=== PATIENT | male | born 1945 | race Caucasian/White ===

== ENCOUNTER → 2018-01-11 12:22 | Outpatient (CLI) | payer MEDICARE, SELFPAY ==
[2018-01-11 12:42] LABS: Absolute Lymphocyte Count 0.64 X10^3/ul (0.83-4.51); Absolute Neutrophil Count 18.3 X10^3/uL (2.0-7.7); Basophil# 0.01 X10^3/uL; Eosinophil# 0.01 X10^3/uL; Hematocrit 44.2 % (40-54); Hemoglobin 14.8 g/dl (13.0-16.5); Lymphocyte # 0.64 X10^3/ul (4.0); Lymphocyte % 3.2 % (19-41); Mean Corp Hgb Conc 33.5 g/gl (32-36); Mean Corpuscular Volume 92.7 fL (80-94); Mean Platelet Vol. 9.5 fl (6.2-12.0); Monocyte# 1.08 X10^3/uL; Monocyte% 5.4 % (0-10); Neutrophil # 18.29 X10^3/uL (2.7-7.7); Neutrophil % 91.1 % (47-70); Platelet Count 237 K/mm3 (150-450); RBC Distribution Width CV 13.8 % (11.6-14.6); RBC Distribution Width SD 46.8 fl (35.1-43.9); Red Blood Count 4.77 M/mm3 (4.6-6.2); White Blood Count 20.1 K/mm3 (4.4-11.0)
[2018-01-11 12:43] LABS: POSITIVE COUNT NO; POSITIVE DIFFERENTIAL NO; POSITIVE MORPHOLOGY NO
[2018-01-11 14:42] LABS: Anion Gap 10 (5-15); BUN 14 mg/dL (7-18); BUN/Creat Ratio 11.9 RATIO (10-20); Calcium,Total 8.4 mg/dL (8.5-10.1); Chloride 104 mmol/L (98-107); Creatinine, Serum 1.18 mg/dL (0.70-1.30); EST Glomerular Filtration Rate 65 mL/min (>60); Est Glom Filt Rate - Afr Amer 78 mL/min (>60); Glucose 95 mg/dL (74-106); Potassium 3.8 mmol/L (3.5-5.1); Sodium Level 136 mmol/L (136-145)
[2018-01-11 14:48] LABS: BNP,B-Type NATRIURETIC PEPTIDE 83.1 pg/mL (0-100)
== END ==
PROVIDERS: Family Provider Nurse Practitioner; PCP Nurse Practitioner; Visit Provider Nurse Practitioner
DX: R60.0 Localized edema (principal)
CPT/HCPCS: 80048; 83880; 85025; 85379

== ENCOUNTER → 2018-01-11 12:35 | Outpatient (CLI) | payer MEDICARE, SELFPAY ==
--- NOTE | 2018-01-11 12:40 | VDLE_ITS ---
Reason For Study: LLE pain RIGHT LEFT CFV is compressible, spontaneous, phasic, GSV is normal. competent and demonstrates normal CFV is compressible, spontaneous, phasic, augmentation. competent, and demonstrates normal Procedure augmentation. Exam performed in department. FV is compressible, spontaneous, phasic, The study was technically difficult. competent and demonstrates normal A preliminary report was called and/or faxed augmentation. to Shena Angelitavickie @ 1:00 pm @ [phone]. POP V is compressible, spontaneous, phasic, competent and demonstrates normal augmentation. T/P Trunk is compressible. PTV is compressible. LT Per V appears normal, relied on color doppler, unable to visualize with compression. Interpretation Summary Deep veins of the left lower extremity are patent and compressible segmentally. There is no evidence of left lower extremity deep vein thrombosis. Valvular competence appears intact within the proximal deep venous system on the left . The left greater saphenous vein appears patent and compressible segmentally. Ordering Physician: Shena Roberts Referring Physician: Shena Roberts Performed By: Stephania Velasquez, KODYCS, RVT
== END ==
PROVIDERS: Family Provider Nurse Practitioner; PCP Nurse Practitioner; Visit Provider Nurse Practitioner
DX: R60.0 Localized edema (principal)
CPT/HCPCS: 93971

== ENCOUNTER 2018-01-11 23:12 | Inpatient (IN) | payer MEDICARE, SELFPAY ==
[2018-01-11 16:31] VITALS: BP 128/69; PULSE 101; RESP 18; TEMP 37.7; O2SAT 93; BMI 34.7
[2018-01-11 23:25] VITALS: BP 131/68; PULSE 88; RESP 18; TEMP 36.7; O2SAT 95
--- NOTE | 2018-01-12 00:57 | ED.RN ---
see patient down time charting from [id number]
[2018-01-12 01:14] LABS: Anion Gap 11 (5-15); BUN 16 mg/dL (7-18); BUN/Creat Ratio 12.9 RATIO (10-20); Calcium,Total 8.4 mg/dL (8.5-10.1); Chloride 101 mmol/L (98-107); Creatinine, Serum 1.24 mg/dL (0.70-1.30); EST Glomerular Filtration Rate 61 mL/min (>60); Est Glom Filt Rate - Afr Amer 74 mL/min (>60); Estimated Creatinine Clearance 60.84 ml/min; Glucose 93 mg/dL (74-106); Potassium 3.7 mmol/L (3.5-5.1); Sodium Level 136 mmol/L (136-145)
[2018-01-12 01:17] LABS: Differential Indicated SCAN CRITERIA MET; Hematocrit 42.8 % (40-54); Hemoglobin 14.2 g/dl (13.0-16.5); Mean Corp Hgb Conc 33.2 g/gl (32-36); Mean Corpuscular Hgb 30.9 pg (27.0-32.0); Mean Platelet Vol. 9.6 fl (6.2-12.0); Monocyte% 4.6 % (0-10); POSITIVE COUNT NO; POSITIVE DIFFERENTIAL YES; POSITIVE MORPHOLOGY NO; Platelet Count 226 K/mm3 (150-450); RBC Distribution Width CV 14.2 % (11.6-14.6); RBC Distribution Width SD 47.9 fl (35.1-43.9); White Blood Count 24.4 K/mm3 (4.4-11.0)
[2018-01-12 01:18] LABS: Absolute Lymphocyte Count 0.98 X10^3/ul (0.83-4.51); Absolute Neutrophil Count 22.2 X10^3/uL (2.0-7.7); Basophil# 0.01 X10^3/uL; Lymphocyte # 0.98 X10^3/ul (4.0); Monocyte# 1.13 X10^3/uL; Neutrophil # 22.15 X10^3/uL (2.7-7.7)
[2018-01-12 01:19] LABS: Erythrocyte Sedimentation Rate 19 mm/hr (0-20)
--- NOTE | 2018-01-12 02:14 | ED.DCSUM_ITS ---
- ER Visit Summary Date of Service: 01/12/18 Chief Complaint: Left lower extremity cellulitis History of Present Illness: The patient is a 72 M presents after PCP office called sending the patient here to the ED. States some have slight left lower extremity redness yesterday. States that after wearing compression stockings. States he came to the ED, however due to it being present he left and follow-up with his PCP office today. States he is given antibiotic injection, had outpatient labs and ultrasound study of the leg. Reported ultrasound of the left leg was negative for DVT. Unclear on what prescription for antibiotics was given was given 2 doses. Reported white count was 20. He is not a diabetic. Denies fever. Denies similar symptoms in the past. Physical Examination: General: Alert and oriented ?3, no acute distress HEENT: Normocephalic, atraumatic. Moist mucosa membranes Neck: supple, nontender. Cardiovascular: Regular rate and rhythm, no murmurs Respiratory: Normal breath sounds, symmetric, no distress Abdomen: Soft, nontender, nondistended Extremities: left lower extremity: Asymmetric swelling of the calf appears nontender. There is circumferential erythema distal leg with anterior erythema up to the mid tibia. There is small scabs distal third of the tibia with no active drainage. Pulses intact distally. Neuro: no focal neurological deficits. Test Results: WBC 25. Creatinine 1.24. Blood cultures ?2. Emergency Department Course and Treatment: Patient failing outpatient therapy. Temp of 99.9 in the ED. blood culture ?2 given. He was started on Zosyn and vancomycin. Initially patient states he was not going to stay in the ED and just wanted treatment to go home and take care of his spouse. Therefore I did speak with covering PCP, Dr. Stevens, agrees with the current plan with labs and antibiotics with close outpatient follow-up and return if worsening symptoms. However, labs return white count 24, elevated from previous. In addition and increasing erythema past the initial line marked for my evaluation. Encouraged patient to stay due to worsening symptoms. He did manage to arrange care for his mother with his son. Spoke with Dr. Hall for admission. Does meet sepsis criteria however is not toxic. Treatment Plan: [] Disposition: Admission Impression: 1. Left lower extremity cellulitis 2. Sepsis This note was generated with [employer] software. It may contain incorrect words, spelling, and punctuation that were not noted in review of the chart prior to signing ED Disposition - Plan for ED Patient: Disposition: Acute Care Hospital [facility] Chief Complaint: Cellulitis Diagnosis: Left leg cellulitis, Sepsis Referrals: Shena Roberts [Primary Care Provider] -
--- NOTE | 2018-01-12 04:35 | PCM.RX.CS ---
Consult Pharmacy has been consulted to manage selected antiobiotic: Vancomycin Type of Consult: New start Suspected Infection: Skin/Soft tissue Prior Doses of Antibiotics Received/Current Regimen: Medications Vancomycin HCl (Vancomycin) 1,000 mg in 200 mls @ 200 mls/hr IV Q12H TORI Previous medications Vancomycin HCl 1,500 mg in 500 mls IV x1 given ED 01/11/18 @2030 Weight used for dosin.9 kg Estimated Creatinine Clearance: 79 Goal Trough: 10-15 mcg/mL Pharmacy Plan for Drug Dosing: Pharmacy Service will continue to monitor and adjust dosing as required. Follow-Up Labs: Trough Vancomycin Labs to be done on [date and time ordered]: 01/13/18 @1361
[2018-01-12 05:20] VITALS: BMI 35.0
[2018-01-12 05:24] VITALS: BMI 35.0
[2018-01-12 05:25] VITALS: BP 109/69; PULSE 123; RESP 16; TEMP 37.6; O2SAT 94
[2018-01-12] MEDS: Heparin Injection (Vial) 5,000 UNIT/ML VIAL 5000 UNIT SC ×3 (05:32→22:40)
[2018-01-12] MEDS: Piperacil/Tazobactam 3.375 GM Q8 PREMIX IV (05:32)
[2018-01-12] MEDS: Morphine 2 MG/ML Syringe IV (06:26)
[2018-01-12 07:12] LABS: Absolute Lymphocyte Count 0.95 X10^3/ul (0.83-4.51); Absolute Neutrophil Count 18.7 X10^3/uL (2.0-7.7); Basophil# 0.02 X10^3/uL; Basophil% 0.1 % (0-1); Eosinophil# 0.01 X10^3/uL; Hematocrit 41.8 % (40-54); Hemoglobin 13.7 g/dl (13.0-16.5); Lymphocyte # 0.95 X10^3/ul (4.0); Lymphocyte % 4.6 % (19-41); Mean Corp Hgb Conc 32.8 g/gl (32-36); Mean Corpuscular Hgb 30.5 pg (27.0-32.0); Mean Corpuscular Volume 93.1 fL (80-94); Mean Platelet Vol. 9.1 fl (6.2-12.0); Monocyte# 0.99 X10^3/uL; Monocyte% 4.8 % (0-10); Neutrophil # 18.72 X10^3/uL (2.7-7.7); Neutrophil % 90.2 % (47-70); Platelet Count 186 K/mm3 (150-450); RBC Distribution Width CV 14.3 % (11.6-14.6); RBC Distribution Width SD 48.2 fl (35.1-43.9); Red Blood Count 4.49 M/mm3 (4.6-6.2); White Blood Count 20.8 K/mm3 (4.4-11.0)
[2018-01-12 07:13] LABS: POSITIVE COUNT NO; POSITIVE DIFFERENTIAL NO; POSITIVE MORPHOLOGY NO
[2018-01-12] MEDS: 0.9% NaCl Peripheral Flush Adult/Peds IV (07:26)
[2018-01-12] MEDS: 0.9% NaCl IVPB Med Flush (250 mL) 15 ML IV (07:26)
[2018-01-12 07:28] LABS: Anion Gap 9 (5-15); BUN 15 mg/dL (7-18); Calcium,Total 8.2 mg/dL (8.5-10.1); Chloride 104 mmol/L (98-107); EST Glomerular Filtration Rate 79 mL/min (>60); Est Glom Filt Rate - Afr Amer 95 mL/min (>60); Estimated Creatinine Clearance 75.44 ml/min; Glucose 110 mg/dL (74-106); Potassium 3.4 mmol/L (3.5-5.1); Sodium Level 137 mmol/L (136-145)
[2018-01-12 08:30] VITALS: BP 108/61; PULSE 73; RESP 18; TEMP 37.2; O2SAT 95
[2018-01-12] MEDS: Gabapentin 300 MG Capsule PO ×2 (08:30→16:56)
[2018-01-12] MEDS: amLODIPine 2.5 MG Tablet PO (08:30)
[2018-01-12] MEDS: Aspirin 81 MG TAB.CHEW PO (08:30)
--- NOTE | 2018-01-12 08:57 | PN_ITS ---
Subjective: Chief complaint: Follow-up after admission for acute cellulitis of the left lower extremity. Patient seen and examined. No acute events overnight. He is still complaining of left leg pain, worsening upon standing. Denies fever chills. Vital signs are stable. - Physical Exam General: Alert, Oriented x3, Cooperative, No apparent distress HEENT: Atraumatic, PERRLA, EOMI Oral: Moist Mucosa, No Gingival or Mucosal Lesions/ Ulcerations Neck: Supple, No JVD, Negative Carotid Bruits, Trachea Midline, Thyroid Normal Size and Texture Lungs: Clear to auscultation, No rhonchi, No wheeze, Diminished Cardiovascular: Regular rate, Regular Rhythm, Normal S1, Normal S2 Abdomen: Bowel Sounds Present, Soft, Non Tender, Non-Distended, No Hepato- splenomegaly Extremities: No clubbing, No cyanosis, No edema Skin: No rashes, No breakdown Lymphatic: No Cervical, Supraclavicular, or Inguinal Adenopathy Neurological: Cranial nerves II-XII grossly intact, Motor Exam 5/5 strength throughout Psych/Mental Status: Normal Affect, Appropriate, Alert and oriented to time, place, person, mood and affect Vital Signs Temp Pulse Resp BP Pulse Ox 98.9 F 73 18 108/61 95 01/12/18 08:30 01/12/18 08:30 01/12/18 08:30 01/12/18 08:30 01/12/18 08:30 Oxygen Delivery Method Room Air Weight: 261 lb 14.546 oz Body Mass Index (BMI) 35.0 Intake and Output for Last 24 Hours 01/10/18 01/11/18 01/12/18 23:59 23:59 23:59 Intake Total 635 / 635 Balance 635 / 635 Laboratory Tests Past 24 Hrs 01/12/18 01/12/18 06:41 06:41 WBC 20.8 H RBC 4.49 L Hgb 13.7 Hct 41.8 MCV 93.1 MCH 30.5 MCHC 32.8 RDW 14.3 RDW Differential 48.2 H Plt Count 186 MPV 9.1 Immature Gran % (Auto) 0.300 Neut % (Auto) 90.2 H Lymph % (Auto) 4.6 L [place] % (Auto) 4.8 Eos % (Auto) 0.0 Baso % (Auto) 0.1 Absolute Neuts (auto) 18.7 H Absolute Lymphs (auto) 0.95 Total Counted Not Reportable Sodium 137 Potassium 3.4 L Chloride 104 Carbon Dioxide 24.0 Anion Gap 9 BUN 15 Creatinine 1.00 Estim Creat Clear Calc 75.44 Est GFR (MDRD) Af Amer 95 Est GFR (MDRD) Non-Af 79 BUN/Creatinine Ratio 15.0 Glucose 110 H Calcium 8.2 L Medical Necessity - Tobacco Use Smoking Status: Former smoker Tobacco Use: Pipe Assessment/Plan This is a 72 years old male patient presented to the emergency room because of right leg pain, swelling and erythema and he was found to have acute cellulitis of the left lower extremity. #1 acute left lower extremity cellulitis: He is on IV vancomycin and Zosyn. He still complaining of left leg pain. Denies fever chills. He does have leukocytosis. No evidence of sepsis or severe sepsis. patient had venous Doppler of the left lower extremity that revealed no evidence of acute DVT, report reviewed. He is on IV morphine for pain. Patient is not diabetic and no risk for MRSA. Plan: DC IV vancomycin and Zosyn, start IV Unasyn, repeat CBC and BMP tomorrow morning, MRSA screening, start OxyIR p.o. as needed for pain. #2 hypokalemia: Mild, potassium of 3.4. Order given to give K Dur 40 mEq p.o. ? 1, plan to repeat BMP tomorrow morning. #3 hyperlipidemia: Continue statins. #4 hypertension: Blood pressure stable, continue Norvasc, metoprolol and aspirin. #5 DVT prophylaxis: Subcu heparin. This note was generated with [employer] dictation software. It may contain incorrect words, spelling, and punctuation that were not noted in checking the note before signing. Code Visit Inpatient E&M: 61016 Subs Hosp L2
--- NOTE | 2018-01-12 11:10 | CASEMGMT ---
Face to Face with patient for initial transition planning/care coordination assessment. VINICIO LEONG introduced self and role at [facility], pt voices understanding and consents to assessment at this time. Pt is sitting up in bed in no distress at this time. Pt A/O x4 at this time and answers all questions appropriately at this time. Care providers, pharmacy, and demographics verified. See attached link. Pt voices no further concerns/needs at this time. Advised pt to ask for CM if any further questions/concerns/needs arise, voices understanding. PLAN: [place] VINICIO LEONG
[2018-01-12] MEDS: 0.9% Normal Saline 1,000 ML 100 ML IV (11:21)
[2018-01-12 11:36] LABS: M R Staph aureus DNA By PCR Negative (Negative); Probe Check PASS; Specimen Processing Control PASS
[2018-01-12 14:30] VITALS: BP 110/57; PULSE 98; RESP 18; TEMP 37.7; O2SAT 95
[2018-01-12 22:28] VITALS: BP 117/67; PULSE 136; RESP 18; TEMP 37.8; O2SAT 96
--- NOTE | 2018-01-12 22:33 | NURSING ---
CPS NOTIFIED FOR STAT EKG PER PRIMARY RN PT IRREGULAR AND TACHY IN 130'S PT ASYMPTOMATIC, RESTING IN BED. PT REPORTS HE GETS THIS AT TIMES AND HE TAKES PRN METOPROLOL AT HOME (ON HOME MED LIST) WILL NOTIFY DR
[2018-01-12 22:53] VITALS: PULSE 135
--- NOTE | 2018-01-12 23:02 | EKG12_ITS ---
Test Reason : AFIB Blood Pressure : / mmHG Vent. Rate : 138 BPM Atrial Rate : 127 BPM P-R Int : 000 ms QRS Dur : 086 ms QT Int : 296 ms P-R-T Axes : 000 006 144 degrees QTc Int : 448 ms Atrial fibrillation Nonspecific ST and T wave abnormality , probably digitalis effect Abnormal ECG Confirmed by YASIR COLVIN, ALLISON ([id number]), material expeditor DUSTIN CONNELLY ([id number]) on 01/25/2018 3:56:53 PM Referred By: DR MACKEY Confirmed By:ALLISON COOLEY MD
--- NOTE | 2018-01-12 23:03 | NURSING ---
UPDATED DR MACKEY ON STAT EKG SEE PHYSICIAN NOTIFICATION. TRANSFER TO PCU 103. NURSING SUPV AWARE AND GAVE ROOM ASSIGNMENT TO THIS RN. PRIMARY RN AWARE. PT AWARE
[2018-01-12 23:14] VITALS: BP 117/67; PULSE 138
[2018-01-12] MEDS: Metoprolol Tartrate 25 MG Tablet PO (23:14)
[2018-01-12] MEDS: Acetaminophen 325 MG Tablet 650 MG PO (23:14)
[2018-01-12] MEDS: Atorvastatin Calcium 10 MG Tablet PO (23:15)
--- NOTE | 2018-01-12 23:35 | NURSING ---
REPORT GIVEN TO HOLLY CHARGE NURSE ON PCU
[2018-01-13] VITALS (37 sets, daily range): BP systolic 100–130; BP diastolic 50–92; PULSE 83–179; RESP 18–24; TEMP 36.6–37.5; O2SAT 93–120
[2018-01-13] MEDS: oxyCODONE 5 MG Tablet PO (00:32)
--- NOTE | 2018-01-13 00:46 | NURSING ---
Addendum entered by Marsha Metcalf 01/13/18 02:19: time should be 01/12/18 9000 Original Note: Transported patient via bed to PCU 103, reported to Clarice CHIEF CONSTRUCTION INSPECTOR that patient did not get the oxyir as stated in report.
[2018-01-13] MEDS: Heparin Injection (Vial) 5,000 UNIT/ML VIAL 5000 UNIT SC (05:53)
[2018-01-13] MEDS: 0.9% NaCl Peripheral Flush Adult/Peds IV ×2 (05:58→09:36)
[2018-01-13 07:02] LABS: Absolute Lymphocyte Count 1.05 X10^3/ul (0.83-4.51); Absolute Neutrophil Count 12.2 X10^3/uL (2.0-7.7); Basophil# 0.01 X10^3/uL; Basophil% 0.1 % (0-1); Eosinophil# 0.08 X10^3/uL; Eosinophils% 0.6 % (0-5); Hematocrit 39.6 % (40-54); Hemoglobin 12.9 g/dl (13.0-16.5); Lymphocyte # 1.05 X10^3/ul (4.0); Lymphocyte % 7.3 % (19-41); Mean Corp Hgb Conc 32.6 g/gl (32-36); Mean Corpuscular Hgb 30.9 pg (27.0-32.0); Mean Corpuscular Volume 94.7 fL (80-94); Monocyte# 0.97 X10^3/uL; Monocyte% 6.7 % (0-10); Neutrophil # 12.22 X10^3/uL (2.7-7.7); Platelet Count 192 K/mm3 (150-450); RBC Distribution Width CV 14.2 % (11.6-14.6); RBC Distribution Width SD 47.7 fl (35.1-43.9); Red Blood Count 4.18 M/mm3 (4.6-6.2); White Blood Count 14.4 K/mm3 (4.4-11.0)
[2018-01-13 07:13] LABS: POSITIVE COUNT NO; POSITIVE DIFFERENTIAL NO; POSITIVE MORPHOLOGY NO
[2018-01-13 07:47] LABS: Anion Gap 9 (5-15); BUN 13 mg/dL (7-18); BUN/Creat Ratio 14.4 RATIO (10-20); Calcium,Total 8.1 mg/dL (8.5-10.1); Chloride 107 mmol/L (98-107); EST Glomerular Filtration Rate 88 mL/min (>60); Est Glom Filt Rate - Afr Amer 106 mL/min (>60); Estimated Creatinine Clearance 83.83 ml/min; Glucose 94 mg/dL (74-106); Potassium 3.8 mmol/L (3.5-5.1); Sodium Level 140 mmol/L (136-145)
--- NOTE | 2018-01-13 08:08 | EKG12_ITS ---
Test Reason : DYSRHYTHMIA Blood Pressure : / mmHG Vent. Rate : 119 BPM Atrial Rate : 066 BPM P-R Int : 000 ms QRS Dur : 086 ms QT Int : 318 ms P-R-T Axes : 000 005 121 degrees QTc Int : 447 ms Atrial fibrillation Abnormal ECG Confirmed by THEO COLVIN, ALEKSANDR ([id number]), staff editor DUSTIN CONNELLY ([id number]) on 01/17/2018 1:46:52 PM Referred By: NIGEL Confirmed By:ALEKSANDR VENEGAS MD
--- NOTE | 2018-01-13 08:27 | ECHOD_ITS ---
Reason For Study: AFIB Procedure This was a 2D Doppler, Color Flow transthoracic echocardiogram. Exam performed portable in patient room. Left Ventricle Normal LV size. Left ventricular systolic function is normal. The estimated ejection fraction is 60 %. Unable to assess diastolic dysfunction. No regional wall motion abnormalities noted. Right Ventricle Normal RV size. Normal systolic function. Atria The left atrium is mildly enlarged. Normal right atrium. Mitral Valve Normal mitral valve. Tricuspid Valve Normal tricuspid valve. Mild to moderate (1-2+) tricuspid valve insufficiency. Pulmonary artery systolic pressure is 28 mmHg. Aortic Valve The aortic valve is not well visualized. Pulmonic Valve The pulmonic valve is not well visualized. Great Vessels Normal aortic root. The pulmonary artery is normal size. Normal inferior vena cava. Pericardium/Pleural No pericardial effusion. Medication Diluted definity 5ml given slow IV push to enhance endocardial definition. MMode/2D Measurements & Calculations LVIDd: 4.6 cm IVSd: 1.1 cm Ao root diam: 3.2 cm LVIDs: 3.3 cm LVPWd: 1.1 cm RVDd: 4.1 cm FS: 28.2 % LAV(MOD-bp): 66.9 ml EDV(MOD-sp4): 76.7 ml EDV(MOD-sp2): 94.1 ml LAV(MOD-bp) Indexed: 28.0 ml/m2 ESV(MOD-sp4): 30.2 ml EF(MOD-sp2): 63.9 % LAV(MOD-sp2): 73.8 ml EF(MOD-sp4): 60.6 % LAV(MOD-sp4): 56.5 ml SV(MOD-sp4): 46.5 ml SV(MOD-sp2): 60.2 ml LA A4 area: 22.0 cm2 RA A4 area: 16.7 cm2 Doppler Measurements & Calculations MV E max marcin: 116.2 cm/sec Ao V2 max: 157.5 cm/sec LV V1 max: 96.9 cm/sec Ao max P.0 mmHg LV V1 max P.8 mmHg TR max marcin: 258.6 cm/sec TR max P.8 mmHg Interpretation Summary Normal LV size. Left ventricular systolic function is normal. The estimated ejection fraction is 60 %. Unable to assess diastolic dysfunction. Mild to moderate (1-2+) tricuspid valve insufficiency. Pulmonary artery systolic pressure is 28 mmHg. Ordering Physician: Mazin aJquez Referring Physician: Shena Roberts Performed By: Susan Walden, RDCS, RVT
--- NOTE | 2018-01-13 08:31 | PCM.PROGNOTE ---
Subjective: Chief complaint: Follow-up after admission for acute left lower extremity cellulitis. Overnight, he developed A. fib with RVR and was transferred to PCU. Patient seen and examined. No acute events overnight. He mentioned that last night he felt that his heart is beating fast, palpitation and he was slight shortness of breath. He denied chest pain, dizziness or lightheadedness. He did mention that long time ago, he was told that his heart was beating fast, was in the 300s and he was given IV medication that took care of the problem. Apparently, he may have SVT at that time. More recently, he has been having issues with palpitation and racing heart for which his doctor asked him to take metoprolol as needed. There is no official diagnosis of atrial fibrillation or flutter. Still complaining of left leg pain and swelling, erythema is coming down, improving. At this time, his heart rate still in the 130s, blood pressure stable, afebrile, pulse ox is maintained on room air. - Physical Exam General: Alert, Oriented x3, Cooperative, No apparent distress HEENT: Atraumatic, PERRLA, EOMI Oral: Moist Mucosa, No Gingival or Mucosal Lesions/ Ulcerations Neck: Supple, No JVD, Negative Carotid Bruits, Trachea Midline, Thyroid Normal Size and Texture Lungs: Clear to auscultation, No rhonchi, No wheeze, No rales, Diminished Cardiovascular: Normal S1, Normal S2, No murmurs, PMI Normal, Irregular Rate, Tachycardic Abdomen: Bowel Sounds Present, Soft, Non Tender, Non-Distended, No Hepato-splenomegaly, Obese Extremities: No clubbing, No cyanosis, No edema, - - Left leg: Erythema, swelling and hot to palpation, trace edema. Skin: No rashes, No breakdown Lymphatic: No Cervical, Supraclavicular, or Inguinal Adenopathy Neurological: Cranial nerves II-XII grossly intact, Neuro grossly intact Psych/Mental Status: Normal Affect, Appropriate, Alert and oriented to time, place, person, mood and affect Vital Signs Temp Pulse Resp BP Pulse Ox 97.8 F 103 H 20 H 125/75 H 100 01/13/18 06:03 01/13/18 06:55 01/13/18 06:03 01/13/18 06:03 04/22/18 06:03 Oxygen Delivery Method Room Air Weight: 261 lb 14.546 oz Body Mass Index (BMI) 35.0 Intake and Output for Last 24 Hours 01/11/18 01/12/18 01/13/18 23:59 23:59 23:59 Intake Total 3378 / 3378 Output Total 300 / 300 300 / 300 Balance 3078 / 3078 -300 / -300 Laboratory Tests Past 24 Hrs 01/12/18 01/12/18 01/13/18 09:55 23:18 02:50 WBC RBC Hgb Hct MCV MCH MCHC RDW RDW Differential Plt Count MPV Immature Gran % (Auto) Neut % (Auto) Lymph % (Auto) [place] % (Auto) Eos % (Auto) Baso % (Auto) Absolute Neuts (auto) Absolute Lymphs (auto) Total Counted Sodium Potassium Chloride Carbon Dioxide Anion Gap BUN Creatinine Estim Creat Clear Calc Est GFR (MDRD) Af Amer Est GFR (MDRD) Non-Af BUN/Creatinine Ratio Glucose Calcium Troponin I < 0.02 < 0.02 MRSA (PCR) Negative 01/13/18 01/13/18 01/13/18 06:47 06:47 06:47 WBC 14.4 H RBC 4.18 L Hgb 12.9 L Hct 39.6 L MCV 94.7 H MCH 30.9 MCHC 32.6 RDW 14.2 RDW Differential 47.7 H Plt Count 192 MPV 9.0 Immature Gran % (Auto) 0.300 Neut % (Auto) 85.0 H Lymph % (Auto) 7.3 L [place] % (Auto) 6.7 Eos % (Auto) 0.6 Baso % (Auto) 0.1 Absolute Neuts (auto) 12.2 H Absolute Lymphs (auto) 1.05 Total Counted Not Reportable Sodium 140 Potassium 3.8 Chloride 107 Carbon Dioxide 24.0 Anion Gap 9 BUN 13 Creatinine 0.90 Estim Creat Clear Calc 83.83 Est GFR (MDRD) Af Amer 106 Est GFR (MDRD) Non-Af 88 BUN/Creatinine Ratio 14.4 Glucose 94 Calcium 8.1 L Troponin I < 0.02 MRSA (PCR) Medical Necessity - Tobacco Use Smoking Status: Former smoker Tobacco Use: Pipe Assessment/Plan This is a 72 years old male patient presented to the emergency room because of right leg pain, swelling and erythema and he was found to have acute cellulitis of the left lower extremity. Overnight, he developed A. fib with RVR and was transferred to PCU. #1 acute left lower extremity cellulitis: He is on IV Unasyn. He still complaining of left leg pain. He had a spike of fever yesterday but not last night. White blood cell count is down to 14,000. He went into A. fib with RVR. Blood pressure stable. patient had venous Doppler of the left lower extremity that revealed no evidence of acute DVT, report reviewed. Plan: Continue same treatment. #2 A. fib with RVR: Overnight, heart rate went up to 180s. EKG revealed A. fib with RVR. This morning, heart rate has been fluctuating and jumping from 100 up to 130. Blood pressure stable. Patient is asymptomatic. He mentioned that he had a history of fast heart beats long time ago for which he received IV medication and took care of it. This was back in [id number]. More recently, he has been having issues with palpitation and racing heart for which her doctor asked him to take metoprolol as needed. He is on metoprolol p.o. Plan: EKG, 2D echocardiogram, cardiology consult, check TSH and serum magnesium, start IV Cardizem drip, start therapeutic Lovenox twice daily. His [id number] score for stroke risk is 2 based on his age and history of hypertension and he is at moderate to high risk for stroke and should be anticoagulated. #3 hypokalemia: Replaced and corrected, today's potassium is 3.8. #4 hyperlipidemia: Continue statins. #5 hypertension: Blood pressure stable, continue Norvasc, metoprolol and aspirin. #6 DVT prophylaxis: Subcu heparin. This note was generated with [employer] dictation software. It may contain incorrect words, spelling, and punctuation that were not noted in checking the note before signing. Code Visit Inpatient E&M: 53782 [facility] Hosp L3
--- NOTE | 2018-01-13 08:34 | PN_ITS ---
Subjective: Chief complaint: Follow-up after admission for acute left lower extremity cellulitis. Overnight, he developed A. fib with RVR and was transferred to PCU. Patient seen and examined. No acute events overnight. He mentioned that last night he felt that his heart is beating fast, palpitation and he was slight shortness of breath. He denied chest pain, dizziness or lightheadedness. He did mention that long time ago, he was told that his heart was beating fast, was in the 300s and he was given IV medication that took care of the problem. Apparently, he may have SVT at that time. More recently, he has been having issues with palpitation and racing heart for which his doctor asked him to take metoprolol as needed. There is no official diagnosis of atrial fibrillation or flutter. Still complaining of left leg pain and swelling, erythema is coming down, improving. At this time, his heart rate still in the 130s, blood pressure stable, afebrile, pulse ox is maintained on room air. - Physical Exam General: Alert, Oriented x3, Cooperative, No apparent distress HEENT: Atraumatic, PERRLA, EOMI Oral: Moist Mucosa, No Gingival or Mucosal Lesions/ Ulcerations Neck: Supple, No JVD, Negative Carotid Bruits, Trachea Midline, Thyroid Normal Size and Texture Lungs: Clear to auscultation, No rhonchi, No wheeze, No rales, Diminished Cardiovascular: Normal S1, Normal S2, No murmurs, PMI Normal, Irregular Rate, Tachycardic Abdomen: Bowel Sounds Present, Soft, Non Tender, Non-Distended, No Hepato- splenomegaly, Obese Extremities: No clubbing, No cyanosis, No edema, - - Left leg: Erythema, swelling and hot to palpation, trace edema. Skin: No rashes, No breakdown Lymphatic: No Cervical, Supraclavicular, or Inguinal Adenopathy Neurological: Cranial nerves II-XII grossly intact, Neuro grossly intact Psych/Mental Status: Normal Affect, Appropriate, Alert and oriented to time, place, person, mood and affect Vital Signs Temp Pulse Resp BP Pulse Ox 97.8 F 103 H 20 H 125/75 H 100 01/13/18 06:03 01/13/18 06:55 01/13/18 06:03 01/13/18 06:03 04/22/18 06:03 Oxygen Delivery Method Room Air Weight: 261 lb 14.546 oz Body Mass Index (BMI) 35.0 Intake and Output for Last 24 Hours 01/11/18 01/12/18 01/13/18 23:59 23:59 23:59 Intake Total 3378 / 3378 Output Total 300 / 300 300 / 300 Balance 3078 / 3078 -300 / -300 Laboratory Tests Past 24 Hrs 01/12/18 01/12/18 01/13/18 09:55 23:18 02:50 WBC RBC Hgb Hct MCV MCH MCHC RDW RDW Differential Plt Count MPV Immature Gran % (Auto) Neut % (Auto) Lymph % (Auto) [place] % (Auto) Eos % (Auto) Baso % (Auto) Absolute Neuts (auto) Absolute Lymphs (auto) Total Counted Sodium Potassium Chloride Carbon Dioxide Anion Gap BUN Creatinine Estim Creat Clear Calc Est GFR (MDRD) Af Amer Est GFR (MDRD) Non-Af BUN/Creatinine Ratio Glucose Calcium Troponin I < 0.02 < 0.02 MRSA (PCR) Negative 01/13/18 01/13/18 01/13/18 06:47 06:47 06:47 WBC 14.4 H RBC 4.18 L Hgb 12.9 L Hct 39.6 L MCV 94.7 H MCH 30.9 MCHC 32.6 RDW 14.2 RDW Differential 47.7 H Plt Count 192 MPV 9.0 Immature Gran % (Auto) 0.300 Neut % (Auto) 85.0 H Lymph % (Auto) 7.3 L [place] % (Auto) 6.7 Eos % (Auto) 0.6 Baso % (Auto) 0.1 Absolute Neuts (auto) 12.2 H Absolute Lymphs (auto) 1.05 Total Counted Not Reportable Sodium 140 Potassium 3.8 Chloride 107 Carbon Dioxide 24.0 Anion Gap 9 BUN 13 Creatinine 0.90 Estim Creat Clear Calc 83.83 Est GFR (MDRD) Af Amer 106 Est GFR (MDRD) Non-Af 88 BUN/Creatinine Ratio 14.4 Glucose 94 Calcium 8.1 L Troponin I < 0.02 MRSA (PCR) Medical Necessity - Tobacco Use Smoking Status: Former smoker Tobacco Use: Pipe Assessment/Plan This is a 72 years old male patient presented to the emergency room because of right leg pain, swelling and erythema and he was found to have acute cellulitis of the left lower extremity. Overnight, he developed A. fib with RVR and was transferred to PCU. #1 acute left lower extremity cellulitis: He is on IV Unasyn. He still complaining of left leg pain. He had a spike of fever yesterday but not last night. White blood cell count is down to 14,000. He went into A. fib with RVR. Blood pressure stable. patient had venous Doppler of the left lower extremity that revealed no evidence of acute DVT, report reviewed. Plan: Continue same treatment. #2 A. fib with RVR: Overnight, heart rate went up to 180s. EKG revealed A. fib with RVR. This morning, heart rate has been fluctuating and jumping from 100 up to 130. Blood pressure stable. Patient is asymptomatic. He mentioned that he had a history of fast heart beats long time ago for which he received IV medication and took care of it. This was back in [id number]. More recently, he has been having issues with palpitation and racing heart for which her doctor asked him to take metoprolol as needed. He is on metoprolol p.o. Plan: EKG, 2D echocardiogram, cardiology consult, check TSH and serum magnesium, start IV Cardizem drip, start therapeutic Lovenox twice daily. His [id number] score for stroke risk is 2 based on his age and history of hypertension and he is at moderate to high risk for stroke and should be anticoagulated. #3 hypokalemia: Replaced and corrected, today's potassium is 3.8. #4 hyperlipidemia: Continue statins. #5 hypertension: Blood pressure stable, continue Norvasc, metoprolol and aspirin. #6 DVT prophylaxis: Subcu heparin. This note was generated with [employer] dictation software. It may contain incorrect words, spelling, and punctuation that were not noted in checking the note before signing. Code Visit Inpatient E&M: 29219 [facility] Hosp L3
[2018-01-13] MEDS: Aspirin 81 MG TAB.CHEW PO (08:44)
[2018-01-13] MEDS: Gabapentin 300 MG Capsule PO ×2 (08:44→17:15)
[2018-01-13 09:00] LABS: Magnesium 1.9 mg/dL (1.6-2.6); Thyroid Stim Hormone (TSH) 2.95 uIU/mL (0.358-3.74)
--- NOTE | 2018-01-13 10:38 | PCM.CONS.C ---
Problem List (1) Atrial fibrillation Status: Acute (2) Hypertension Status: Chronic Qualifiers: Hypertension type: essential hypertension Qualified Code(s): I10 - Essential (primary) hypertension (3) Hyperlipidemia Status: Chronic Qualifiers: Hyperlipidemia type: unspecified Qualified Code(s): E78.5 - Hyperlipidemia, unspecified (4) Cellulitis of left leg Status: Acute Reason for Consult Date of Consultation: 01/13/18 History of Present Illness: The patient is a 72 year old white male with a past medical history of hypertension and hyperlipidemia and possible atrial fibrillation/flutter versus PSVT-remote who presents for evaluation of left lower extremity cellulitis and subsequently noted to develop atrial fibrillation with rapid ventricular response. The patient notes that many years ago he was evaluated by his PCP and at [facility] for concerns of a rapid heart rate of approximately 300 bpm. He states he was placed in the ICU and treated medically with IV medications. He notes his heart rate returned to normal. Since that time he has been treated with aspirin therapy as well as with as needed beta-mark therapy. He believes he underwent a remote transthoracic echocardiogram and exercise tolerance test both of which were reportedly unremarkable. He does not recall any other cardiovascular testing in the past. Most recently he has been complaining of left lower extremity edema, erythema, and tenderness. He was evaluated by his primary care physician. This included laboratory evaluation which demonstrated an elevated WBC of 20.1. He was referred to the [facility] ED for evaluation. His laboratory studies were reviewed. He was thought to have a left lower extremity cellulitis. He was subsequently placed in the hospital for further evaluation care. During his hospitalization he has developed atrial fibrillation with rapid ventricular response. He states he has not sensed a change in his heart rate or rhythm. He has not had any chest discomfort or difficulty breathing. He denies any history of near syncope or syncope. He states in the remote past following an arthroscopic procedure of his left knee he did have a DVT. He was treated with anticoagulant therapy. He denies any history of pulmonary embolism. He states as part of his recent evaluation he underwent repeat evaluation for DVT in the left lower extremity with a venous duplex study. According to his understanding the study was reported as negative. He has been placed in the PCU. He has had cardiac enzymes which have been negative. An outpatient BNP level was reported as negative. His ECG demonstrated atrial fibrillation with rapid ventricular response with nonspecific ST and T-wave change. He was placed on additional rate limiting therapy with IV diltiazem. He was also placed on anticoagulant therapy with subcutaneous Lovenox. He has remained in atrial fibrillation with an elevated heart rate. [] Past Medical History Allergies/Adverse Reactions: Allergies No Known Allergies Allergy (Verified 01/11/18 16:33) Home Medications: Ambulatory Orders Medication Instructions Recorded Aspirin [Aspirin, Baby] 81 mg PO DAILY@0800 05/03/14 Simvastatin [Simvastatin] 20 mg PO QHS 05/03/14 Gabapentin [Neurontin] 300 mg PO BID 01/12/18 Metoprolol Tartrate [Lopressor 50 mg PO Q2H PRN 01/12/18 (beta mark)] Past Medical History (Chronic Problems): Chronic Problems Hypertension (Chronic) Hyperlipidemia (Chronic) Surgical History: arthroscopy, knee - Left: Remote Smoking Status: Former smoker Tobacco Use: Pipe Alcohol: None Drugs: None Review of Systems - Review of Systems Cardiovascular: Reports: Peripheral Edema. Denies: Chest Discomfort, Shortness of Breath, Orthopnea, PND, Palpitations, Lightheadedness, Dizziness, Near Syncope, Syncope Respiratory: Denies: Cough, Sputum Production, Hemoptysis Gastrointestinal: Denies: Hematemesis, Hematochezia, Melena Genitourinary: Denies: Dysuria, Hematuria Skin: Denies: Rash Subjectve: This is a 72-year-old white male who appears to be resting comfortably at the moment in no acute distress. Objective: Vital Signs Temp Pulse Resp BP Pulse Ox 97.8 F 134 H 20 H 125/75 H 100 01/13/18 06:03 01/13/18 09:03 01/13/18 06:03 01/13/18 06:03 01/13/18 06:03 Oxygen Delivery Method Room Air Weight: 261 lb 14.546 oz Body Mass Index (BMI) 35.0 Intake and Output for Last 24 Hours 01/11/18 01/12/18 01/13/18 23:59 23:59 23:59 Intake Total 3378 / 3378 Output Total 300 / 300 300 / 300 Balance 3078 / 3078 -300 / -300 General: Awake, Alert, Oriented x 3, Cooperative, No Acute Distress Neck: No JVD Lungs: Clear to auscultation Cardiovascular: Irregular Rhythm, Normal S1, Normal S2 Vascular: No Carotid Bruits Abdomen: Bowel Sounds Present, Soft, Non Tender Extremities: Moderate LLE Edema Musculoskeletal: Erythema - LLE Neurological: No Focal Motor or Sensory Deficit, CN II-XII Intact 01/12/18 23:18: Troponin I < 0.02 01/13/18 02:50: Troponin I < 0.02 01/13/18 06:47: WBC 14.4 H, RBC 4.18 L, Hgb 12.9 L, Hct 39.6 L, MCV 94.7 H, MCH 30.9, MCHC 32.6, RDW 14.2, RDW Differential 47.7 H, Plt Count 192, MPV 9.0, Immature Gran % (Auto) 0.300, Neut % (Auto) 85.0 H, Lymph % (Auto) 7.3 L, [place] % (Auto) 6.7, Eos % (Auto) 0.6, Baso % (Auto) 0.1, Absolute Neuts (auto) 12.2 H, Total Counted Not Reportable 01/13/18 06:47: Sodium 140, Potassium 3.8, Chloride 107, Carbon Dioxide 24.0, Anion Gap 9, BUN 13, Creatinine 0.90, Est GFR (MDRD) Af Amer 106, Est GFR (MDRD) Non-Af 88, BUN/Creatinine Ratio 14.4, Glucose 94, Calcium 8.1 L 01/13/18 06:47: Troponin I < 0.02 01/13/18 06:47: Magnesium 1.9 Rhythm: Atrial fibrillation EKG: As noted above ECHO: Unavailable for review at this time Stress Test: Unavailable for review at this time Assessment/Plan 1. Atrial fibrillation with rapid ventricular response At the present time the patient remains in atrial fibrillation with an elevated heart rate. This is despite the aforementioned measures. The etiology of his atrial fibrillation may be multifactorial. This may be related to a combination of his age, history of hypertension, superimposed upon his underlying acute infectious disease related issue. His noninvasive evaluation has been negative thus far for evidence of an acute coronary syndrome. He is not felt to have evidence of an ongoing acute thromboembolic event. He will continue to be monitored. He will undergo follow-up evaluation with ECG, echocardiogram, and other studies as deemed appropriate. In the interim he will continue rate limiting therapy. It would not be unreasonable to attempt antiarrhythmic therapy such as IV amiodarone in attempt to regain sinus rhythm. He is on anticoagulant therapy as well. Also, he will continue evaluation care of his underlying infectious disease issue. 2. Hypertension The patient is on hypertensive therapy. This may need to be adjusted during his hospital course and depending upon what medications he requires for his other medical conditions, etc. 3. Hyperlipidemia He will continue lipid-lowering therapy as tolerated. 4. Cellulitis of the left lower extremity He will continue evaluation care which has included antibiotic therapy, etc. This note was generated with [employer] dictation software. It may contain incorrect words, spelling, and punctuation that were not noted in checking the note before signing.
[2018-01-13] MEDS: Metoprolol Tartrate 50 MG Tablet PO ×2 (10:48→21:33)
[2018-01-13] MEDS: amLODIPine 2.5 MG Tablet PO (10:49)
--- NOTE | 2018-01-13 10:49 | CON.PCM_ITS ---
Problem List (1) Atrial fibrillation Status: Acute (2) Hypertension Status: Chronic Qualifiers: Hypertension type: essential hypertension Qualified Code(s): I10 - Essential (primary) hypertension (3) Hyperlipidemia Status: Chronic Qualifiers: Hyperlipidemia type: unspecified Qualified Code(s): E78.5 - Hyperlipidemia , unspecified (4) Cellulitis of left leg Status: Acute Reason for Consult Date of Consultation: 01/13/18 History of Present Illness: The patient is a 72 year old white male with a past medical history of hypertension and hyperlipidemia and possible atrial fibrillation/flutter versus PSVT-remote who presents for evaluation of left lower extremity cellulitis and subsequently noted to develop atrial fibrillation with rapid ventricular response. The patient notes that many years ago he was evaluated by his PCP and at [facility] for concerns of a rapid heart rate of approximately 300 bpm. He states he was placed in the ICU and treated medically with IV medications. He notes his heart rate returned to normal. Since that time he has been treated with aspirin therapy as well as with as needed beta-mark therapy. He believes he underwent a remote transthoracic echocardiogram and exercise tolerance test both of which were reportedly unremarkable. He does not recall any other cardiovascular testing in the past. Most recently he has been complaining of left lower extremity edema, erythema, and tenderness. He was evaluated by his primary care physician. This included laboratory evaluation which demonstrated an elevated WBC of 20.1. He was referred to the [facility] ED for evaluation. His laboratory studies were reviewed. He was thought to have a left lower extremity cellulitis. He was subsequently placed in the hospital for further evaluation care. During his hospitalization he has developed atrial fibrillation with rapid ventricular response. He states he has not sensed a change in his heart rate or rhythm. He has not had any chest discomfort or difficulty breathing. He denies any history of near syncope or syncope. He states in the remote past following an arthroscopic procedure of his left knee he did have a DVT. He was treated with anticoagulant therapy. He denies any history of pulmonary embolism. He states as part of his recent evaluation he underwent repeat evaluation for DVT in the left lower extremity with a venous duplex study. According to his understanding the study was reported as negative. He has been placed in the PCU. He has had cardiac enzymes which have been negative. An outpatient BNP level was reported as negative. His ECG demonstrated atrial fibrillation with rapid ventricular response with nonspecific ST and T-wave change. He was placed on additional rate limiting therapy with IV diltiazem. He was also placed on anticoagulant therapy with subcutaneous Lovenox. He has remained in atrial fibrillation with an elevated heart rate. [] Past Medical History Allergies/Adverse Reactions: Allergies No Known Allergies Allergy (Verified 01/11/18 16:33) Home Medications: Ambulatory Orders Medication Instructions Recorded Aspirin [Aspirin, Baby] 81 mg PO DAILY@0800 05/03/14 Simvastatin [Simvastatin] 20 mg PO QHS 05/03/14 Gabapentin [Neurontin] 300 mg PO BID 01/12/18 Metoprolol Tartrate [Lopressor 50 mg PO Q2H PRN 01/12/18 (beta mark)] Past Medical History (Chronic Problems): Chronic Problems Hypertension (Chronic) Hyperlipidemia (Chronic) Surgical History: arthroscopy, knee - Left: Remote Smoking Status: Former smoker Tobacco Use: Pipe Alcohol: None Drugs: None Review of Systems - Review of Systems Cardiovascular: Reports: Peripheral Edema. Denies: Chest Discomfort, Shortness of Breath, Orthopnea, PND, Palpitations, Lightheadedness, Dizziness, Near Syncope, Syncope Respiratory: Denies: Cough, Sputum Production, Hemoptysis Gastrointestinal: Denies: Hematemesis, Hematochezia, Melena Genitourinary: Denies: Dysuria, Hematuria Skin: Denies: Rash Subjectve: This is a 72-year-old white male who appears to be resting comfortably at the moment in no acute distress. Objective: Vital Signs Temp Pulse Resp BP Pulse Ox 97.8 F 134 H 20 H 125/75 H 100 01/13/18 06:03 01/13/18 09:03 01/13/18 06:03 01/13/18 06:03 01/13/18 06:03 Oxygen Delivery Method Room Air Weight: 261 lb 14.546 oz Body Mass Index (BMI) 35.0 Intake and Output for Last 24 Hours 01/11/18 01/12/18 01/13/18 23:59 23:59 23:59 Intake Total 3378 / 3378 Output Total 300 / 300 300 / 300 Balance 3078 / 3078 -300 / -300 General: Awake, Alert, Oriented x 3, Cooperative, No Acute Distress Neck: No JVD Lungs: Clear to auscultation Cardiovascular: Irregular Rhythm, Normal S1, Normal S2 Vascular: No Carotid Bruits Abdomen: Bowel Sounds Present, Soft, Non Tender Extremities: Moderate LLE Edema Musculoskeletal: Erythema - LLE Neurological: No Focal Motor or Sensory Deficit, CN II-XII Intact 01/12/18 23:18: Troponin I < 0.02 01/13/18 02:50: Troponin I < 0.02 01/13/18 06:47: WBC 14.4 H, RBC 4.18 L, Hgb 12.9 L, Hct 39.6 L, MCV 94.7 H, MCH 30.9, MCHC 32.6, RDW 14.2, RDW Differential 47.7 H, Plt Count 192, MPV 9.0, Immature Gran % (Auto) 0.300, Neut % (Auto) 85.0 H, Lymph % (Auto) 7.3 L, [place] % (Auto) 6.7, Eos % (Auto) 0.6, Baso % (Auto) 0.1, Absolute Neuts (auto) 12.2 H , Total Counted Not Reportable 01/13/18 06:47: Sodium 140, Potassium 3.8, Chloride 107, Carbon Dioxide 24.0, Anion Gap 9, BUN 13, Creatinine 0.90, Est GFR (MDRD) Af Amer 106, Est GFR (MDRD ) Non-Af 88, BUN/Creatinine Ratio 14.4, Glucose 94, Calcium 8.1 L 01/13/18 06:47: Troponin I < 0.02 01/13/18 06:47: Magnesium 1.9 Rhythm: Atrial fibrillation EKG: As noted above ECHO: Unavailable for review at this time Stress Test: Unavailable for review at this time Assessment/Plan 1. Atrial fibrillation with rapid ventricular response At the present time the patient remains in atrial fibrillation with an elevated heart rate. This is despite the aforementioned measures. The etiology of his atrial fibrillation may be multifactorial. This may be related to a combination of his age, history of hypertension, superimposed upon his underlying acute infectious disease related issue. His noninvasive evaluation has been negative thus far for evidence of an acute coronary syndrome. He is not felt to have evidence of an ongoing acute thromboembolic event. He will continue to be monitored. He will undergo follow-up evaluation with ECG , echocardiogram, and other studies as deemed appropriate. In the interim he will continue rate limiting therapy. It would not be unreasonable to attempt antiarrhythmic therapy such as IV amiodarone in attempt to regain sinus rhythm. He is on anticoagulant therapy as well. Also, he will continue evaluation care of his underlying infectious disease issue. 2. Hypertension The patient is on hypertensive therapy. This may need to be adjusted during his hospital course and depending upon what medications he requires for his other medical conditions, etc. 3. Hyperlipidemia He will continue lipid-lowering therapy as tolerated. 4. Cellulitis of the left lower extremity He will continue evaluation care which has included antibiotic therapy, etc. This note was generated with [employer] dictation software. It may contain incorrect words, spelling, and punctuation that were not noted in checking the note before signing.
--- NOTE | 2018-01-13 10:54 | RAD_ITS ---
STUDY: X-RAY CHEST REASON FOR EXAM: Male, 72 years old. Atrial fibrillation. TECHNIQUE: Frontal and lateral views of the chest. COMPARISON: None. FINDINGS: The lungs are clear and expanded. There is no demonstrated pleural abnormality. Normal size heart. Normal mediastinum and hussein. Normal visualized pulmonary arteries. Normal visualized aortic arch and descending thoracic aorta. There are diffuse degenerative changes of the visualized thoracic spine. Normal visualized ribs, clavicles, and shoulders. There is no demonstrated abnormality of the visualized soft tissue structures of the upper abdomen. RAD/Chest PA and Lateral IMPRESSION: Normal x-ray examination of the chest. Electronically Signed: Isma Reilly MD at 14:22 EDT , Service support ,
[2018-01-13 11:00] LABS: AST(SGOT) 20 U/L (15-37); Alanine Aminotransfer ALT/SGPT 13 U/L (16-61); Albumin, Serum 2.3 g/dL (3.2-5.0); Alkaline Phosphatase 56 U/L (45-117); Bilirubin, Direct 0.18 mg/dL (0.00-0.30); Protein, Total 6.3 g/dL (6.4-8.2)
[2018-01-13] MEDS: Enoxaparin 100 MG/ML Syringe SC (17:15)
--- NOTE | 2018-01-13 19:30 | NURSING ---
Bedside report received from VINICIO henning at 1920. At this time, cardizem gtt was running at 5 mg/hr and the amiodarone gtt was on bag #2 at 16.667 mL/hr.
[2018-01-13] MEDS: Atorvastatin Calcium 10 MG Tablet PO (21:35)
[2018-01-14] VITALS (42 sets, daily range): BP systolic 102–149; BP diastolic 70–113; PULSE 72–107; RESP 14–23; TEMP 36.6–36.9; O2SAT 92–98
[2018-01-14] MEDS: 0.9% NaCl Peripheral Flush Adult/Peds IV (00:01)
[2018-01-14] MEDS: Enoxaparin 100 MG/ML Syringe SC ×2 (05:32→17:43)
--- NOTE | 2018-01-14 05:55 | EKG12_ITS ---
Test Reason : AM EKG Blood Pressure : / mmHG Vent. Rate : 107 BPM Atrial Rate : 127 BPM P-R Int : 000 ms QRS Dur : 088 ms QT Int : 362 ms P-R-T Axes : 000 001 -17 degrees QTc Int : 483 ms Atrial fibrillation Inferior infarct , age undetermined , cannot be excluded Nonspecific ST and T wave abnormality Abnormal ECG Confirmed by THEO COLVIN, ALEKSANDR ([id number]), assistant production editor DUSTIN CONNELLY ([id number] on 01/17/2018 1:24:55 PM Referred By: TANIKA Confirmed By:ALEKSANDR VENEGAS MD
[2018-01-14] MEDS: Aspirin 81 MG TAB.CHEW PO (07:46)
[2018-01-14] MEDS: Gabapentin 300 MG Capsule PO ×2 (07:46→16:39)
[2018-01-14] MEDS: amLODIPine 2.5 MG Tablet PO (09:25)
[2018-01-14] MEDS: Metoprolol Tartrate 50 MG Tablet PO ×2 (09:25→21:24)
--- NOTE | 2018-01-14 09:54 | PN.CARD_ITS ---
Subjectve: The patient denies any ongoing chest discomfort or difficulty breathing. He has had no episodes of obvious palpitations or rapid heart rate sensations. He states his left lower extremity feels better but is still somewhat sore and tender especially when being upright. Objective: Vital Signs Temp Pulse Resp BP Pulse Ox 97.9 F 105 H 18 123/86 H 96 01/14/18 05:00 01/14/18 09:30 01/14/18 09:30 01/14/18 09:30 01/14/18 09:30 Oxygen Delivery Method Room Air Weight: 261 lb 14.546 oz Body Mass Index (BMI) 35.0 Intake and Output for Last 24 Hours 01/12/18 01/13/18 01/14/18 23:59 23:59 23:59 Intake Total 3378 / 3378 1006 / 1006 1488 / 1488 Output Total 300 / 300 900 / 900 325 / 325 Balance 3078 / 3078 106 / 106 1163 / 1163 General: Awake, Alert, Oriented x 3, Cooperative Lungs: Clear to auscultation Cardiovascular: Irregular Rhythm, Normal S1, Normal S2 Abdomen: Bowel Sounds Present, Soft, Non Tender Extremities: Moderate LLE Edema 01/13/18 06:47: Total Bilirubin 1.00, Direct Bilirubin 0.18 Rhythm: Atrial fibrillation EKG: Atrial fibrillation Medical Necessity - Tobacco Use Smoking Status: Former smoker Tobacco Use: Pipe Assessment/Plan 1. Atrial fibrillation with rapid ventricular response At the present time the patient remains in atrial fibrillation with an elevated heart rate. The etiology of his atrial fibrillation may be multifactorial. This may be related to a combination of his age, history of hypertension, superimposed upon his underlying acute infectious disease related issue. His noninvasive evaluation has been negative thus far for evidence of an acute coronary syndrome. He is not felt to have evidence of an ongoing acute thromboembolic event. He will continue to be monitored. He will undergo follow-up evaluation with ECG , echocardiogram, and other studies as deemed appropriate. In the interim he will continue rate limiting therapy. He is also been placed on antiarrhythmic therapy with IV amiodarone. 2. Hypertension The patient is on hypertensive therapy. This may need to be adjusted during his hospital course and depending upon what medications he requires for his other medical conditions, etc. 3. Hyperlipidemia He will continue lipid-lowering therapy as tolerated. 4. Cellulitis of the left lower extremity He will continue evaluation care which has included antibiotic therapy, etc. This note was generated with [employer] dictation software. It may contain incorrect words, spelling, and punctuation that were not noted in checking the note before signing.
--- NOTE | 2018-01-14 09:59 | PCM.PN.HOSP ---
Patient Problems: Active and Suspected Problems Atrial fibrillation (Acute) Cellulitis of left leg (Acute) Subjective: Patient overnight with continued elevated heart rate requiring cardiology evaluation and addition of amiodarone to Cardizem IV drip. Patient does note that his heart rate has improved no current chest discomfort or dyspnea. He does note that left lower extremity discomfort has improved and erythema is receding. He still does have discomfort when he does put his foot down and has his leg lowered but the throb eventually received. Patient denies fevers, chills, nausea, emesis, abdominal pain, chest pain or dyspnea. Objective: Physical Examination: General: awake, alert, oriented x 3 and cooperative, seated upright in bed in no apparent distress. Skin: normal color, turgor, no icterus, cyanosis left lower extremity with erythema receding from mid-calf circumferential, hydrogen cell tender to palpation, still edematous with pitting distal to foot. HEENT: AT/NC, EOMI, PERRLA, MMM. Lungs: CTA bilaterally, moderate effort, moderate decrease BL bases, no rales, ronchi or wheezing. Heart: Irregular irregular; no gallop, rub audible. Abdomen: soft, obese, NTTP, ND, normal BS. Extremities: no cyanosis, clubbing, BL LE, L>R edema, see skin, 1+. Neurological: patient awake, alert, oriented x 3; cognitive function intact; pupils equally reactive to light and accomodation; cranial nerves II-XII grossly normal, moving all 4 extremities, no focal deficits, strength moderately globally decreased secondary to acute presentation. Psychiatric: affect appears normal, no acute evidence of depressive or anxiety feelings. Vitals/I&O's: Vital Signs Temp Pulse Resp BP Pulse Ox 97.9 F 105 H 18 123/86 H 96 01/14/18 05:00 01/14/18 09:30 01/14/18 09:30 01/14/18 09:30 01/14/18 09:30 Oxygen Delivery Method Room Air Weight: 261 lb 14.546 oz Body Mass Index (BMI) 35.0 Intake and Output for Last 24 Hours 01/12/18 01/13/18 01/14/18 23:59 23:59 23:59 Intake Total 3378 / 3378 1006 / 1006 1488 / 1488 Output Total 300 / 300 900 / 900 325 / 325 Balance 3078 / 3078 106 / 106 1163 / 1163 Laboratory Results 01/13/18 06:47: Total Bilirubin 1.00, Direct Bilirubin 0.18, AST 20, ALT 13 L, Alkaline Phosphatase 56, Total Protein 6.3 L, Albumin 2.3 L, Globulin 4.0 Current Medications Acetaminophen (Tylenol) 650 mg PO Q6H PRN PRN PRN Reason: TEMP/PAIN Last Admin: 01/12/18 23:14 Dose: 650 mg Amlodipine Besylate (Norvasc) 2.5 mg PO DAILY [facility] Last Admin: 01/14/18 09:25 Dose: 2.5 mg Aspirin (Aspirin, Baby) 81 mg PO DAILY@0800 [facility] Last Admin: 01/14/18 07:46 Dose: 81 mg Atorvastatin Calcium (Lipitor) 10 mg PO QHS [facility] Last Admin: 01/13/18 21:35 Dose: 10 mg Enoxaparin Sodium (Lovenox) 100 mg SC Q12@0600,1800 [facility] Last Admin: 01/14/18 05:32 Dose: 100 mg Gabapentin (Neurontin) 300 mg PO BIDCM [facility] Last Admin: 01/14/18 07:46 Dose: 300 mg Sodium Chloride () 250 mls @ 15 mls/hr IV .[id number] PRN PRN Reason: SALINE FLUSH Last Admin: 01/12/18 07:26 Dose: 15 mls/hr Ampicillin Sodium/Sulbactam (Sodium 3 gm/ Sodium Chloride) 112 mls @ 150 mls/hr IV Q6 [facility] Last Admin: 01/14/18 05:31 Dose: 150 mls/hr Diltiazem HCl 125 mg/ Dextrose 125 mls @ 5 mls/hr CONT INF .Q25H [facility] PRN Reason: 5 MG/HR Last Admin: 01/14/18 05:17 Dose: 5 mls/hr Amiodarone HCl/Dextrose (Nexterone 360 Mg/200 Ml Bag) 360 mg in 200 mls @ 16.667 mls/hr CONT INF .Q12H [facility] PRN Reason: 0.5 MG/MIN Stop: 01/14/18 10:54 Last Admin: 01/14/18 05:00 Dose: 16.667 mls/hr Amiodarone HCl/Dextrose (Nexterone 360 Mg/200 Ml Bag) 360 mg in 200 mls @ 16.667 mls/hr CONT INF .Q12H [facility] PRN Reason: 0.5 MG/MIN Stop: 01/15/18 03:44 Metoprolol Tartrate (Lopressor (Beta Evin)) 50 mg PO BID [facility] Last Admin: 01/14/18 09:25 Dose: 50 mg Morphine Sulfate () 2 mg IV Q4H PRN PRN PRN Reason: SEVERE PAIN (6-10/10) Last Admin: 01/12/18 06:26 Dose: 2 mg Nutritional Formula (Lactose Free) (Ensure Enlive) 120 ml PO 4X/DAY [facility] Last Admin: 01/14/18 09:25 Dose: 120 ml Oxycodone HCl (Oxyir) 5 mg PO Q6H PRN PRN PRN Reason: SEVERE PAIN (6-10/10) Last Admin: 01/13/18 00:32 Dose: 5 mg Sodium Chloride () 5 - 30 ml IV UD PRN PRN Reason: SALINE FLUSH Last Admin: 01/14/18 00:01 Dose: 10 ml Medical Necessity - Tobacco Use Smoking Status: Former smoker Tobacco Use: Pipe Assessment/Plan Active and Suspected Problems Atrial fibrillation (Acute) Cellulitis of left leg (Acute) The patient is a 72 y/o M w/ PMHx: HTN, HLD, Obesity who presents to the [facility] ED on 01/12/18 with onset LLE pain, erythema, swelling. (1) New onset, Paroxsymal atrial fibrillation w/ RVR: EKG w/ atrial fibrillation w/ RVR. Patient maintained in the PCU on telemetry, cardiac enzyme serial set unremarkable, magnesium level 1.9, TSH 2.95, ECHO pending. CHADs scoring appropriate for anticoagulation start at this time, currently on therapeutic lovenox with need for oral transition investigation with CM. Cardiology consulted and following. Initially placed on cardizem drip-->adding Amiodarone drip as still not rate controlled, continued. Statin added. (2) LLE Extremity Cellulitis: Admission CBC w/ WBC 20.8 with L shift-->01/14/18 CBC w/ WBC 14.4 with decreased shift. Will maintain on IV unasyn (initially placed on IV vanc and zosyn), DVT US RLE negative, trending CBC, plan repeat CBC in AM, continue affected extremity elevation above heart when seated and in bed, monitor erythema outline with VS checks. Add SNUG alvina wraps. (3) Hypokalemia: Admission K+ 3.4, supplementation given, repeat level 01/14/18 K 3.8, resolved, trend. (4) Hypertension: Continued on home regimen Norvasc, metoprolol, as noted IV cardizem and IV amiodarone given #1, PRN hydralazine. (5) Obesity: Weight loss and lifestyle changes encouraged. (6) DVT Prophylaxis: SCDs, therapeutic lovenox. Code Visit Inpatient E&M: 04175 Subs Hosp L3
--- NOTE | 2018-01-14 10:09 | PN_ITS ---
Patient Problems: Active and Suspected Problems Atrial fibrillation (Acute) Cellulitis of left leg (Acute) Subjective: Patient overnight with continued elevated heart rate requiring cardiology evaluation and addition of amiodarone to Cardizem IV drip. Patient does note that his heart rate has improved no current chest discomfort or dyspnea. He does note that left lower extremity discomfort has improved and erythema is receding. He still does have discomfort when he does put his foot down and has his leg lowered but the throb eventually received. Patient denies fevers, chills, nausea, emesis, abdominal pain, chest pain or dyspnea. Objective: Physical Examination: General: awake, alert, oriented x 3 and cooperative, seated upright in bed in no apparent distress. Skin: normal color, turgor, no icterus, cyanosis left lower extremity with erythema receding from mid-calf circumferential, reagent tender helper to palpation, still edematous with pitting distal to foot. HEENT: AT/NC, EOMI, PERRLA, MMM. Lungs: CTA bilaterally, moderate effort, moderate decrease BL bases, no rales, ronchi or wheezing. Heart: Irregular irregular; no gallop, rub audible. Abdomen: soft, obese, NTTP, ND, normal BS. Extremities: no cyanosis, clubbing, BL LE, L>R edema, see skin, 1+. Neurological: patient awake, alert, oriented x 3; cognitive function intact; pupils equally reactive to light and accomodation; cranial nerves II-XII grossly normal, moving all 4 extremities, no focal deficits, strength moderately globally decreased secondary to acute presentation. Psychiatric: affect appears normal, no acute evidence of depressive or anxiety feelings. Vitals/I&O's: Vital Signs Temp Pulse Resp BP Pulse Ox 97.9 F 105 H 18 123/86 H 96 01/14/18 05:00 01/14/18 09:30 01/14/18 09:30 01/14/18 09:30 01/14/18 09:30 Oxygen Delivery Method Room Air Weight: 261 lb 14.546 oz Body Mass Index (BMI) 35.0 Intake and Output for Last 24 Hours 01/12/18 01/13/18 01/14/18 23:59 23:59 23:59 Intake Total 3378 / 3378 1006 / 1006 1488 / 1488 Output Total 300 / 300 900 / 900 325 / 325 Balance 3078 / 3078 106 / 106 1163 / 1163 Laboratory Results 01/13/18 06:47: Total Bilirubin 1.00, Direct Bilirubin 0.18, AST 20, ALT 13 L, Alkaline Phosphatase 56, Total Protein 6.3 L, Albumin 2.3 L, Globulin 4.0 Current Medications Acetaminophen (Tylenol) 650 mg PO Q6H PRN PRN PRN Reason: TEMP/PAIN Last Admin: 01/12/18 23:14 Dose: 650 mg Amlodipine Besylate (Norvasc) 2.5 mg PO DAILY [facility] Last Admin: 01/14/18 09:25 Dose: 2.5 mg Aspirin (Aspirin, Baby) 81 mg PO DAILY@0800 [facility] Last Admin: 01/14/18 07:46 Dose: 81 mg Atorvastatin Calcium (Lipitor) 10 mg PO QHS [facility] Last Admin: 01/13/18 21:35 Dose: 10 mg Enoxaparin Sodium (Lovenox) 100 mg SC Q12@0600,1800 [facility] Last Admin: 01/14/18 05:32 Dose: 100 mg Gabapentin (Neurontin) 300 mg PO BIDCM [facility] Last Admin: 01/14/18 07:46 Dose: 300 mg Sodium Chloride () 250 mls @ 15 mls/hr IV .[id number] PRN PRN Reason: SALINE FLUSH Last Admin: 01/12/18 07:26 Dose: 15 mls/hr Ampicillin Sodium/Sulbactam (Sodium 3 gm/ Sodium Chloride) 112 mls @ 150 mls/ hr IV Q6 [facility] Last Admin: 01/14/18 05:31 Dose: 150 mls/hr Diltiazem HCl 125 mg/ Dextrose 125 mls @ 5 mls/hr CONT INF .Q25H [facility] PRN Reason: 5 MG/HR Last Admin: 01/14/18 05:17 Dose: 5 mls/hr Amiodarone HCl/Dextrose (Nexterone 360 Mg/200 Ml Bag) 360 mg in 200 mls @ 16.667 mls/hr CONT INF .Q12H [facility] PRN Reason: 0.5 MG/MIN Stop: 01/14/18 10:54 Last Admin: 01/14/18 05:00 Dose: 16.667 mls/hr Amiodarone HCl/Dextrose (Nexterone 360 Mg/200 Ml Bag) 360 mg in 200 mls @ 16.667 mls/hr CONT INF .Q12H [facility] PRN Reason: 0.5 MG/MIN Stop: 01/15/18 03:44 Metoprolol Tartrate (Lopressor (Beta Evin)) 50 mg PO BID [facility] Last Admin: 01/14/18 09:25 Dose: 50 mg Morphine Sulfate () 2 mg IV Q4H PRN PRN PRN Reason: SEVERE PAIN (6-10/10) Last Admin: 01/12/18 06:26 Dose: 2 mg Nutritional Formula (Lactose Free) (Ensure Enlive) 120 ml PO 4X/DAY [facility] Last Admin: 01/14/18 09:25 Dose: 120 ml Oxycodone HCl (Oxyir) 5 mg PO Q6H PRN PRN PRN Reason: SEVERE PAIN (6-10/10) Last Admin: 01/13/18 00:32 Dose: 5 mg Sodium Chloride () 5 - 30 ml IV UD PRN PRN Reason: SALINE FLUSH Last Admin: 01/14/18 00:01 Dose: 10 ml Medical Necessity - Tobacco Use Smoking Status: Former smoker Tobacco Use: Pipe Assessment/Plan Active and Suspected Problems Atrial fibrillation (Acute) Cellulitis of left leg (Acute) The patient is a 72 y/o M w/ PMHx: HTN, HLD, Obesity who presents to the [facility] ED on 01/12/18 with onset LLE pain, erythema, swelling. (1) New onset, Paroxsymal atrial fibrillation w/ RVR: EKG w/ atrial fibrillation w/ RVR. Patient maintained in the PCU on telemetry, cardiac enzyme serial set unremarkable, magnesium level 1.9, TSH 2.95, ECHO pending. CHADs scoring appropriate for anticoagulation start at this time, currently on therapeutic lovenox with need for oral transition investigation with CM. Cardiology consulted and following. Initially placed on cardizem drip-->adding Amiodarone drip as still not rate controlled, continued. Statin added. (2) LLE Extremity Cellulitis: Admission CBC w/ WBC 20.8 with L shift-->01/14/18 CBC w/ WBC 14.4 with decreased shift. Will maintain on IV unasyn (initially placed on IV vanc and zosyn), DVT US RLE negative, trending CBC, plan repeat CBC in AM, continue affected extremity elevation above heart when seated and in bed, monitor erythema outline with VS checks. Add SNUG alvina wraps. (3) Hypokalemia: Admission K+ 3.4, supplementation given, repeat level 01/14/18 K 3.8, resolved, trend. (4) Hypertension: Continued on home regimen Norvasc, metoprolol, as noted IV cardizem and IV amiodarone given #1, PRN hydralazine. (5) Obesity: Weight loss and lifestyle changes encouraged. (6) DVT Prophylaxis: SCDs, therapeutic lovenox. Code Visit Inpatient E&M: 45311 Subs Hosp L3
--- NOTE | 2018-01-14 14:02 | CASEMGMT ---
Addendum entered by Sandra Rodríguez 01/14/18 14:49: Call to [facility] and [facility] states that the pharmacist is working on at this time and they will call this RN CM back when information obtained. Hitesh MOONEY CM Original Note: Dr. Burton would like pt to go home on either Eliquis or Xarelto at discharge. Scripts sent to pharmacy at this time and this RN CM will place a call to pharmacy to check on coverage/co-pay. Hitesh MOONEY CM
--- NOTE | 2018-01-14 14:15 | CASEMGMT ---
This RN CM received call back from pharmacist at [facility] and she states that they co-pay for either Xarelto or Eliquis would be $197/month. Dr. Burton aware and would like this RN CM to find out from pt whether this would be a feasible monthly co-pay. This RN CM to room and pt updated on all at this time. Pt states that he would not be able to afford the co-pay at this time. Dr. Burton updated at this time and she cancelled both scripts and states she would like to speak to cardiology regarding their suggestion for anti-coagulation at discharge. This RN CM will continue to follow. Hitesh MOONEY CM
[2018-01-14 17:33] LABS: Prothrombin Time (Protime)PT. 13.6 SECONDS (11.7-14.9)
--- NOTE | 2018-01-14 19:18 | NURSING ---
At change of shift during bedside report -increased cardizem drip from 10 to 15mg/hr with Suzy Mckeon RN at bedside. Amio left running at 16.667 - no changes. Pt tolerating well. Vitals changes to [id number] at this time.
[2018-01-14] MEDS: Atorvastatin Calcium 10 MG Tablet PO (21:24)
[2018-01-15] VITALS (44 sets, daily range): BP systolic 104–148; BP diastolic 65–119; PULSE 65–110; RESP 15–22; TEMP 36.6–37.2; O2SAT 92–99
[2018-01-15] MEDS: Enoxaparin 100 MG/ML Syringe SC ×2 (05:47→17:20)
[2018-01-15 06:10] LABS: Prothrombin Time (Protime)PT. 13.3 SECONDS (11.7-14.9)
[2018-01-15] MEDS: Gabapentin 300 MG Capsule PO ×2 (08:46→17:19)
[2018-01-15] MEDS: Aspirin 81 MG TAB.CHEW PO (08:46)
[2018-01-15] MEDS: Metoprolol Tartrate 50 MG Tablet PO (10:20)
[2018-01-15] MEDS: amLODIPine 2.5 MG Tablet PO (10:21)
--- NOTE | 2018-01-15 10:45 | PCM.PN.HOSP ---
Patient Problems: Active and Suspected Problems Atrial fibrillation (Acute) Cellulitis of left leg (Acute) Subjective: Patient with continued intermittent elevated heart rate overnight, remained in atrial fibrillation otherwise notes ongoing improvement left lower extremity with continued rescinding erythema, decreased edema and decreased pain. Given attempted cardioversion ?3 today discussed plan with patient to continue on current IV amiodarone and Cardizem until completion with oral transition then per cardiology in addition to continued Coumadin and Lovenox overlap until INR therapeutic. Discussed cost prohibitive nature of newer oral anticoagulants. Patient denies fevers, chills, nausea, emesis, abdominal pain, chest pain or dyspnea. Objective: Physical Examination: General: awakens well after cardioversion, was given notable amount propofol for sedation, now more alert, oriented x 3 and cooperative, seated upright in bed, drowsy following cardioversion, but improving. Skin: normal color, turgor, no icterus, cyanosis except improving left lower extremity erythema, less TTP, less edema. HEENT: AT/NC, EOMI, PERRLA, MMM. Lungs: CTA bilaterally, moderate effort, moderate decrease BL bases, no rales, ronchi or wheezing. Heart: Irregular, rate controlled currently; no gallop, rub audible. Abdomen: soft, obese, NTTP, ND, normal BS. Extremities: no cyanosis, clubbing, see skin. Neurological: patient awake, alert, oriented x 3; cognitive function intact; pupils equally reactive to light and accomodation; cranial nerves II-XII grossly normal, moving all 4 extremities, no focal deficits, strength improved, moderately globally decreased. Psychiatric: affect appears mildly fatigued given recent sedation, no acute evidence of depressive or anxiety feelings. Vitals/I&O's: Vital Signs Temp Pulse Resp BP Pulse Ox 97.9 F 88 16 120/85 H 96 01/15/18 08:43 01/15/18 10:20 01/15/18 10:00 01/15/18 10:20 01/15/18 10:00 Oxygen Delivery Method Room Air Weight: 261 lb 14.546 oz Body Mass Index (BMI) 35.0 Intake and Output for Last 24 Hours 01/13/18 01/14/18 01/15/18 23:59 23:59 23:59 Intake Total 1006 / 1006 3038 / 3038 1245 / 1245 Output Total 900 / 900 650 / 650 Balance 106 / 106 2388 / 2388 1245 / 1245 Laboratory Results 01/14/18 17:11: PT 13.6, INR 1.0 01/15/18 05:46: PT 13.3, INR 1.0 Current Medications Acetaminophen (Tylenol) 650 mg PO Q6H PRN PRN PRN Reason: TEMP/PAIN Last Admin: 01/12/18 23:14 Dose: 650 mg Amlodipine Besylate (Norvasc) 2.5 mg PO DAILY [facility] Last Admin: 01/15/18 10:21 Dose: 2.5 mg Amoxicillin/Clavulanate Potassium (Augmentin Tablet) 875 mg PO BID [facility] Aspirin (Aspirin, Baby) 81 mg PO DAILY@0800 [facility] Last Admin: 01/15/18 08:46 Dose: 81 mg Atorvastatin Calcium (Lipitor) 10 mg PO QHS [facility] Last Admin: 01/14/18 21:24 Dose: 10 mg Enoxaparin Sodium (Lovenox) 100 mg SC Q12@0600,1800 [facility] Last Admin: 01/15/18 05:47 Dose: 100 mg [facility]) [facility] Last Admin: 01/15/18 08:46 Dose: 300 mg Sodium Chloride () 250 mls @ 15 mls/hr IV .[id number] PRN PRN Reason: SALINE FLUSH Last Admin: 01/12/18 07:26 Dose: 15 mls/hr Diltiazem HCl 125 mg/ Dextrose 125 mls @ 5 mls/hr CONT INF .Q25H [facility] PRN Reason: 5 MG/HR Last Admin: 01/15/18 03:29 Dose: 5 mls/hr Amiodarone HCl/Dextrose (Nexterone 360 Mg/200 Ml Bag) 360 mg in 200 mls @ 16.667 mls/hr CONT INF .Q12H [facility] PRN Reason: 0.5 MG/MIN Sodium Chloride () 500 mls @ 0 mls/hr IV .Q0M [facility] PRN Reason: KVO Metoprolol Tartrate (Lopressor (Beta Evin)) 50 mg PO BID [facility] Last Admin: 01/15/18 10:20 Dose: 50 mg Morphine Sulfate () 2 mg IV Q4H PRN PRN PRN Reason: SEVERE PAIN (6-10/10) Last Admin: 01/12/18 06:26 Dose: 2 mg Nutritional Formula (Lactose Free) (Ensure Enlive) 120 ml PO 4X/DAY [facility] Last Admin: 01/15/18 10:19 Dose: Not Given Oxycodone HCl (Oxyir) 5 mg PO Q6H PRN PRN PRN Reason: SEVERE PAIN (6-10/10) Last Admin: 01/13/18 00:32 Dose: 5 mg Sodium Chloride () 5 - 30 ml IV UD PRN PRN Reason: SALINE FLUSH Last Admin: 01/14/18 00:01 Dose: 10 ml Warfarin Sodium (Coumadin (Pbkc)) 5 mg PO DAILY@1700 [facility] Last Admin: 01/14/18 17:43 Dose: 5 mg Medical Necessity - Tobacco Use Smoking Status: Former smoker Tobacco Use: Pipe Assessment/Plan Active and Suspected Problems Atrial fibrillation (Acute) Cellulitis of left leg (Acute) The patient is a 72 y/o M w/ PMHx: HTN, HLD, Obesity who presents to the [facility] ED on 01/12/18 with onset LLE pain, erythema, swelling. (1) New onset, Paroxsymal atrial fibrillation w/ RVR: EKG w/ atrial fibrillation w/ RVR. Patient maintained in the PCU on telemetry, cardiac enzyme serial set unremarkable, magnesium level 1.9, TSH 2.95, ECHO w/ normal LV size, normal LV systolic function, EF 60%, mild to moderate TV insufficiency, pulmonary artery systolic pressure 28 mmHg. CHADs scoring appropriate for anticoagulation start at this time, currently on therapeutic lovenox w/ 01/14/18 addition coumadin overlap as oral newer options cost prohibitive. Therapeutic Lovenox also prohibitive thus will attempt quick increase INR to decrease cost which was amenable per discussion with Dr. Luciano given need for overlap with attempted cardioversion. Initially placed on cardizem drip-->01/14/18 additional of also Amiodarone drip as had remained uncontrolled rate. Rate improved but still ongoing atrial fibrillation, failed cardioversion x 3 (converted immediately but returned to atrial fibrillation w/ PAC onset. Per discussion with Dr. Luciano will plan transition to oral amiodarone and oral cardizem. (2) LLE Extremity Cellulitis: Admission CBC w/ WBC 20.8 with L shift-->01/14/18 CBC w/ WBC 14.4 with decreased shift-->01/15/18 CBC pending. Currently maintained on IV unasyn (initially placed on IV vanc and zosyn)-->01/15/18 will transition given improvement to oral augmentin, DVT US RLE negative, trending CBC, continue affected extremity elevation above heart when seated and in bed, monitor erythema outline with VS checks, snug alvina wraps. (3) Hypokalemia: Admission K+ 3.4, supplementation given, repeat level 01/14/18 K 3.8, 01/15/18 BMP w/ K+ 3.8. (4) Hypertension: Continued on home regimen Norvasc, metoprolol, as noted IV cardizem and IV amiodarone given #1 w/ oral transition possibly today per Cardiology discretion, PRN hydralazine. (5) Obesity: Weight loss and lifestyle changes encouraged. (6) DVT Prophylaxis: SCDs, therapeutic lovenox + coumadin w/ additional dosing coumadin this evening, trend INR. Code Visit Inpatient E&M: 62566 Subs Hosp L3
--- NOTE | 2018-01-15 10:49 | PN_ITS ---
Patient Problems: Active and Suspected Problems Atrial fibrillation (Acute) Cellulitis of left leg (Acute) Subjective: Patient with continued intermittent elevated heart rate overnight, remained in atrial fibrillation otherwise notes ongoing improvement left lower extremity with continued rescinding erythema, decreased edema and decreased pain. Given attempted cardioversion ?3 today discussed plan with patient to continue on current IV amiodarone and Cardizem until completion with oral transition then per cardiology in addition to continued Coumadin and Lovenox overlap until INR therapeutic. Discussed cost prohibitive nature of newer oral anticoagulants. Patient denies fevers, chills, nausea, emesis, abdominal pain, chest pain or dyspnea. Objective: Physical Examination: General: awakens well after cardioversion, was given notable amount propofol for sedation, now more alert, oriented x 3 and cooperative, seated upright in bed, drowsy following cardioversion, but improving. Skin: normal color, turgor, no icterus, cyanosis except improving left lower extremity erythema, less TTP, less edema. HEENT: AT/NC, EOMI, PERRLA, MMM. Lungs: CTA bilaterally, moderate effort, moderate decrease BL bases, no rales, ronchi or wheezing. Heart: Irregular, rate controlled currently; no gallop, rub audible. Abdomen: soft, obese, NTTP, ND, normal BS. Extremities: no cyanosis, clubbing, see skin. Neurological: patient awake, alert, oriented x 3; cognitive function intact; pupils equally reactive to light and accomodation; cranial nerves II-XII grossly normal, moving all 4 extremities, no focal deficits, strength improved, moderately globally decreased. Psychiatric: affect appears mildly fatigued given recent sedation, no acute evidence of depressive or anxiety feelings. Vitals/I&O's: Vital Signs Temp Pulse Resp BP Pulse Ox 97.9 F 88 16 120/85 H 96 01/15/18 08:43 01/15/18 10:20 01/15/18 10:00 01/15/18 10:20 01/15/18 10:00 Oxygen Delivery Method Room Air Weight: 261 lb 14.546 oz Body Mass Index (BMI) 35.0 Intake and Output for Last 24 Hours 01/13/18 01/14/18 01/15/18 23:59 23:59 23:59 Intake Total 1006 / 1006 3038 / 3038 1245 / 1245 Output Total 900 / 900 650 / 650 Balance 106 / 106 2388 / 2388 1245 / 1245 Laboratory Results 01/14/18 17:11: PT 13.6, INR 1.0 01/15/18 05:46: PT 13.3, INR 1.0 Current Medications Acetaminophen (Tylenol) 650 mg PO Q6H PRN PRN PRN Reason: TEMP/PAIN Last Admin: 01/12/18 23:14 Dose: 650 mg Amlodipine Besylate (Norvasc) 2.5 mg PO DAILY [facility] Last Admin: 01/15/18 10:21 Dose: 2.5 mg Amoxicillin/Clavulanate Potassium (Augmentin Tablet) 875 mg PO BID [facility] Aspirin (Aspirin, Baby) 81 mg PO DAILY@0800 [facility] Last Admin: 01/15/18 08:46 Dose: 81 mg Atorvastatin Calcium (Lipitor) 10 mg PO QHS [facility] Last Admin: 01/14/18 21:24 Dose: 10 mg Enoxaparin Sodium (Lovenox) 100 mg SC Q12@0600,1800 [facility] Last Admin: 01/15/18 05:47 Dose: 100 mg [facility] Admin: 01/15/18 08:46 Dose: 300 mg Sodium Chloride () 250 mls @ 15 mls/hr IV .[id number] PRN PRN Reason: SALINE FLUSH Last Admin: 01/12/18 07:26 Dose: 15 mls/hr Diltiazem HCl 125 mg/ Dextrose 125 mls @ 5 mls/hr CONT INF .Q25H [facility] PRN Reason: 5 MG/HR Last Admin: 01/15/18 03:29 Dose: 5 mls/hr Amiodarone HCl/Dextrose (Nexterone 360 Mg/200 Ml Bag) 360 mg in 200 mls @ 16.667 mls/hr CONT INF .Q12H [facility] PRN Reason: 0.5 MG/MIN Sodium Chloride () 500 mls @ 0 mls/hr IV .Q0M [facility] PRN Reason: KVO Metoprolol Tartrate (Lopressor (Beta Evin)) 50 mg PO BID [facility] Last Admin: 01/15/18 10:20 Dose: 50 mg Morphine Sulfate () 2 mg IV Q4H PRN PRN PRN Reason: SEVERE PAIN (6-10/10) Last Admin: 01/12/18 06:26 Dose: 2 mg Nutritional Formula (Lactose Free) (Ensure Enlive) 120 ml PO 4X/DAY [facility] Last Admin: 01/15/18 10:19 Dose: Not Given Oxycodone HCl (Oxyir) 5 mg PO Q6H PRN PRN PRN Reason: SEVERE PAIN (6-10/10) Last Admin: 01/13/18 00:32 Dose: 5 mg Sodium Chloride () 5 - 30 ml IV UD PRN PRN Reason: SALINE FLUSH Last Admin: 01/14/18 00:01 Dose: 10 ml Warfarin Sodium (Coumadin (Pbkc)) 5 mg PO DAILY@1700 [facility] Last Admin: 01/14/18 17:43 Dose: 5 mg Medical Necessity - Tobacco Use Smoking Status: Former smoker Tobacco Use: Pipe Assessment/Plan Active and Suspected Problems Atrial fibrillation (Acute) Cellulitis of left leg (Acute) The patient is a 72 y/o M w/ PMHx: HTN, HLD, Obesity who presents to the [facility] ED on 01/12/18 with onset LLE pain, erythema, swelling. (1) New onset, Paroxsymal atrial fibrillation w/ RVR: EKG w/ atrial fibrillation w/ RVR. Patient maintained in the PCU on telemetry, cardiac enzyme serial set unremarkable, magnesium level 1.9, TSH 2.95, ECHO w/ normal LV size, normal LV systolic function, EF 60%, mild to moderate TV insufficiency, pulmonary artery systolic pressure 28 mmHg. CHADs scoring appropriate for anticoagulation start at this time, currently on therapeutic lovenox w/ 01/14/18 addition coumadin overlap as oral newer options cost prohibitive. Therapeutic Lovenox also prohibitive thus will attempt quick increase INR to decrease cost which was amenable per discussion with Dr. Luciano given need for overlap with attempted cardioversion. Initially placed on cardizem drip-->01/14/18 additional of also Amiodarone drip as had remained uncontrolled rate. Rate improved but still ongoing atrial fibrillation, failed cardioversion x 3 ( converted immediately but returned to atrial fibrillation w/ PAC onset. Per discussion with Dr. Luciano will plan transition to oral amiodarone and oral cardizem. (2) LLE Extremity Cellulitis: Admission CBC w/ WBC 20.8 with L shift-->01/14/18 CBC w/ WBC 14.4 with decreased shift-->01/15/18 CBC pending. Currently maintained on IV unasyn (initially placed on IV vanc and zosyn)-->01/15/18 will transition given improvement to oral augmentin, DVT US RLE negative, trending CBC, continue affected extremity elevation above heart when seated and in bed, monitor erythema outline with VS checks, snug alvina wraps. (3) Hypokalemia: Admission K+ 3.4, supplementation given, repeat level 01/14/18 K 3.8, 01/15/18 BMP w/ K+ 3.8. (4) Hypertension: Continued on home regimen Norvasc, metoprolol, as noted IV cardizem and IV amiodarone given #1 w/ oral transition possibly today per Cardiology discretion, PRN hydralazine. (5) Obesity: Weight loss and lifestyle changes encouraged. (6) DVT Prophylaxis: SCDs, therapeutic lovenox + coumadin w/ additional dosing coumadin this evening, trend INR. Code Visit Inpatient E&M: 86520 Subs Hosp L3
[2018-01-15 11:22] LABS: Anion Gap 10 (5-15); BUN 13 mg/dL (7-18); BUN/Creat Ratio 14.8 RATIO (10-20); Chloride 106 mmol/L (98-107); Creatinine, Serum 0.88 mg/dL (0.70-1.30); EST Glomerular Filtration Rate 91 mL/min (>60); Est Glom Filt Rate - Afr Amer 110 mL/min (>60); Estimated Creatinine Clearance 85.73 ml/min; Glucose 106 mg/dL (74-106); Potassium 3.8 mmol/L (3.5-5.1); Sodium Level 137 mmol/L (136-145)
--- NOTE | 2018-01-15 11:35 | PCM.OP.BLANK ---
Operative Report Date of Procedure: 01/15/18 CONSCIOUS SEDATION REPORT DATE OF SERVICE: January 15, 2018 BRIEF HISTORY OF PRESENT ILLNESS: The patient is an obese male who presented to [facility] with lower externally cellulitis and atrial fibrillation. The patient's recent surface echocardiogram revealed ejection fraction of approximately 60%. Although there is concern for underlying sleep disordered breathing, the patient is never been formally diagnosed with obstructive sleep apnea. He reports no history of COPD or asthma. The patient denies a previous anesthetic complications. The patient is currently anticoagulated and is receiving Cardizem and amiodarone. PHYSICAL EXAMINATION: VITAL SIGNS: Reviewed and were acceptable. GENERAL: The patient is an obese male, in no apparent distress, speaking in full sentences. HEENT: Normocephalic, atraumatic. Mucous membranes are moist and pink. Good mouth opening noted. Trachea is midline. Limited neck mobility. MP class IV. CHEST: S1, S2 irregularly irregular. No murmurs, rubs or gallops were noted. LUNGS: Clear to auscultation bilaterally without appreciable wheezes, rales or rhonchi. ABDOMEN: Soft, nontender, nondistended. Positive bowel sounds. EXTREMITIES: There is no clubbing or cyanosis. Lower extremity edema is present. ASA Class: II DESCRIPTION OF PROCEDURE: After confirmation of informed consent, the patient's anesthesia plan was reviewed in detail. Propofol was chosen. Risks and benefits were reviewed and the patient agreed to proceed. At 1059, the patient was given his first bolus of propofol. In total, throughout the entire procedure, the patient required 150 mg of propofol to facilitate 3 separate cardioversion attempts by Dr. Luciano, one at 200 J, one at 300 J, one at 360 J. Unfortunately, the cardioversion attempts were unsuccessful in restoring normal sinus rhythm. The patient was monitored until 1117, at which time they reached their baseline mental status and function. The patient tolerated the procedure well. COMPLICATIONS: None ESTIMATED BLOOD LOSS: None RECOMMENDATIONS: Okay to recover in usual fashion. Code Visit 9xxxx: Other Procedure See Report
--- NOTE | 2018-01-15 11:41 | OP.PCM_ITS ---
Operative Report Date of Procedure: 01/15/18 CONSCIOUS SEDATION REPORT DATE OF SERVICE: January 15, 2018 BRIEF HISTORY OF PRESENT ILLNESS: The patient is an obese male who presented to [facility] with lower externally cellulitis and atrial fibrillation. The patient' s recent surface echocardiogram revealed ejection fraction of approximately 60% . Although there is concern for underlying sleep disordered breathing, the patient is never been formally diagnosed with obstructive sleep apnea. He reports no history of COPD or asthma. The patient denies a previous anesthetic complications. The patient is currently anticoagulated and is receiving Cardizem and amiodarone. PHYSICAL EXAMINATION: VITAL SIGNS: Reviewed and were acceptable. GENERAL: The patient is an obese male, in no apparent distress, speaking in full sentences. HEENT: Normocephalic, atraumatic. Mucous membranes are moist and pink. Good mouth opening noted. Trachea is midline. Limited neck mobility. MP class IV. CHEST: S1, S2 irregularly irregular. No murmurs, rubs or gallops were noted. LUNGS: Clear to auscultation bilaterally without appreciable wheezes, rales or rhonchi. ABDOMEN: Soft, nontender, nondistended. Positive bowel sounds. EXTREMITIES: There is no clubbing or cyanosis. Lower extremity edema is present. ASA Class: II DESCRIPTION OF PROCEDURE: After confirmation of informed consent, the patient's anesthesia plan was reviewed in detail. Propofol was chosen. Risks and benefits were reviewed and the patient agreed to proceed. At 1059, the patient was given his first bolus of propofol. In total, throughout the entire procedure, the patient required 150 mg of propofol to facilitate 3 separate cardioversion attempts by Dr. Luciano, one at 200 J, one at 300 J, one at 360 J. Unfortunately, the cardioversion attempts were unsuccessful in restoring normal sinus rhythm. The patient was monitored until 1117, at which time they reached their baseline mental status and function. The patient tolerated the procedure well. COMPLICATIONS: None ESTIMATED BLOOD LOSS: None RECOMMENDATIONS: Okay to recover in usual fashion. Code Visit 9xxxx: Other Procedure See Report
[2018-01-15 12:29] LABS: Basophil# 0.03 X10^3/uL; Basophil% 0.3 % (0-1); Eosinophil# 0.09 X10^3/uL; Eosinophils% 0.9 % (0-5); Hematocrit 39.1 % (40-54); Hemoglobin 12.5 g/dl (13.0-16.5); Mean Corpuscular Hgb 29.7 pg (27.0-32.0); Mean Corpuscular Volume 92.9 fL (80-94); Mean Platelet Vol. 9.4 fl (6.2-12.0); Monocyte# 0.77 X10^3/uL; Monocyte% 7.7 % (0-10); Neutrophil # 8.01 X10^3/uL (2.7-7.7); Neutrophil % 79.8 % (47-70); POSITIVE COUNT NO; POSITIVE DIFFERENTIAL NO; POSITIVE MORPHOLOGY NO; Platelet Count 282 K/mm3 (150-450); RBC Distribution Width CV 14.1 % (11.6-14.6); RBC Distribution Width SD 47.6 fl (35.1-43.9); Red Blood Count 4.21 M/mm3 (4.6-6.2)
[2018-01-15] MEDS: Amox/Clavulanate 875 MG Tablet PO ×2 (12:39→21:44)
--- NOTE | 2018-01-15 14:17 | PCM.PN.CARD ---
Subjectve: The patient was evaluated earlier this day. He appeared without acute cardiovascular symptoms at the time. Objective: Vital Signs Temp Pulse Resp BP Pulse Ox 97.9 F 73 16 107/78 96 01/15/18 08:43 01/15/18 12:45 01/15/18 12:00 01/15/18 12:45 01/15/18 12:00 Oxygen Delivery Method Room Air Weight: 261 lb 14.546 oz Body Mass Index (BMI) 35.0 Intake and Output for Last 24 Hours 01/13/18 01/14/18 01/15/18 23:59 23:59 23:59 Intake Total 1006 / 1006 3038 / 3038 1442 / 1442 Output Total 900 / 900 650 / 650 Balance 106 / 106 2388 / 2388 1442 / 1442 General: Awake, Alert, Oriented x 3, Cooperative, Obese Neck: No JVD Lungs: Clear to auscultation Cardiovascular: Irregular Rhythm, Normal S1, Normal S2 Abdomen: Bowel Sounds Present, Soft, Non Tender Extremities: Moderate LLE Edema 01/14/18 17:11: PT 13.6, INR 1.0 01/15/18 05:46: PT 13.3, INR 1.0 01/15/18 05:46: WBC Cancelled, Corrected WBC Cancelled, RBC Cancelled, Hgb Cancelled, Hct Cancelled, MCV Cancelled, MCH Cancelled, MCHC Cancelled, RDW Cancelled, RDW Differential Cancelled, Plt Count Cancelled, MPV Cancelled, Immature Gran % (Auto) Cancelled, Neut % (Auto) Cancelled, Lymph % (Auto) Cancelled, [place] % (Auto) Cancelled, Eos % (Auto) Cancelled, Baso % (Auto) Cancelled, Immature Gran # (Auto) Cancelled, Absolute Neuts (auto) Cancelled, Absolute Monos (auto) Cancelled, Total Counted Cancelled, Neutrophils % (Manual) Cancelled, Band Neutrophils % Cancelled, Lymphocytes % (Manual) Cancelled, Monocytes % (Manual) Cancelled, Eosinophils % (Manual) Cancelled, Basophils % (Manual) Cancelled, Metamyelocytes % Cancelled, Myelocytes % Cancelled, Promyelocytes % Cancelled, Blast Cells % Cancelled, Plasma Cell % (Manual) Cancelled, Other Cells % Cancelled, Lymphocytes # Cancelled 01/15/18 05:46: Sodium 137, Potassium 3.8, Chloride 106, Carbon Dioxide 21.0, Anion Gap 10, BUN 13, Creatinine 0.88, Est GFR (MDRD) Af Amer 110, Est GFR (MDRD) Non-Af 91, BUN/Creatinine Ratio 14.8, Glucose 106, Calcium 8.0 L 01/15/18 11:53: WBC 10.0, RBC 4.21 L, Hgb 12.5 L, Hct 39.1 L, MCV 92.9, MCH 29.7, MCHC 32.0, RDW 14.1, RDW Differential 47.6 H, Plt Count 282, MPV 9.4, Immature Gran % (Auto) 1.300 H, Neut % (Auto) 79.8 H, Lymph % (Auto) 10.0 L, [place] % (Auto) 7.7, Eos % (Auto) 0.9, Baso % (Auto) 0.3, Absolute Neuts (auto) 8.0 H, Total Counted Not Reportable Rhythm: Atrial fibrillation Medical Necessity - Tobacco Use Smoking Status: Former smoker Tobacco Use: Pipe Assessment/Plan 1. Atrial fibrillation with rapid ventricular response At the present time the patient remains in atrial fibrillation with an elevated heart rate. The etiology of his atrial fibrillation may be multifactorial. This may be related to a combination of his age, history of hypertension, superimposed upon his underlying acute infectious disease related issue. His noninvasive evaluation has been negative thus far for evidence of an acute coronary syndrome. He is not felt to have evidence of an ongoing acute thromboembolic event. He will continue to be monitored. He continues medical therapy. As his rate has been challenging to control and his rhythm remained atrial fibrillation consideration is given to an attempt at synchronized biphasic DC cardioversion. The procedure and risks were discussed with the patient. He was agreeable to this approach. 2. Hypertension The patient is on hypertensive therapy. This may need to be adjusted during his hospital course and depending upon what medications he requires for his other medical conditions, etc. 3. Hyperlipidemia He will continue lipid-lowering therapy as tolerated. 4. Cellulitis of the left lower extremity He will continue evaluation care which has included antibiotic therapy, etc. This note was generated with [employer] software. It may contain incorrect words, spelling, and punctuation that were not noted in checking the note before signing.
--- NOTE | 2018-01-15 14:19 | PCM.OP.BLANK ---
Problem List (1) Atrial fibrillation Status: Acute (2) Hypertension Status: Chronic Qualifiers: Hypertension type: essential hypertension Qualified Code(s): I10 - Essential (primary) hypertension (3) Hyperlipidemia Status: Chronic Qualifiers: Hyperlipidemia type: unspecified Qualified Code(s): E78.5 - Hyperlipidemia, unspecified (4) Cellulitis of left leg Status: Acute Operative Report Date of Procedure: 01/15/18 Procedure: Synchronized biphasic DC cardioversion Indications: Atrial fibrillation Consent: Per the patient Premedications: Per Dr. Mikey Harmon pulmonology/critical care medicine with propofol 150 mg IV push total Procedure: Synchronized biphasic DC cardioversion: 200 J ?1: Result: Sinus rhythm with return to atrial fibrillation Synchronized biphasic DC cardioversion: 300 J ?1: Result: Sinus rhythm with return to atrial fibrillation Synchronized biphasic DC cardioversion: 360 J ?1: Sinus rhythm with return to atrial fibrillation Complications: No apparent complications This note was generated with [employer] software. It may contain incorrect words, spelling, and punctuation that were not noted in checking the note before signing.
--- NOTE | 2018-01-15 14:23 | OP.PCM_ITS ---
Problem List (1) Atrial fibrillation Status: Acute (2) Hypertension Status: Chronic Qualifiers: Hypertension type: essential hypertension Qualified Code(s): I10 - Essential (primary) hypertension (3) Hyperlipidemia Status: Chronic Qualifiers: Hyperlipidemia type: unspecified Qualified Code(s): E78.5 - Hyperlipidemia , unspecified (4) Cellulitis of left leg Status: Acute Operative Report Date of Procedure: 01/15/18 Procedure: Synchronized biphasic DC cardioversion Indications: Atrial fibrillation Consent: Per the patient Premedications: Per Dr. Mikey Harmon pulmonology/critical care medicine with propofol 150 mg IV push total Procedure: Synchronized biphasic DC cardioversion: 200 J ?1: Result: Sinus rhythm with return to atrial fibrillation Synchronized biphasic DC cardioversion: 300 J ?1: Result: Sinus rhythm with return to atrial fibrillation Synchronized biphasic DC cardioversion: 360 J ?1: Sinus rhythm with return to atrial fibrillation Complications: No apparent complications This note was generated with [employer] software. It may contain incorrect words, spelling, and punctuation that were not noted in checking the note before signing.
--- NOTE | 2018-01-15 21:40 | NURSING ---
Cardizem gtt. decreased to 2.5 mg/hr. Pt. tolerating well. VSS.
[2018-01-15] MEDS: Atorvastatin Calcium 10 MG Tablet PO (21:44)
[2018-01-15] MEDS: Metoprolol Tartrate 100 MG Tablet PO (21:45)
--- NOTE | 2018-01-15 23:15 | NURSING ---
Cardizem gtt. discontinued at this time. VSS,
[2018-01-15] MEDS: Amiodarone 200 MG Tablet PO (23:25)
[2018-01-16] VITALS (14 sets, daily range): BP systolic 122–146; BP diastolic 78–85; PULSE 65–109; RESP 15–23; TEMP 36.6–36.9; O2SAT 94–98
[2018-01-16] MEDS: 0.9% NaCl Peripheral Flush Adult/Peds IV (01:44)
--- NOTE | 2018-01-16 01:48 | NURSING ---
Amiodarone gtt. discontinued at this time. VSS.
--- NOTE | 2018-01-16 05:22 | EKG12_ITS ---
Test Reason : RHYTHM CHANGE Blood Pressure : / mmHG Vent. Rate : 071 BPM Atrial Rate : 071 BPM P-R Int : 168 ms QRS Dur : 088 ms QT Int : 438 ms P-R-T Axes : 049 019 016 degrees QTc Int : 475 ms Normal sinus rhythm Normal ECG When compared with ECG of 14-JAN-2018 05:04, MANUAL COMPARISON REQUIRED, DATA IS UNCONFIRMED Confirmed by YASIR COLVIN, ALLISON ([id number]), editor publications DUSTIN CONNELLY ([id number]) on 01/18/2018 1:25:55 PM Referred By: MADDY Confirmed By:ALLISON COOLEY MD
[2018-01-16 06:10] LABS: International Normalized Ratio 1.1; Prothrombin Time (Protime)PT. 14.4 SECONDS (11.7-14.9)
[2018-01-16] MEDS: Enoxaparin 100 MG/ML Syringe SC (06:27)
[2018-01-16] MEDS: Amiodarone 200 MG Tablet PO ×2 (06:27→11:04)
[2018-01-16 07:17] LABS: Anion Gap 11 (5-15); BUN 12 mg/dL (7-18); BUN/Creat Ratio 13.9 RATIO (10-20); Calcium,Total 8.7 mg/dL (8.5-10.1); Chloride 106 mmol/L (98-107); Creatinine, Serum 0.86 mg/dL (0.70-1.30); EST Glomerular Filtration Rate 93 mL/min (>60); Est Glom Filt Rate - Afr Amer 113 mL/min (>60); Estimated Creatinine Clearance 87.73 ml/min; Glucose 98 mg/dL (74-106); Potassium 3.5 mmol/L (3.5-5.1); Sodium Level 140 mmol/L (136-145)
[2018-01-16 07:20] LABS: Absolute Lymphocyte Count 1.28 X10^3/ul (0.83-4.51); Absolute Neutrophil Count 7.2 X10^3/uL (2.0-7.7); Basophil# 0.03 X10^3/uL; Basophil% 0.3 % (0-1); Eosinophil# 0.16 X10^3/uL; Eosinophils% 1.6 % (0-5); Hematocrit 40.3 % (40-54); Hemoglobin 13.3 g/dl (13.0-16.5); Lymphocyte # 1.28 X10^3/ul (4.0); Lymphocyte % 12.9 % (19-41); Mean Corpuscular Hgb 30.9 pg (27.0-32.0); Mean Corpuscular Volume 93.7 fL (80-94); Monocyte# 0.94 X10^3/uL; Monocyte% 9.5 % (0-10); Neutrophil % 72.8 % (47-70); POSITIVE COUNT YES; POSITIVE DIFFERENTIAL NO; POSITIVE MORPHOLOGY YES; Platelet Count 351 K/mm3 (150-450); RBC Distribution Width CV 14.1 % (11.6-14.6); RBC Distribution Width SD 46.9 fl (35.1-43.9); White Blood Count 9.9 K/mm3 (4.4-11.0)
--- NOTE | 2018-01-16 07:46 | NURSING ---
IV sites in Right forearm and right hand tender and redness at sites. Edema 1+ in right hand. Pt. did not complain of any pain through night when asked if sites were tender while IV fluids were running. Both cardizem and amiodarone ran through right forearm site. Right hand site had flushed well and was hep locked all night. IVs removed and ice pack applied. Pt. denied need for pain medication. Will continue to monitor. Dayshift nurse, Shalonda, jassi.
[2018-01-16] MEDS: Gabapentin 300 MG Capsule PO (08:57)
[2018-01-16] MEDS: Aspirin 81 MG TAB.CHEW PO (08:57)
--- NOTE | 2018-01-16 09:03 | NURSING ---
Patient IV's removed this morning due to redness, tenderness, and swelling of the right hand site. Ice applied. Patient requests to see physician before restarting IV as he believes he may be discharged today. Will continue to monitor.
[2018-01-16] MEDS: Amox/Clavulanate 875 MG Tablet PO (09:11)
[2018-01-16] MEDS: amLODIPine 2.5 MG Tablet PO (09:11)
[2018-01-16] MEDS: Metoprolol Tartrate 100 MG Tablet PO (09:11)
[2018-01-16 09:18] LABS: Pathologist Review Reviewed
--- NOTE | 2018-01-16 10:16 | PCM.PN.CARD ---
Subjectve: The patient is awake and alert. He denies ongoing issues of chest discomfort or difficulty breathing. He denies any obvious palpitations. He appears to be unaware of his cardiac rate and rhythm changing from atrial fibrillation to sinus rhythm and back to atrial fibrillation, etc. States his left lower extremity is feeling better. Objective: Vital Signs Temp Pulse Resp BP Pulse Ox 97.8 F 104 H 18 146/80 H 96 01/16/18 09:08 01/16/18 09:11 01/16/18 09:08 01/16/18 09:11 01/16/18 09:08 Oxygen Delivery Method Room Air Weight: 261 lb 14.546 oz Body Mass Index (BMI) 35.0 Intake and Output for Last 24 Hours 01/14/18 01/15/18 01/16/18 23:59 23:59 23:59 Intake Total 3038 / 3038 2401 / 2401 183 / 183 Output Total 650 / 650 300 / 300 Balance 2388 / 2388 2101 / 2101 183 / 183 General: Awake, Alert, Oriented x 3, Cooperative, No Acute Distress, Obese Neck: No JVD Lungs: Clear to auscultation Cardiovascular: Irregular Rhythm, Normal S1, Normal S2 Abdomen: Bowel Sounds Present, Soft, Non Tender Extremities: Mild LLE Edema 01/11/18 18:52: WBC 24.4 H, RBC 4.60, Hgb 14.2, Hct 42.8, MCV 93.0, MCH 30.9, MCHC 33.2, RDW 14.2, RDW Differential 47.9 H, Plt Count 226, MPV 9.6, Immature Gran % (Auto) 0.400, Neut % (Auto) 91.0 H, Lymph % (Auto) 4.0 L, Maries % (Auto) 4.6, Eos % (Auto) 0.0, Baso % (Auto) 0.0, Absolute Neuts (auto) 22.2 H 01/11/18 18:52: Sodium 136, Potassium 3.7, Chloride 101, Carbon Dioxide 24.0, Anion Gap 11, BUN 16, Creatinine 1.24, Est GFR (MDRD) Af Amer 74, Est GFR (MDRD) Non-Af 61, BUN/Creatinine Ratio 12.9, Glucose 93, Calcium 8.4 L 01/15/18 05:46: WBC Cancelled, Corrected WBC Cancelled, RBC Cancelled, Hgb Cancelled, Hct Cancelled, MCV Cancelled, MCH Cancelled, MCHC Cancelled, RDW Cancelled, RDW Differential Cancelled, Plt Count Cancelled, MPV Cancelled, Immature Gran % (Auto) Cancelled, Neut % (Auto) Cancelled, Lymph % (Auto) Cancelled, Mar[place] % (Auto) Cancelled, Eos % (Auto) Cancelled, Baso % (Auto) Cancelled, Immature Gran # (Auto) Cancelled, Absolute Neuts (auto) Cancelled, Absolute Monos (auto) Cancelled, Total Counted Cancelled, Neutrophils % (Manual) Cancelled, Band Neutrophils % Cancelled, Lymphocytes % (Manual) Cancelled, Monocytes % (Manual) Cancelled, Eosinophils % (Manual) Cancelled, Basophils % (Manual) Cancelled, Metamyelocytes % Cancelled, Myelocytes % Cancelled, Promyelocytes % Cancelled, Blast Cells % Cancelled, Plasma Cell % (Manual) Cancelled, Other Cells % Cancelled, Lymphocytes # Cancelled 01/15/18 05:46: Sodium 137, Potassium 3.8, Chloride 106, Carbon Dioxide 21.0, Anion Gap 10, BUN 13, Creatinine 0.88, Est GFR (MDRD) Af Amer 110, Est GFR (MDRD) Non-Af 91, BUN/Creatinine Ratio 14.8, Glucose 106, Calcium 8.0 L 01/15/18 11:53: WBC 10.0, RBC 4.21 L, Hgb 12.5 L, Hct 39.1 L, MCV 92.9, MCH 29.7, MCHC 32.0, RDW 14.1, RDW Differential 47.6 H, Plt Count 282, MPV 9.4, Immature Gran % (Auto) 1.300 H, Neut % (Auto) 79.8 H, Lymph % (Auto) 10.0 L, Maries % (Auto) 7.7, Eos % (Auto) 0.9, Baso % (Auto) 0.3, Absolute Neuts (auto) 8.0 H, Total Counted Not Reportable 01/16/18 05:25: PT 14.4, INR 1.1 01/16/18 06:46: WBC 9.9, RBC 4.30 L, Hgb 13.3, Hct 40.3, MCV 93.7, MCH 30.9, MCHC 33.0, RDW 14.1, RDW Differential 46.9 H, Plt Count 351, MPV 9.0, Immature Gran % (Auto) 2.900 H, Neut % (Auto) 72.8 H, Lymph % (Auto) 12.9 L, Maries % (Auto) 9.5, Eos % (Auto) 1.6, Baso % (Auto) 0.3, Absolute Neuts (auto) 7.2, Total Counted Not Reportable 01/16/18 06:46: Sodium 140, Potassium 3.5, Chloride 106, Carbon Dioxide 23.0, Anion Gap 11, BUN 12, Creatinine 0.86, Est GFR (MDRD) Af Amer 113, Est GFR (MDRD) Non-Af 93, BUN/Creatinine Ratio 13.9, Glucose 98, Calcium 8.7 Rhythm: Sinus rhythm with episodes of paroxysmal atrial fibrillation Medical Necessity - Tobacco Use Smoking Status: Former smoker Tobacco Use: Pipe Assessment/Plan 1. Atrial fibrillation with rapid ventricular response The patient has now demonstrated episodes of sinus rhythm with paroxysmal atrial fibrillation. The present time he will continue rate control therapy, antiarrhythmic therapy, and anticoagulant therapy. Respect to his antiarrhythmic therapy he has been placed on amiodarone at this time at 200 mg p.o. 3 times daily with a subsequent decline after 1 week to 200 mg p.o. twice daily with a subsequent decline after 2 weeks to 200 mg p.o. daily barring unforeseen changes. He should continue bridging anticoagulant therapy until his warfarin/Coumadin INR level is therapeutic. He will need future outpatient cardiovascular follow-up to monitor his underlying atrial dysrhythmia, medications, and further evaluation care as deemed appropriate, etc. 2. Hypertension The patient is on hypertensive therapy. This may need to be adjusted during his hospital course and depending upon what medications he requires for his other medical conditions, etc. 3. Hyperlipidemia He will continue lipid-lowering therapy as tolerated. 4. Cellulitis of the left lower extremity He will continue evaluation care which has included antibiotic therapy, etc. This note was generated with [employer] software. It may contain incorrect words, spelling, and punctuation that were not noted in checking the note before signing.
--- NOTE | 2018-01-16 10:19 | PN.CARD_ITS ---
Subjectve: The patient is awake and alert. He denies ongoing issues of chest discomfort or difficulty breathing. He denies any obvious palpitations. He appears to be unaware of his cardiac rate and rhythm changing from atrial fibrillation to sinus rhythm and back to atrial fibrillation, etc. States his left lower extremity is feeling better. Objective: Vital Signs Temp Pulse Resp BP Pulse Ox 97.8 F 104 H 18 146/80 H 96 01/16/18 09:08 01/16/18 09:11 01/16/18 09:08 01/16/18 09:11 01/16/18 09:08 Oxygen Delivery Method Room Air Weight: 261 lb 14.546 oz Body Mass Index (BMI) 35.0 Intake and Output for Last 24 Hours 01/14/18 01/15/18 01/16/18 23:59 23:59 23:59 Intake Total 3038 / 3038 2401 / 2401 183 / 183 Output Total 650 / 650 300 / 300 Balance 2388 / 2388 2101 / 2101 183 / 183 General: Awake, Alert, Oriented x 3, Cooperative, No Acute Distress, Obese Neck: No JVD Lungs: Clear to auscultation Cardiovascular: Irregular Rhythm, Normal S1, Normal S2 Abdomen: Bowel Sounds Present, Soft, Non Tender Extremities: Mild LLE Edema 01/11/18 18:52: WBC 24.4 H, RBC 4.60, Hgb 14.2, Hct 42.8, MCV 93.0, MCH 30.9, MCHC 33.2, RDW 14.2, RDW Differential 47.9 H, Plt Count 226, MPV 9.6, Immature Gran % (Auto) 0.400, Neut % (Auto) 91.0 H, Lymph % (Auto) 4.0 L, [place] % (Auto) 4.6, Eos % (Auto) 0.0, Baso % (Auto) 0.0, Absolute Neuts (auto) 22.2 H 01/11/18 18:52: Sodium 136, Potassium 3.7, Chloride 101, Carbon Dioxide 24.0, Anion Gap 11, BUN 16, Creatinine 1.24, Est GFR (MDRD) Af Amer 74, Est GFR (MDRD ) Non-Af 61, BUN/Creatinine Ratio 12.9, Glucose 93, Calcium 8.4 L 01/15/18 05:46: WBC Cancelled, Corrected WBC Cancelled, RBC Cancelled, Hgb Cancelled, Hct Cancelled, MCV Cancelled, MCH Cancelled, MCHC Cancelled, RDW Cancelled, RDW Differential Cancelled, Plt Count Cancelled, MPV Cancelled, Immature Gran % (Auto) Cancelled, Neut % (Auto) Cancelled, Lymph % (Auto) Cancelled, [place] % (Auto) Cancelled, Eos % (Auto) Cancelled, Baso % (Auto) Cancelled, Immature Gran # (Auto) Cancelled, Absolute Neuts (auto) Cancelled, Absolute Monos (auto) Cancelled, Total Counted Cancelled, Neutrophils % (Manual ) Cancelled, Band Neutrophils % Cancelled, Lymphocytes % (Manual) Cancelled, Monocytes % (Manual) Cancelled, Eosinophils % (Manual) Cancelled, Basophils % ( Manual) Cancelled, Metamyelocytes % Cancelled, Myelocytes % Cancelled, Promyelocytes % Cancelled, Blast Cells % Cancelled, Plasma Cell % (Manual) Cancelled, Other Cells % Cancelled, Lymphocytes # Cancelled 01/15/18 05:46: Sodium 137, Potassium 3.8, Chloride 106, Carbon Dioxide 21.0, Anion Gap 10, BUN 13, Creatinine 0.88, Est GFR (MDRD) Af Amer 110, Est GFR (MDRD ) Non-Af 91, BUN/Creatinine Ratio 14.8, Glucose 106, Calcium 8.0 L 01/15/18 11:53: WBC 10.0, RBC 4.21 L, Hgb 12.5 L, Hct 39.1 L, MCV 92.9, MCH 29.7 , MCHC 32.0, RDW 14.1, RDW Differential 47.6 H, Plt Count 282, MPV 9.4, Immature Gran % (Auto) 1.300 H, Neut % (Auto) 79.8 H, Lymph % (Auto) 10.0 L, [place] % (Auto) 7.7, Eos % (Auto) 0.9, Baso % (Auto) 0.3, Absolute Neuts (auto) 8.0 H, Total Counted Not Reportable 01/16/18 05:25: PT 14.4, INR 1.1 01/16/18 06:46: WBC 9.9, RBC 4.30 L, Hgb 13.3, Hct 40.3, MCV 93.7, MCH 30.9, MCHC 33.0, RDW 14.1, RDW Differential 46.9 H, Plt Count 351, MPV 9.0, Immature Gran % (Auto) 2.900 H, Neut % (Auto) 72.8 H, Lymph % (Auto) 12.9 L, [place] % (Auto ) 9.5, Eos % (Auto) 1.6, Baso % (Auto) 0.3, Absolute Neuts (auto) 7.2, Total Counted Not Reportable 01/16/18 06:46: Sodium 140, Potassium 3.5, Chloride 106, Carbon Dioxide 23.0, Anion Gap 11, BUN 12, Creatinine 0.86, Est GFR (MDRD) Af Amer 113, Est GFR (MDRD ) Non-Af 93, BUN/Creatinine Ratio 13.9, Glucose 98, Calcium 8.7 Rhythm: Sinus rhythm with episodes of paroxysmal atrial fibrillation Medical Necessity - Tobacco Use Smoking Status: Former smoker Tobacco Use: Pipe Assessment/Plan 1. Atrial fibrillation with rapid ventricular response The patient has now demonstrated episodes of sinus rhythm with paroxysmal atrial fibrillation. The present time he will continue rate control therapy, antiarrhythmic therapy, and anticoagulant therapy. Respect to his antiarrhythmic therapy he has been placed on amiodarone at this time at 200 mg p.o. 3 times daily with a subsequent decline after 1 week to 200 mg p.o. twice daily with a subsequent decline after 2 weeks to 200 mg p.o. daily barring unforeseen changes. He should continue bridging anticoagulant therapy until his warfarin/Coumadin INR level is therapeutic. He will need future outpatient cardiovascular follow-up to monitor his underlying atrial dysrhythmia, medications, and further evaluation care as deemed appropriate, etc. 2. Hypertension The patient is on hypertensive therapy. This may need to be adjusted during his hospital course and depending upon what medications he requires for his other medical conditions, etc. 3. Hyperlipidemia He will continue lipid-lowering therapy as tolerated. 4. Cellulitis of the left lower extremity He will continue evaluation care which has included antibiotic therapy, etc. This note was generated with [employer] software. It may contain incorrect words, spelling, and punctuation that were not noted in checking the note before signing.
--- NOTE | 2018-01-16 11:32 | PCM.DC ---
- Discharge Diagnoses Current Active Problems: Current Active and Chronic Problems (1) New onset, Paroxsymal atrial fibrillation w/ RVR, failed attempted cardioversion x 3 (2) LLE Extremity Cellulitis (3) Hypertension (4) Hyperlipidemia (5) Obesity You will use the following diet at home:: Cardiac Your food should be the consistency of: Regular Your liquids should be the consistency of: Regular/Thin Discharge Activity: Return to Normal Activity May resume sexual activity in: No Restrictions Weight Bearing Status: Weight bearing as tolerated Keep extremity elevated above heart level: Left Leg Call your doctor if you observe: Fever of 101 or Higher, Inability to urinate, Inability to have a bowel movement, Shortness of breath, Dizziness, Fainting spells, Chest pain, Uncontrolled pain Instructions: Discharge Instructions for Atrial Fibrillation, What Is Atrial Flutter/Atrial Fibrillation?, Taking?Coumadin, Enoxaparin Sodium (Porcine) Solution for injection, Discharge Instructions for Cellulitis, Cellulitis - Causes,Symptoms,Treating Additional Instructions: Please have follow-up INR within 2 days and review this level with your primary care physician. Results will be faxed to your PCP and will need to be reviewed with them to ascertain when you may transition off the therapeutic lovenox and maintain only on coumadin. The goal INR is 2-2.5. Please continue to have INR checks per your Primary Care until you are therapeutic and then they will determine an appropriate routine schedule. Additionally, upon discharge Dr. Luciano has requested your continue amiodarone as a taper with 1 week 200 mg three times daily followed by 200 mg twice daily x 2 weeks and then transition to 200 mg daily thereafter. Allergies/Adverse Reactions: Allergies No Known Allergies Allergy (Verified 01/11/18 16:33) Medications to take at Discharge Aspirin [Aspirin, Baby] 81 mg PO DAILY@0800 05/03/14 Simvastatin 20 mg PO QHS 05/03/14 Gabapentin [Neurontin] 300 mg PO BID 01/12/18 Amiodarone HCl [Cordarone] 200 mg PO UD #56 tab 01/16/18 Amlodipine [Norvasc] 2.5 mg PO DAILY tablet 01/16/18 Amox/Clavulanate Tablet [Augmentin Tablet] 875 mg PO BID #10 tab 01/16/18 Enoxaparin [Lovenox] 100 mg SC Q12@0600,1800 #14 syringe 01/16/18 Metoprolol Tartrate [Lopressor (beta mark)] 100 mg PO BID #60 tab 01/16/18 Oxycodone [Oxyir] 5 mg PO Q6H PRN PRN 5 Days #20 tablet 01/16/18 Warfarin [Coumadin] 5 mg PO DAILY@1700 #30 tab 01/16/18 The following prescriptions were given: Oxycodone [Oxyir] 5 mg PO Q6H PRN PRN 5 Days #20 tablet PRN Reason: Severe Pain (-07/03) Amiodarone HCl [Cordarone] 200 mg PO UD #56 tab Enoxaparin [Lovenox] 100 mg SC Q12@0600,1800 #14 syringe Warfarin [Coumadin] 5 mg PO DAILY@1700 #30 tab Amox/Clavulanate Tablet [Augmentin Tablet] 875 mg PO BID #10 tab Metoprolol Tartrate [Lopressor (beta mark)] 100 mg PO BID #60 tab Primary Care Physician: Shena Roberts [Primary Care Provider] - Please follow up with your Primary Care Physician in: Follow-up within 2-3 days. Please Follow Up With: Kj Luciano MD When: Follow-up as requested per Cardiology. Proposed Discharge Date: 01/16/18
--- NOTE | 2018-01-16 11:56 | PCM.DC.SUM ---
Discharge Date and Diagnosis - Problem List Patient Problems: Active and Suspected Problems Atrial fibrillation (Acute) Cellulitis of left leg (Acute) Date of Admission: 01/12/18 Date of Discharge: 01/16/18 - Primary Discharge Diagnosis Active and Suspected Problems (1) New onset, Paroxsymal atrial fibrillation w/ RVR, failed attempted cardioversion x 3 (2) LLE Extremity Cellulitis (3) Hypertension (4) Hyperlipidemia (5) Obesity - Secondary Discharge Diagnosis Chronic Problems Hypertension (Chronic) Hyperlipidemia (Chronic) Hospital Course and Treatment Dr. Luciano Cardiology Operations: None Procedures: 2-D Echocardiogram, Cardioversion, EKG Summary of Care Provided: The patient is a 72 y/o M w/ PMHx: HTN, HLD, Obesity who presented to the [facility] ED on 01/12/18 with onset LLE pain, erythema, swelling. During the admission he was noted to have tachycardia. EKG w/ atrial fibrillation w/ RVR. Patient maintained in the PCU on telemetry following onset, cardiac enzyme serial set unremarkable, magnesium level 1.9, TSH 2.95, ECHO w/ normal LV size, normal LV systolic function, EF 60%, mild to moderate TV insufficiency, pulmonary artery systolic pressure 28 mmHg. CHADs scoring appropriate for anticoagulation start at this time, placed on therapeutic lovenox w/ 01/14/18 addition coumadin overlap as oral newer options cost prohibitive. Initially placed on cardizem drip-->01/14/18 additional of also Amiodarone drip as had remained uncontrolled rate. Rate improved but still ongoing atrial fibrillation, 01/15/18 failed cardioversion x 3 (converted immediately but returned to atrial fibrillation w/ PAC onset). Patient rate improved and he was transitioned off drips to amiodarone with planned taper (200 mg TID x 1 week, 200 mg BID x 2 weeks, 200 mg daily thereafter) and increased metoprolol regimen per Dr. Luciano. Upon admission CBC w/ WBC 20.8 with L shift-->01/14/18 CBC w/ WBC 14.4 with decreased shift-->01/16/18 CBC w/ WBC 9.9 with resolved shift. Maintained initially on IV vanc and zosyn-->transitioned to unasyn and given ongoing improvement 01/15/18 transition to oral augment. Erythema improved and edema improved w/ snug CHANDLER placement also w/ negative DVT US. Given clinical improvement and rate control, patient discharged to home in stable condition on new addition amiodarone, increased metoprolol, overlapping lovenox and coumadin w/ requested repeat INR within 2 days with results faxed to PCP with PCP re-evaluation for transitioning off lovenox once INR therapeutic. Education regarding coumadin and lovenox performed prior to discharge. DAY OF DISCHARGE PROGRESS NOTE: Subjective: Patient without acute event overnight per self and nursing report. Patient denies fever, chills, nausea, emesis, abdominal pain, chest pain or dyspnea. He remained rate controlled on oral regimen. He notes ongoing improvement LLE and minimal pain now. Patient agreeable to discharge to home. Patient will be discharged with follow-up with primary care physician within 3-5 days in addition to Cardiology. Objective: T 97.8, heart rate 67, BP 146/80, respiratory rate 18, 96% on room air. Physical Examination: General: awake, alert, oriented x 3 and cooperative, seated upright in bedside chair, in no apparent distress. Skin: normal color, turgor, no icterus, cyanosis, improved LLE w/ resolved erythema and decreased edema. HEENT: AT/NC, EOMI, PERRLA, MMM. Lungs: CTA bilaterally, moderate effort, mild decrease BL bases, no rales, ronchi or wheezing. Heart: Irregular, rate controlled currently; no gallop, rub audible. Abdomen: soft, obese, NTTP, ND, normal BS. Extremities: no cyanosis, clubbing, see skin. Neurological: patient awake, alert, oriented x 3; cognitive function intact; pupils equally reactive to light and accomodation; cranial nerves II-XII grossly normal, moving all 4 extremities, no focal deficits, strength improved, mildly globally decreased. Psychiatric: affect appears normal, no acute evidence of depressive or anxiety feelings. Assessment and Plan: Please see hospital summary above. Discharge Activity: Return to Normal Activity May resume sexual activity in: No Restrictions Weight Bearing Status: Weight bearing as tolerated Keep extremity elevated above heart level: Left Leg Call your doctor if you observe: Fever of 101 or Higher, Inability to urinate, Inability to have a bowel movement, Shortness of breath, Dizziness, Fainting spells, Chest pain, Uncontrolled pain Home Medications: Medications to take at Discharge Aspirin [Aspirin, Baby] 81 mg PO DAILY@0800 05/03/14 Simvastatin 20 mg PO QHS 05/03/14 Gabapentin [Neurontin] 300 mg PO BID 01/12/18 Amiodarone HCl [Cordarone] 200 mg PO UD #56 tab 01/16/18 Amlodipine [Norvasc] 2.5 mg PO DAILY tablet 01/16/18 Amox/Clavulanate Tablet [Augmentin Tablet] 875 mg PO BID #10 tab 01/16/18 Enoxaparin [Lovenox] 100 mg SC Q12@0600,1800 #14 syringe 01/16/18 Metoprolol Tartrate [Lopressor (beta mark)] 100 mg PO BID #60 tab 01/16/18 Oxycodone [Oxyir] 5 mg PO Q6H PRN PRN 5 Days #20 tablet 01/16/18 Warfarin [Coumadin] 5 mg PO DAILY@1700 #30 tab 01/16/18 Following Prescrptions Were Given to Patient: Oxycodone [Oxyir] 5 mg PO Q6H PRN PRN 5 Days #20 tablet PRN Reason: Severe Pain (-07/03) Amiodarone HCl [Cordarone] 200 mg PO UD #56 tab Enoxaparin [Lovenox] 100 mg SC Q12@0600,1800 #14 syringe Warfarin [Coumadin] 5 mg PO DAILY@1700 #30 tab Amox/Clavulanate Tablet [Augmentin Tablet] 875 mg PO BID #10 tab Metoprolol Tartrate [Lopressor (beta mark)] 100 mg PO BID #60 tab Primary Care Physician: Shena Roberts [Primary Care Provider] - Please follow up with your Primary Care Physician in: Follow-up within 2-3 days. Please Follow Up With: Kj Luciano MD When: Follow-up as requested per Cardiology. Patient Instructions: Enoxaparin Sodium (Porcine) Solution for injection, Taking?Coumadin, What Is Atrial Flutter/Atrial Fibrillation?, Discharge Instructions for Atrial Fibrillation, Discharge Instructions for Cellulitis, Cellulitis - Causes,Symptoms,Treating Disposition: Home Minutes spent on discharge:: 35 Patient Condition:: Fair Medical Necessity - Tobacco Use Smoking Status: Former smoker Tobacco Use: Pipe Meaningful Use Info Meaningful Use Diagnoses (Choose all that apply): None applicable Code Visit Inpatient E&M: 83475 Disch Hosp
--- NOTE | 2018-01-16 12:17 | CASEMGMT ---
Per Dr. Burton, pt will need sent home on Lovenox to bridge to Coumadin. Script e-scribed to [facility] previously and this RN CM placed call to [facility] and she states that co-pay will be $15.00 at this time. Advised oncology pharmacist to cancel Xarelto and Eliquis script that were sent several days ago, voices understanding. Dr. Burton and Shalonda MOONEY updated on all at this time, voice understanding. Shalonda MOONEY states she will notify pt during discharge. Hitesh MOONEY CM
--- NOTE | 2018-01-16 15:19 | NURSING ---
Lovenox teaching complete with patient using teachback method. Patient has previously given himself injections into the stomach. He correctly described how to use the syringe and administer the medication. Patient denies having questions. Educational paper on lovenox also supplied.
== END 2018-01-16 15:54 | disposition home or self-care (01) | DRG 603 ==
LOC: MS2 01-12 15:04 → PCU 01-12 23:29
PROVIDERS: Emergency Medicine; Hospitalist; Internal Medicine Cardiovascular Disease; Admitting Provider Internal Medicine; Family Provider Nurse Practitioner; PCP Nurse Practitioner; Visit Provider Family Medicine
DX: L03.116 Cellulitis of left lower limb (principal); I48.0 Paroxysmal atrial fibrillation; E87.6 Hypokalemia; M54.9 Dorsalgia, unspecified; G89.29 Other chronic pain; I10 Essential (primary) hypertension; E78.5 Hyperlipidemia, unspecified; E66.9 Obesity, unspecified; Z87.891 Personal history of nicotine dependence; Z68.35 Body mass index [BMI] 35.0-35.9, adult
CPT/HCPCS: 36415; 71046; 80048; 80076; 83735; 83880; 84443; 84484; 85025; 85379; 85610; 85652; 86140; 87040; 87641; 92960; 93005; 93306; 93971; 96365; 96366; 97802; 99284; J7030; J7040; J7050; Q9957; A4216; C8929; J0295

== ENCOUNTER → 2018-01-29 14:38 | Outpatient (CLI) | payer MEDICARE, SELFPAY | PROVIDERS: Family Provider Nurse Practitioner; PCP Nurse Practitioner; Visit Provider Internal Medicine | DX: I48.91 Unspecified atrial fibrillation (principal) | CPT/HCPCS: 93225; 93226 ==

== ENCOUNTER → 2018-02-15 14:27 | Outpatient (CLI) | payer MEDICARE, SELFPAY ==
[2018-02-15 15:05] LABS: Prothrombin Time (Protime)PT. 51.3 SECONDS (11.7-14.9)
[2018-02-15 15:44] LABS: International Normalized Ratio 5.6
== END ==
PROVIDERS: Family Provider Internal Medicine; PCP Internal Medicine; Visit Provider Internal Medicine
DX: Z79.01 Long term (current) use of anticoagulants (principal)
CPT/HCPCS: 36415; 85610

== ENCOUNTER → 2018-08-07 12:50 | Outpatient (CLI) | payer MEDICARE, SELFPAY ==
--- NOTE | 2018-08-08 06:46 | PFTCOMP_ITS ---
COMPLETE PULMONARY FUNCTION TEST INTERPRETATION Brief HPI: Patient is a 73 year old male, currently under the care of Dr. Luciano, who presents to [facility] for complete pulmonary function tests secondary to diagnosis of high risk med use. Respiratory therapist reports good effort and reproducible results. Interpretation: Forced expiration spirometry shows no large airways obstructive ventilatory defect with an FEV1 of 87% predicted. There is no significant bronchodilator response by strict ATS criteria. Spirograms are of good quality and plateau normally. The respiratory flow volume loop shows a normal pattern. Lung volumes by body plethysmography show a normal total lung capacity at 6.01 L, 86% predicted. All other lung volumes are within normal limits. Diffusion capacity by carbon monoxide is normal at 95% predicted. The airway resistance is normal. No previous pulmonary function tests were available for review. Impression: These pulmonary function tests are within normal limits.
== END ==
PROVIDERS: Family Provider Internal Medicine; PCP Internal Medicine; Referring Provider Internal Medicine Cardiovascular Disease; Visit Provider Internal Medicine Cardiovascular Disease
DX: E78.5 Hyperlipidemia, unspecified (principal); I10 Essential (primary) hypertension; I48.0 Paroxysmal atrial fibrillation
CPT/HCPCS: 94060; 94726; 94729

== ENCOUNTER → 2018-09-05 10:58 | Outpatient (CLI) | payer MEDICARE, SELFPAY ==
[2018-09-05 11:19] LABS: Hematocrit 46.4 % (40-54); Hemoglobin 14.6 g/dl (13.0-16.5); Mean Corp Hgb Conc 31.5 g/gl (32-36); Mean Corpuscular Hgb 30.5 pg (27.0-32.0); Mean Corpuscular Volume 97.1 fL (80-94); Mean Platelet Vol. 9.5 fl (6.2-12.0); Platelet Count 250 K/mm3 (150-450); RBC Distribution Width CV 13.9 % (11.6-14.6); RBC Distribution Width SD 49.8 fl (35.1-43.9); Red Blood Count 4.78 M/mm3 (4.6-6.2); White Blood Count 6.7 K/mm3 (4.4-11.0)
[2018-09-05 11:24] LABS: Scan Indicated on CBC? Y/N NO
[2018-09-05 11:34] LABS: Hemoglobin A1c 6.3 % (4.2-6.3)
[2018-09-05 11:35] LABS: Albumin, Serum 3.5 g/dL (3.2-5.0); BUN 15 mg/dL (7-18); BUN/Creat Ratio 13.8 RATIO (10-20); Creatinine, Serum 1.09 mg/dL (0.70-1.30); EST Glomerular Filtration Rate 71 mL/min (>60); Est Glom Filt Rate - Afr Amer 86 mL/min (>60); Globulin 3.9 g/dL (2.2-4.2); Glucose 98 mg/dL (74-106); Protein, Total 7.4 g/dL (6.4-8.2)
[2018-09-05 11:36] LABS: ALB/GLOB Ratio 0.9 RATIO (0.9-2.4); AST(SGOT) 29 U/L (15-37); Alanine Aminotransfer ALT/SGPT 30 U/L (16-61); Alkaline Phosphatase 72 U/L (45-117); Anion Gap 7 (5-15); Calcium,Total 8.2 mg/dL (8.5-10.1); Chloride 107 mmol/L (98-107); Cholesterol 174 mg/dL (200); High Density Lipoprotein 47 mg/dL; Potassium 4.5 mmol/L (3.5-5.1); Sodium Level 142 mmol/L (136-145); Thyroid Stim Hormone (TSH) 2.52 uIU/mL (0.358-3.74); Triglycerides 194 mg/dL; Very Low Density Lipoprotein 39 mg/dL (5-40)
[2018-09-06 08:59] LABS: Hep C Antibodies <0.1 s/co ratio (0.0-0.9)
--- OUTSIDE RECORDS SUMMARY | 2018-10-22 06:17 | XMS RPT_ITS ---
:1945 Author Organization OHIP Support Name Relationship Address Phone KEITH ADRIAN Unavailable [address] + [address] [place] [address] R Unavailable Unavailable Unavailable CABBELL, KEITH Unavailable [address] + [address] [place] [address] R Unavailable Unavailable Unavailable CABBELL, KEITH Unavailable [address] + [address] [place] [address] R Unavailable Unavailable Unavailable CABBELL, KEITH Unavailable [address] + [address] [place] [address] R Unavailable Unavailable Unavailable CABBELL, KEITH Unavailable [address] + [address] [place] [address] R Unavailable Unavailable Unavailable CABBELL, KEITH Unavailable [address] + [address] [place] [address] R Unavailable Unavailable Unavailable CABBELL, KEITH Unavailable [address] + [address] [place] [address] R Unavailable Unavailable Unavailable CABBELL, KEITH Unavailable [address] + [address] [place] [address] R Unavailable Unavailable Unavailable CABBELL, KEITH Unavailable [address] + [address] [place] [address] R Unavailable Unavailable Unavailable CABBELL, KEITH Unavailable [address] + [address] [place] [address] R Unavailable Unavailable Unavailable CABBELL, KEITH Unavailable [address] + [address] [place] [address] R Unavailable Unavailable Unavailable CABBELL, KEITH Unavailable [address] + [address] [place] [address] R Unavailable Unavailable Unavailable CABBELL, KEITH Unavailable [address] + [address] [place] [address] R Unavailable Unavailable Unavailable CABBELL, KEITH Unavailable [address] + [address] [place] [address] R Unavailable Unavailable Unavailable CABBELL, KEITH Unavailable [address] + [address] [place] [address] R Unavailable Unavailable Unavailable CABBELL, KEITH Unavailable [address] + [address] [place] [address] R Unavailable Unavailable Unavailable CABBELL, KEITH Unavailable [address] + [address] [place] [address] R Unavailable Unavailable Unavailable CABBELL, KEITH Unavailable [address] + [address] [place] [address] R Unavailable Unavailable Unavailable CABBELL, KEITH Unavailable [address] + [address] [place] [address] R Unavailable Unavailable Unavailable CABBELL, KEITH Unavailable [address] + [address] [place] [address] R Unavailable Unavailable Unavailable CABBELL, KEITH Unavailable [address] + [address] [place] [address] R Unavailable Unavailable Unavailable CABBELL, KEITH Unavailable [address] + [address] [place] [address] R Unavailable Unavailable Unavailable CABBELL, KEITH Unavailable [address] + [address] [place] [address] R Unavailable Unavailable Unavailable CABBELL, KEITH Unavailable [address] + [address] [place] [address] R Unavailable Unavailable Unavailable CABBELL, KEITH Unavailable [address] + [address] [place] [address] R Unavailable Unavailable Unavailable CABBELL, KEITH Unavailable [address] + [address] [place] [address] R Unavailable Unavailable Unavailable Care Team Providers Name Role Phone NANCY MCCARTHY (HIGHWAY PAINTER HELPER) Referring Unavailable ISAAK LUCIO Attending Unavailable ISAAK LUCIO Referring Unavailable Isaak Lucio Attending Unavailable Isaak Lucio Referring Unavailable Kj Venegas Attending Unavailable [place], Kj Referring Unavailable Ciesa Shena Attending Unavailable Ciesbess Shena Referring Unavailable [facility] Primary [facility] Unavailable Civickie, Shena Attending Unavailable Civickie Shena Referring [facility]available [facility] Isabel, Tejas Admitting Un[facility] Unavailable [place], Kj Consulting Unavailable White, Nazanin Attending Unavailable Isabel, Tejas Admitting Unavailable Ashelfah, Ghasem Attending Unavailable [facility] Unavailable Ashelfah, Ghasem Consulting Unavailable Isabel, Tejas Admitting Unavailable Ashelfah, Ghasem Attending Unavailable [facility] Unavailable Ashelfah, Ghasem Consulting Unavailable Isabel, Tejas Admitting Unavailable Moodisgaetano, Kj Attending Unavailable [facility] Unavailable [place], Kj Consulting Unavailable Ashelfah, Ghasem Consulting Unavailable Isabel, Tejas Admitting Unavailable Moodisgaetano, Kj Attending Unavailable [facility] Unavailable [place], Kj Consulting Unavailable White, Nazanin Consulting Unavailable Isabel, Tejas Admitting Unavailable White, Nazanin Attending Unavailable [facility] Unavailable [place], Kj Consulting Unavailable White, Nazanin Consulting Unavailable Isabel, Tejas Admitting Unavailable Mikey Harmon D.O. Attending Unavailable [facility] Unavailable [place], Kj Consulting Unavailable White, Nazanin Consulting Unavailable Isabel, Tejas Admitting Unavailable White, Nazanin Attending Unavailable [facility] Unavailable [place], Kj Consulting Unavailable White, Nazanin Consulting Unavailable Isabel, Tejas Admitting Unavailable Moodisgabrielw, Kj Attending Unavailable [facility] Unavailable [place], Kj Consulting Unavailable White, Nazanin Consulting Unavailable Laureano Aquino Attending Unavailable [facility] Primary Care Unavailable Isabel, Tejas Admitting Unavailable Moodispabuck, Kj Attending Unavailable [facility] Unavailable [place], Kj Consulting Unavailable White, Nazanin Consulting Unavailable Isabel, Tejas Admitting Unavailable White, Nazanin Attending Unavailable [facility] Unavailable [place], Kj Consulting Unavailable White, Nazanin Consulting Unavailable Thiago Lugo Attending Unavailable Swapna Stevens Attending Unavailable Swapna Stevens Referring Unavailable [facility] Unavailable Swapna Stevens Attending Unavailable Swapna Stevens Referring Unavailable Hilda, Swapna Primary Care Unavailable Nitish Lam Attending Unavailable Hilda, Swapna Referring Unavailable Ese Shannon Attending Unavailable [place], Kj Attending Unavailable Shnea Roberts Referring Unavailable Hilda, Swapna Primary Care Unavailable Prakash Esteves Attending Unavailable Tejas Mackey Referring Unavailable Mooddiana, Kj Attending Unavailable Hilda, Swapna Referring Unavailable Moodispabuck, Kj Attending Unavailable Hilda, Swapna Primary Care Unavailable Moodisgaetano, Kj Referring Unavailable Christopher Kramer Attending Unavailable [place], Kj Referring Unavailable PROBLEMS PROBLEMS DATE TYPE CONDITION / CODE ATTENDING STATUS SOURCE 09/05/2018 Unknown Z01.89 - Encounter for Isaak Lucio Active [facility] other specified Community special examinations / Hospital Z01.89(ICD-10) Repository 09/03/2018 Active Essential (primary) NA Active [place] hypertension / Clinic Main I10(ICD-10) [place] Repository 09/05/2018 Active Other abnormal glucose NA [facility] / R73.09(ICD-10) Clinic Main [place] Repository 09/05/2018 Active Mixed hyperlipidemia / NA [facility] E78.2(ICD-10) Clinic Main [place] Repository 09/05/2018 Active Encounter for other NA Active [place] specified special Clinic Main examinations / [place] Z01.89(ICD-10) Repository 09/03/2018 Active Other superintendent container terminal NA Active [facility] (current) drug therapy Clinic Main / Z79.899(ICD-10) [place] Repository 08/12/2018 Unknown E78.5 - Christopher Kramer Active [place] Hyperlipidemia, Community unspecified / Hospital E78.5(ICD-10) Repository 05/24/2018 Unknown I48.91 - Unspecified [place], Active [facility] atrial fibrillation / [facility] I48.91(ICD-10) Hospital Repository 05/24/2018 Unknown I10 - Essential [place], Active [facility] (primary) hypertension [facility] / I10(ICD-10) Hospital Repository 05/24/2018 Unknown I48.0 - Paroxysmal [place], Active [facility] atrial fibrillation / [facility] I48.0(ICD-10) Hospital Repository 02/15/2018 Unknown Z79.01 - superintendent container terminal Hilda, Active [facility] (current) use of [facility] anticoagulants / Hospital Z79.01(ICD-10) Repository 03/05/2018 Unknown R94.31 - Abnormal Danielito, Prakash Active [place] electrocardiogram Community [ECG] [EKG] / Hospital R94.31(ICD-10) Repository 01/16/2018 Unknown L03.116 - Cellulitis Nazanin Burton Active [facility] of left lower limb / Community L03.116(ICD-10) Hospital Repository 01/11/2018 Unknown R60.0 - Localized Shena Roberts Active [facility] edema / R60.0(ICD-10) [facility] Repository PROCEDURES PROCEDURES No Procedure Records FoundRESULTS RESULTS CARDIOLOGY VISIT Observed: 09/06/2018 Status: F Source: [place] REPORT 3:43 PM [facility] HOSPITAL REPOSITORY [facility] [facility] [address] [place] [address] OFFICE VISIT Date of Service: 09/06/18 MR#: [id number] Acct: [id number] Name: LONNIE ADRIAN Rep #: [id number] : 1945 Provider: Kj Venegas MD Age/Sex: 73/M Location: [facility] Status: Signed HPI HPI Details: LONNIE ADRIAN, is a 73 M who presents to the office today for Cardiovascular follow up of his history of underlying atrial fibrillation, sinus bradycardia, hyperlipidemia, and hypertension. At the present time he states overall he is doing well. He denies any ongoing symptoms of palpitations or rapid heart rate. There has been no near syncope or syncope. He has had no other concerning chest discomfort or difficulty breathing. Of laboratory work performed yesterday. His electrolytes, hepatic studies, thyroid studies, and his lipids studies appear to be within acceptable limits. Intake Vital Signs09/06/18 Body Mass Index (BMI) 29.9 09/06/18 Height 6 ft 5 in 09/06/18 Weight: 255 lb 09/06/18 Body Mass Index (BMI) 30.2 09/06/18 Blood Pressure 120/74 Intake Visit Reasons: PT rescheduled from 08/22/18 Allergies No Known Allergies Allergy (Verified 09/06/18 14:59) Medications Simvastatin 20 mg PO QHS 05/03/14 [History Confirmed 09/06/18] Warfarin [Coumadin] 5 mg PO DAILY@1700 #30 tab 01/16/18 [Rx Confirmed 09/06/18] sertraline 50 mg tablet 50 mg PO QDAY 02/21/18 [History Confirmed 09/06/18] amlodipine 2.5 mg tablet 2.5 mg PO DAILY #30 tab 05/24/18 [Rx Confirmed 09/06/18] amiodarone 200 mg tablet 100 mg PO DAILY #90 tab 09/06/18 [Rx Confirmed 09/06/18] metoprolol succinate ER 25 mg tablet,extended release 24 hr 25 mg PO DAILY #90 tab 09/06/18 [Rx Confirmed 09/06/18] [facility] Medical History Atrial fibrillation (Acute) Hypertension (Chronic) Hyperlipidemia (Chronic) Cellulitis of left leg (Acute) Surgical History History of arthroscopy of left knee (Resolved) History of hernia repair (Resolved) History of tonsillectomy (Resolved) Family History Father Heart disease Social History Smoking Status: Former smoker alcohol intake: current details: 1 beer daily substance use type: does not use ROS Const Const: Negative for fatigue, weakness, weight gain, weight loss, frequent falls or excessive sweating Eyes Eyes: Negative for change in vision, blurry vision or transient loss of vision ENT ENT: Negative for dizziness or balance problems Cardio Chest Pain: No Palpitations: No Edema: None Muscle aches with walking: None Resp Respiratory: Positive for SOB with activity (occasional); negative for SOB at rest GI GI: Negative vomiting or vomiting blood/hematemesis : Negative for hematuria Musc Musc: Positive for joint pain (HX arthritis); negative for balance problems, muscle aches/ myalgia or muscle weakness Skin Skin: Negative non-healing lesions or rash Neuro Neuro: Negative for weakness, blurry vision, dizziness, lightheadedness, frequent falls or orthostatic symptoms Thong Hematologic/Lymphatic: Negative for easy bleeding Endo Endo: Negative for fatigue or excessive sweating Psych Psych: Negative for anxiety or depression Allergy Allergy/Immunology: Negative for hives, Negative for rash Cardiology Exam Const Appearance: cooperative, healthy appearing, comfortable, no acute distress, well groomed and well developed Nutritional Appearance: overweight Orientation: alert, awake and oriented x3 Head Head: normal to inspection, normocephalic and atraumatic Ears: hearing grossly normal bilaterally Nose: external nose normal Face and Sinus: face symmetric Mouth: oral mucosae normal Eyes Eyelids: eyelids normal Conjunctivae: conjunctivae normal Pupils: PERRL EOM: EOM intact bilaterally Neck Neck: normal visual inspection and full ROM Carotids: normal carotid upstroke Chest Chest inspection: normal inspection of the chest and symmetric chest movement Auscultation: Bilateral: Clear to Auscultation Cardio Palpation: normal PMI Rate: regular rate Rhythm: regular rhythm Heart sounds: S1 normal and S2 normal GI GI: normal to inspection, bowel sounds present and soft Neuro General: alert, awake, oriented x3, gait normal, moves all extremities, no focal sensory deficit and no focal motor deficits Skin Skin: no rashes or lesions noted Extremities Pulses: Normal: Right Radial Pulse, Left Radial Pulse Lower Extremity Edema: Trace: Left Psych Psychological: normal affect Assessment AND Plan 1. Paroxysmal atrial fibrillation I48.0 Plan At the present time he appears to remain in sinus rhythm/sinus bradycardia based upon his examination. His case was reviewed. It was elected to alter his medications. His metoprolol Tartrate of which he takes 25 mg twice a day at this time will be adjusted to metoprolol succinate 25 mg q.day. He will also decrease his amiodarone dose to 100 mg q.day. He will need future follow up. This will be to monitor his heart rate and rhythm. Over time if he remains on the amiodarone he will need additional follow ups such as chest X rays and PFTs, etc. 2. Hyperlipidemia, unspecified hyperlipidemia type E78.5 Plan Again his lipids were assessed yesterday. They appeared to be under reasonably good control. He will continue medical management. 3. Essential hypertension I10 Plan His blood pressure appears to be well controlled at this time. He will continue medical therapy and followup. Plan Detail Other Medications New: Additional Comments Thank you for allowing me to participate in the care of your patient. Please don't hesitate to call if any issues arise. This note was generated using a voice recognition system and there may be incorrect words, spelling or punctuation that were not noted when reviewing the office note prior to saving. Follow Up 3 Months (PFM) Coding Level of Care Code Off vis,est,level 3 Diagnoses Paroxysmal atrial fibrillation I48.0 Atrial fibrillation type: paroxysmal Hyperlipidemia, unspecified hyperlipidemia type E78.5 Hyperlipidemia type: unspecified Essential hypertension I10 Coding Level of Care Code Off vis,est,level 3 Diagnoses Paroxysmal atrial fibrillation I48.0 Atrial fibrillation type: paroxysmal Hyperlipidemia, unspecified hyperlipidemia type E78.5 Hyperlipidemia type: unspecified Essential hypertension I10 09/06/18 1543 <Electronically signed by Kj Venegas MD> Date Kj Venegas MD Cosigner Signature: Date (if applicable) CC: Kj Venegas MD HEP C AB IA W/CONF Collected: 09/05/2018 Status: F Source: [place] 10:12 AM [facility] [place] REPOSITORY TYPE CODE TESTS RESULT OUT OF RANGE REFERENCE UNITS LAB AHCV Negative Abnormal Hepatitis C Ab Test sent to [facility]. Result Comment: Account Credited HIDE CBC Collected: 09/05/2018 Status: F Source: [place] 10:12 AM [facility] REPOSITORY TYPE CODE TESTS RESULT OUT OF REFERENCE UNITS RANGE LAB WBC 3.70-11.00 k/uL Test WBC sent to [facility]. Result Comment: Account Credited HIDE LAB RBC 4.20-6.00 m/uL Test sent RBC to [facility]. Result Comment: Account Credited HIDE LAB HGB 13.0-17.0 g/dL Hemoglobin Test sent to [facility]. Result Comment: Account Credited HIDE LAB HCT 39.0-51.0 % Hematocrit Test sent to [facility]. Result Comment: Account Credited HIDE LAB MCV 80.0-100.0 fL Test sent MCV to [facility]. Result Comment: Account Credited HIDE LAB MCH 26.0-34.0 pG Test sent MCH to [facility]. Result Comment: Account Credited [facility]IDE LAB MCHC 30.5-36.0 g/dL Test MCHC sent to [facility]. Result Comment: Account Credited HIDE LAB RDWCV 11.5-15.0 % Test RDW-CV sent to [facility]. Result Comment: Account Credited HIDE LAB PLTCT 150-400 k/uL Test Platelet Count sent to [facility]. Result Comment: Account Credited HIDE LAB MPV 9.0-12.7 fL Test sent MPV to [facility]. Result Comment: Account Credited HIDE LAB ARIELLE Recheck Test sent to [facility]. Result Comment: Account Credited HIDE LAB REVW Test sent to Review [facility]. Result Comment: Account Credited HIDE LAB CBCCOM Comment Test sent to [facility]. Result Comment: Account Credited HIDJerry LAB ABSNUC <0.01 k/uL Test Absolute nRBC sent to [facility]. Result Comment: Account Credited [facility] COMP METABOLIC PANEL Collected: 09/05/2018 Status: F Source: [place] 10:12 AM [facility] REPOSITORY TYPE CODE TESTS RESULT OUT OF REFERENCE UNITS RANGE LAB TP 6.3-8.0 g/dL Test sent to [facility]. Result Comment: Account Credited HIDE LAB ALB 3.9-4.9 g/dL Test Albumin sent to [facility]. Result Comment: Account Credited HIDE LAB CA 8.5-10.2 mg/dL Test Calcium, Total sent to [facility]. Result Comment: Account Credited HIDE LAB TBIL 0.2-1.3 mg/dL Bilirubin, Test Total sent to [facility]. Result Comment: Account Credited HIDE LAB ALKP 38-113 U/L Alkaline Test Phosphatase sent to [facility]. Result Comment: Account Credited HIDE LAB AST 14-40 U/L Test sent AST to [facility]. Result Comment: Account Credited HIDE LAB GLU 74-99 mg/dL Test sent Glucose to [facility]. Result Comment: Account Credited [facility]IDE LAB BUN 9-24 mg/dL Test sent BUN to [facility]. Result Comment: Account Credited HIDE LAB CRET 0.73-1.22 mg/dL Creatinine Test sent to [facility]. Result Comment: Account Credited HIDE LAB NA 136-144 mmol/L Test Sodium sent to [facility]. Result Comment: Account Credited HIDE LAB K 3.7-5.1 mmol/L Test Potassium sent to [facility]. Result Comment: Account Credited [facility] LAB CL 97-105 mmol/L Test Chloride sent to [facility]. Result Comment: Account Credited [facility] LAB CO2 22-30 mmol/L Test sent CO2 to [facility]. Result Comment: Account Credited [facility] LAB AGAP 9-18 mmol/L Test sent Anion Gap to [facility]. Result Comment: Account Credited HIDE LAB ALT 10-54 U/L Test sent ALT to [facility]. Result Comment: Account Credited [facility] LAB GFRAA eGFR- Amer. Test sent to [facility]. Result Comment: Account Credited HIDE LAB GFRNAA . eGFR-All Test sent Other Races to [facility]. Result Comment: Account Credited [facility] LAB GFRPED eGFR-Ped. Test sent Factor to [facility]. Result Comment: Account Credited [facility] HEMOGLOBIN A1C Collected: 09/05/2018 Status: F Source: [place] 10:12 AM [facility] REPOSITORY TYPE CODE TESTS RESULT OUT OF REFERENCE UNITS RANGE LAB HGBA1C 4.0-6.0 % Test Hemoglobin A1c sent to [facility]. Result Comment: Account Credited [facility] LAB HBA0 mg/dL Est. Test sent Average Glucose to [facility]. Result Comment: Account Credited [facility] LIPID PANEL, BASIC Collected: 09/05/2018 Status: F Source: [place] 10:12 AM [facility] REPOSITORY TYPE CODE TESTS RESULT OUT OF REFERENCE UNITS RANGE LAB CHOL <200 mg/dL Cholesterol Test sent to [facility]. Result Comment: Account Credited [facility] LAB TRIGLY <150 mg/dL Triglyceride Test sent to [facility]. Result Comment: Account Credited [facility] LAB HDL >39 mg/dL HDL-Cholesterol Test sent to [facility]. Result Comment: Account Credited [facility] LAB LDL <100 mg/dL LDL-Cholesterol Test sent to [facility]. Result Comment: Account Credited [facility] LAB NONHDL 90-159 mg/dL Non HDL Test Cholesterol sent to [facility]. Result Comment: Account Credited [facility] LAB FT hrs Fasting Time 12 LAB VLDL <30 mg/dL VLDL Cholesterol Test sent to [facility]. Result Comment: Account Credited [facility]IDE LAB TCHDL <5.10 Test sent TC:HDL Ratio to [facility]. Result Comment: Account Credited HIDE LAB LDLHDL <2.54 Test sent LDL:HDL Ratio to [facility]. Result Comment: Account Credited [facility] TSH Collected: 09/05/2018 Status: F Source: [place] 10:12 AM [facility] REPOSITORY TYPE CODE TESTS RESULT OUT OF REFERENCE UNITS RANGE LAB TSH 0.400-5.500 uU/mL Test TSH sent to [facility]. Result Comment: Account Credited KATELYNNJerry CBC-COMPLETE BLOOD CNT Collected: 09/05/2018 Status: F Source: [place] NO DIFF 10:[address] [facility] REPOSITORY TYPE CODE TESTS RESULT OUT OF RANGE REFERENCE UNITS LAB L100.1000 4.4-11.0 K/mm3 Normal WBC 6.7 LAB L100.1200 4.6-6.2 M/mm3 Normal RBC 4.78 LAB L100.1300 13.0-16.5 g/dl Normal HGB 14.6 LAB L100.1400 40-54 % Normal HCT 46.4 LAB L100.1500 80-94 fL High MCV 97.1 LAB L100.1600 27.0-32.0 pg Normal MCH 30.5 LAB L100.1700 32-36 g/gl Low MCHC 31.5 LAB L100.1810 11.6-14.6 % Normal RDW CV 13.9 LAB L100.1820 35.1-43.9 fl High RDW SD 49.8 LAB L100.1900 150-450 K/mm3 Normal PLT 250 LAB L100.2000 6.2-12.0 fl Normal MPV 9.5 Performed By: #### L100.0500 #### [facility] [address] [place], [place], [id number] HEMOGLOBIN A1C Collected: 09/05/2018 Status: F Source: [place] 10:[address] [facility] REPOSITORY TYPE CODE TESTS RESULT OUT OF RANGE REFERENCE UNITS LAB L501.9985 4.2-6.3 % Normal HGB A1C 6.3 Performed By: #### L501.9985 #### [facility] [address] [place], [place], [address] COMPREHENSIVE METABOLIC Collected: 09/05/2018 Status: F Source: [facility] 10[facility] TYPE CODE TESTS RESULT OUT OF RANGE REFERENCE UNITS LAB L501.0100 74-106 mg/dL Normal GLU 98 Result Comment: Please note revised GLUCOSE reference range effective 2017. LAB L501.1000 7-18 mg/dL Normal BUN 15 LAB L501.1100 0.70-1.30 mg/dL Normal CREAT,SERUM 1.09 Result Comment: The validity of the calculated GFR AND GFRAA in patients over 70 years has not been determined. Clinical correlation is essential. LAB L501.1110 >60 mL/min Normal EST GFR 71 Result Comment: Non- GFR Calc LAB L501.1115 >60 mL/min Normal EST GFR - AA 86 Result Comment: GFR Calc LAB L501.1300 10-20 RATIO Normal BUN/CRE 13.8 LAB L501.1500 6.4-8.2 g/dL T Normal PROT 7.4 LAB L501.1800 3.2-5.0 g/dL Normal ALB 3.5 LAB L501.1950 2.2-4.2 g/dL Normal GLOB 3.9 LAB L501.2000 0.9-2.4 RATIO Normal A/G 0.9 LAB L501.2200 8.5-10.1 mg/dL Low CA 8.2 LAB L501.4100 15-37 U/L Normal AST 29 LAB L501.4305 45-117 U/L Normal ALK P 72 LAB L501.4405 16-61 U/L Normal ALT 30 LAB L501.4600 0.20-1.00 mg/dL T Normal BILI 0.60 LAB L501.5300 136-145 mmol/L NA Normal 142 LAB L501.5600 3.5-5.1 mmol/L K Normal 4.5 LAB L501.5900 98-107 mmol/L CL Normal 107 LAB L501.6100 21.0-32.0 mmol/L Normal CO2 28.0 LAB L501.6200 5-15 Normal GAP 7 Performed By: #### L500.4050, L500.4100, L501.9520 #### [facility] [address] [place], [place], [id number] LIPID PROFILE Collected: 09/05/2018 Status: F Source: [place] 10:[address] [facility] REPOSITORY TYPE CODE TESTS RESULT OUT OF RANGE REFERENCE UNITS LAB L501.4900 200 mg/dL Normal CHOL 174 Result Comment: <200 mg/dL Desirable 200-240 mg/dL Borderline >240 mg/dL High Risk LAB L501.5000 mg/dL Normal TRIG 194 Result Comment: The drugs N-Acetylcysteine and Metamizole may falsely depress this assay. Serum Triglycerides Reference Interval Normal <150 mg/dL Borderline high 150 - 199 mg/dL High 200 - 499 mg/dL Very High > or = 500 mg/dL LAB L501.6400 mg/dL Normal HDL 47 Result Comment: The drugs N-Acetylcysteine and Metamizole may falsely depress this assay. Reference Range HDL <40 mg/dL Low HDL Cholesterol HDL >or= 60 mg/dL High HDL Cholesterol LAB L501.6500 0-130 mg/dL Normal LDL 88 LAB L501.6600 5-40 mg/dL Normal VLDL 39 Performed By: #### L500.4050, L500.4100, L501.9520 #### [facility] [address] [place], [place], [id number] THYROID STIM HORMONE Collected: 09/05/2018 Status: F Source: ALEX (TSH) 10:[address] [facility] REPOSITORY TYPE CODE TESTS RESULT OUT OF RANGE REFERENCE UNITS LAB L501.9520 0.358-3.74 uIU/mL Normal TSH 2.52 Performed By: #### L500.4050, L500.4100, L501.9520 #### [facility] [address] [place], [address] HEPATITIS C ANTIBODIES Collected: 09/05/2018 Status: F Source: ALEX 10:[address] [facility] REPOSITORY TYPE CODE TESTS RESULT OUT OF RANGE REFERENCE UNITS LAB L3100.0650 0.0-0.9 s/co ratio Normal HEP C AB <0.1 Result Comment: Negative: < 0.8 Indeterminate: 0.8 - 0.9 Positive: > 0.9 The CDC recommends that a positive HCV antibody result be followed up with a HCV Nucleic Acid Amplification test (834898). Performed at: [address] [id number] Training Developer: Warren Mendoza PhD, Phone: [phone] Performed By: #### L3100.0625 #### [facility] (refer to report for specific site) refer to report for address and phone number PROGRESS Observed: 09/03/2018 Status: COMPLETED Source: [place] 7:08 PM [facility] REPOSITORY HNO ID: [id number] Author: Isaak Lucio Service: (none) Author Type: Physician Type: Progress Notes Filed: 09/22/2018 10:45 PM Note Text: Duplicate PROGRESS Observed: 09/03/2018 Status: COMPLETED Source: [place] 7:08 PM [facility] REPOSITORY HNO ID: [id number] Author: Isaak Lucio Service: (none) Author Type: Physician Type: Progress Notes Filed: 09/22/2018 10:45 PM Note Text: HISTORY Lonnie Adrian is a 73 year old gentleman here to be formally established with me. had been patient of Dr. Harrington as well as Nancy Mccarthy, [place]. Was in hospital in December for cellulitis in leg. Was in left leg. HR was 130 while there and ended up in PCU--had to have cardioversion. Dr. Venegas follows every 3 months or so. History of DVT in left leg; has broken blood vessels in leg still. Wearing support stockings has helped. Was given as covered by insurance. Doing fine on current meds. PAST MEDICAL HISTORY Diagnosis Date - Atrial fibrillation or flutter 2002 Paroxysmal- Started ASA tx - Basal cell carcinoma 2010 Lt side face - DVT (deep venous thrombosis) (HCC) 1999 Lt Leg s/p surgery - Medicare welcome visit 08/27/2012 Medicare B 03/24/2012 - Squamous cell carcinoma 2010 Tx at [facility]- [facility] - Squamous cell carcinoma Tx at [facility] - Umbilical hernia - Ventral hernia, unspecified, without mention of obstruction or gangrene Current Outpatient Prescriptions: amLODIPine (NORVASC) 2.5 mg tablet Take 1 tablet by mouth once daily. diphenhydrAMINE-Acetaminophen (TYLENOL PM EXTRA STRENGTH) 25-500 mg tab Take 2 tablets by mouth daily at bedtime. sertraline (ZOLOFT) 50 mg tablet Take 1 tablet by mouth once daily. simvastatin (ZOCOR) 20 mg tablet Take 1 tablet by mouth daily at bedtime. For cholesterols. aspirin(ADULT LOW DOSE ASPIRIN 81 MG TAB, DELAYED RELEASE) Take one(1) tablet daily. fluticasone (FLONASE) 50 mcg/actuation nasal spray Use 2 Sprays in each nostril once daily. (Patient not taking: Reported on 09/03/2018 ) fluticasone (FLONASE) 50 mcg/actuation nasal spray USE TWO SPRAYS IN EACH NOSTRIL ONCE DAILY (Patient not taking: Reported on 09/03/2018) metoprolol tartrate, short acting, (LOPRESSOR) 50 mg tablet Take 1 tablet by mouth twice daily. warfarin (COUMADIN) 2.5 mg tablet Take 1 tablet by mouth once daily. No current facility-administered medications for this visit. ALLERGIES No Known Allergies PAST SURGICAL HISTORY Procedure Laterality Date - KNEE ARTHROSCOPY 1999 torn cartiledge- left knee - PAST SURGICAL HISTORY OF 1999 Rt knee and Rt elbow - REPAIR INCISIONAL HERNIA,REDUCIBLE 04/24/2011 Hernia repair, incisional with mesh - US LEG VEIN DVT LT 1999 s/p knee arthroscopy FAMILY HISTORY Problem Relation Age of Onset - Heart Father 50 [place] Social History Marital status: Spouse name: Years of education: Number of children: Social History Main Topics Smoking status: Former Smoker Packs/day: 1.50 Years: 20.00 Types: Pipe Quit date: 09/24/2004 Smokeless tobacco: Never Used Comment: Pipe daily x20yrs Alcohol use: Yes Comment: One beer daily Drug use: No REVIEW OF SYSTEMS Aside from above, Constitutional, HEENT, CV, PULM, GI, , PSYCH, DERM, HEM/ONC, NEURO negative. PHYSICAL EXAMINATION: Blood pressure 142/70, pulse (!) 46, resp. rate 16, weight 116.1 kg (256 lb). Estimated body mass index is 36.73 kg/m? as calculated from the following: Height as of 11/10/16: 177.8 cm (5' 10). Weight as of this encounter: 116.1 kg (256 lb). Last 5 Encounter BP Readings: Date: BP: 09/03/2018 142/70 01/17/2017 132/93[#1 (from Extended Vitals)[ 01/03/2017 150/88 11/10/2016 134/80 08/21/2016 132/76 Last 5 Encounter Wt Readings: Date: Wt: 09/03/2018 116.1 kg (256 lb) 01/03/2017 120.2 kg (265 lb) 11/10/2016 116.6 kg (257 lb) 08/21/2016 117.5 kg (259 lb 1.9 oz) 02/14/2016 120.7 kg (266 lb 0.6 oz) 09/03/18 1851 BP: 142/70 Pulse: (!) 46 Resp: 16 Weight: 116.1 kg (256 lb) General appearance: well appearing, in no acute distress, well-hydrated, well nourished Skin: Skin color, texture, turgor normal. No significant rashes or lesions. Head: Normal Eyes: Anicteric sclera. Pupils are equally round and reactive to light. Extraocular movements are intact. Ears: External ears normal. Canals clear. TM's unremarkable. Nose/Sinuses: negative Oropharynx: Lips, mucosa, and tongue normal. Teeth and gums normal. Oropharynx normal. Neck: Neck supple, no adenopathy; thyroid symmetric, normal size, no bruits. Lungs: Lungs clear to auscultation Heart: negative. RRR without murmur, gallop, or rubs. No ectopy. Abdomen: Abdomen soft, non-tender. Bowel sounds normal. No masses, organomegaly Extremities: Extremities normal. No deformities, edema, or skin discoloration. Good capillary refill. Musculoskeletal: grossly normal Peripheral pulses: Normal Neuro: Gait normal. Reflexes normal and symmetric. Sensation grossly intact. No gross focal neurological deficits. Prior labs reviewed. ASSESSMENT AND PLAN See diagnoses and orders Encounter Diagnosis ICD-10-CM 1. Mixed hyperlipidemia E78.2 LIPID PANEL BASIC 2. Essential hypertension I10 COMP METABOLIC PANEL CBC 3. Paroxysmal atrial fibrillation (HCC) I48.0 4. Venous insufficiency of left leg I87.2 5. Elevated glucose R73.09 COMP METABOLIC PANEL HGB A1C 6. Encounter for long-term current use of medication Z79.899 COMP METABOLIC PANEL TSH BLD CBC 7. Laboratory test Z01.89 HEP C AB IA W/CONF SCRN 8. Colon cancer screening Z12.11 FECAL OCCULT BLOOD TEST 73 year old gentleman here to be formally established with me. History and medications reviewed. Epic updated as needed Above issues addressed with patient. Patient involved in shared decision making for management of medical issues. Refills taken care of and meds adjusted as indicated after reviewed history, exam and labs. Health Maintenance reviewed. Updated record and/or ordered tests as recorded. Encouraged on efforts at healthy diet and regular exercise and adequate sleep. Will continue follow up with Cardiology (Dr. Venegas). Noted bradycardia. Adjustment of meds per cardiology. Since BP not low, apparently no plan for pacemaker noted. On coumadin. Stockings and leg elevation prn for bilateral lower extremities varicose veins issues. Further evaluation and treatment as indicated. The majority of the visit was spent counseling and/or coordinating care for the patient. Ospw-ki-kjft time was at least 25 minutes. Isaak Lucio MD CNOV Observed: 09/03/2018 Status: COMPLETED Source: [place] 6:00 PM [facility] REPOSITORY Office Visit (INTMWS) LONNIE ADRIAN ([id number]) 1945 M Date Time Provider Department 09/03/18 6:00 PM ISAAK LUCIO INTMWS During your visit today, we recorded the following information about you: Pulse Respiration Blood pressure Weight 46/minute 16/minute 142/70 116.1 kg Isaak Lucio MD 09/22/2018 10:45 PM Signed Duplicate Isaak Lucio MD 09/22/2018 10:45 PM Signed HISTORY Lonnie Adrian is a 73 year old gentleman here to be formally established with me. had been patient of Dr. Harrington as well as Nancy Mccarthy, [place]. Was in hospital in December for cellulitis in leg. Was in left leg. HR was 130 while there and ended up in PCU--had to have cardioversion. Dr. Venegas follows every 3 months or so. History of DVT in left leg; has broken blood vessels in leg still. Wearing support stockings has helped. Was given as covered by insurance. Doing fine on current meds. PAST MEDICAL HISTORY Diagnosis Date - Atrial fibrillation or flutter 2002 Paroxysmal- Started ASA tx - Basal cell carcinoma 2010 Lt side face - DVT (deep venous thrombosis) (HCC) 1999 Lt Leg s/p surgery - Medicare welcome visit 08/27/2012 Medicare B 03/24/2012 - Squamous cell carcinoma 2010 Tx at [facility]- [facility] - Squamous cell carcinoma Tx at [facility] - Umbilical hernia - Ventral hernia, unspecified, without mention of obstruction or gangrene Current Outpatient Prescriptions: amLODIPine (NORVASC) 2.5 mg tablet Take 1 tablet by mouth once daily. diphenhydrAMINE-Acetaminophen (TYLENOL PM EXTRA STRENGTH) 25-500 mg tab Take 2 tablets by mouth daily at bedtime. sertraline (ZOLOFT) 50 mg tablet Take 1 tablet by mouth once daily. simvastatin (ZOCOR) 20 mg tablet Take 1 tablet by mouth daily at bedtime. For cholesterols. aspirin(ADULT LOW DOSE ASPIRIN 81 MG TAB, DELAYED RELEASE) Take one(1) tablet daily. fluticasone (FLONASE) 50 mcg/actuation nasal spray Use 2 Sprays in each nostril once daily. (Patient not taking: Reported on 09/03/2018 ) fluticasone (FLONASE) 50 mcg/actuation nasal spray USE TWO SPRAYS IN EACH NOSTRIL ONCE DAILY (Patient not taking: Reported on 09/03/2018) metoprolol tartrate, short acting, (LOPRESSOR) 50 mg tablet Take 1 tablet by mouth twice daily. warfarin (COUMADIN) 2.5 mg tablet Take 1 tablet by mouth once daily. No current facility-administered medications for this visit. ALLERGIES No Known Allergies PAST SURGICAL HISTORY Procedure Laterality Date - KNEE ARTHROSCOPY 1999 torn cartiledge- left knee - PAST SURGICAL HISTORY OF 1999 Rt knee and Rt elbow - REPAIR INCISIONAL HERNIA,REDUCIBLE 04/24/2011 Hernia repair, incisional with mesh - US LEG VEIN DVT LT 1999 s/p knee arthroscopy FAMILY HISTORY Problem Relation Age of Onset - Heart Father 50 [place] Social History Marital status: Spouse name: Years of education: Number of children: Social History Main Topics Smoking status: Former Smoker Packs/day: 1.50 Years: 20.00 Types: Pipe Quit date: 09/24/2004 Smokeless tobacco: Never Used Comment: Pipe daily x20yrs Alcohol use: Yes Comment: One beer daily Drug use: No REVIEW OF SYSTEMS Aside from above, Constitutional, HEENT, CV, PULM, GI, , PSYCH, DERM, HEM/ONC, NEURO negative. PHYSICAL EXAMINATION: Blood pressure 142/70, pulse (!) 46, resp. rate 16, weight 116.1 kg (256 lb). Estimated body mass index is 36.73 kg/m? as calculated from the following: Height as of 11/10/16: 177.8 cm (5' 10). Weight as of this encounter: 116.1 kg (256 lb). Last 5 Encounter BP Readings: Date: BP: 09/03/2018 142/70 01/17/2017 132/93[#1 (from Extended Vitals)[ 01/03/2017 150/88 11/10/2016 134/80 08/21/2016 132/76 Last 5 Encounter Wt Readings: Date: Wt: 09/03/2018 116.1 kg (256 lb) 01/03/2017 120.2 kg (265 lb) 11/10/2016 116.6 kg (257 lb) 08/21/2016 117.5 kg (259 lb 1.9 oz) 02/14/2016 120.7 kg (266 lb 0.6 oz) 09/03/18 1851 BP: 142/70 Pulse: (!) 46 Resp: 16 Weight: 116.1 kg (256 lb) General appearance: well appearing, in no acute distress, well-hydrated, well nourished Skin: Skin color, texture, turgor normal. No significant rashes or lesions. Head: Normal Eyes: Anicteric sclera. Pupils are equally round and reactive to light. Extraocular movements are intact. Ears: External ears normal. Canals clear. TM's unremarkable. Nose/Sinuses: negative Oropharynx: Lips, mucosa, and tongue normal. Teeth and gums normal. Oropharynx normal. Neck: Neck supple, no adenopathy; thyroid symmetric, normal size, no bruits. Lungs: Lungs clear to auscultation Heart: negative. RRR without murmur, gallop, or rubs. No ectopy. Abdomen: Abdomen soft, non-tender. Bowel sounds normal. No masses, organomegaly Extremities: Extremities normal. No deformities, edema, or skin discoloration. Good capillary refill. Musculoskeletal: grossly normal Peripheral pulses: Normal Neuro: Gait normal. Reflexes normal and symmetric. Sensation grossly intact. No gross focal neurological deficits. Prior labs reviewed. ASSESSMENT AND PLAN See diagnoses and orders Encounter Diagnosis ICD-10-CM 1. Mixed hyperlipidemia E78.2 LIPID PANEL BASIC 2. Essential hypertension I10 COMP METABOLIC PANEL CBC 3. Paroxysmal atrial fibrillation (HCC) I48.0 4. Venous insufficiency of left leg I87.2 5. Elevated glucose R73.09 COMP METABOLIC PANEL HGB A1C 6. Encounter for long-term current use of medication COMP METABOLIC PANEL TSH BLD CBC 7. Laboratory test HEP C AB IA W/CONF SCRN 8. Colon cancer screening Z. FECAL OCCULT BLOOD TEST 73 year old gentleman here to be formally established with me. History and medications reviewed. Epic updated as needed Above issues addressed with patient. Patient involved in shared decision making for management of medical issues. Refills taken care of and meds adjusted as indicated after reviewed history, exam and labs. Health Maintenance reviewed. Updated record and/or ordered tests as recorded. Encouraged on efforts at healthy diet and regular exercise and adequate sleep. Will continue follow up with Cardiology (Dr. Venegas). Noted bradycardia. Adjustment of meds per cardiology. Since BP not low, apparently no plan for pacemaker noted. On coumadin. Stockings and leg elevation prn for bilateral lower extremities varicose veins issues. Further evaluation and treatment as indicated. The majority of the visit was spent counseling and/or coordinating care for the patient. Ikwt-dx-krnk time was at least 25 minutes. Isaak Lucio MD Referring Provider: SELF [200] Allergies As of Date: 09/03/2018 (No Known Allergies) Date Reviewed: 09/03/2018 Reviewed by: Rosy Esquivel LPN - Fully Assessed Reason for Visit: Establish Care [42] Primary Visit Diagnosis:Mixed hyperlipidemia [E78.2] Other Visit Diagnoses:Essential hypertension [I10] Paroxysmal atrial fibrillation (HCC) [I48.0] Venous insufficiency of left leg [I87.2] Elevated glucose [R73.09] Encounter for long-term current use of medication [Z.] Laboratory test [Z] Colon cancer screening [Z12.11] Obesity (BMI 35.0-39.9 without comorbidity) [E66.9] Order(s):COMP METABOLIC PANEL [SQCMP] Order #: [id number] FUTURE LIPID PANEL BASIC [SQLIPB] Order #: [id number] FUTURE HGB A1C [EKOLH1S] Order #: [id number] FUTURE TSH BLD [SQTSH] Order #: [id number] FUTURE CBC [SQCBC] Order #: [id number] FUTURE sertraline (ZOLOFT) 50 mg tabletTake 1 tablet by mouth once daily.Disp: 30 tabletRfl: 11 simvastatin (ZOCOR) 20 mg tabletTake 1 tablet by mouth daily at bedtime. For cholesterols.Disp: 30 tabletRfl: 11 metoprolol tartrate, short acting, (LOPRESSOR) 50 mg tabletTake 1 tablet by mouth twice daily.Disp: 60 tabletRfl: 11 amLODIPine (NORVASC) 2.5 mg tabletTake 1 tablet by mouth once daily.Disp: 30 tabletRfl: 11 warfarin (COUMADIN) 2.5 mg tabletTake 1 tablet by mouth once daily.Disp: 30 tabletRfl: 11 HEP C AB IA W/CONF SCRN [[id number]] Order #: [id number] FUTURE FECAL OCCULT BLOOD TEST [SQIFOBT] Order #: [id number] FUTURE EXP HEPATITIS C ANTIBODY [21181024] Order #: [id number] EXP HEPATITIS C ANTIBODY [21181024] Order #: [id number] Prescriptions as of 09/03/2018 Sig: AMLODIPINE 2.5 MG TABLET Take 1 tablet by mouth once d* DIPHENHYDRAMINE 25 MG-ACETAMI* Take 2 tablets by mouth daily* SERTRALINE 50 MG TABLET Take 1 tablet by mouth once d* SIMVASTATIN 20 MG TABLET Take 1 tablet by mouth daily * ADULT LOW DOSE ASPIRIN 81 MG * Take one(1) tablet daily. FLUTICASONE 50 MCG/ACTUATION * Use 2 Sprays in each nostril * Patient not taking: Reported on 09/03/2018 FLUTICASONE 50 MCG/ACTUATION * USE TWO SPRAYS IN EACH NOSTRI* Patient not taking: Reported on 09/03/2018 METOPROLOL TARTRATE 50 MG TAB* Take 1 tablet by mouth twice * WARFARIN 2.5 MG TABLET Take 1 tablet by mouth once d* More... Problem List As Of Date 09/03/2018 Noted Resolved Umbilical hernia [K42.9] 11/10/2016 More... Squamous cell carcinoma (HCC) [C44.92] 11/10/2016 More... Basal cell carcinoma [C44.91] 11/10/2016 More... Personal history of DVT (deep vein thrombosis) *INVALID FOR* More... Hyperlipidemia [E78.5] INVALID FOR* Asthma [J45.909] INVALID FOR*11/10/2016 Medicare welcome visit [Z00.00] INVALID FOR*11/10/2016 More... Atrial flutter, paroxysmal [I48.92] INVALID FOR* Fatty liver [K76.0] INVALID FOR* Peripheral neuropathy [G62.9] INVALID FOR* Nasal turbinate hypertrophy [J34.3] INVALID FOR* Laboratory test [Z01.89] INVALID FOR*02/14/2016 More... Encounter for screening colonoscopy [Z12.11] INVALID FOR*11/10/2016 Venous insufficiency of left leg [I87.2] INVALID FOR* Medicare annual wellness visit, subsequent [Z00*INVALID FOR*09/03/2018 Primary osteoarthritis involving multiple joint*INVALID FOR* Elevated BP without diagnosis of hypertension [*INVALID FOR*09/03/2018 Essential hypertension [I10] INVALID FOR* Paroxysmal atrial fibrillation (HCC) [I48.0] INVALID FOR* More... Prescriptions ordered this encounter Disp Refills Start End METOPROLOL TARTRATE 100 MG TABLET 09/03/2018 09/03/2018 Class: Med Update Route: ORAL Sig: Take 0.5 tablets by mouth twice daily. (Dr. Venegas) SERTRALINE 50 MG TABLET 30 t* 09/03/2018 Route: ORAL Sig: Take 1 tablet by mouth once daily. SIMVASTATIN 20 MG TABLET 30 t* 09/03/2018 Route: ORAL Sig: Take 1 tablet by mouth daily at bedtime. For cholesterols. METOPROLOL TARTRATE 50 MG TABLET 60 t* 11 09/03/2018 Route: ORAL Sig: Take 1 tablet by mouth twice daily. AMLODIPINE 2.5 MG TABLET 30 t* 09/03/2018 Route: ORAL Sig: Take 1 tablet by mouth once daily. WARFARIN 2.5 MG TABLET 30 t* 09/03/2018 Route: ORAL Sig: Take 1 tablet by mouth once daily. Medications Discontinued During This Encounter metoprolol tartrate, short acting, (* 20 t* 2 10/14/2015 09/03/2018 Route: ORAL Sig: Take 1 tablet by mouth once daily. At start palpitations May repeat 1 tablet at 2 hours If needed Patient taking differently: Take 100 mg by mouth once daily. At start palpitations May repeat 1 tablet at 2 hours If needed Disc: Reason for discontinue is not on file. sertraline (ZOLOFT) 50 mg tablet 09/03/2018 Class: Historical Med Route: ORAL Sig: Take 50 mg by mouth once daily. Disc: Reason for discontinue is not on file. simvastatin (ZOCOR) 20 mg tablet 90 t* 3 08/21/2016 09/03/2018 Route: ORAL Sig: Take 1 tablet by mouth daily at bedtime. For cholesterols. Disc: Reason for discontinue is not on file. metoprolol tartrate, short acting, (* 09/03/2018 09/03/2018 Class: Med Update Route: ORAL Sig: Take 0.5 tablets by mouth twice daily. (Dr. Venegas) Disc: Reason for discontinue is not on file. amLODIPine (NORVASC) 2.5 mg tablet 30 t* 1 03/31/2017 09/03/2018 Sig: TAKE 1 TABLET EVERY DAY Disc: Reason for discontinue is not on file. warfarin (COUMADIN) 5 mg tablet 09/03/2018 Class: Historical Med Route: ORAL Sig: Take 2.5 mg by mouth daily as directed. Dr. Venegas Disc: Reason for discontinue is not on file. Disposition: Return for 6 months follow up. Follow-up and Disposition History Recorded Letter Text Dear Lonnie Adrian: How to activate your [facility] Account 1. Visit the [employer] Signup page at [email or web address] 2. Identify yourself using your one-time use activation code: [email or web address] 3. Follow the on-screen prompts to choose your own secure username and password The following information will be necessary to access your account for the first time: Information needed for sign-up: Your custom activation code used one-time only for the initial account set-up. Your date of The last 4 digits of your social security number What to do next: Fill in the requested information on the Identify Yourself Form at [email or web address] , click Next. Create your login and password, choose a [employer] ID and password that will be easy for you to use, but impossible for anyone else to guess. Pick a security question that will assist you in the event you forget your password the next time you log-on. If you have difficulty activating your account, please call our [employer] helpline at [phone] or toll free at . We hope you enjoy using [employer]! Kindest Regards, [facility] Team Encounter Status:Closed by ISAAK LUCIO MD on 09/22/18 ALEX Observed: 08/20/2018 Status: COMPLETED Source: [place] 12:00 AM [facility] REPOSITORY Patient Outreach (FAMPST) LONNIE ADRIAN ([id number]) 1945 M Date Time Provider Department 08/20/18 NANCY MCCARTHY [facility] During your visit today, we recorded the following information about you: Allergies As of Date: 08/20/2018 (No Known Allergies) Date Reviewed: 01/17/2017 Reviewed by: Letitia Thomason LPN - Fully Assessed Visit Diagnosis:Medication management [Z79.899] Order(s):TSH BLD [SQTSH] Order #: [id number] FUTURE HGB A1C [KADQR0G] Order #: [id number] FUTURE LIPID PANEL BASIC [SQLIPB] Order #: [id number] FUTURE Prescriptions as of 08/20/2018 Sig: ADULT LOW DOSE ASPIRIN 81 MG * Take one(1) tablet daily. DIPHENHYDRAMINE 25 MG-ACETAMI* Take 2 tablets by mouth daily* FLUTICASONE 50 MCG/ACTUATION * Use 2 Sprays in each nostril * Patient not taking: Reported on 09/03/2018 FLUTICASONE 50 MCG/ACTUATION * USE TWO SPRAYS IN EACH NOSTRI* Patient not taking: Reported on 09/03/2018 X AMLODIPINE 2.5 MG TABLET TAKE 1 TABLET EVERY DAY X METOPROLOL TARTRATE 50 MG TAB* Take 1 tablet by mouth once d* Patient taking differently: Take 100 mg by mouth once sarah* X SIMVASTATIN 20 MG TABLET Take 1 tablet by mouth daily * More... Problem List As Of Date 08/20/2018 Noted Resolved Umbilical hernia [K42.9] 11/10/2016 More... Squamous cell carcinoma (HCC) [C44.92] 11/10/2016 More... Basal cell carcinoma [C44.91] 11/10/2016 More... Personal history of DVT (deep vein thrombosis) *INVALID FOR* More... Hyperlipidemia [E78.5] INVALID FOR* Asthma [J45.909] INVALID FOR*11/10/2016 Medicare welcome visit [Z00.00] INVALID FOR*11/10/2016 More... Atrial flutter, paroxysmal [I48.92] INVALID FOR* Fatty liver [K76.0] INVALID FOR* Peripheral neuropathy [G62.9] INVALID FOR* Nasal turbinate hypertrophy [J34.3] INVALID FOR* Laboratory test [Z01.89] INVALID FOR*02/14/2016 More... Encounter for screening colonoscopy [Z12.11] INVALID FOR*11/10/2016 Venous insufficiency of left leg [I87.2] INVALID FOR* Medicare annual wellness visit, subsequent [Z00*INVALID FOR* Primary osteoarthritis involving multiple joint*INVALID FOR* Elevated BP without diagnosis of hypertension [*INVALID FOR* Encounter Status:Closed by BELEM ROBERTSON on 09/19/18 PULMONARY FUNCTION Observed: 08/09/2018 Status: F Source: [place] REPORT COMP 5:[address] [facility] REPOSITORY [facility] Pulmonary Services/Neurology [address] [place] [address] MR#: [id number] Acct: [id number] Name: LONNIE ADRIAN Rep #: [id number] : 1945 73 From: Christopher Kramer MD Referring Dr: Kj Venegas MD Status: REG CLI Ordering Dr: Date: Location: [facility] Sex: M C COMPLETE PULMONARY FUNCTION TEST INTERPRETATION Brief HPI: Patient is a 73 year old male, currently under the care of Dr. Venegas, who presents to [facility] for complete pulmonary function tests secondary to diagnosis of high risk med use. Respiratory therapist reports good effort and reproducible results. Interpretation: Forced expiration spirometry shows no large airways obstructive ventilatory defect with an FEV1 of 87% predicted. There is no significant bronchodilator response by strict ATS criteria. Spirograms are of good quality and plateau normally. The respiratory flow volume loop shows a normal pattern. Lung volumes by body plethysmography show a normal total lung capacity at 6.01 L, 86% predicted. All other lung volumes are within normal limits. Diffusion capacity by carbon monoxide is normal at 95% predicted. The airway resistance is normal. No previous pulmonary function tests were available for review. Impression: These pulmonary function tests are within normal limits. 08/09/18 0546 <Electronically signed by Christopher Kramer MD> Date Christopher rKamer MD CC: Christopher Kramer MD; Swapna Stevens DO; Kj Venegas MD Date Dictated: 08/08/18 0644 Date Transcribed: 08/08/18643 Embroidery Cutter: LEATHA Signed CARDIOLOGY VISIT Observed: 05/24/2018 Status: F Source: [place] RE[place] 4:[address] [facility] REPOSITORY [facility] [address] [place] [address] OFFICE VISIT Date of Service: 05/24/18 MR#: [id number] Acct: [id number] Name: LONNIE ADRIAN Rep #: [id number] : 1945 Provider: Kj Venegas MD Age/Sex: 73/M Location: [facility] [place] Status: Signed HPI HPI Details: LONNIE ADRIAN, is a 73 M who presents to the office today for for outpatient cardiovascular follow-up. Overall he states he is doing well at this time. He denies any ongoing symptoms of palpitations or rapid rates. There has been no issues with near syncope or syncope. He has had no ongoing chest discomfort or difficulty breathing. He states since adjusting his medications his stamina has increased. He was still noted to be somewhat bradycardic. An ECG was performed today. He remained in a marked sinus bradycardia with a ventricular rate of approximately 42 bpm. He does state he is unsure with respect to his beta-mark therapy if he is now taking 50 mg of metoprolol tartrate twice a day versus 25 mg twice a day. He will need to call back to the office, as he did not bring his medication list or bottles with him, to verify his medications. 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 Accompanied by: none Is patient in pain?: No Allergies No Known Allergies Allergy (Verified 05/24/18 15:23) Medications Simvastatin 20 mg PO QHS 05/03/14 [History Confirmed 05/24/18] Warfarin [Coumadin] 5 mg PO DAILY@1700 #30 tab 01/16/18 [Rx Confirmed 05/24/18] sertraline 50 mg tablet 50 mg PO QDAY 02/21/18 [History Confirmed 05/24/18] amiodarone 200 mg tablet 200 mg PO QDAY #30 tab MDD 1/2 tablet po qday 05/24/18 [Rx Confirmed 05/24/18] amlodipine 2.5 mg tablet 2.5 mg PO DAILY #30 tab 05/24/18 [Rx] metoprolol tartrate 50 mg tablet 25 mg PO BID tab 05/24/18 [History] [facility] Medical History Atrial fibrillation (Acute) Hypertension (Chronic) Hyperlipidemia (Chronic) Cellulitis of left leg (Acute) Surgical History History of arthroscopy of left knee (Resolved) History of hernia repair (Resolved) History of tonsillectomy (Resolved) Family History Father Heart disease Social History Smoking Status: Former smoker alcohol intake: current details: 1 beer daily substance use type: does not use ROS Const Const: Negative for fatigue, weakness, night sweats, excessive sweating, frequent falls, headache(s) or daytime sleepiness Eyes Eyes: Negative for loss of peripheral vision, transient loss of vision, blind spots, double vision or blurry vision ENT ENT: Negative for headache(s), dizziness, balance problems, Nosebleed/epistaxis, tongue swelling or lip swelling Cardio Chest Pain: No Palpitations: No Edema: Bilateral Muscle aches with walking: None Resp Respiratory: Negative for SOB at rest, SOB orthopnea\SOB lying down, Cough, paroxysmal nocturnal dyspnea or SOB with activity GI GI: Negative nausea, vomiting, heartburn, black,tarry stools or bright, red blood in stools : Negative for hematuria Musc Musc: Negative for balance problems, muscle aches/ myalgia, muscle weakness or joint pain Skin Skin: Negative non-healing lesions, unusual bruising or rash Neuro Neuro: Negative for weakness, frequent falls, headache(s), double vision, dizziness, lightheadedness, orthostatic symptoms, blurry vision or lack of coordination Thong Hematologic/Lymphatic: Negative for easy bruising or easy bleeding Endo Endo: Negative for fatigue, excessive sweating, cold intolerance, heat intolerance, increased thirst/drinking or hair loss Psych Psych: Negative for anxiety or depression Allergy Allergy/Immunology: Negative for throat swelling, Negative for tongue swelling, Negative for hives, Negative for rash, Negative for lip swelling Cardiology Exam Const Appearance: cooperative, healthy appearing, comfortable, no acute distress, well groomed and well developed Nutritional Appearance: overweight Orientation: alert, awake and oriented x3 Head Head: normal to inspection, normocephalic and atraumatic Ears: hearing grossly normal bilaterally Nose: external nose normal Face and Sinus: face symmetric Mouth: oral mucosae normal Eyes Eyelids: eyelids normal Conjunctivae: conjunctivae normal Pupils: PERRL EOM: EOM intact bilaterally Neck Neck: normal visual inspection and full ROM Carotids: normal carotid upstroke Chest Chest inspection: normal inspection of the chest and symmetric chest movement Auscultation: Bilateral: Clear to Auscultation Cardio Palpation: normal PMI Rate: regular rate Rhythm: regular rhythm Heart sounds: S1 normal and S2 normal GI GI: normal to inspection, bowel sounds present and soft Neuro General: alert, awake, oriented x3, gait normal, moves all extremities, no focal sensory deficit and no focal motor deficits Skin Skin: no rashes or lesions noted Extremities Pulses: Normal: Right Radial Pulse, Left Radial Pulse Lower Extremity Edema: Trace: Left Psych Psychological: normal affect Supplemental Info He did have a transthoracic echocardiogram on 01/13/2018. Interpretation Summary Normal LV size. Left ventricular systolic function is normal. The estimated ejection fraction is 60 %. Unable to assess diastolic dysfunction. Mild to moderate (1-2+) tricuspid valve insufficiency. Pulmonary artery systolic pressure is 28 mmHg. Assessment AND Plan 1. Paroxysmal atrial fibrillation I48.0 Plan At the present time he remains in sinus rhythm. He remains in a marked sinus bradycardia. He will adjust medications once his medications are verified. This is with respect to his beta-mark therapy. In the meantime he will adjust his amiodarone medicine from 200 mg a day to 100 mg a day. He will be asked to have a future follow-up visit. He will also be asked to have future monitoring laboratory studies based upon his medications with hepatic studies and thyroid studies. He will also have PFTs performed. Orders Orders: 2. Sinus bradycardia R00.1 Plan Based upon his sinus bradycardia he will verify his beta-mark dose. In the meantime he will decrease his amiodarone dose. Once his medications are adjusted, etc., he will be asked to have follow-up visit as well as follow-up ECGs. Over time he may need follow-up Holter monitors to monitor his rate and rhythm 3. Hyperlipidemia, unspecified hyperlipidemia type E78.5 Plan He will continue medical management and follow-up as directed. Orders Orders: 4. Essential hypertension I10 Plan His blood pressure appears to be well controlled today. He will continue medical therapy and follow-up. Orders Orders: Plan Detail Other Orders Orders: Other Medications Refilled: Additional Comments Thank you for allowing me to participate in the care of your patient. Please don't hesitate to call if any issues arise. This note was generated using a voice recognition system and there may be incorrect words, spelling or punctuation that were not noted when reviewing the office note prior to saving. Follow Up 3 Months (PFM) Coding Level of Care Code Off vis,est,level 4 Diagnoses Paroxysmal atrial fibrillation I48.0 Atrial fibrillation type: paroxysmal Sinus bradycardia R00.1 Hyperlipidemia, unspecified hyperlipidemia type E78.5 Hyperlipidemia type: unspecified Essential hypertension I10 Hypertension type: essential hypertension Coding Level of Care Code Off vis,est,level 4 Diagnoses Paroxysmal atrial fibrillation I48.0 Atrial fibrillation type: paroxysmal Sinus bradycardia R00.1 Hyperlipidemia, unspecified hyperlipidemia type E78.5 Hyperlipidemia type: unspecified Essential hypertension I10 Hypertension type: essential hypertension 05/24/18 1614 <Electronically signed by Kj Venegas MD> Date Kj Venegas MD Cosigner Signature: Date (if applicable) CC: Isaak Lucio MD CNCO Observed: 02/27/2018 Status: COMPLETED Source: [place] 12:00 AM [facility] REPOSITORY Letter Text [address] [place] [address] [phone] Lonnie Dior Guillermo [address] [facility] [address] Dear Mr. Adrian: Due to a change in the provider's schedule, it has been necessary to reschedule your appointment. Enclosed please find a new appointment reminder that will replace the one previously sent to you. Your appointment on 04/30/18 at 6:20pm with Dr. Lucio has been rescheduled Your appointment is now on 09/03/[address] Lucio If this appointment is not convenient for you, please contact our office at [phone]. Thank you for choosing the [facility] as your Healthcare Provider. Sincerely, Appointment Office CARDIOLOGY VISIT Observed: 02/21/2018 Status: F Source: [place] REPORT 4:[address] [facility] REPOSITORY [facility] [address] [place] [address] OFFICE VISIT Date of Service: 02/21/18 MR#: [id number] Acct: [id number] Name: LONNIE ADRIAN Rep #: [id number] : 1945 Provider: Kj Venegas MD Age/Sex: 72/M Location: [facility] [place] Status: Signed HPI HPI Details: LONNIE ADRIAN, is a 72 M who presents to the office today for for outpatient cardiovascular follow-up/hospital follow-up. As you recall he was evaluated in cardiovascular consultation on 01/13/2018 for concerns of atrial fibrillation superimposed upon hypertension, hyperlipidemia, and cellulitis of the left leg. He underwent noninvasive evaluation. He had troponin I levels which were considered negative. He had a transthoracic echocardiogram performed. His LV was thought to be normal with an LVEF of 60%. He had mild to moderate TR. His estimated RV systolic pressure was 28 mmHg. He reported having had a previous exercise tolerance test/imaging study which was reportedly unremarkable. The results were unavailable at the time for review. He underwent medical management with respect to his underlying infectious disease related issue. He also underwent rate control therapy, anticoagulant therapy, and antiarrhythmic therapy and attempt to bring his rate and rhythm under better control. He also underwent attempts at synchronized biphasic DC cardioversion. This was unsuccessful for sustained sinus rhythm and he reverted to atrial fibrillation. He was subsequently released home on a combination of medications. Today he presents for outpatient follow-up. He states overall he is not complaining of chest discomfort. He has not had any significant shortness of breath or dyspnea. There has been no near syncope or syncope. He states his main concern is been feeling tired and fatigued. He has had his INR checked through his PCP. He notes his INR today was 2.8. He had an ECG in the office today. He was noted to be in a marked sinus bradycardia with ventricular rate in the low 40s. He had no acute changes. Intake Vital Signs02/21/18 Height 6 ft 0.5 in 02/21/18 Weight: 262 lb 02/21/18 Body Mass Index (BMI) 35.0 02/21/18 Blood Pressure 130/62 Intake Visit Reasons: Edema Allergies No Known Allergies Allergy (Verified 02/21/18 15:55) Medications Simvastatin 20 mg PO QHS 05/03/14 [History Confirmed 02/21/18] Amlodipine [Norvasc] 2.5 mg PO DAILY #30 tab 01/16/18 [Rx Confirmed 02/21/18] Oxycodone [Oxyir] 5 mg PO Q6H PRN PRN 5 Days #20 tab 01/16/18 [Rx Confirmed 02/21/18] Warfarin [Coumadin] 5 mg PO DAILY@1700 #30 tab 01/16/18 [Rx Confirmed 02/21/18] amiodarone 200 mg tablet 200 mg PO QDAY #30 tab 02/14/18 [Rx Confirmed 02/21/18] doxycycline hyclate 100 mg tablet 100 mg PO BID 02/21/18 [History Confirmed 02/21/18] metoprolol tartrate 50 mg tablet 50 mg PO BID #60 tab 02/21/18 [Rx Confirmed 02/21/18] sertraline 50 mg tablet 50 mg PO QDAY 02/21/18 [History Confirmed 02/21/18] [facility] Medical History Atrial fibrillation (Acute) Hypertension (Chronic) Hyperlipidemia (Chronic) Cellulitis of left leg (Acute) Surgical History History of arthroscopy of left knee (Resolved) History of hernia repair (Resolved) History of tonsillectomy (Resolved) Family History Father Heart disease Social History Smoking Status: Former smoker alcohol intake: current details: 1 beer daily substance use type: does not use ROS Const Const: Positive for fatigue (still cookie have stamina as I did prior to hospitalization); negative for weakness, weight gain, weight loss, frequent falls or excessive sweating Eyes Eyes: Negative for change in vision, blurry vision or transient loss of vision ENT ENT: Negative for dizziness or balance problems Cardio Chest Pain: No Palpitations: Yes (has improved since hospitalization) feels like its: pounding Edema: None, Left (hx of cellulitis, patient wearing compression stockings) Muscle aches with walking: None Resp Respiratory: Positive for SOB with activity (has improved since hospitalization); negative for SOB at rest GI GI: Negative vomiting or vomiting blood/hematemesis : Negative for hematuria Musc Musc: Negative for balance problems, muscle aches/ myalgia, muscle weakness or joint pain Skin Skin: Negative non-healing lesions or rash Neuro Neuro: Negative for weakness, blurry vision, dizziness, lightheadedness, frequent falls or orthostatic symptoms Thong Hematologic/Lymphatic: Negative for easy bleeding Endo Endo: Positive for fatigue (still cookie have stamina as I did prior to hospitalization); negative for excessive sweating Psych Psych: Negative for anxiety or depression Allergy Allergy/Immunology: Negative for hives, Negative for rash Supplemental Info He did have a Holter monitor performed on 01/29/2018. He was noted to be in sinus rhythm with an average heart rate in the low 40s with an occasional PAC and a rare PVC. (Please see official report) Assessment AND Plan 1. Paroxysmal atrial fibrillation I48.0 Plan At the present time he is back in sinus rhythm. He is in marked sinus bradycardia. This may be explaining his symptoms of fatigue. Thus at the present time he will alter his medications. He will decrease his beta-mark therapy with respect to his metoprolol tartrate from 100 mg twice daily to 50 mg twice daily. He will be asked to have a follow-up ECG in approximately 2 weeks. He will be scheduled for future outpatient follow-up as well. In the meantime he will continue his anticoagulant therapy. He will also continue his antiarrhythmic therapy. Over time depending upon his clinical course he may be able to decrease his beta-mark dose further and/or decrease and/or discontinue his amiodarone therapy as well. 2. Hyperlipidemia, unspecified hyperlipidemia type E78.5 Plan He will continue medical management. He is following up with his primary care physician for this. 3. Essential hypertension I10 Plan His blood pressures have been noted. He will continue medical therapy and follow-up as deemed appropriate. Orders Orders: Plan Detail Other Orders Orders: Other Medications New: Discontinued: enoxaparin Continue overlapping lo100 mg Sub-Q Q12@0600,1800 Afib RVR, Ese Shannon venox therapeutic regimen until INR t cardioversion herapeutic 2-2.5 goal. Discontinue d Reason: Pt no longer taking Additional Comments The above was discussed with the patient. He was agreeable to this approach. Thank you for allowing me to participate in the care of your patient. Please don't hesitate to call if any issues arise. This note was generated using a voice recognition system and there may be incorrect words, spelling or punctuation that were not noted when reviewing the office note prior to saving. Follow Up 3 Months (PFM) Coding Level of Care Code Off vis,est,level 4 Diagnoses Paroxysmal atrial fibrillation I48.0 Atrial fibrillation type: paroxysmal Hyperlipidemia, unspecified hyperlipidemia type E78.5 Hyperlipidemia type: unspecified Essential hypertension I10 Hypertension type: essential hypertension Coding Level of Care Code Off vis,est,level 4 Diagnoses Paroxysmal atrial fibrillation I48.0 Atrial fibrillation type: paroxysmal Hyperlipidemia, unspecified hyperlipidemia type E78.5 Hyperlipidemia type: unspecified Essential hypertension I10 Hypertension type: essential hypertension 02/21/18 8737 <Electronically signed by Kj Venegas MD> Date Kj Venegas MD Cosigner Signature: Date (if applicable) CC: Swapna Stevens DO 12 LEAD EKG PERFORMED Observed: 02/21/2018 Status: F Source: [place] [facility] 3:54 PM [facility] REPOSITORY [facility] [address] [place] [address] 12 Lead EKG performed by [facility] 02/21/181553 MR#: [id number] Acct: [id number] Name: LONNIE ADRIAN Rep #: [id number] : 1945 72 From: Kj Venegas MD Attending Dr: Kj Venegas MD Status: REG AMB Ordering Dr: Kj Venegas MD Date: 02/21/18 Location: [facility] [place] Sex: M C Admitted: [facility]/12 Lead EKG performed by [facility] ECG Report Interpretation Marked sinus Bradycardia Electronically signed on 02/21/2018 at 16:29 by Kj Venegas 02/21/18 1635 Date Kj Venegas MD CC: Swapna Stevens DO Date Dictated: 02/21/18 155 Date Transcribed: 02/21/181553 Embroidery Cutter: PM Signed PROTHROMBIN TIME W/INR Collected: 02/15/2018 Status: F Source: [place] 2:36 PM [facility] HOSPITAL REPOSITORY TYPE CODE TESTS RESULT OUT OF REFERENCE UNITS RANGE LAB L300.4150 11.7-14.9 SECONDS High PROTIME 51.3 LAB L300.4200 High alert INR 5.6 Result Comment: CRITICAL VALUE VERIFIED. CALLED TO DR FIGUEROA 02/15/18 7546 Tabby Castro. RESULTS READ BACK BY SAME . Performed By: #### L300.3900 #### [facility] [address] [place], [address] 12 LEAD ELECTROCARDIOGRAM Observed: 01/25/2018 Status: F Source: [place] 3:57 PM [facility]PITAL REPOSITORY [facility] Cardiovascular Services [address] [place] [address] 12 Lead EKG 01/12/18 2240 MR#: [id number] Acct: [id number] Name: LONNIE ADRIAN Rep #: [id number] : 1945 72 From: Prakash Esteves MD Attending Dr: Nazanin Burton Status: DIS IN Ordering Dr: Tejas Mackey MD Date: 01/12/18 Location: [facility] Sex: M C Admitted: 01/11/18 Test Reason : AFIB Blood Pressure : / mmHG Vent. Rate : 138 BPM Atrial Rate : 127 BPM P-R Int : 000 ms QRS Dur : 086 ms QT Int : 296 ms P-R-T Axes : 000 006 144 degrees QTc Int : 448 ms Atrial fibrillation Nonspecific ST and T wave abnormality , probably digitalis effect Abnormal ECG Confirmed by PRAKASH ESTEVES MD ([id number]), electronic news gathering editor DUSTIN CONNELLY ([id number]) on 01/25/2018 3:56:53 PM Referred By: DR MACKEY Confirmed By:PRAKASH ESTEVES MD 01/25/18 1556 Date Prakash Esteves MD CC: Shena Roberts NP; Nazanin Burton; Tejas Mackey MD Signed 12 LEAD ELECTROCARDIOGRAM Observed: 01/18/2018 Status: F Source: [place] 1:[address] [facility] REPOSITORY [facility] Cardiovascular Services [address] [place] [address] 12 Lead EKG 01/16/18 0530 MR#: [id number] Acct: [id number] Name: LONNIE ADRIAN Rep #: [id number] : 1945 72 From: Prakash Esteves MD Attending Dr: Nazanin Burton Status: DIS IN Ordering Dr: Nazanin Burton Date: 01/16/18 Location: [facility] Sex: M C Admitted: 01/11/18 Test Reason : RHYTHM CHANGE Blood Pressure : / mmHG Vent. Rate : 071 BPM Atrial Rate : 071 BPM P-R Int : 168 ms QRS Dur : 088 ms QT Int : 438 ms P-R-T Axes : 049 019 016 degrees QTc Int : 475 ms Normal sinus rhythm Normal ECG When compared with ECG of 14-JAN-2018 05:04, MANUAL COMPARISON REQUIRED, DATA IS UNCONFIRMED Confirmed by PRAKASH ESTEVES MD ([id number]), electronic news gathering editor DUSTIN CONNELLY ([id number]) on 01/18/2018 1:25:55 PM Referred By: MADDY Confirmed By:PRAKASH ESTEVES MD 01/18/18 1325 Date Prakash Esteves MD CC: Shena Roberts HIGHWAY PAINTER HELPER; Nazanin Burton Signed 12 LEAD ELECTROCARDIOGRAM Observed: 01/17/2018 Status: F Source: [place] 1:[address] [facility] REPOSITORY [facility] Cardiovascular Services [address] [place] [address] 12 Lead EKG 01/13/18 0827 MR#: [id number] Acct: [id number] Name: LONNIE ADRIAN Rep #: [id number] : 1945 72 From: Kj Venegas MD Attending Dr: Nazanin Burton Status: DIS IN Ordering Dr: Mazin Jaquez MD Date: 01/13/18 Location: U Sex: M C Admitted: 01/11/18 Test Reason : DYSRHYTHMIA Blood Pressure : / mmHG Vent. Rate : 119 BPM Atrial Rate : 066 BPM P-R Int : 000 ms QRS Dur : 086 ms QT Int : 318 ms P-R-T Axes : 000 005 121 degrees QTc Int : 447 ms Atrial fibrillation Abnormal ECG Confirmed by THEO COLVIN, KJ ([id number]), electronic news gathering editor DUSTIN CONNELLY ([id number]) on 01/17/2018 1:46:52 PM Referred By: TANIKA Confirmed By:KJ VENEGAS MD 01/17/18 1346 Date Kj Venegas MD CC: Shena Roberts NP; Nazanin Jaquez Signed 12 LEAD ELECTROCARDIOGRAM Observed: 01/17/2018 Status: F Source: [place] 1:[address] [facility] REPOSITORY [facility] Cardiovascular Services [address] [place] [address] 12 Lead EKG 01/14/18 0504 MR#: [id number] Acct: [id number] Name: LONNIE ADRIAN Rep #: [id number] : 1945 72 From: Kj Venegas MD Attending Dr: Nazanin Burton Status: DIS IN Ordering Dr: Kj Venegas MD Date: 01/14/18 Location: [facility] Sex: M C Admitted: 01/11/18 Test Reason : AM EKG Blood Pressure : / mmHG Vent. Rate : 107 BPM Atrial Rate : 127 BPM P-R Int : 000 ms QRS Dur : 088 ms QT Int : 362 ms P-R-T Axes : 000 001 -17 degrees QTc Int : 483 ms Atrial fibrillation Inferior infarct , age undetermined , cannot be excluded Nonspecific ST and T wave abnormality Abnormal ECG Confirmed by THEO COLVIN, KJ ([id number]), electronic news gathering editor DUSTIN CONNELLY ([id number]) on 01/17/2018 1:24:55 PM Referred By: TANIKA Confirmed By:KJ VENEGAS MD 01/17/18 1325 Date Kj Venegas MD CC: Shena Roberts NP; Nazanin Venegas MD Signed DISCHARGE SUMMARY Observed: 01/16/2018 Status: F Source: [place] 12:03 PM [facility]OSPITAL REPOSITORY [facility] Medical Records Department [address] [place] [address] Discharge Summary 01/16/18 1156 MR#: [id number] Acct: [id number] Name: LONNIE ADRIAN Rep #: [id number] : 1945 72 From: Nazanin Burton PCP: Shena Roberts NP Status: ADM IN Y Location: [place] [address] Discharge Date and Diagnosis - Problem List Patient Problems: Active and Suspected Problems Atrial fibrillation (Acute) Cellulitis of left leg (Acute) Date of Admission: 01/12/18 Date of Discharge: 01/16/18 - Primary Discharge Diagnosis Active and Suspected Problems (1) New onset, Paroxsymal atrial fibrillation w/ RVR, failed attempted cardioversion x 3 (2) LLE Extremity Cellulitis (3) Hypertension (4) Hyperlipidemia (5) Obesity - Secondary Discharge Diagnosis Chronic Problems Hypertension (Chronic) Hyperlipidemia (Chronic) Hospital Course and Treatment Dr. Venegas Cardiology Operations: None Procedures: 2-D Echocardiogram, Cardioversion, EKG Summary of Care Provided: The patient is a 72 y/o M w/ PMHx: HTN, HLD, Obesity who presented to the [facility] ED on 01/12/18 with onset LLE pain, erythema, swelling. During the admission he was noted to have tachycardia. EKG w/ atrial fibrillation w/ RVR. Patient maintained in the PCU on telemetry following onset, cardiac enzyme serial set unremarkable, magnesium level 1.9, TSH 2.95, ECHO w/ normal LV size, normal LV systolic function, EF 60%, mild to moderate TV insufficiency, pulmonary artery systolic pressure 28 mmHg. CHADs scoring appropriate for anticoagulation start at this time, placed on therapeutic lovenox w/ 01/14/18 addition coumadin overlap as oral newer options cost prohibitive. Initially placed on cardizem drip-->01/14/18 additional of also Amiodarone drip as had remained uncontrolled rate. Rate improved but still ongoing atrial fibrillation, 01/15/18 failed cardioversion x 3 (converted immediately but returned to atrial fibrillation w/ PAC onset). Patient rate improved and he was transitioned off drips to amiodarone with planned taper (200 mg TID x 1 week, 200 mg BID x 2 weeks, 200 mg daily thereafter) and increased metoprolol regimen per Dr. Moodispaw. Upon admission CBC w/ WBC 20.8 with L shift-->01/14/18 CBC w/ WBC 14.4 with decreased shift-->01/16/18 CBC w/ WBC 9.9 with resolved shift. Maintained initially on IV vanc and zosyn-->transitioned to unasyn and given ongoing improvement 01/15/18 transition to oral augment. Erythema improved and edema improved w/ snug CHANDLER placement also w/ negative DVT US. Given clinical improvement and rate control, patient discharged to home in stable condition on new addition amiodarone, increased metoprolol, overlapping lovenox and coumadin w/ requested repeat INR within 2 days with results faxed to PCP with PCP re-evaluation for transitioning off lovenox once INR therapeutic. Education regarding coumadin and lovenox performed prior to discharge. DAY OF DISCHARGE PROGRESS NOTE: Subjective: Patient without acute event overnight per self and nursing report. Patient denies fever, chills, nausea, emesis, abdominal pain, chest pain or dyspnea. He remained rate controlled on oral regimen. He notes ongoing improvement LLE and minimal pain now. Patient agreeable to discharge to home. Patient will be discharged with follow-up with primary care physician within 3-5 days in addition to Cardiology. Objective: T 97.8, heart rate 67, BP 146/80, respiratory rate 18, 96% on room air. Physical Examination: General: awake, alert, oriented x 3 and cooperative, seated upright in bedside chair, in no apparent distress. Skin: normal color, turgor, no icterus, cyanosis, improved LLE w/ resolved erythema and decreased edema. HEENT: AT/NC, EOMI, PERRLA, MMM. Lungs: CTA bilaterally, moderate effort, mild decrease BL bases, no rales, ronchi or wheezing. Heart: Irregular, rate controlled currently; no gallop, rub audible. Abdomen: soft, obese, NTTP, ND, normal BS. Extremities: no cyanosis, clubbing, see skin. Neurological: patient awake, alert, oriented x 3; cognitive function intact; pupils equally reactive to light and accomodation; cranial nerves II-XII grossly normal, moving all 4 extremities, no focal deficits, strength improved, mildly globally decreased. Psychiatric: affect appears normal, no acute evidence of depressive or anxiety feelings. Assessment and Plan: Please see hospital summary above. Discharge Activity: Return to Normal Activity May resume sexual activity in: No Restrictions Weight Bearing Status: Weight bearing as tolerated Keep extremity elevated above heart level: Left Leg Call your doctor if you observe: Fever of 101 or Higher, Inability to urinate, Inability to have a bowel movement, Shortness of breath, Dizziness, Fainting spells, Chest pain, Uncontrolled pain Home Medications: Medications to take at Discharge Aspirin [Aspirin, Baby] 81 mg PO DAILY@0800 05/03/14 Simvastatin 20 mg PO QHS 05/03/14 Gabapentin [Neurontin] 300 mg PO BID 01/12/18 Amiodarone HCl [Cordarone] 200 mg PO UD #56 tab 01/16/18 Amlodipine [Norvasc] 2.5 mg PO DAILY tablet 01/16/18 Amox/Clavulanate Tablet [Augmentin Tablet] 875 mg PO BID #10 tab 01/16/18 Enoxaparin [Lovenox] 100 mg SC Q12@0600,1800 #14 syringe 01/16/18 Metoprolol Tartrate [Lopressor (beta mark)] 100 mg PO BID #60 tab 01/16/18 Oxycodone [Oxyir] 5 mg PO Q6H PRN PRN 5 Days #20 tablet 01/16/18 Warfarin [Coumadin] 5 mg PO DAILY@1700 #30 tab 01/16/18 Following Prescrptions Were Given to Patient: Oxycodone [Oxyir] 5 mg PO Q6H PRN PRN 5 Days #20 tablet PRN Reason: Severe Pain (-07/03) Amiodarone HCl [Cordarone] 200 mg PO UD #56 tab Enoxaparin [Lovenox] 100 mg SC Q12@0600,1800 #14 syringe Warfarin [Coumadin] 5 mg PO DAILY@1700 #30 tab Amox/Clavulanate Tablet [Augmentin Tablet] 875 mg PO BID #10 tab Metoprolol Tartrate [Lopressor (beta mark)] 100 mg PO BID #60 tab Primary Care Physician: Shena Roberts [Primary Care Provider] - Please follow up with your Primary Care Physician in: Follow- up within 2-3 days. Please Follow Up With: Kj Venegas MD When: Follow-up as requested per Cardiology. Patient Instructions: Enoxaparin Sodium (Porcine) Solution for injection, Taking Coumadin, What Is Atrial Flutter/Atrial Fibrillation?, Discharge Instructions for Atrial Fibrillation, Discharge Instructions for Cellulitis, Cellulitis - Causes,Symptoms,Treating Disposition: Home Minutes spent on discharge:: 35 Patient Condition:: Fair Medical Necessity - Tobacco Use Smoking Status: Former smoker Tobacco Use: Pipe Meaningful Use Info Meaningful Use Diagnoses (Choose all that apply): None applicable Code Visit Inpatient E AND M: 32434 Disch Hosp 01/16/18 1203 <Electronically signed by Nazanin Burton > Date Nazanin Burton Cosigner Signature (if applicable): Date CC: Shena Roberts NP; Nazanin Burton Signed DISCHARGE INSTRUCTION Observed: 01/16/2018 Status: F Source: [place] 11:[address] [facility] REPOSITORY [facility] Medical Records Department [address] [place] [address] Instructions for Home/Discharge Instructions 01/16/18 1132 MR#: [id number] Acct: [id number] Name: LONNIE ADRIAN Rep #: [id number] : 1945 72 From: Nazanin Burton PCP: Shena Roberts NP Status: ADM IN - Discharge Diagnoses Current Active Problems: Current Active and Chronic Problems (1) New onset, Paroxsymal atrial fibrillation w/ RVR, failed attempted cardioversion x 3 (2) LLE Extremity Cellulitis (3) Hypertension (4) Hyperlipidemia (5) Obesity You will use the following diet at home:: Cardiac Your food should be the consistency of: Regular Your liquids should be the consistency of: Regular/Thin Discharge Activity: Return to Normal Activity May resume sexual activity in: No Restrictions Weight Bearing Status: Weight bearing as tolerated Keep extremity elevated above heart level: Left Leg Call your doctor if you observe: Fever of 101 or Higher, Inability to urinate, Inability to have a bowel movement, Shortness of breath, Dizziness, Fainting spells, Chest pain, Uncontrolled pain Instructions: Discharge Instructions for Atrial Fibrillation, What Is Atrial Flutter/Atrial Fibrillation?, Taking Coumadin, Enoxaparin Sodium (Porcine) Solution for injection, Discharge Instructions for Cellulitis, Cellulitis - Causes,Symptoms,Treating Additional Instructions: Please have follow-up INR within 2 days and review this level with your primary care physician. Results will be faxed to your PCP and will need to be reviewed with them to ascertain when you may transition off the therapeutic lovenox and maintain only on coumadin. The goal INR is 2-2.5. Please continue to have INR checks per your Primary Care until you are therapeutic and then they will determine an appropriate routine schedule. Additionally, upon discharge Dr. Venegas has requested your continue amiodarone as a taper with 1 week 200 mg three times daily followed by 200 mg twice daily x 2 weeks and then transition to 200 mg daily thereafter. Allergies/Adverse Reactions: Allergies No Known Allergies Allergy (Verified 01/11/18 16:33) Medications to take at Discharge Aspirin [Aspirin, Baby] 81 mg PO DAILY@0800 05/03/14 Simvastatin 20 mg PO QHS 05/03/14 Gabapentin [Neurontin] 300 mg PO BID 01/12/18 Amiodarone HCl [Cordarone] 200 mg PO UD #56 tab 01/16/18 Amlodipine [Norvasc] 2.5 mg PO DAILY tablet 01/16/18 Amox/Clavulanate Tablet [Augmentin Tablet] 875 mg PO BID #10 tab 01/16/18 Enoxaparin [Lovenox] 100 mg SC Q12@0600,1800 #14 syringe 01/16/18 Metoprolol Tartrate [Lopressor (beta mark)] 100 mg PO BID #60 tab 01/16/18 Oxycodone [Oxyir] 5 mg PO Q6H PRN PRN 5 Days #20 tablet 01/16/18 Warfarin [Coumadin] 5 mg PO DAILY@1700 #30 tab 01/16/18 The following prescriptions were given: Oxycodone [Oxyir] 5 mg PO Q6H PRN PRN 5 Days #20 tablet PRN Reason: Severe Pain (-07/03) Amiodarone HCl [Cordarone] 200 mg PO UD #56 tab Enoxaparin [Lovenox] 100 mg SC Q12@0600,1800 #14 syringe Warfarin [Coumadin] 5 mg PO DAILY@1700 #30 tab Amox/Clavulanate Tablet [Augmentin Tablet] 875 mg PO BID #10 tab Metoprolol Tartrate [Lopressor (beta mark)] 100 mg PO BID #60 tab Primary Care Physician: Shena Roberts [Primary Care Provider] - Please follow up with your Primary Care Physician in: Follow- up within 2-3 days. Please Follow Up With: Kj Venegas MD When: Follow-up as requested per Cardiology. Proposed Discharge Date: 01/16/18 01/16/18 1146 <Electronically signed by Nazanin Burton > Date Nazanin Burton CC: Shena Roberts NP; Kj Venegas MD EMERGENCY DEPARTMENT Observed: 01/16/2018 Status: F Source: [place] SUMMARY 8:[address] [facility] REPOSITORY [facility] Medical Records Department [address] [place] [address] Emergency Department Summary 01/12/18 0209 MR#: [id number] Acct: [id number] Name: LONNIE ADRIAN Rep #: [id number] : 1945 72 From: Laureano Blanco PCP: Shena Roberts NP Status: ADM IN - ER Visit Summary Date of Service: 01/12/18 Chief Complaint: Left lower extremity cellulitis History of Present Illness: The patient is a 72 M presents after PCP office called sending the patient here to the ED. States some have slight left lower extremity redness yesterday. States that after wearing compression stockings. States he came to the ED, however due to it being present he left and follow-up with his PCP office today. States he is given antibiotic injection, had outpatient labs and ultrasound study of the leg. Reported ultrasound of the left leg was negative for DVT. Unclear on what prescription for antibiotics was given was given 2 doses. Reported white count was 20. He is not a diabetic. Denies fever. Denies similar symptoms in the past. Physical Examination: General: Alert and oriented 3, no acute distress HEENT: Normocephalic, atraumatic. Moist mucosa membranes Neck: supple, nontender. Cardiovascular: Regular rate and rhythm, no murmurs Respiratory: Normal breath sounds, symmetric, no distress Abdomen: Soft, nontender, nondistended Extremities: left lower extremity: Asymmetric swelling of the calf appears nontender. There is circumferential erythema distal leg with anterior erythema up to the mid tibia. There is small scabs distal third of the tibia with no active drainage. Pulses intact distally. Neuro: no focal neurological deficits. Test Results: WBC 25. Creatinine 1.24. Blood cultures 2. Emergency Department Course and Treatment: Patient failing outpatient therapy. Temp of 99.9 in the ED. blood culture 2 given. He was started on Zosyn and vancomycin. Initially patient states he was not going to stay in the ED and just wanted treatment to go home and take care of his spouse. Therefore I did speak with covering PCP, Dr. Stevens, agrees with the current plan with labs and antibiotics with close outpatient follow-up and return if worsening symptoms. However, labs return white count 24, elevated from previous. In addition and increasing erythema past the initial line marked for my evaluation. Encouraged patient to stay due to worsening symptoms. He did manage to arrange care for his mother with his son. Spoke with Dr. Mackey for admission. Does meet sepsis criteria however is not toxic. Treatment Plan: [] Disposition: Admission Impression: 1. Left lower extremity cellulitis 2. Sepsis This note was generated with Kinopto dictation software. It may contain incorrect words, spelling, and punctuation that were not noted in review of the chart prior to signing ED Disposition - Plan for ED Patient: Disposition: Acute Care Hospital [facility] Chief Complaint: Cellulitis Diagnosis: Left leg cellulitis, Sepsis Referrals: Shena Roberts [Primary Care Provider] - What to do if you have Problems For any increased pain, shortness of breath, bleeding, nausea or vomiting, chest pain, or any unexpected problems, contact your Primary Care Provider. Call Offsite [facility] ([phone]) or report to the closest Emergency Room. Call 911 if necessary. 01/12/18 0214 <Electronically signed by Laureano Blanco> Date Laureano Blanco Cosigner Signature (If Indicated): Date CC: Shena Roberts [employer] BASIC METABOLIC Collected: 01/16/2018 Status: F Source: [place] PROFILE (BMP) 6:[address] [facility] REPOSITORY TYPE CODE TESTS RESULT OUT OF RANGE REFERENCE UNITS LAB L501.0100 74-106 mg/dL Normal GLU 98 Result Comment: Please note revised GLUCOSE reference range effective 2017. LAB L501.1000 7-18 mg/dL Normal BUN 12 LAB L501.1100 0.70-1.30 mg/dL Normal CREAT,SERUM 0.86 Result Comment: The validity of the calculated GFR AND GFRAA in patients over 70 years has not been determined. Clinical correlation is essential. LAB L501.1110 >60 mL/min Normal EST GFR 93 Result Comment: Non- GFR Calc LAB L501.1115 >60 mL/min Normal EST GFR - AA 113 Result Comment: GFR Calc LAB L501.1255 ml/min Normal Estimated CRCL 87.73 LAB L501.1300 10-20 RATIO Normal BUN/CRE 13.9 LAB L501.2200 8.5-10 mg/dL Normal .1 CA 8.7 LAB L501.5300 136-14 mmol/L Normal 5 NA 140 LAB L501.5600 3.5-5. mmol/L Normal 1 K 3.5 LAB L501.5900 98-107 mmol/L Normal CL 106 LAB L501.6100 21.0-3 mmol/L Normal 2.0 CO2 23.0 LAB L501.6200 5-15 Normal GAP 11 Performed By: #### L500.2500 #### [facility] [address] [place], [address] CBC W/DIFF, AUTOMATED Collected: 01/16/2018 Status: F Source: [place] 6:[address] [facility] REPOSITORY TYPE CODE TESTS RESULT OUT OF RANGE REFERENCE UNITS LAB L100.1000 4.4-11.0 K/mm3 Normal WBC 9.9 LAB L100.1200 4.6-6.2 M/mm3 Low RBC 4.30 LAB L100.1300 13.0-16.5 g/dl Normal HGB 13.3 LAB L100.1400 40-54 % Normal HCT 40.3 LAB L100.1500 80-94 fL Normal MCV 93.7 LAB L100.1600 27.0-32.0 pg Normal MCH 30.9 LAB L100.1700 32-36 g/gl Normal MCHC 33.0 LAB L100.1810 11.6-14.6 % Normal RDW CV 14.1 LAB L100.1820 35.1-43.9 fl High RDW SD 46.9 LAB L100.1900 150-450 K/mm3 Normal PLT 351 LAB L100.2000 6.2-12.0 fl Normal MPV 9.0 LAB L100.2100 47-70 % High NEUT% 72.8 LAB L100.2200 19-41 % Low LY% 12.9 LAB L100.2300 0-10 % Normal MONO% 9.5 LAB L100.2400 0-5 % Normal EO% 1.6 LAB L100.2500 0-1 % Normal BASO% 0.3 LAB L100.2550 0.0-0.9 % High IM GRAN % 2.900 Result Comment: IG% - Immature Granulocytes (promyelocytes, myelocytes and metamyelocytes) > 1% indicates that a LEFT SHIFT is Present. LAB L100.2620 2.0-7.7 X10 3/uL Normal Absolute Neut 7.2 LAB L100.2720 0.83-4.51 X10 3/ul Normal Absolute Lymph 1.28 LAB L100.9900 Normal PATH REV Reviewed Performed By: #### L100.0100 #### [facility] [address] [place], [place], [address] PROTHROMBIN TIME W/INR Collected: 01/16/2018 Status: F Source: [place] 5:[address] [facility] REPOSITORY TYPE CODE TESTS RESULT OUT OF RANGE REFERENCE UNITS LAB L300.4150 11.7-14.9 SECONDS Normal PROTIME 14.4 LAB L300.4200 Normal INR 1.1 Performed By: #### L300.3900 #### [facility] [address] [place], [place], [address] OPERATIVE REPORT Observed: 01/15/2018 Status: F Source: [place] 2:[address] [facility] REPOS[facility]ORY [facility] Medical Records Department [address] [place] [address] Operative Report 01/15/18 1419 MR#: [id number] Acct: [id number] Name: LONNIE ADRIAN Rep #: [id number] : 1945 72 From: Kj Venegas MD PCP: Shena Roberts NP Status: ADM IN Location: [place] [address] Problem List (1) Atrial fibrillation Status: Acute (2) Hypertension Status: Chronic Qualifiers: Hypertension type: essential hypertension Qualified Code(s): I10 - Essential (primary) hypertension (3) Hyperlipidemia Status: Chronic Qualifiers: Hyperlipidemia type: unspecified Qualified Code(s): E78.5 - Hyperlipidemia, unspecified (4) Cellulitis of left leg Status: Acute Operative Report Date of Procedure: 01/15/18 Procedure: Synchronized biphasic DC cardioversion Indications: Atrial fibrillation Consent: Per the patient Premedications: Per Dr. Mikey Harmon pulmonology/critical care medicine with propofol 150 mg IV push total Procedure: Synchronized biphasic DC cardioversion: 200 J 1: Result: Sinus rhythm with return to atrial fibrillation Synchronized biphasic DC cardioversion: 300 J 1: Result: Sinus rhythm with return to atrial fibrillation Synchronized biphasic DC cardioversion: 360 J 1: Sinus rhythm with return to atrial fibrillation Complications: No apparent complications This note was generated with Kinopto dictation software. It may contain incorrect words, spelling, and punctuation that were not noted in checking the note before signing. 01/15/18 1423 <Electronically signed by Kj Venegas MD> Date Kj Venegas MD CC: Shena Roberts NP; Swapna Stevens DO; Kj Venegas MD Signed CBC W/DIFF, AUTOMATED Collected: 01/15/2018 Status: F Source: [place] 11:[address] [facility] REPOSITORY Order Comment: REDRAW. PREVIOUS SPECIMEN REJECTED DUE TO SPECIMEN BEING CLOTTED. 01/15/18 1122 Wilfred R Stoner. TYPE CODE TESTS RESULT OUT OF RANGE REFERENCE UNITS LAB L100.1000 4.4-11.0 K/mm3 Normal WBC 10.0 LAB L100.1200 4.6-6.2 M/mm3 Low RBC 4.21 LAB L100.1300 13.0-16.5 g/dl Low HGB 12.5 LAB L100.1400 40-54 % Low HCT 39.1 LAB L100.1500 80-94 fL Normal MCV 92.9 LAB L100.1600 27.0-32.0 pg Normal MCH 29.7 LAB L100.1700 32-36 g/gl Normal MCHC 32.0 LAB L100.1810 11.6-14.6 % Normal RDW CV 14.1 LAB L100.1820 35.1-43.9 fl High RDW SD 47.6 LAB L100.1900 150-450 K/mm3 Normal PLT 282 LAB L100.2000 6.2-12.0 fl Normal MPV 9.4 LAB L100.2100 47-70 % High NEUT% 79.8 LAB L100.2200 19-41 % Low LY% 10.0 LAB L100.2300 0-10 % Normal MONO% 7.7 LAB L100.2400 0-5 % Normal EO% 0.9 LAB L100.2500 0-1 % Normal BASO% 0.3 LAB L100.2550 0.0-0.9 % High IM GRAN % 1.300 Result Comment: IG% - Immature Granulocytes (promyelocytes, myelocytes and metamyelocytes) > 1% indicates that a LEFT SHIFT is Present. LAB L100.2620 2.0-7.7 X10 3/uL High Absolute Neut 8.0 LAB L100.2720 0.83-4.51 X10 3/ul Normal Absolute Lymph 1.00 Performed By: #### L100.0100 #### [facility] [address] [facility]. [place], [place], [address] OPERATIVE REPORT Observed: 01/15/2018 Status: F Source: [place] 11:[address] [facility] REPOS[facility]ORY [facility] Medical Records Department [address] [place] [address] Operative Report 01/15/18 1135 MR#: [id number] Acct: [id number] Name: LONNIE ADRIAN Rep #: [id number] : 1945 72 From: Mikey Harmon DO PCP: Shena Roberts NP Status: ADM IN Y Location: [place] [id number] Operative Report Date of Procedure: 01/15/18 CONSCIOUS SEDATION REPORT DATE OF SERVICE: January 15, 2018 BRIEF HISTORY OF PRESENT ILLNESS: The patient is an obese male who presented to [facility] with lower externally cellulitis and atrial fibrillation. The patient's recent surface echocardiogram revealed ejection fraction of approximately 60%. Although there is concern for underlying sleep disordered breathing, the patient is never been formally diagnosed with obstructive sleep apnea. He reports no history of COPD or asthma. The patient denies a previous anesthetic complications. The patient is currently anticoagulated and is receiving Cardizem and amiodarone. PHYSICAL EXAMINATION: VITAL SIGNS: Reviewed and were acceptable. GENERAL: The patient is an obese male, in no apparent distress, speaking in full sentences. HEENT: Normocephalic, atraumatic. Mucous membranes are moist and pink. Good mouth opening noted. Trachea is midline. Limited neck mobility. MP class IV. CHEST: S1, S2 irregularly irregular. No murmurs, rubs or gallops were noted. LUNGS: Clear to auscultation bilaterally without appreciable wheezes, rales or rhonchi. ABDOMEN: Soft, nontender, nondistended. Positive bowel sounds. EXTREMITIES: There is no clubbing or cyanosis. Lower extremity edema is present. ASA Class: II DESCRIPTION OF PROCEDURE: After confirmation of informed consent, the patient's anesthesia plan was reviewed in detail. Propofol was chosen. Risks and benefits were reviewed and the patient agreed to proceed. At 1059, the patient was given his first bolus of propofol. In total, throughout the entire procedure, the patient required 150 mg of propofol to facilitate 3 separate cardioversion attempts by Dr. Venegas, one at 200 J, one at 300 J, one at 360 J. Unfortunately, the cardioversion attempts were unsuccessful in restoring normal sinus rhythm. The patient was monitored until 1117, at which time they reached their baseline mental status and function. The patient tolerated the procedure well. COMPLICATIONS: None ESTIMATED BLOOD LOSS: None RECOMMENDATIONS: Okay to recover in usual fashion. Code Visit 9xxxx: Other Procedure See Report 01/15/18 1141 <Electronically signed by Mikey Harmon DO> Date Mikey Harmon DO CC: Shena Roberts NP; Mikey Harmon D.O.; Kj Venegas MD Signed PROTHROMBIN TIME W/INR Collected: 01/15/2018 Status: F Source: [place] 5:[address] [facility] REPOSITORY TYPE CODE TESTS RESULT OUT OF RANGE REFERENCE UNITS LAB L300.4150 11.7-14.9 SECONDS Normal PROTIME 13.3 LAB L300.4200 Normal INR 1.0 Performed By: #### L300.3900 #### [facility] [address] [place], [address] BASIC METABOLIC Collected: 01/15/2018 Status: F Source: [place] PROFILE (BMP) 5:[address] [facility] REPOSITORY TYPE CODE TESTS RESULT OUT OF RANGE REFERENCE UNITS LAB L501.0100 74-106 mg/dL Normal GLU 106 Result Comment: Fasting Glucose result from 100 to 125 mg/dL suggests IMPAIRED HOMEOSTASIS per A.D.A. criteria. Please note revised GLUCOSE reference range effective 2017. LAB L501.1000 7-18 mg/dL Normal BUN 13 LAB L501.1100 0.70-1.30 mg/dL Normal CREAT,SERUM 0.88 Result Comment: The validity of the calculated GFR AND GFRAA in patients over 70 years has not been determined. Clinical correlation is essential. LAB L501.1110 >60 mL/min Normal EST GFR 91 Result Comment: Non- GFR Calc LAB L501.1115 >60 mL/min Normal EST GFR - AA 110 Result Comment: GFR Calc LAB L501.1255 ml/min Normal Estimated CRCL 85.73 LAB L501.1300 10-20 RATIO Normal BUN/CRE 14.8 LAB L501.2200 8.5-10 mg/dL Low .1 CA 8.0 LAB L501.5300 136-14 mmol/L Normal 5 NA 137 LAB L501.5600 3.5-5. mmol/L Normal 1 K 3.8 Result Comment: Slight Hemolysis, Result may be falsely increased. LAB L501.5900 98-107 mmol/L Normal CL 106 LAB L501.6100 21.0-32.0 mmol/L Normal CO2 21.0 LAB L501.6200 5-15 Normal GAP 10 Performed By: #### L500.2500 #### [facility] [address] [place], [address] PROTHROMBIN TIME W/INR Collected: 01/14/2018 Status: F Source: [place] 5:[address] [facility] REPOSITORY TYPE CODE TESTS RESULT OUT OF RANGE REFERENCE UNITS LAB L300.4150 11.7-14.9 SECONDS Normal PROTIME 13.6 LAB L300.4200 Normal INR 1.0 Performed By: #### L300.3900 #### [facility] [address] [facility] [place], [address] ECHOCARDIOGRAM COMPLETE Observed: 01/14/2018 Status: F Source: [place] 11:[address] [facility] REPOS[facility]ORY [facility] Cardiovascular Services [address] [place] [address] Echo Complete W/ Contrast 01/14/18 0959 MR#: [id number] Acct: [id number] Name: LONNIE ADRIAN Rep #: [id number] : 1945 72 From: Prakash Esteves MD Attending Dr: Nazanin Burton Status: ADM IN Ordering Dr: Mazin Jaquez MD Date: 01/13/18 Location: U Sex: M C Admitted: 01/11/18 Reason For Study: AFIB Procedure This was a 2D Doppler, Color Flow transthoracic echocardiogram. Exam performed portable in patient room. Left Ventricle Normal LV size. Left ventricular systolic function is normal. The estimated ejection fraction is 60 %. Unable to assess diastolic dysfunction. No regional wall motion abnormalities noted. Right Ventricle Normal RV size. Normal systolic function. Atria The left atrium is mildly enlarged. Normal right atrium. Mitral Valve Normal mitral valve. Tricuspid Valve Normal tricuspid valve. Mild to moderate (1-2+) tricuspid valve insufficiency. Pulmonary artery systolic pressure is 28 mmHg. Aortic Valve The aortic valve is not well visualized. Pulmonic Valve The pulmonic valve is not well visualized. Great Vessels Normal aortic root. The pulmonary artery is normal size. Normal inferior vena cava. Pericardium/Pleural No pericardial effusion. Medication Diluted definity 5ml given slow IV push to enhance endocardial definition. MMode/2D Measurements AND Calculations LVIDd: 4.6 cm IVSd: 1.1 cm Ao root diam: 3.2 cm LVIDs: 3.3 cm LVPWd: 1.1 cm RVDd: 4.1 cm FS: 28.2 % LAV(MOD-bp): 66.9 ml EDV(MOD-sp4): 76.7 ml EDV(MOD-sp2): 94.1 ml LAV(MOD-bp) Indexed: 28.0 ml/m2 ESV(MOD-sp4): 30.2 ml EF(MOD-sp2): 63.9 % LAV(MOD-sp2): 73.8 ml EF(MOD-sp4): 60.6 % LAV(MOD-sp4): 56.5 ml SV(MOD-sp4): 46.5 ml SV(MOD-sp2): 60.2 ml LA A4 area: 22.0 cm2 RA A4 area: 16.7 cm2 Doppler Measurements AND Calculations MV E max marcin: 116.2 cm/sec Ao V2 max: 157.5 cm/sec LV V1 max: 96.9 cm/sec Ao max P.0 mmHg LV V1 max P.8 mmHg TR max marcin: 258.6 cm/sec TR max P.8 mmHg Interpretation Summary Normal LV size. Left ventricular systolic function is normal. The estimated ejection fraction is 60 %. Unable to assess diastolic dysfunction. Mild to moderate (1-2+) tricuspid valve insufficiency. Pulmonary artery systolic pressure is 28 mmHg. Ordering Physician: Mazin Jaquez Referring Physician: Shena Roberts Performed By: Susan Walden, TORSTEN, RVT 01/14/18 1146 Date Prakash Esteves MD CC: Shena Roberts HIGHWAY PAINTER HELPER; Nazanin Burton; Mazin Jaquez Date Dictated: 01/14/18 0959 Date Transcribed: 01/14/18 1146 Embroidery Cutter: Signed VENOUS DUPLEX LOWER Observed: 01/13/2018 Status: F Source: [place] EXTREMITY 8:[address] [facility] REPOSITORY [facility] Cardiovascular Services [address] [address] Venous Duplex US, Unilateral 01/11/18 1238 MR#: [id number] Acct: [id number] Name: LONNIE ADRIAN Rep #: [id number] : 1945 72 From: Rangel Buenrostro MD Attending Dr: Shena Roberts NP Status: REG CLI Ordering Dr: Shena Roberts Date: 01/11/18 Location: CVS Sex: M C Admitted: Reason For Study: LLE pain RIGHT LEFT CFV is compressible, spontaneous, phasic, GSV is normal. competent and demonstrates normal CFV is compressible, spontaneous, phasic, augmentation. competent, and demonstrates normal Procedure augmentation. Exam performed in department. FV is compressible, spontaneous, phasic, The study was technically difficult. competent and demonstrates normal A preliminary report was called and/or faxed augmentation. to Shena Armando @ 1:00 pm @ [phone]. POP V is compressible, spontaneous, phasic, competent and demonstrates normal augmentation. T/P Trunk is compressible. PTV is compressible. LT Per V appears normal, relied on color doppler, unable to visualize with compression. Interpretation Summary Deep veins of the left lower extremity are patent and compressible segmentally. There is no evidence of left lower extremity deep vein thrombosis. Valvular competence appears intact within the proximal deep venous system on the left . The left greater saphenous vein appears patent and compressible segmentally. Ordering Physician: Shena Roberts Referring Physician: Shena Roberts Performed By: Stephania Velasquez, TORSTEN, RVT 01/13/182028 Date Rangel Buenrostro MD CC: Shena Roberts NP Date Dictated: 01/11/18 1238 Date Transcribed: 01/13/182028 Embroidery Cutter: Signed CHEST PA AND LATERAL Observed: 01/13/2018 Status: F Source: [place] 10:55 AM [facility] REPOSIT[facility] Imaging Services [address] [place] [address] Chest PA and Lateral MR#: [id number] Acct: [id number] Name: LONNIE ADRIAN Rep #: [id number] : 1945 M 72 From: Isma Reilly MD PCP: Shena Roberts NP Status: ADM IN Study: Chest PA and Lateral Date of Exam: 01/13/18 Exam# [id number] Ordering Dr: Kj Venegas MD STUDY: X-RAY CHEST REASON FOR EXAM: Male, 72 years old. Atrial fibrillation. TECHNIQUE: Frontal and lateral views of the chest. COMPARISON: None. FINDINGS: The lungs are clear and expanded. There is no demonstrated pleural abnormality. Normal size heart. Normal mediastinum and hussein. Normal visualized pulmonary arteries. Normal visualized aortic arch and descending thoracic aorta. There are diffuse degenerative changes of the visualized thoracic spine. Normal visualized ribs, clavicles, and shoulders. There is no demonstrated abnormality of the visualized soft tissue structures of the upper abdomen. RAD/Chest PA and Lateral IMPRESSION: Normal x-ray examination of the chest. Electronically Signed: Isma Reilly MD at 14:22 EDT , Service support , CC: Shena Roberts NP; Kj Venegas MD Embroidery Cutter: Signed CONSULTATION Observed: 01/13/2018 Status: F Source: ALEX 10:[address] [facility] REPOSITORY [facility] Medical Records Department [address] [place] [address] Consultation 01/13/18 1038 MR#: [id number] Acct: [id number] Name: LONNIE ADRIAN Rep #: [id number] : 1945 72 From: Kj Venegas MD PCP: Shena Roberts NP Status: ADM IN Y Location: [place] [id number] Problem List (1) Atrial fibrillation Status: Acute (2) Hypertension Status: Chronic Qualifiers: Hypertension type: essential hypertension Qualified Code(s): I10 - Essential (primary) hypertension (3) Hyperlipidemia Status: Chronic Qualifiers: Hyperlipidemia type: unspecified Qualified Code(s): E78.5 - Hyperlipidemia, unspecified (4) Cellulitis of left leg Status: Acute Reason for Consult Date of Consultation: 01/13/18 History of Present Illness: The patient is a 72 year old white male with a past medical history of hypertension and hyperlipidemia and possible atrial fibrillation/flutter versus PSVT-remote who presents for evaluation of left lower extremity cellulitis and subsequently noted to develop atrial fibrillation with rapid ventricular response. The patient notes that many years ago he was evaluated by his PCP and at [facility] for concerns of a rapid heart rate of approximately 300 bpm. He states he was placed in the ICU and treated medically with IV medications. He notes his heart rate returned to normal. Since that time he has been treated with aspirin therapy as well as with as needed beta-mark therapy. He believes he underwent a remote transthoracic echocardiogram and exercise tolerance test both of which were reportedly unremarkable. He does not recall any other cardiovascular testing in the past. Most recently he has been complaining of left lower extremity edema, erythema, and tenderness. He was evaluated by his primary care physician. This included laboratory evaluation which demonstrated an elevated WBC of 20.1. He was referred to the [facility] ED for evaluation. His laboratory studies were reviewed. He was thought to have a left lower extremity cellulitis. He was subsequently placed in the hospital for further evaluation care. During his hospitalization he has developed atrial fibrillation with rapid ventricular response. He states he has not sensed a change in his heart rate or rhythm. He has not had any chest discomfort or difficulty breathing. He denies any history of near syncope or syncope. He states in the remote past following an arthroscopic procedure of his left knee he did have a DVT. He was treated with anticoagulant therapy. He denies any history of pulmonary embolism. He states as part of his recent evaluation he underwent repeat evaluation for DVT in the left lower extremity with a venous duplex study. According to his understanding the study was reported as negative. He has been placed in the PCU. He has had cardiac enzymes which have been negative. An outpatient BNP level was reported as negative. His ECG demonstrated atrial fibrillation with rapid ventricular response with nonspecific ST and T-wave change. He was placed on additional rate limiting therapy with IV diltiazem. He was also placed on anticoagulant therapy with subcutaneous Lovenox. He has remained in atrial fibrillation with an elevated heart rate. [] Past Medical History Allergies/Adverse Reactions: Allergies No Known Allergies Allergy (Verified 01/11/18 16:33) Home Medications: Ambulatory Orders Medication Instructions Recorded Aspirin [Aspirin, Baby] 81 mg PO DAILY@0800 05/03/14 Past Medical History (Chronic Problems): Chronic Problems Hypertension (Chronic) Hyperlipidemia (Chronic) Surgical History: arthroscopy, knee - Left: Remote Smoking Status: Former smoker Tobacco Use: Pipe Alcohol: None Drugs: None Review of Systems - Review of Systems Cardiovascular: Reports: Peripheral Edema. Denies: Chest Discomfort, Shortness of Breath, Orthopnea, PND, Palpitations, Lightheadedness, Dizziness, Near Syncope, Syncope Respiratory: Denies: Cough, Sputum Production, Hemoptysis Gastrointestinal: Denies: Hematemesis, Hematochezia, Melena Genitourinary: Denies: Dysuria, Hematuria Skin: Denies: Rash Subjectve: This is a 72-year-old white male who appears to be resting comfortably at the moment in no acute distress. Objective: Vital Signs Temp Pulse Resp BP Pulse Ox 97.8 F 134 H 20 H 125/75 H 100 01/13/18 06:03 01/13/18 09:03 01/13/18 06:03 01/13/18 06:03 01/13/18 06:03 Oxygen Delivery Method Room Air Weight: 261 lb 14.546 oz Body Mass Index (BMI) 35.0 Intake and Output for Last 24 Hours Intake Total 3378 / 3378 Output Total 300 / 300 300 / 300 Balance 3078 / 3078 -300 / -300 General: Awake, Alert, Oriented x 3, Cooperative, No Acute Distress Neck: No JVD Lungs: Clear to auscultation Cardiovascular: Irregular Rhythm, Normal S1, Normal S2 Vascular: No Carotid Bruits Abdomen: Bowel Sounds Present, Soft, Non Tender Extremities: Moderate LLE Edema Musculoskeletal: Erythema - LLE Neurological: No Focal Motor or Sensory Deficit, CN II-XII Intact 01/12/18 23:18: Troponin I < 0.02 01/13/18 02:50: Troponin I < 0.02 01/13/18 06:47: WBC 14.4 H, RBC 4.18 L, Hgb 12.9 L, Hct 39.6 L, MCV 94.7 H, MCH 30.9, MCHC 32.6, RDW 14.2, RDW Differential 47.7 H, Plt Count 192, MPV 9.0, Immature Gran % (Auto) 0.300, Neut % (Auto) 85.0 H, Lymph % (Auto) 7.3 L, [place] % (Auto) 6.7, Eos % (Auto) 0.6, Baso % (Auto) 0.1, Absolute Neuts (auto) 12.2 H, Total Counted Not Reportable 01/13/18 06:47: Sodium 140, Potassium 3.8, Chloride 107, Carbon Dioxide 24.0, Anion Gap 9, BUN 13, Creatinine 0.90, Est GFR (MDRD) Af Amer 106, Est GFR (MDRD) Non-Af 88, BUN/Creatinine Ratio 14.4, Glucose 94, Calcium 8.1 L 01/13/18 06:47: Troponin I < 0.02 01/13/18 06:47: Magnesium 1.9 Rhythm: Atrial fibrillation EKG: As noted above ECHO: Unavailable for review at this time Stress Test: Unavailable for review at this time Assessment/Plan 1. Atrial fibrillation with rapid ventricular response At the present time the patient remains in atrial fibrillation with an elevated heart rate. This is despite the aforementioned measures. The etiology of his atrial fibrillation may be multifactorial. This may be related to a combination of his age, history of hypertension, superimposed upon his underlying acute infectious disease related issue. His noninvasive evaluation has been negative thus far for evidence of an acute coronary syndrome. He is not felt to have evidence of an ongoing acute thromboembolic event. He will continue to be monitored. He will undergo follow- up evaluation with ECG, echocardiogram, and other studies as deemed appropriate. In the interim he will continue rate limiting therapy. It would not be unreasonable to attempt antiarrhythmic therapy such as IV amiodarone in attempt to regain sinus rhythm. He is on anticoagulant therapy as well. Also, he will continue evaluation care of his underlying infectious disease issue. 2. Hypertension The patient is on hypertensive therapy. This may need to be adjusted during his hospital course and depending upon what medications he requires for his other medical conditions, etc. 3. Hyperlipidemia He will continue lipid-lowering therapy as tolerated. 4. Cellulitis of the left lower extremity He will continue evaluation care which has included antibiotic therapy, etc. This note was generated with [employer] software. It may contain incorrect words, spelling, and punctuation that were not noted in checking the note before signing. 01/13/18 1050 <Electronically signed by Kj Venegas MD> Date Kj Venegas MD Cosigner Signature (if applicable): Date CC: Shena Roberts HIGHWAY PAINTER HELPER; Swapna Stevens DO; Kj Venegas MD Signed TROPONIN-I Collected: 01/13/2018 Status: F Source: [place] 6:[address] [facility] REPOSITORY Order Comment: 'TROP' Serial specimen #1, #2, #3, or #4: 3 TYPE CODE TESTS RESULT OUT OF RANGE REFERENCE UNITS LAB L501.4010 <0.06 ng/mL Normal < 0.02 TROPONIN-I Result Comment: TROPONIN-I EXPECTED VALUES <0.05 NEGATIVE 0.06 - 0.59 AT RISK OF [place] > OR = 0.60 SUGGEST [place] Performed By: #### L501.4010 #### [facility] [address] [place], [place], [id number] CBC W/DIFF, AUTOMATED Collected: 01/13/2018 Status: F Source: [place] 6:[address] [facility] REPOSITORY TYPE CODE TESTS RESULT OUT OF RANGE REFERENCE UNITS LAB L100.1000 4.4-11.0 K/mm3 High WBC 14.4 LAB L100.1200 4.6-6.2 M/mm3 Low RBC 4.18 LAB L100.1300 13.0-16.5 g/dl Low HGB 12.9 LAB L100.1400 40-54 % Low HCT 39.6 LAB L100.1500 80-94 fL High MCV 94.7 LAB L100.1600 27.0-32.0 pg Normal MCH 30.9 LAB L100.1700 32-36 g/gl Normal MCHC 32.6 LAB L100.1810 11.6-14.6 % Normal RDW CV 14.2 LAB L100.1820 35.1-43.9 fl High RDW SD 47.7 LAB L100.1900 150-450 K/mm3 Normal PLT 192 LAB L100.2000 6.2-12.0 fl Normal MPV 9.0 LAB L100.2100 47-70 % High NEUT% 85.0 LAB L100.2200 19-41 % Low LY% 7.3 LAB L100.2300 0-10 % Normal MONO% 6.7 LAB L100.2400 0-5 % Normal EO% 0.6 LAB L100.2500 0-1 % Normal BASO% 0.1 LAB L100.2550 0.0-0.9 % Normal IM GRAN % 0.300 Result Comment: IG% - Immature Granulocytes (promyelocytes, myelocytes and metamyelocytes) > 1% indicates that a LEFT SHIFT is Present. LAB L100.2620 2.0-7.7 X10 3/uL High Absolute Neut 12.2 LAB L100.2720 0.83-4.51 X10 3/ul Normal Absolute Lymph 1.05 Performed By: #### L100.0100 #### [facility] [address] [place], [place], [address] BASIC METABOLIC Collected: 01/13/2018 Status: F Source: [place] ([place]) 6:[address] [facility] REPOSITORY TYPE CODE TESTS RESULT OUT OF RANGE REFERENCE UNITS LAB L501.0100 74-106 mg/dL Normal GLU 94 Result Comment: Please note revised GLUCOSE reference range effective 2017. LAB L501.1000 7-18 mg/dL Normal BUN 13 LAB L501.1100 0.70-1.30 mg/dL Normal CREAT,SERUM 0.90 Result Comment: The validity of the calculated GFR AND GFRAA in patients over 70 years has not been determined. Clinical correlation is essential. LAB L501.1110 >60 mL/min Normal EST GFR 88 Result Comment: Non- GFR Calc LAB L501.1115 >60 mL/min Normal EST GFR - AA 106 Result Comment: GFR Calc LAB L501.1255 ml/min Normal Estimated CRCL 83.83 LAB L501.1300 10-20 RATIO Normal BUN/CRE 14.4 LAB L501.2200 8.5-10 mg/dL Low .1 CA 8.1 LAB L501.5300 136-14 mmol/L Normal 5 NA 140 LAB L501.5600 3.5-5. mmol/L Normal 1 K 3.8 LAB L501.5900 98-107 mmol/L Normal CL 107 LAB L501.6100 21.0-3 mmol/L Normal 2.0 CO2 24.0 LAB L501.6200 5-15 Normal GAP 9 Performed By: #### L500.2500 #### [facility] [address] [place], [place], [address] MAGNESIUM Collected: 01/13/2018 Status: F Source: [place] 6:[address] [facility] REPOSITORY Order Comment: Comments: From blood in the lab Comments: From blood in the lab TYPE CODE TESTS RESULT OUT OF RANGE REFERENCE UNITS LAB L501.5200 1.6-2.6 mg/dL Normal MG 1.9 Performed By: #### L501.5200, L501.9520 #### [facility] [address] [place], [place], [address] THYROID STIM HORMONE Collected: 01/13/2018 Status: F Source: [place] ([place]) 6:[address] [facility] REPOSITORY Order Comment: Comments: From blood in the lab Comments: From blood in the lab TYPE CODE TESTS RESULT OUT OF RANGE REFERENCE UNITS LAB L501.9520 0.358-3.74 uIU/mL Normal TSH 2.95 Performed By: #### L501.5200, L501.9520 #### [facility] [address] [place], [address] LIVER PROFILE Collected: 01/13/2018 Status: F Source: [place]LEX 6:[address] [facility] REPOSITORY Order Comment: ADD ON Comments: add to AM labs TYPE CODE TESTS RESULT OUT OF RANGE REFERENCE UNITS LAB L501.1500 6.4-8.2 g/dL Low T PROT 6.3 LAB L501.1800 3.2-5.0 g/dL Low ALB 2.3 LAB L501.1950 2.2-4.2 g/dL Normal GLOB 4.0 LAB L501.4100 15-37 U/L Normal AST 20 LAB L501.4305 45-117 U/L Normal ALK P 56 LAB L501.4405 16-61 U/L Low ALT 13 LAB L501.4600 0.20-1.00 mg/dL Normal T BILI 1.00 LAB L501.4700 0.00-0.30 mg/dL Normal D BILI 0.18 Performed By: #### L500.3400 #### [facility] [address] [place], [address] TROPONIN-I Collected: 01/12/2018 Status: F Source: [place] 11:[address] [facility] REPOSITORY Order Comment: 'TROP' Serial specimen #1, #2, #3, or #4: 1 TYPE CODE TESTS RESULT OUT OF RANGE REFERENCE UNITS LAB L501.4010 <0.06 ng/mL Normal < 0.02 TROPONIN-I Result Comment: TROPONIN-I EXPECTED VALUES <0.05 NEGATIVE 0.06 - 0.59 AT RISK OF [place] > OR = 0.60 SUGGEST IL Performed By: #### L501.4010 #### [facility] [address] [place], [address] M R STAPH AUREUS Collected: 01/12/2018 Status: F Source: [place] DNA BY PCR 9:[address] [facility] REPOSITORY TYPE CODE TESTS RESULT OUT OF RANGE REFERENCE UNITS LAB L8200.1100 Negative Normal MRSA Negative RESULT Performed By: #### L8200.1000 #### [facility] [address] [place], [address] CBC W/DIFF, AUTOMATED Collected: 01/12/2018 Status: F Source: [place] 6:[address] [facility] REPOSITORY TYPE CODE TESTS RESULT OUT OF RANGE REFERENCE UNITS LAB L100.1000 4.4-11.0 K/mm3 High WBC 20.8 LAB L100.1200 4.6-6.2 M/mm3 Low RBC 4.49 LAB L100.1300 13.0-16.5 g/dl Normal HGB 13.7 LAB L100.1400 40-54 % Normal HCT 41.8 LAB L100.1500 80-94 fL Normal MCV 93.1 LAB L100.1600 27.0-32.0 pg Normal MCH 30.5 LAB L100.1700 32-36 g/gl Normal MCHC 32.8 LAB L100.1810 11.6-14.6 % Normal RDW CV 14.3 LAB L100.1820 35.1-43.9 fl High RDW SD 48.2 LAB L100.1900 150-450 K/mm3 Normal PLT 186 LAB L100.2000 6.2-12.0 fl Normal MPV 9.1 LAB L100.2100 47-70 % High NEUT% 90.2 LAB L100.2200 19-41 % Low LY% 4.6 LAB L100.2300 0-10 % Normal MONO% 4.8 LAB L100.2400 0-5 % Normal EO% 0.0 LAB L100.2500 0-1 % Normal BASO% 0.1 LAB L100.2550 0.0-0.9 % Normal IM GRAN % 0.300 Result Comment: IG% - Immature Granulocytes (promyelocytes, myelocytes and metamyelocytes) > 1% indicates that a LEFT SHIFT is Present. LAB L100.2620 2.0-7.7 X10 3/uL High Absolute Neut 18.7 LAB L100.2720 0.83-4.51 X10 3/ul Normal Absolute Lymph 0.95 Performed By: #### L100.0100 #### [facility] [address] [place], [address] BASIC METABOLIC Collected: 01/12/2018 Status: F Source: [place] PROFILE ([place]) 6:[address] [facility] REPOSITORY TYPE CODE TESTS RESULT OUT OF RANGE REFERENCE UNITS LAB L501.0100 74-106 mg/dL High GLU 110 Result Comment: Fasting Glucose result from 100 to 125 mg/dL suggests IMPAIRED HOMEOSTASIS per A.D.A. criteria. Please note revised GLUCOSE reference range effective 2017. LAB L501.1000 7-18 mg/dL Normal BUN 15 LAB L501.1100 0.70-1.30 mg/dL Normal CREAT,SERUM 1.00 Result Comment: The validity of the calculated GFR AND GFRAA in patients over 70 years has not been determined. Clinical correlation is essential. LAB L501.1110 >60 mL/min Normal EST GFR 79 Result Comment: Non- GFR Calc LAB L501.1115 >60 mL/min Normal EST GFR - AA 95 Result Comment: GFR Calc LAB L501.1255 ml/min Normal Estimated CRCL 75.44 LAB L501.1300 10-20 RATIO Normal BUN/CRE 15.0 LAB L501.2200 8.5-10 mg/dL Low .1 CA 8.2 LAB L501.5300 136-14 mmol/L Normal 5 NA 137 LAB L501.5600 3.5-5. mmol/L Low 1 K 3.4 LAB L501.5900 98-107 mmol/L Normal CL 104 LAB L501.6100 21.0-3 mmol/L Normal 2.0 CO2 24.0 LAB L501.6200 5-15 Normal GAP 9 Performed By: #### L500.2500 #### [facility] [address] [facility] [address] [place], [address] EMERGENCY DEPARTMENT Observed: 01/12/2018 Status: F Source: [place] SUMMARY 2:[address] [facility] REPOSITORY [facility] Medical Records Department [address] [place] [address] Emergency Department Summary 01/12/18 0209 MR#: [id number] Acct: [id number] Name: LONNIE ADRIAN Rep #: [id number] : 1945 72 From: Laureano Blanco PCP: Shena Roberts NP Status: DEP ER - ER Visit Summary Date of Service: 01/12/18 Chief Complaint: Left lower extremity cellulitis History of Present Illness: The patient is a 72 M presents after PCP office called sending the patient here to the ED. States some have slight left lower extremity redness yesterday. States that after wearing compression stockings. States he came to the ED, however due to it being present he left and follow-up with his PCP office today. States he is given antibiotic injection, had outpatient labs and ultrasound study of the leg. Reported ultrasound of the left leg was negative for DVT. Unclear on what prescription for antibiotics was given was given 2 doses. Reported white count was 20. He is not a diabetic. Denies fever. Denies similar symptoms in the past. Physical Examination: General: Alert and oriented 3, no acute distress HEENT: Normocephalic, atraumatic. Moist mucosa membranes Neck: supple, nontender. Cardiovascular: Regular rate and rhythm, no murmurs Respiratory: Normal breath sounds, symmetric, no distress Abdomen: Soft, nontender, nondistended Extremities: left lower extremity: Asymmetric swelling of the calf appears nontender. There is circumferential erythema distal leg with anterior erythema up to the mid tibia. There is small scabs distal third of the tibia with no active drainage. Pulses intact distally. Neuro: no focal neurological deficits. Test Results: WBC 25. Creatinine 1.24. Blood cultures 2. Emergency Department Course and Treatment: Patient failing outpatient therapy. Temp of 99.9 in the ED. blood culture 2 given. He was started on Zosyn and vancomycin. Initially patient states he was not going to stay in the ED and just wanted treatment to go home and take care of his spouse. Therefore I did speak with covering PCP, Dr. Stevens, agrees with the current plan with labs and antibiotics with close outpatient follow-up and return if worsening symptoms. However, labs return white count 24, elevated from previous. In addition and increasing erythema past the initial line marked for my evaluation. Encouraged patient to stay due to worsening symptoms. He did manage to arrange care for his mother with his son. Spoke with Dr. Mackey for admission. Does meet sepsis criteria however is not toxic. Treatment Plan: [] Disposition: Admission Impression: 1. Left lower extremity cellulitis 2. Sepsis This note was generated with [employer] dictation software. It may contain incorrect words, spelling, and punctuation that were not noted in review of the chart prior to signing ED Disposition - Plan for ED Patient: Disposition: Acute Care Hospital [facility] Chief Complaint: Cellulitis Diagnosis: Left leg cellulitis, Sepsis Referrals: Shena Roberts [Primary Care Provider] - What to do if you have Problems For any increased pain, shortness of breath, bleeding, nausea or vomiting, chest pain, or any unexpected problems, contact your Primary Care Provider. Call [facility] ([phone]) or report to the closest Emergency Room. Call 911 if necessary. 01/12/18 0214 <Electronically signed by Laureano Blanco> Date Laureano Blanco Cosigner Signature (If Indicated): Date CC: Shena Roberts [employer]IGHW[address] PAINTER HELPER BASIC METABOLIC Collected: 01/11/2018 Status: F Source: [place] PROFILE ([place]) 6:[address] [facility] REPOSITORY Order Comment: RESULT(S) PREVIOUSLY REPORTED ON MANUAL REQUISITION DURING DOWNTIME. TYPE CODE TESTS RESULT OUT OF RANGE REFERENCE UNITS LAB L501.0100 74-106 mg/dL Normal GLU 93 Result Comment: Please note revised GLUCOSE reference range effective 2017. LAB L501.1000 7-18 mg/dL Normal BUN 16 LAB L501.1100 0.70-1.30 mg/dL Normal CREAT,SERUM 1.24 Result Comment: The validity of the calculated GFR AND GFRAA in patients over 70 years has not been determined. Clinical correlation is essential. LAB L501.1110 >60 mL/min EST GFR Normal 61 LAB L501.1115 >60 mL/min EST GFR Normal - AA 74 LAB L501.1255 ml/min Normal Estimated CRCL 60.84 LAB L501.1300 10-20 RATIO BUN/CRE Normal 12.9 LAB L501.2200 8.5-10.1 mg/dL Low CA 8.4 LAB L501.5300 136-145 mmol/L NA Normal 136 LAB L501.5600 3.5-5.1 mmol/L K Normal 3.7 LAB L501.5900 98-107 mmol/L CL Normal 101 LAB L501.6100 21.0-32.0 mmol/L CO2 Normal 24.0 LAB L501.6200 5-15 GAP Normal 11 Performed By: #### L500.2500, L501.6710 #### [facility] [address] [place], [address] CRP Collected: 01/11/2018 Status: F Source: [place] 6:[address] [facility] REPOSITORY Order Comment: RESULT(S) PREVIOUSLY REPORTED ON MANUAL REQUISITION DURING DOWNTIME. TYPE CODE TESTS RESULT OUT OF RANGE REFERENCE UNITS LAB L501.6710 0.0-3.0 mg/L High 149.00 C-REACTIVE PROT Result Comment: C-Reactive Protein (CRP) provides useful information for the diagnosis, therapy and monitoring of inflammatory processes and associated diseases. For the evaluation of Relative Risk for Cardiovascular Disease, a High Sensitivity CRP (HSCRP) should be ordered. Performed By: #### L500.2500, L501.6710 #### [facility] [address] [facility] [place], [address] CBC W/DIFF, AUTOMATED Collected: 01/11/2018 Status: F Source: [place] 6:[address] [facility] REPOSITORY Order Comment: RESULT(S) PREVIOUSLY REPORTED ON MANUAL REQUISITION DURING DOWNTIME. TYPE CODE TESTS RESULT OUT OF RANGE REFERENCE UNITS LAB L100.1000 4.4-11.0 K/mm3 High WBC 24.4 LAB L100.1200 4.6-6.2 M/mm3 Normal RBC 4.60 LAB L100.1300 13.0-16.5 g/dl Normal HGB 14.2 LAB L100.1400 40-54 % Normal HCT 42.8 LAB L100.1500 80-94 fL Normal MCV 93.0 LAB L100.1600 27.0-32.0 pg Normal MCH 30.9 LAB L100.1700 32-36 g/gl Normal MCHC 33.2 LAB L100.1810 11.6-14.6 % Normal RDW CV 14.2 LAB L100.1820 35.1-43.9 fl High RDW SD 47.9 LAB L100.1900 150-450 K/mm3 Normal PLT 226 LAB L100.2000 6.2-12.0 fl Normal MPV 9.6 LAB L100.2100 47-70 % High NEUT% 91.0 LAB L100.2200 19-41 % Low LY% 4.0 LAB L100.2300 0-10 % Normal MONO% 4.6 LAB L100.2400 0-5 % Normal EO% 0.0 LAB L100.2500 0-1 % Normal BASO% 0.0 LAB L100.2550 0.0-0.9 % Normal IM GRAN % 0.400 Result Comment: IG% - Immature Granulocytes (promyelocytes, myelocytes and metamyelocytes) > 1% indicates that a LEFT SHIFT is Present. LAB L100.2620 2.0-7.7 X10 3/uL High Absolute Neut 22.2 LAB L100.2720 0.83-4.51 X10 3/ul Normal Absolute Lymph 0.98 Performed By: #### L100.0100, L101.9900 #### [facility] [address] [place], [address] ERYTHROCYTE SED RATE Collected: 01/11/2018 Status: F Source: [place] 6:[address] [facility] REPOSITORY Order Comment: RESULT(S) PREVIOUSLY REPORTED ON MANUAL REQUISITION DURING DOWNTIME. TYPE CODE TESTS RESULT OUT OF RANGE REFERENCE UNITS LAB L102.0000 0-20 mm/hr Normal SED RATE 19 Performed By: #### L100.0100, L101.9900 #### [facility] [address] [place], [place], [address] Observed: 01/11/2018 Status: P Source: [place] CULTURE, BLOOD (WB) 6:[address] [facility] REPOSITORY BC No growth in 48 hours. Performed By: #### M200.1000 #### [facility] [address] [facility]. [place], [place], [address] CBC W/DIFF, AUTOMATED Collected: 01/11/2018 Status: F Source: [place] 6:[address] [facility] REPOSITORY Order Comment: RESULT(S) PREVIOUSLY REPORTED ON MANUAL REQUISITION DURING DOWNTIME. TYPE CODE TESTS RESULT OUT OF RANGE REFERENCE UNITS LAB L100.1000 4.4-11.0 K/mm3 High WBC 24.4 LAB L100.1200 4.6-6.2 M/mm3 Normal RBC 4.60 LAB L100.1300 13.0-16.5 g/dl Normal HGB 14.2 LAB L100.1400 40-54 % Normal HCT 42.8 LAB L100.1500 80-94 fL Normal MCV 93.0 LAB L100.1600 27.0-32.0 pg Normal MCH 30.9 LAB L100.1700 32-36 g/gl Normal MCHC 33.2 LAB L100.1810 11.6-14.6 % Normal RDW CV 14.2 LAB L100.1820 35.1-43.9 fl High RDW SD 47.9 LAB L100.1900 150-450 K/mm3 Normal PLT 226 LAB L100.2000 6.2-12.0 fl Normal MPV 9.6 LAB L100.2100 47-70 % High NEUT% 91.0 LAB L100.2200 19-41 % Low LY% 4.0 LAB L100.2300 0-10 % Normal MONO% 4.6 LAB L100.2400 0-5 % Normal EO% 0.0 LAB L100.2500 0-1 % Normal BASO% 0.0 LAB L100.2550 0.0-0.9 % Normal IM GRAN % 0.400 Result Comment: IG% - Immature Granulocytes (promyelocytes, myelocytes and metamyelocytes) > 1% indicates that a LEFT SHIFT is Present. LAB L100.2620 2.0-7.7 X10 3/uL High Absolute Neut 22.2 LAB L100.2720 0.83-4.51 X10 3/ul Normal Absolute Lymph 0.98 Performed By: #### L100.0100, L101.9900 #### [facility] [address] [place], [place], [id number] ERYTHROCYTE SED RATE Collected: 01/11/2018 Status: F Source: [place]LEX 6:[address] [facility] REPOSITORY Order Comment: RESULT(S) PREVIOUSLY REPORTED ON MANUAL REQUISITION DURING DOWNTIME. TYPE CODE TESTS RESULT OUT OF RANGE REFERENCE UNITS LAB L102.0000 0-20 mm/hr Normal SED RATE 19 Performed By: #### L100.0100, L101.9900 #### [facility] [address] [place], [place], [id number] BASIC METABOLIC Collected: 01/11/2018 Status: F Source: [place] PROFILE (BMP) 6:[address] [facility] REPOSITORY Order Comment: RESULT(S) PREVIOUSLY REPORTED ON MANUAL REQUISITION DURING DOWNTIME. TYPE CODE TESTS RESULT OUT OF RANGE REFERENCE UNITS LAB L501.0100 74-106 mg/dL Normal GLU 93 Result Comment: Please note revised GLUCOSE reference range effective 2017. LAB L501.1000 7-18 mg/dL Normal BUN 16 LAB L501.1100 0.70-1.30 mg/dL Normal CREAT,SERUM 1.24 Result Comment: The validity of the calculated GFR AND GFRAA in patients over 70 years has not been determined. Clinical correlation is essential. LAB L501.1110 >60 mL/min EST GFR Normal 61 LAB L501.1115 >60 mL/min EST GFR Normal - AA 74 LAB L501.1255 ml/min Normal Estimated CRCL 60.84 LAB L501.1300 10-20 RATIO BUN/CRE Normal 12.9 LAB L501.2200 8.5-10.1 mg/dL Low CA 8.4 LAB L501.5300 136-145 mmol/L NA Normal 136 LAB L501.5600 3.5-5.1 mmol/L K Normal 3.7 LAB L501.5900 98-107 mmol/L CL Normal 101 LAB L501.6100 21.0-32.0 mmol/L CO2 Normal 24.0 LAB L501.6200 5-15 GAP Normal 11 Performed By: #### L500.2500, L501.6710 #### [facility] [address] [facility]. [place], [place], [address] CRP Collected: 01/11/2018 Status: F Source: [place] 6:[address] [facility] REPOSITORY Order Comment: RESULT(S) PREVIOUSLY REPORTED ON MANUAL REQUISITION DURING DOWNTIME. TYPE CODE TESTS RESULT OUT OF RANGE REFERENCE UNITS LAB L501.6710 0.0-3.0 mg/L High 149.00 C-REACTIVE PROT Result Comment: C-Reactive Protein (CRP) provides useful information for the diagnosis, therapy and monitoring of inflammatory processes and associated diseases. For the evaluation of Relative Risk for Cardiovascular Disease, a High Sensitivity CRP (HSCRP) should be ordered. Performed By: #### L500.2500, L501.6710 #### [facility] [address] [facility] [place], [address] Observed: 01/11/2018 Status: F Source: [place] CULTURE, BLOOD (WB) 6:52 PM [facility] REPOSITORY BC No growth in 5 days. Performed By: #### M200.1000 #### [facility] [address] [place], [place], [address] Observed: 01/11/2018 Status: P Source: [place] CULTURE, BLOOD (WB) 6:42 PM [facility] REPOSITORY BC No growth in 48 hours. Performed By: #### M200.1000 #### [facility] [address] [place], [place], [address] Observed: 01/11/2018 Status: F Source: [place] CULTURE, BLOOD (WB) 6:[address] [facility] REPOSITORY BC No growth in 5 days. Performed By: #### M200.1000 #### [facility] [address] [place], [place], [address] CBC W/DIFF, AUTOMATED Collected: 01/11/2018 Status: F Source: [place]LEX 12:29 PM [facility] REPOSITORY Order Comment: Order Date: 01/11/18 Order Info: 0184-1 - CBCD TYPE CODE TESTS RESULT OUT OF RANGE REFERENCE UNITS LAB L100.1000 4.4-11.0 K/mm3 High WBC 20.1 LAB L100.1200 4.6-6.2 M/mm3 Normal RBC 4.77 LAB L100.1300 13.0-16.5 g/dl Normal HGB 14.8 LAB L100.1400 40-54 % Normal HCT 44.2 LAB L100.1500 80-94 fL Normal MCV 92.7 LAB L100.1600 27.0-32.0 pg Normal MCH 31.0 LAB L100.1700 32-36 g/gl Normal MCHC 33.5 LAB L100.1810 11.6-14.6 % Normal RDW CV 13.8 LAB L100.1820 35.1-43.9 fl High RDW SD 46.8 LAB L100.1900 150-450 K/mm3 Normal PLT 237 LAB L100.2000 6.2-12.0 fl Normal MPV 9.5 LAB L100.2100 47-70 % High NEUT% 91.1 LAB L100.2200 19-41 % Low LY% 3.2 LAB L100.2300 0-10 % Normal MONO% 5.4 LAB L100.2400 0-5 % Normal EO% 0.0 LAB L100.2500 0-1 % Normal BASO% 0.0 LAB L100.2550 0.0-0.9 % Normal IM GRAN % 0.300 Result Comment: IG% - Immature Granulocytes (promyelocytes, myelocytes and metamyelocytes) > 1% indicates that a LEFT SHIFT is Present. LAB L100.2620 2.0-7.7 X10 3/uL High Absolute Neut 18.3 LAB L100.2720 0.83-4.51 X10 3/ul Low Absolute Lymph 0.64 Performed By: #### L100.0100, L300.8000, L500.2500, L503.6620 #### [facility] [address] [facility]. [place], [place], [address] D-DIMER QUANTITATIVE Collected: 01/11/2018 Status: F Source: [place] (DVT/PE) 12:[address] [facility] REPOSITORY Order Comment: Order Date: 01/11/18 Order Info: 50031-6 - D-DIMER TYPE CODE TESTS RESULT OUT OF RANGE REFERENCE UNITS LAB L300.8000 0.27-0.49 FEU/ug/m Normal D-DIMER 0.40 QUANT Result Comment: NORMAL D-Dimer level (<0.50) indicates no DVT or PE. Performed By: #### L100.0100, L300.8000, L500.2500, L503.6620 #### [facility] [address] [facility]. [place], [place], [address] BASIC METABOLIC Collected: 01/11/2018 Status: F Source: [place] PROFILE (BMP) 12:[address] [facility] REPOSITORY Order Comment: Order Date: 01/11/18 Order Info: 0667-1 - BMP TYPE CODE TESTS RESULT OUT OF RANGE REFERENCE UNITS LAB L501.0100 74-106 mg/dL Normal GLU 95 Result Comment: Please note revised GLUCOSE reference range effective 2017. LAB L501.1000 7-18 mg/dL Normal BUN 14 LAB L501.1100 0.70-1.30 mg/dL Normal CREAT,SERUM 1.18 Result Comment: The validity of the calculated GFR AND GFRAA in patients over 70 years has not been determined. Clinical correlation is essential. LAB L501.1110 >60 mL/min Normal EST GFR 65 Result Comment: Non- GFR Calc LAB L501.1115 >60 mL/min Normal EST GFR - AA 78 Result Comment: GFR Calc LAB L501.1300 10-20 RATIO Normal BUN/CRE 11.9 LAB L501.2200 8.5-10.1 mg/dL Low CA 8.4 LAB L501.5300 136-145 mmol/L NA Normal 136 LAB L501.5600 3.5-5.1 mmol/L K Normal 3.8 LAB L501.5900 98-107 mmol/L CL Normal 104 LAB L501.6100 21.0-32.0 mmol/L Normal CO2 22.0 LAB L501.6200 5-15 Normal GAP 10 Performed By: #### L100.0100, L300.8000, L500.2500, L503.6620 #### [facility] [address] [place], [place], [address] BNP,B-TYPE NATRIURETIC Collected: 01/11/2018 Status: F Source: [place]LEX PEPTIDE 12:[address] [facility] REPOSITORY Order Comment: Order Date: 01/11/18 Order Info: 94413-5 - BTNP TYPE CODE TESTS RESULT OUT OF RANGE REFERENCE UNITS LAB L503.6620 0-100 pg/mL Normal B-TYPE 83.1 GEN PEP Performed By: #### L100.0100, L300.8000, L500.2500, L503.6620 #### [facility] [address] [place], [address] ALLERGIES ALLERGIES DATE TYPE / CODE NAME / CODE REACTION SEVERITY SOURCE 09/06/2018 Drug No Known Unknown [facility] Allergy/416 Allergies/P75836 [facility] 928647(SNOM 0388(RXNORM) Repository ED CT) Drug NO KNOWN [facility] Class/37673 ALLERGIES Main [place] 1003(SNOMED Repository CT) ENCOUNTERS ENCOUNTERS ADMIT/DISCHARGE ACCOUNT ADMITTING ENCOUNTER LOCATION SOURCE NUMBER CLASS 09/06/2018/09/06/20 [id number] Ambulatory BMSBuilding:B Alex [address] [facility] Repository 09/05/2018 [id number] [facility] ing[facility]LABSPEC Repository 09/05/2018/09/05/20 [id number] Ambulatory [address] Repository 09/03/2018/09/23/20 [id number] Ambulatory [address] Repository 09/03/2018/09/03/20 [id number] Ambulatory [address] Repository 08/08/2018 [id number] Ambulatory BMSBuilding:W [facility] Repository 08/07/2018 [id number] Ambulatory [facility] Hospital ing:PSN Repository 05/24/2018/05/24/20 [id number] Ambulatory BMSBuilding:B [address] [facility] Repository 02/21/2018/02/22/20 [id number] Ambulatory BMSBuilding:B [address] [facility] Repository 02/20/2018 [id number] Ambulatory BMSBuilding:B Alex MS.[facility] Repository 02/15/2018 [id number] [facility] ing:LAB Repository 01/29/2018 [id number] Ambulatory [facility] Hospital ing:PSN Repository 01/29/2018 [id number] Ambulatory BMSBuilding:W [facility] Repository 01/12/2018/01/17/20 [id number] Ambulatory BMSBuilding:W [address] Repository 01/11/2018/01/17/20 [id number] Tejas Mackey [address] [facility] ing:PCURoom: Repository [id number]: 1 01/11/2018 [id number] Tejas Mackey Ambulatory BMSBuilding:B Alex MS.[facility] Repository 01/11/2018 [id number] Tejas Mackey Ambulatory BMSBuilding:B Alex MS.[facility] Repository 01/11/2018 [id number] Tejas Mackey Ambulatory BMSBuilding:B Alex FERRER.CF.[facility] Repository 01/11/2018 [id number] Isabel, Tejas Ambulatory BMSBuilding:B Alex MS.CF.[facility] Repository 01/11/2018 [id number] Isabel, Tejas Ambulatory BMSBuilding:B Alex MS.[facility] Repository 01/11/2018 [id number] Isabel, Tejas [facility] 01/11/2018 [id number] Isabel, Tejas Ambulatory BMSBuilding:B [place].[facility] Repository 01/11/2018 [id number] Isabel, Tejas Ambulatory BMSBuilding:B Alex MS.[facility] Repository 01/11/2018 [id number] Isabel, Tejas Ambulatory BMSBuilding:B [place] MS.CF.[facility] Repository 01/11/2018 [id number] Isabel, Tejas Ambulatory BMSBuilding:B Alex MS.[facility] Repository 01/11/2018/01/17/20 [id number] Ambulatory BMSBuilding:W [place] [facility] Repository 01/11/2018 [id number] Inpatient [facility] Hospital Repository 01/11/2018 [id number] Ambulatory [facility] Hospital ing:CVS Repository 01/11/2018 [id number] Ambulatory [facility] ing:LABSPEC Repository PAYERS PAYERS ENCOUNTER GUARANTOR PAYER SUBSCRIBER SOURCE 09/06/2018 LONNIE [id number] Insurance:[facility] CABBELLDOB: Community [address] MEDICAREPolicy [id number] Number: Repository [address]Tnd: (657) [id number] [phone] () Date:3614-07-77AF [place] [address] [place] [address] 80290TD: 09/06/2018 Secondary NOT GIVENUNK Alex Insurance:SELF PAY [facility] Number: Effective Repository Date:2018-08-29 09/05/2018 LONNIE Johnson [id number] Insurance:[employer] CABBELLDOB[facility] MEDIC[facility]Policy [id number] Number: Repository [address]Mqo: (330) [id number] [phone] (HP) Date:4361-17-32AU [address] [place] [address] 80073HY: 09/05/2018 Secondary NOT GIVENUNK [place] Insurance:SELF PAY [facility] Number: Effective Repository Date:2018-09-05 08/08/2018 LONNIE R Primary LONNIE R [place] [id number] Insurance:[employer] C[employer] CABBELLDOB: Replaced by [facility] [address] MEDICAREPolicy [id number] Number: Repository [address]Wmz: (330) [id number] [phone] (HP) Date:8756-60-46KK [address] [address]CY: 08/08/2018 Secondary NOT GIVENUNK Alex Insurance:SELF PAY [facility] Number: Effective Repository Date:2018-08-08 08/07/2018 LONNIE R Primary LONNIE R [place] [id number] Insurance:[employer] C[employer] CABBELLDOB: Replaced by [facility] [place] MEDICAREPolicy [id number] [address] Number: Repository [address]Buq: (330 [id number] [phone] (HP) Date:0114-03-55FH [address] [address]MK: 08/07/2018 Secondary NOT GIVENUNK [place] Insurance:SELF PAY [facility] Number: Effective Repository Date:2018-05-24 05/24/2018 LONNIE R Primary LONNIE R [place] [id number] Insurance:[employer] C[employer] CABBELLDOB: Community [address] MEDICAREPolicy [id number] [address] Number: Repository [address]Eha: (330 [id number] [phone] (HP) Date:8477-41-49NC [address] [place] [address] 80227ER: 05/24/2018 Secondary NOT GIVENUNK [place] Insurance:SELF PAY [facility] Number: Effective Repository Date:2018-05-24 02/21/2018 LONNIE R Primary LONNIE Rader Alex [id number] Insurance:[employer] CARE CABBELLDOB: Community [address] MEDICAREPolicy [id number] [address] Number: Repository [address]Ted: 330 [id number] [phone] () Date:3697-16-62YA [address] [place] [address] 03000YP: 02/21/2018 Secondary NOT GIVENUNK [place] Insurance:SELF PAY [facility] Number: Effective Repository Date:2018-02-21 02/20/2018 Lonnie R Primary Lonnie Rader Alex [id number] Insurance:[employer] CARE CabbellDOB: Community [address] MEDICAREPolicy [id number] Number: Repository [address]Bqg: 330 [id number] [phone] () Date:9514-27-99IR [address] [place] [address] 30203CR: 02/20/2018 Secondary NOT GIVENUNK Alex Insurance:SELF PAY [facility] Number: Effective Repository Date:2018-02-20 02/15/2018 Lonnie R Primary Lonnie Rader [place] [id number] Insurance:[employer] CARE CabbellDOB: Community [address]ha [address] MEDICAREPolicy [id number] Number: Repository [address]Mrb: (330 [id number] [phone] () Date:5191-36-10ZJ [address] [place] [address] 22996IH: 02/15/2018 Secondary NOT GIVENUNK Alex Insurance:SELF PAY [facility] Number: Effective Repository Date:2018-02-15 01/29/2018 Lonnie R Primary Lonnie Rader [place] [id number] Insurance:[employer] CARE CabbellDOB: Community [address] MEDICAREPolicy [id number] Number: Repository [address]Pkg: (330 [id number] [phone] () Date:5569-01-33KA [address] [place] [address] 79712HN: 01/29/2018 Secondary NOT GIVENUNK Alex Insurance:[facility]LF [facility] Number: Effective Repository Date:2018-01-24 01/29/2018 Lonnie R Primary Lonnie Rader Alex [id number] Insurance:[employer] CARE CabbellDOB: Community [address] MEDICAREPolicy [id number] Number: Repository [address]Eao: 330 [id number] [phone] (HP) Date:1697-02-04BA [address] [address]UH: 01/29/2018 Secondary NOT GIVENUNK [place] Insurance:SELF PAY [facility] Number: Effective Repository Date:2018-01-29 01/12/2018 LONNIE R Primary LONNIE R Alex [id number] Insurance:[employer] CARE CABBELLDOB: Community [address] MEDICAREPolicy [id number] Number: Repository [address]Fri: (330 [id number] -[phone] () Date:1729-59-99VD [address] [address]SR: 01/12/2018 Secondary NOT GIVENUNK [place] Insurance:SELF PAY [facility] Number: Effective Repository Date:2018-01-12 01/11/2018 Lonnie R Primary Lonnie R Alex [id number] Insurance:[employer] CARE CabbellDOB: Community [address]ha [address] MEDICAREPolicy [id number] Number: Repository [address]Asd: 330 [id number] -[phone] () Date:8547-78-34BC [address] [place] [address] 52724HJ: 01/11/2018 Secondary NOT GIVENUNK [place] Insurance:SELF PAY [facility] Number: Effective Repository Date:2018-01-11 01/11/2018 Lonnie R Primary Lonnie R Alex [id number] Insurance:[employer] CARE CabbellDOB: Community [place] [address] MEDICAREPolicy [id number] Number: Repository [address]Ukj: (330) [id number] [phone] (HP) Date:0980-62-84JE [address] [place] [address] 09333FG: 01/11/2018 Secondary NOT GIVENUNK Alex Insurance:SELF PAY [facility] Number: Effective Repository Date:2018-01-11 01/11/2018 Lonnie R Primary Lonnie Johnson [id number] Insurance:[employer] CARE CabbellDOB: Community [address] MEDICAREPolicy [id number] Number: Repository [address]Xfb: (330 [id number] [phone] (HP) Date:3034-46-74HH [address] [place] [address] 70823LN: 01/11/2018 Secondary NOT GIVENUNK [place] Insurance:SELF PAY [facility] Number: Effective Repository Date:2018-01-11 01/11/2018 Lonnie R Primary Lonnie Johnson [id number] Insurance:[employer] CabbellDOB: Community Radha Cavazos MEDICAREPolicy [id number] Number: Repository [address]Jrg: (330 [id number] [phone] (HP) Date:2017-01-27WB [address] [place] [address] 46061KF: 01/11/2018 Secondary NOT GIVENUNK Alex Insurance:SELF PAY [facility] Number: Effective Repository Date:2018-01-11 01/11/2018 Lonnie R Primary Lonnie Rader [place] [id number] Insurance:[employer] CARE CabbellDOB: Community Radha Cavazos MEDICAREPolicy [id number] Number: Repository [address]Kgx: (330 [id number] [phone] (HP) Date:0739-43-07WI [address] [place] [address] 83867JA: 01/11/2018 Secondary NOT GIVENUNK [place] Insurance:SELF PAY [facility] Number: Effective Repository Date:2018-01-11 01/11/2018 Lonnie R Primary Lonnie Rader [place] [id number] Insurance:[employer] CARE CabbellDOB: Community [address] MEDICAREPolicy [id number] Number: Repository [address]Qpy: 330 [id number] [phone] () Date:7061-74-21IU [address] [place] [address] 01154NR: 01/11/2018 Secondary NOT GIVENUNK [place] Insurance:SELF PAY [facility] Number: Effective Repository Date:2018-01-11 01/11/2018 Lonnie R Primary Lonnie Rader Alex [id number] Insurance:[employer] CARE CabbellDOB: Community [address] MEDICAREPolicy [id number] Number: Repository [address]Fup: 330 [id number] [phone] () Date:4161-72-67TE [address] [place] [address] 18673RK: 01/11/2018 Secondary NOT GIVENUNK [place] Insurance:SELF PAY [facility] Number: Effective Repository Date:2018-01-11 01/11/2018 Lonnie R Primary Lonnie Rader [place] [id number] Insurance:[employer] CARE CabbellDOB: Community [address] MEDICAREPolicy [id number] Number: Repository [address]Rsx: (330 [id number] [phone] () Date:7577-59-00EQ [address] [place] [address] 73515ON: 01/11/2018 Secondary NOT GIVENUNK [place] Insurance:SELF PAY [facility] Number: Effective Repository Date:2018-01-11 01/11/2018 Lonnie R Primary Lonnie Rader [place] [id number] Insurance:[employer] CARE CabbellDOB: Community [address] MEDICAREPolicy [id number] Number: Repository [address]Cde: (330 [id number] [phone] (HP) Date:6353-68-70KZ [address] [place] [address] 62915LT: 01/11/2018 Secondary NOT GIVENUNK [place] Insurance:SELF PAY [facility] Number: Effective Repository Date:2018-01-11 01/11/2018 Lonnie R Primary Lonnie R [place] [id number] Insurance:[employer] CARE CabbellDOB: Community [address] [facility]ARE[facility] [id number] Number: Repository [address]Wbc: (330 [id number] [phone] (HP) Date:5266-54-77TZ [address] [place] [address] 12124ON: 01/11/2018 Secondary NOT GIVENUNK Alex Insurance:SELF PAY [facility] Number: Effective Repository Date:2018-01-11 01/11/2018 Lonnie R Primary Lonnie R [place] [id number] Insurance:[employer] C[employer] CabbellDOB: Community [address] MEDICAREPolicy [id number] Number: Repository [address]Xxi: (330 [id number] -[phone] () Date:[id number] [place] [address] [id number]: 01/11/2018 Secondary NOT GIVENUNK Pelzer Insurance:SELF PAY [facility] Number: Effective Repository Date:2018-01-11 01/11/2018 Lonnie R Primary Lonnie R Alex [id number] Insurance:[employer] CabbellDOB: Community [place] [address] MEDICAREPolicy [id number] Number: Repository [id number]: (330 [id number] [id number] () Date:7364-12-70AW [address] [place] [address] [id number]: 01/11/2018 Secondary NOT GIVENUNK Alex Insurance:SELF PAY [facility] Number: Effective Repository Date:2018-01-11 01/11/2018 Lonnie R Primary Lonnie R Alex [id number] Insurance:[employer] C[employer] CabbellDOB: Community Radha Cavazos MEDICAREPolicy [id number] Number: Repository [id number]: (330) [id number] [id number] (HP) Date:1787-50-37RB [address] [place] [address] [id number]: 01/11/2018 Secondary NOT GIVENUNK Alex Insurance:SELF PAY [facility] Number: Effective Repository Date:2018-01-11 01/11/2018 Lonnie R Primary Lonnie Johnson [id number] Insurance:SUM[employer] CARE CabbellDOB: Community Radha Cavazos MEDICAREPolicy [id number] Number: Repository [id number]: 330 [id number] [id number] (HP) Date:9866-87-67OY [address] [place] [address] [id number]: 01/11/2018 Secondary NOT GIVENUNK Alex Insurance:SELF PAY [facility] Number: Effective Repository Date:2018-01-11 01/11/2018 Lonnie R Primary Lonnie Johnson [id number] Insurance:[employer] CARE CabbellDOB: Community Radha Cavazos MEDICAREPolicy [id number] Number: Repository [id number]: (330 [id number] (HP) Date:2021-99-11OX [address] [place] [address] [id number]: 01/11/2018 Secondary NOT GIVENUNK Alex Insurance:SELF PAY [facility] Number: Effective Repository Date:2018-01-11
--- OUTSIDE RECORDS SUMMARY | 2018-10-22 06:17 | XMS RPT_ITS | Continuity of Care Document ---
:1945 Author Organization [facility] Address [facility] [address] [place] [address] Phone Care Team Providers Name Role Phone Armando BYRDShena E Unavailable [facility] Unavailable MARY Butterfield Unavailable Unavailable Hilda PRINCESoumyaSwapna Unavailable Unavailable Unavailable Problems Name Dates Details A-fib (I48.91, 427.31) Comments: s/p cardioversion and now on amiodaraon Status: Active Anxiety (F41.9, 300.00) Status: Active Back pain (M54.9, 724.5) Status: Active BMI 33.0-33.9,adult (Z68.33, V85.33) Status: Active BMI 35.0-35.9,adult (Z68.35, V85.35) Status: Active BMI 36.0-36.9,adult (Z68.36, V85.36) Status: Active Chronic anticoagulation (Z79.01, V58.61) Status: Active Chronic venous insufficiency (I87.2, 459.81) Comments: compression socks needed Status: Active Fatigue (R53.83, 780.79) Status: Active Hyperlipidemia (E78.5, 272.4) Status: Active Hypertension (I10, 401.9) Status: Active Leg edema, left (R60.0, 782.3) Comments: improving Status: Active Medication side effect (T88.7XXA, 995.20) Status: Active Non-smoker (Z78.9, V49.89) Status: Active Unspecified Diagnosis Status: Active Medications Name Dates Details AmLODIPine Besylate 2.5 MG Oral Tablet 1 (one) Tablet daily for 30 days Quantity: 30 {Tablet} Refills: 3 Ordered:15-Feb-2018 Swapna Stevens DO Start : 15-Feb-2018 Active Coumadin 5 MG Oral Tablet 1 Tablet qd for 0 days Quantity: 30 {Tablet} Refills: 3 Ordered:26-Apr-2018 Angelitacaritobess BYRD Shena SPARROWsilvana BYRD, Eliza Start : 26-Apr-2018 Active Doxycycline Hyclate 100 MG Oral Capsule 1 (one) Capsule Capsule bid for 0 days Quantity: 20 {Capsule} Refills: 0 Ordered:15-Feb-2018 Bethany Butterfield LPN Start : 15-Feb-2018 Active Lopressor 100 MG Oral Tablet 1/2 Tablet bid for 0 days Quantity: 60 {Tablet} Refills: 3 Ordered:15-Feb-2018 Bethany Butterfield LPN Start : 15-Feb-2018 Active Sertraline HCl 50 MG Oral Tablet 1/2 Tablet tab qam for 6days then one tab daily for 0 days Quantity: 30 {Tablet} Refills: 5 Ordered:15-Feb-2018 Swapna Stevens DO Start : 15-Feb-2018 Active Aspirin Adult Low Strength 81 MG Oral Tablet Delayed Release 1 (one) Tablet daily for 30 days Quantity: 30 {Tablet} Refills: 0 Ordered:12-Feb-2018 Angelitacaritobess BYRD Shena Turnerbess BYRD, Shena Edwards Start : 11-Jan-2018 End : 10-Feb-2018 Inactive Augmentin 875-125 MG Oral Tablet 1 (one) Tablet Tablet bid for 7 days Quantity: 14 {Tablet} Refills: 0 Ordered:18-Jan-2018 Bethany Butterfield LPN Start : 18-Jan-2018 End : 25-Jan-2018 Inactive Augmentin 875-125 MG Oral Tablet 1 bid (875-125 MG) Inactive Cefadroxil 1 GM Oral Tablet 1 (one) Gram bid for 7 days Quantity: 14 {Gram} Refills: 0 Ordered:11-Jan-2018 Angelitacaritobess BYRD Shena Turnerbess BYRD, Shena Edwards Start : 11-Jan-2018 End : 18-Jan-2018 Inactive Cordarone 200 MG Oral Tablet 1 uad (200 MG) Inactive Gabapentin 300 MG Oral Capsule 2 (two) Capsule daily for 0 days Quantity: 60 {Capsule} Refills: 0 Ordered:15-Feb-2018 Bethany Butterfield MARY Start : 11-Jan-2018 End : 15-Feb-2018 Inactive Lasix 20 MG Oral Tablet 1 (one) Tablet Tablet qam for 0 days Quantity: 2 {Tablet} Refills: 0 Ordered:15-Feb-2018 Bethany Butterfield MARY Start : 18-Jan-2018 End : 15-Feb-2018 Inactive Lovenox 100 MG/ML Subcutaneous Solution 1 bid (100 MG/ML) Inactive OxyIR 5 MG Oral Capsule 1 q 6 hrs prn (5 MG) Inactive Simvastatin 20 MG Oral Tablet 1 (one) Tablet qhs for 30 days Quantity: 30 {Tablet} Refills: 0 Ordered:12-Feb-2018 Armando BYRD, Shnea Jane BYRD, Eliza Start : 11-Jan-2018 End : 10-Feb-2018 Inactive Allergies and Adverse Reactions Name Dates Details No Known Allergies (Allergy) Onset: 18-Jan-2018 Status: Active Past Medical History Name Dates Details Cat scratch (W55.03XA, 919.0) Status: Resolved as of 27-Feb-2018 Cellulitis, leg (L03.119, 682.6) Comments: improved Status: Resolved as of 15-Feb-2018 Erythema (L53.9, 695.9) Comments: related to cellulitisLLE Status: Inactive as of 15-Feb-2018 Procedures Procedure Dates Details Knee Replacement, Total Completed Comments: 1999 left Date Value Details 09-Aug-2018 Pulmonary Function Report Comp Result: Comments: See Note; NOTES: [facility] Pulmonary Services/Neurology [address] [place] [address] MR#: [id number] Acct: [id number] Name: PRIMO ADRIAN Rep #: [id number] : 1945 73 From: Christopher Kramer MD Referring Dr: Kj Luciano MD Status: REG CLI Ordering Dr: Date: Location: [facility] Sex: M C COMPLETE PULMONARY FUNCTION TEST INTERPRETATION Brief HPI: Patient is a 73 year old male, currently under the care of Dr. Luciano, who presents to [facility] for complete pulmonary function tests secondary to diagnosis of high risk med use. Re spiratory therapist reports good effort and reproducible results. Interpretation: Forced expiration spirometry shows no large airways obstructive ventilatory defect with an FEV1 of 87% predicted. Ther e is no significant bronchodilator response by strict ATS criteria. Spirograms are of good quality and plateau normally. The respiratory flow volume loop shows a normal pattern. Lung volumes by body pl ethysmography show a normal total lung capacity at 6.01 L, 86% predicted. All other lung volumes are within normal limits. Diffusion capacity by carbon monoxide is normal at 95% predicted. The airway r esistance is normal. No previous pulmonary function tests were available for review. Impression: These pulmonary function tests are within normal limits. 08/09/18 0546 <Electronically edgar d by Christopher Kramer MD> Date Christopher Kramer MD CC: Christopher Kramer MD; Swapna Stevens DO; Kj Luciano MD Date Dictated: 08/08/18643 Date Transcribed: 08/08/18643 Human Resources Professional: LEATHA Signed 24-May-2018 Cardiology Visit Report Result: Comments: See Note; NOTES: [facility] [address] [facility] [place] [address] OFFICE VISIT Date of Service: 05/24/18 MR#: [id number] Acct: [id number] Name: PRIMO ADRIAN Rep #: [id number] : 1945 Provider: Kj Luciano MD Age/Sex: 73/M Location: [facility] [place] Status: Signed HPI HPI Details: PRIMO ADRIAN, is a 73 M who [facility]. Overall he states he is [...] be somewhat bradycardic. An ECG was performed tod ay. He remained in a marked sinus bradycardia with a ventricular rate of approximately 42 bpm. He does state he is unsure with respect to his beta-mark therapy if he is now taking 50 mg of metoprolo l tartrate twice a day versus 25 mg twice a day. He will need to call back to the office, as he did not bring his medication list or bottles with him, to verify his medications. Intake Vital Signs04/26 10/11 Height 6 ft 5 in 05/24/18 Weight: 253 lb 05/24/18 Body Mass Index (BMI) 29.9 05/24/18 Blood Pressure 126/58 05/24/18 Blood Pressure Location Lt brachial Intake Visit Reasons: 3 M FU Tube Fitter R equired: No Accompanied by: none Is patient in pain?: No Allergies No Known Allergies Allergy (Verified 05/24/18 15:23) Medications Simvastatin 20 mg PO QHS 05/03/14 [History Confirmed 05/24/18] Wa rfarin [Coumadin] 5 mg PO DAILY@1700 #30 tab [...] 25 mg PO BID tab 05/24/18 [History] PFSH Medica l History Atrial fibrillation (Acute) Hypertension (Chronic) Hyperlipidemia [...] Eyes Eyes: Negative for loss of peripheral v ision, transient loss of vision, blind spots, double vision or blurry vision ENT ENT: Negative for headache(s), dizziness, balance problems, Nosebleed/epistaxis, tongue swelling or lip swelling Cardio C hest Pain: No Palpitations: No Edema: Bilateral Muscle aches with walking: None Resp Respiratory: Negative for SOB at rest, SOB orthopnea\SOB lying down, Cough, paroxysmal nocturnal dyspnea or SOB with activity GI GI: Negative nausea, vomiting, heartburn, black,tarry stools or bright, red blood in stools : Negative for hematuria Musc Musc: Negative for balance problems, muscle aches/ myalgia, mus autumn weakness or joint pain Skin Skin: Negative non-healing lesions, unusual bruising or rash Neuro Neuro: Negative for weakness, frequent falls, headache(s), double vision, dizziness, lightheadedness, o rthostatic symptoms, blurry vision or lack of coordination [...] distress, well groomed and well developed Nutritional Ap pearance: overweight Orientation: alert, awake and oriented x3 [...] to Auscultation Cardio Palpation: normal PMI Rate: r egular rate Rhythm: regular rhythm Heart sounds: S1 normal and S2 normal GI GI: normal to inspection, bowel sounds present and soft Neuro General: alert, awake, oriented x3, gait normal, moves all extre mities, no focal sensory deficit and no focal motor deficits Skin Skin: no rashes or lesions noted Extremities Pulses: Normal: Right Radial Pulse, Left Radial Pulse Lower Extremity Edema: Trace: Left Ps [facility] Psychological: normal affect Supplemental Info He did have a transthoracic echocardiogram on 01/13/2018. Interpretation Summary Normal LV size. Left ventricular systolic function is normal. The es timated ejection fraction is 60 %. Unable to [...] type E78.5 Plan He will continue medical m anagement and follow-up as directed. Orders Orders: 4. Essential hypertension I10 Plan His blood pressure appears to be well controlled today. He will continue medical therapy and follow-up. Orders Ord ers: Plan Detail Other Orders Orders: Other Medications [...] type: paroxysmal Sinus bradycardia R00.1 Hyperlipidemia, unspecified hyp erlipidemia type E78.5 Hyperlipidemia type: unspecified Essential hypertension I10 Hypertension type: essential hypertension Coding Level of Care Code Off vis,est,level 4 Diagnoses Paroxysmal atrial fibrillation I48.0 Atrial fibrillation type: paroxysmal Sinus bradycardia R00.1 Hyperlipidemia, unspecified hyperlipidemia type E78.5 Hyperlipidemia type: unspecified Essential hypertension I10 Hyperten you type: essential hypertension 05/24/18 1444 <Electronically signed by Kj Luciano MD> Date Kj Fierro lynne: Date (if applicable) CC: Alejandra Lucio MD 21-Feb-2018 Cardiology Visit Report Result: Comments: See Note; NOTES: [facility] [address] [place] [address] OFFICE VISIT Date of Service: 02/21/18 MR#: [id number] Acct: [id number] Name: PRIMO ADRIAN Rep #: [id number] : 1945 Provider: Kj Luciano MD Age/Sex: 72/M Location[place] [facility] [place] Status: Signed HPI HPI Details: PRIMO ADRIAN, is a 72 M who presents to the office today for for outpa tient cardiovascular follow-up/hospital follow-up. As you recall he was evaluated in cardiovascular consultation on 01/13/2018 for concerns of atrial fibrillation superimposed upon hypertension, hyperlip idemia, and cellulitis of the left leg. He underwent noninvasive evaluation. He had troponin I levels which were considered negative. He had a transthoracic echocardiogram performed. His LV was thought to be normal with an LVEF of 60%. He had mild to moderate TR. His estimated RV systolic pressure was 28 mmHg. He reported having had a previous exercise tolerance test/imaging study which was reported ly unremarkable. The results were unavailable at the time for review. He underwent medical management with respect to his underlying infectious disease related issue. He also underwent rate control the rapy, anticoagulant therapy, and antiarrhythmic therapy and attempt to bring his rate and rhythm under better control. He also underwent attempts at synchronized biphasic DC cardioversion. This was uns uccessful for sustained sinus rhythm and he reverted to atrial fibrillation. He was subsequently released home on a combination of medications. Today he presents for outpatient follow-up. He states ov erall he is not complaining of chest discomfort. He has not had any significant shortness of breath or dyspnea. There has been no near syncope or syncope. He states his main concern is been feeling tire d and fatigued. He has had his INR [...] [Norvasc] 2.5 mg PO DAILY #30 tab [Rx Confirmed 02/21/18] Oxycodone [Oxyir] 5 mg PO Q6H PRN PRN 5 Days #20 tab 01/16/18 [Rx Confirmed 02/21/18] Warfarin [Coumadin] 5 mg PO DAILY@1700 #30 tab 01/16/18 [Rx Confirmed 02/21/18] amiodaron e 200 mg tablet 200 mg PO QDAY #30 tab 02/14/18 [Rx Confirmed 02/21/18] doxycycline hyclate 100 mg tablet 100 mg PO BID 02/21/18 [History Confirmed 02/21/18] metoprolol tartrate 50 mg tablet 50 mg PO BI D #60 tab 02/21/18 [Rx Confirmed 02/21/18] sertraline 50 mg tablet 50 mg PO QDAY 02/21/18 [History Confirmed 02/21/18] [facility] Medical History Atrial fib rillation (Acute) Hypertension (Chronic) Hyperlipidemia (Chronic) Cellulitis of left leg (Acute) Surgical History History of arthroscopy of left knee ( Resolved) History of hernia repair (Resolved) History of tonsillectomy (Resolved) Family History Father Heart disease Social History Smoking Status: F ormer smoker alcohol intake: current details: 1 beer daily substance use type: does not use ROS Const Const: Positive for fatigue (still cookie have stamina as I did prior to hospitalization); ne gative for weakness, weight gain, weight loss, frequent [...] GI: Negative vomiting or vomiting blood/hematemesis : Ne gative for hematuria Musc Musc: Negative for balance problems, muscle aches/ myalgia, muscle weakness or joint pain Skin Skin: Negative non-healing lesions or rash Neuro Neuro: Negative for weakness, bl urry vision, dizziness, lightheadedness, frequent falls or orthostatic symptoms Thong Hematologic/Lymphatic: Negative for easy bleeding Endo Endo: Positive for fatigue (still cookie have stamina as I did prior to hospitalization); negative for excessive sweating Psych Psych: Negative for anxiety or depression Allergy Allergy/Immunology: Negative for hives, Negative for rash Supplemental Info He did wong ve a Holter monitor performed on 01/29/2018. He was noted to be in sinus rhythm with an average heart rate in the low 40s with an occasional PAC and a rare PVC. (Please see official report) Assessment A ND Plan 1. Paroxysmal atrial fibrillation I48.0 Plan At the present time he is back in sinus rhythm. He is in marked sinus bradycardia. This may be explaining his symptoms of fatigue. Thus at the prese nt time he will alter his medications. He will decrease his beta-mark therapy with respect to his metoprolol tartrate from 100 mg twice daily to 50 mg twice daily. He will be asked to have a follow- up ECG in approximately 2 weeks. He will be scheduled for future outpatient follow- up as well. In the meantime he will continue his anticoagulant therapy. He will also continue his antiarrhythmic thera py. Over time depending upon his clinical course he may be able to decrease his beta-mark dose further and/or decrease and/or discontinue his amiodarone therapy as well. 2. Hyperlipidemia, unspecif ied hyperlipidemia type E78.5 Plan He will continue medical management. He is following up with his primary care physician for this. 3. Essential hypertension I10 Plan His blood pressures have been not ed. He will continue medical therapy and follow-up as deemed appropriate. Orders Orders: Plan Detail Other Orders Orders: Other Medications New: Discontinued: enoxaparin Continue overlapping lo100 mg S ub-Q Q12@0600,1800 Afib RVR, Ese Shannon venox therapeutic regimen until INR t cardioversion herapeutic 2-2.5 goal. Discontinue d Reason: Pt no longer taking Additional Comments The above was disc ussed with the patient. He was agreeable to this approach. Thank you for allowing me to participate in the care of your patient. Please don't hesitate to call if any issues arise. This note was genera elijah using a voice recognition system and there may be incorrect words, spelling or punctuation that were not noted when reviewing the office note prior to saving. Follow Up 3 Months (PFM) Coding Level of Care Code Off vis,est,level 4 Diagnoses Paroxysmal atrial fibrillation I48.0 Atrial fibrillation type: paroxysmal Hyperlipidemia, unspecified hyperlipidemia type E78.5 Hyperlipidemia type: unspecif ied Essential hypertension I10 Hypertension type: essential hypertension Coding Level of Care Code Off vis,est,level 4 Diagnoses Paroxysmal atrial fibrillation I48.0 Atrial fibrillation type: paroxys mal Hyperlipidemia, unspecified hyperlipidemia type E78.5 Hyperlipidemia type: unspecified Essential hypertension I10 Hypertension type: essential hypertension 02/21/18 1657 <Electronically s igned by Kj Luciano MD> Date Kj Luciano MD Cosigner Signature: Date (if applicable) CC: Swapna Stevens DO 21-Feb-2018 12 Lead EKG performed by HERMINIA Result: Comments: See Note; NOTES: [facility] [address] [place] [address] 12 Lead EKG performed by [facility] [place] 02/21/18 1554 MR#: [id number] Acct: [id number] Name: PRIMO RIVERA Rep #: [id number] : 1945 72 From: Kj Luciano MD Attending Dr: Kj Luciano MD Status: REG AMB Ordering Dr: Kj Luciano MD Date: 02/21/18 Location: [facility] [place] Sex: M C Admitte d: [facility] [place]/12 Lead EKG performed by [facility] [place] ECG Report Interpretation Marked sinus Bradycardia Electronically signed on 02/21/2018 at 16:29 by Kj Luciano 1635 Date Kj Luciano MD CC: Swapna Stevens DO Date Dictated: 02/21/18 155 Date Transcribed: 02/21/181553 Human Resources Professional: PM Signed 13-Jan-2018 Venous Duplex Lower Extremity Result: Comments: See Note; NOTES: [facility] Cardiovascular Services [address] [place] [address] Venous Duplex US, Unilateral 01/11/18 1238 MR#: [id number] Acct: [id number] Name: PRIMO WALKER Rep #: [id number] : 1945 72 From: Rangel Buenrostro MD Attending Dr: Shena Roberts NP Status: REG CLI Ordering Dr: Shena Roberts Date: 01/11/18 Location: [facility] Sex: M C Admitted: [place] son For Study: LLE pain RIGHT LEFT CFV is compressible, spontaneous, phasic, GSV is normal. competent and demonstrates normal CFV is compressible, spontaneous, phasic, augmentation. competent, and demo nstrates normal Procedure augmentation. Exam performed in department. FV is compressible, spontaneous, phasic, The study was technically difficult. competent and demonstrates normal A preliminary report was called and/or faxed augmentation. to Shena Ciesa @ 1:00 pm @ [phone]. POP V is compressible, spontaneous, phasic, competent and demonstrates normal augmentation. T/P Trunk is compressible. PTV is compressible. LT Per V appears normal, relied on color doppler, unable to visualize with compression. Interpretation Summary Deep veins of the left lower extremity are patent and compressible segmen tally. There is no evidence of left lower extremity deep vein thrombosis. Valvular competence appears intact within the proximal deep venous system on the left . The left greater saphenous vein appears patent and compressible segmentally. Ordering Physician: Shena Roberts Referring Physician: Shena Roberts Performed By: Stephania Velasquez, TORSTEN, RVT 01/13/182028 Date Rangel Buenrostro MD CC : Shena Roberts NP Date Dictated: 01/11/18 1238 Date Transcribed: 01/13/182028 Human Resources Professional: Signed 12-Jan-2018 Emergency Department Summary Result: Comments: See Note; NOTES: [facility] Medical Records Department [address] [place] [address] Emergency Department Summary 01/12/18 0209 MR#: [id number] Acct: [id number] Name: PRIMO ADRIAN Dior Rep #: [id number] : 1945 72 From: Laureano Blanco PCP: Shena Roberts NP Status: DEP ER - ER Visit Summary Date of Service: 01/12/18 Chief Complaint: Left lower extremity celluliti s History of Present Illness: The patient is a 72 M presents after PCP office called sending the patient here to the ED. States some have slight left lower extremity redness yesterday. States that afte r wearing compression stockings. States he came to the ED, however due to it being present he left and follow-up with his PCP office today. States he is given antibiotic injection, had outpatient labs a nd ultrasound study of the leg. Reported ultrasound of the left leg was negative for DVT. Unclear on what prescription for antibiotics was given was given 2 doses. Reported white count was 20. He is not a diabetic. Denies fever. Denies similar symptoms in the past. Physical Examination: General: Alert and oriented 3, no acute distress HEENT: Normocephalic, atraumatic. Moist mucosa membranes Neck: sup ple, nontender. Cardiovascular: Regular rate and rhythm, no murmurs Respiratory: Normal breath sounds, symmetric, no distress Abdomen: Soft, nontender, nondistended Extremities: left lower extremity: As ymmetric swelling of the calf appears nontender. There is circumferential erythema distal leg with anterior erythema up to the mid tibia. There is small scabs distal third of the tibia with no active dr sena. Pulses intact distally. Neuro: no focal neurological deficits. Test Results: WBC 25. Creatinine 1.24. Blood cultures 2. Emergency Department Course and Treatment: Patient failing outpatient t herapy. Temp of 99.9 in the ED. blood culture 2 given. He was started on Zosyn and vancomycin. Initially patient states he was not going to stay in the ED and just wanted treatment to go home and take c are of his spouse. Therefore I did speak with covering PCP, Dr. Stevens, agrees with the current plan with labs and antibiotics with close outpatient follow-up and return if worsening symptoms. However, labs return white count 24, elevated from previous. In addition and increasing erythema past the initial line marked for my evaluation. Encouraged patient to stay due to worsening symptoms. He did manag e to arrange care for his mother with his son. Spoke with Dr. Hall for admission. Does meet sepsis criteria however is not toxic. Treatment Plan: [] Disposition: Admission Impression: 1. Left lower ex tremity cellulitis 2. Sepsis This note was generated with Hero[employer] software. It may contain incorrect words, spelling, and punctuation that were not noted in review of the chart prior to sign ing ED Disposition - Plan for ED Patient: Disposition: Acute Care Hospital [facility] Chief Complaint: Cellulitis Diagnosis: Left leg cellulitis, Sepsis Referrals: Shena Roberts [Primary Care Provider] - W hat to do if you have Problems For any increased pain, shortness of breath, bleeding, nausea or vomiting, chest pain, or any unexpected problems, contact your Primary Care Provider. Call [facility] Fred[facility] vernon ([phone]) or report to the closest Emergency Room. Call 911 if necessary. 01/12/18 0214 <Electronically signed by Laureano Blanco> Date __ Laureano Blanco Cosigner Signature (If Indicated): Date CC: Shena Roberts CONCIERGE MANAGER Social History Name Dates Details Alcohol use: Occasional alcohol use. Comments: 1 daily Status: Active Tobacco Assessment: Never smoker. Status: Active Smoking Status Name Dates Details Never smoker Vital Signs Date Test Result Details :32 Pulse 47 /min Comments: Pattern: Regular Respiration Rate 18 /min Comments: Pattern: Unlabored O2 SAT 97 % Comments: Room air BP Systolic 124 mm[Hg] Comments: Patient Position: Sitting; Cuff Location: Left Arm; Cuff Size: Large BP Diastolic 68 mm[Hg] Comments: Patient Position: Sitting; Cuff Location: Left Arm; Cuff Size: Large Weight 260.375 lb Height 72 in Body Mass Index Calculated 35.31 kg/m2 Body Surface Area Calculated 2.38 m2 :40 Pulse 41 /min Comments: Pattern: Regular Respiration Rate 18 /min Comments: Pattern: Unlabored O2 SAT 97 % Comments: Room air BP Systolic 124 mm[Hg] Comments: Patient Position: Sitting; Cuff Location: Left Arm; Cuff Size: Large BP Diastolic 86 mm[Hg] Comments: Patient Position: Sitting; Cuff Location: Left Arm; Cuff Size: Large Weight 261.25 lb Height 72 in Body Mass Index Calculated 35.43 kg/m2 Body Surface Area Calculated 2.39 m2 [id number] Pulse 49 /min Comments: Pattern: Regular Respiration Rate 18 /min Comments: Pattern: Unlabored O2 SAT 96 % Comments: Room air BP Systolic 126 mm[Hg] Comments: Patient Position: Sitting; Cuff Location: Left Arm; Cuff Size: Standard BP Diastolic 68 mm[Hg] Comments: Patient Position: Sitting; Cuff Location: Left Arm; Cuff Size: Standard Weight 267.5 lb Height 72 in Body Mass Index Calculated 36.28 kg/m2 Body Surface Area Calculated 2.41 m2 57-Jzb-261998:39 Pulse 68 /min Comments: Pattern: Regular Respiration Rate 18 /min Comments: Pattern: Unlabored O2 SAT 98 % Comments: Room air BP Systolic 128 mm[Hg] Comments: Patient Position: Sitting; Cuff Location: Left Arm; Cuff Size: Large BP Diastolic 76 mm[Hg] Comments: Patient Position: Sitting; Cuff Location: Left Arm; Cuff Size: Large Weight 267.5 lb Height 72 in Body Mass Index Calculated 36.28 kg/m2 Body Surface Area Calculated 2.41 m2 :51 Temperature 99.8 f Pulse 103 /min Comments: Pattern: Regular Respiration Rate 19 /min Comments: Pattern: Unlabored O2 SAT 96 % Comments: Room air BP Systolic 142 mm[Hg] Comments: Patient Position: Sitting; Cuff Location: Left Arm; Cuff Size: Standard BP Diastolic 86 mm[Hg] Comments: Patient Position: Sitting; Cuff Location: Left Arm; Cuff Size: Standard Weight 250 lb Height 72 in Body Mass Index Calculated 33.91 kg/m2 Body Surface Area Calculated 2.34 m2 Results Date Description Value Details :36 Prothrombin Time w/INR Comments: [facility] [address] [place], [place], [id number] INR 5.6 (Abnormal) Comments: CRITICAL VALUE VERIFIED. CALLED TO DR FIGUEROA02/15/18 154Wojciech Castro.RESULTS READ BACK BY SAME . PROTIME 51.3 s (Abnormal) Range: 11.7-14.9 44-Oui-247015:08 PT (Prothrobim Time) ([id number]) Comments: ck next sunday bc on antibiotics-- send results to [facility] - assure this comment on lab results; PATIENT NOT FASTINGPERFORMED BY: LabCoLovelace Rehabilitation HospitalCoapyz0864 [facility] [id number] Prothrombin Time 26.5 {sec} (Abnormal) Range: 9.1-12.0 INR 2.8 (Abnormal) Range: 0.8-1.2 Comments: Reference interval is for non-anticoagulated patients. . Suggested INR therapeutic range for Vitamin K anta gonist therapy: Standard Dose (moderate intensity therapeutic range): 2.0 - 3.0 Higher intensity therapeutic range 2.5 - 3.5 1-Fpw-412140:00 VITAMIN B-12 (CYANOCOBALAMIN) Comments: PATIENT NOT FASTINGPERFORMED BY: VoiceitAtlantic Rehabilitation InstituteBosgcx8324 [facility] [place] [id number] ([id number]) Vitamin B12 357 pg/mL (Normal) Range: 232-1245 :00 TSH ([id number]) Comments: PATIENT NOT FASTINGPERFORMED BY: [facility] Pgbpzr5585 [facility] [place] [id number] TSH 4.000 {uIU/mL} (Normal) Range: 0.450-4.500 6-Efu-976520:00 SED RATE ERYTHROCYTE ([id number]) Comments: PATIENT NOT FASTINGPERFORMED BY: [facility] Sdrwme9952 [facility] [place] [id number] Sedimentation Rate-Westergren 19 mm/h (Normal) Range: 0-30 1-Zoy-214764:00 METABOLIC PANEL, COMPREHENSIVE Comments: PATIENT NOT FASTINGPERFORMED BY: [facility] Regcza5433 Hernandez [facility] [id number] ([id number]) ALT (SGPT) 32 [iU]/L (Normal) Range: 0-44 AST (SGOT) 23 [iU]/L (Normal) Range: 0-40 Alkaline Phosphatase 55 [iU]/L (Normal) Range: 39-117 Bilirubin, Total 0.3 mg/dL (Normal) Range: 0.0-1.2 A/G Ratio 1.4 (Normal) Range: 1.2-2.2 Globulin, Total 2.6 g/dL (Normal) Range: 1.5-4.5 Albumin 3.6 g/dL (Normal) Range: 3.5-4.8 Protein, Total 6.2 g/dL (Normal) Range: 6.0-8.5 Calcium 8.8 mg/dL (Normal) Range: 8.6-10.2 Carbon Dioxide, Total 22 mmol/L (Normal) Range: 18-29 Chloride 103 mmol/L (Normal) Range: 96-106 Potassium 5.0 mmol/L (Normal) Range: 3.5-5.2 Sodium 141 mmol/L (Normal) Range: 134-144 BUN/Creatinine Ratio 15 (Normal) Range: 10-24 eGFR If Africn Am 87 mL/min/1.73 (Normal) eGFR If NonAfricn Am 75 mL/min/1.73 (Normal) Creatinine 1.01 mg/dL (Normal) Range: 0.76-1.27 BUN 15 mg/dL (Normal) Range: 8-27 Glucose 118 mg/dL (Abnormal) Range: 65-99 7-Tty-320424:00 C-REACTIVE PROTEIN ([id number]) Comments: PATIENT NOT FASTINGPERFORMED BY: [employer]70 [facility] Ch[facility] AnimationAdventHealth Hendersonville [id number] C-Reactive Protein, Quant 3.5 mg/L (Normal) Range: 0.0-4.9 0-Qbu-902014:00 CBC (AUTO) ([id number]) Comments: PATIENT NOT FASTINGPERFORMED BY: [id number] [facility] AnimationAd[facility] [id number] Platelets 467 {x10E3/uL} (Abnormal) Range: 150-379 RDW 14.4 % (Normal) Range: 12.3-15.4 MCHC 33.7 g/dL (Normal) Range: 31.5-35.7 MCH 30.3 pg (Normal) Range: 26.6-33.0 MCV 90 fL (Normal) Range: 79-97 Hematocrit 38.3 % (Normal) Range: 37.5-51.0 Hemoglobin 12.9 g/dL (Abnormal) Range: 13.0-17.7 RBC 4.26 {x10E6/uL} (Normal) Range: 4.14-5.80 WBC 7.3 {x10E3/uL} (Normal) Range: 3.4-10.8 21-Gmj-130511:26 PT (Prothrobim Time) ([id number]) Comments: PATIENT NOT FASTINGPERFORMED BY: [employer]anch[employer] Fund RoadDublin [place] [id number] Prothrombin Time 20.1 {sec} (Abnormal) Range: 9.1-12.0 INR 2.0 (Abnormal) Range: 0.8-1.2 Comments: Reference interval is for non-anticoagulated patients. . Suggested INR therapeutic range for Vitamin K anta gonist therapy: Standard Dose (moderate intensity therapeutic range): 2.0 - 3.0 Higher intensity therapeutic range 2.5 - 3.5 80-Ptk-613357:52 Basic Metabolic Profile Comments: RESULT(S) PREVIOUSLY REPORTED ON MANUAL REQUISITION DURINGDOWNTIME.[facility] [address] [place], [place], [id number] (BMP) GAP 11 (Normal) Range: 5-15 CO2 24.0 mmol/L (Normal) Range: 21.0-32.0 CL 101 mmol/L (Normal) Range: 98-107 K 3.7 mmol/L (Normal) Range: 3.5-5.1 NA 136 mmol/L (Normal) Range: 136-145 CA 8.4 mg/dL (Abnormal) Range: 8.5-10.1 BUN/CRE 12.9 {RATIO} (Normal) Range: 10-20 Estimated CRCL 60.84 ml/min (Normal) EST GFR - AA 74 mL/min (Normal) EST GFR 61 mL/min (Normal) CREAT,SERUM 1.24 mg/dL (Normal) Range: 0.70-1.30 Comments: The validity of the calculated GFR AND GFRAA in patients over70 years has not been determined. Clinical correlation isessential. BUN 16 mg/dL (Normal) Range: 7-18 GLU 93 mg/dL (Normal) Range: 74-106 Comments: Please note revised GLUCOSE reference range ojahumbtb55/02/2018. 44-Ynf-321092:52 CBC W/Diff, Automated Comments: RESULT(S) PREVIOUSLY REPORTED ON MANUAL REQUISITION DURINGDOWNTIME.[facility] [address] [place], [place], [id number] Absolute Lymph 0.98 {X10_3/ul} (Normal) Range: 0.83-4.51 Absolute Neut 22.2 {X10_3/uL} (Abnormal) Range: 2.0-7.7 IM GRAN % 0.400 % (Normal) Range: 0.0-0.9 Comments: IG% - Immature Granulocytes (promyelocytes, myelocytes andmetamyelocytes) > 1% indicates that a LEFT SHIFT is Present. BASO% 0.0 % (Normal) Range: 0-1 EO% 0.0 % (Normal) Range: 0-5 MONO% 4.6 % (Normal) Range: 0-10 LY% 4.0 % (Abnormal) Range: 19-41 NEUT% 91.0 % (Abnormal) Range: 47-70 MPV 9.6 fL (Normal) Range: 6.2-12.0 PLT 226 K/mm3 (Normal) Range: 150-450 RDW SD 47.9 fL (Abnormal) Range: 35.1-43.9 RDW CV 14.2 % (Normal) Range: 11.6-14.6 MCHC 33.2 {g/gl} (Normal) Range: 32-36 MCH 30.9 pg (Normal) Range: 27.0-32.0 MCV 93.0 fL (Normal) Range: 80-94 HCT 42.8 % (Normal) Range: 40-54 HGB 14.2 g/dL (Normal) Range: 13.0-16.5 RBC 4.60 {M/mm3} (Normal) Range: 4.6-6.2 WBC 24.4 K/mm3 (Abnormal) Range: 4.4-11.0 71-Gfe-321534:52 CRP Comments: RESULT(S) PREVIOUSLY REPORTED ON MANUAL REQUISITION DURINGDOWNTIME.[facility] [address] [place], [place], [id number] C-REACTIVE PROT 149.00 mg/L (Abnormal) Range: 0.0-3.0 Comments: C-Reactive Protein (CRP) provides useful information for thediagnosis, therapy and monitoring of inflammatory processesand associated diseases. For the evaluation of Relative Riskfor Cardiovascular Dise ase, a High Sensitivity CRP (HSCRP)should be ordered. 58-Ior-971844:52 Erythrocyte Sed Rate Comments: RESULT(S) PREVIOUSLY REPORTED ON MANUAL REQUISITION DURINGDOWNTIME.[facility] [address] [place], [address] SED RATE 19 mm/h (Normal) Range: 0-20 95-Ako-731898:29 Basic Metabolic Profile (BMP) Comments: Order Date: 01/11/18Order Info: [id number] - BMPUniversity [facility]als [facility] [address] [place], [id number] GAP 10 (Normal) Range: 5-15 CO2 22.0 mmol/L (Normal) Range: 21.0-32.0 CL 104 mmol/L (Normal) Range: 98-107 K 3.8 mmol/L (Normal) Range: 3.5-5.1 NA 136 mmol/L (Normal) Range: 136-145 CA 8.4 mg/dL (Abnormal) Range: 8.5-10.1 BUN/CRE 11.9 {RATIO} (Normal) Range: 10-20 EST GFR - AA 78 mL/min (Normal) Comments: GFR Calc EST GFR 65 mL/min (Normal) Comments: Non- GFR Calc CREAT,SERUM 1.18 mg/dL (Normal) Range: 0.70-1.30 Comments: The validity of the calculated GFR AND GFRAA in patients over70 years has not been determined. Clinical correlation isessential. BUN 14 mg/dL (Normal) Range: 7-18 GLU 95 mg/dL (Normal) Range: 74-106 Comments: Please note revised GLUCOSE reference range ngyrmizej16/02/2018. 26-Aog-819140:29 BNP,B-Type NATRIURETIC PEPTIDE Comments: Order Date: 01/11/18Order Info: [id number] - BTNPUniversity Hospitals [facility] Center [address] [place], [place], [id number] B-TYPE GEN PEP 83.1 pg/mL (Normal) Range: 0-100 50-Ziv-524911:29 CBC W/Diff, Automated Comments: Order Date: 01/11/18Order Info: [id number] - CBCDUniversity Hospitals Geneva Medical Center [address] [place], [address] Absolute Lymph 0.64 {X10_3/ul} (Abnormal) Range: 0.83-4.51 Absolute Neut 18.3 {X10_3/uL} (Abnormal) Range: 2.0-7.7 IM GRAN % 0.300 % (Normal) Range: 0.0-0.9 Comments: IG% - Immature Granulocytes (promyelocytes, myelocytes andmetamyelocytes) > 1% indicates that a LEFT SHIFT is Present. BASO% 0.0 % (Normal) Range: 0-1 EO% 0.0 % (Normal) Range: 0-5 MONO% 5.4 % (Normal) Range: 0-10 LY% 3.2 % (Abnormal) Range: 19-41 NEUT% 91.1 % (Abnormal) Range: 47-70 MPV 9.5 fL (Normal) Range: 6.2-12.0 PLT 237 K/mm3 (Normal) Range: 150-450 RDW SD 46.8 fL (Abnormal) Range: 35.1-43.9 RDW CV 13.8 % (Normal) Range: 11.6-14.6 MCHC 33.5 {g/gl} (Normal) Range: 32-36 MCH 31.0 pg (Normal) Range: 27.0-32.0 MCV 92.7 fL (Normal) Range: 80-94 HCT 44.2 % (Normal) Range: 40-54 HGB 14.8 g/dL (Normal) Range: 13.0-16.5 RBC 4.77 {M/mm3} (Normal) Range: 4.6-6.2 WBC 20.1 K/mm3 (Abnormal) Range: 4.4-11.0 74-Syk-270225:29 D-Dimer Quantitative (DVT/PE) Comments: Order Date: 01/11/18Order Info: [id number] - [facility] [address] [place], [place], [id number] D-DIMER QUANT 0.40 {FEU/ug/m} (Normal) Range: 0.27-0.49 Comments: NORMAL D-Dimer level (<0.50) indicates no DVT or PE. Plan of Care Name Dates Details Instructions Anxiety : Continue Current Prescription(s) Indication: Anxiety Hypertension : Diet, Exercise, and Wt loss Indication: Hypertension Hypertension : HTN/CAD Red Flags Indication: Hypertension Anxiety : Follow up in 1 month Indication: Anxiety Chronic anticoagulation : *Coumadin Education Indication: Chronic anticoagulation A-fib : Continue Current Prescription(s) Indication: A-fib Cellulitis, leg : Continue Current Prescription(s) Indication: Cellulitis, leg A-fib : Continue Current Prescription(s) Indication: A-fib Cellulitis, leg : Reviewed Diagnostic Tests Indication: Cellulitis, leg A-fib : Reviewed Package Winder Letter Indication: A-fib A-fib : Eprescribed prescriptions (G8553) Indication: A-fib BMI 33.0-33.9,adult : Follow up Tues or Wed with Kf or Kr Indication: BMI 33.0-33.9,adult Leg edema, left : Eprescribed prescriptions (G8553) Indication: Leg edema, left Planned Observations PT (Prothrobim Time) ([id number])Indication: A-fib On: 14-Dec-2018 Request PT (Prothrobim Time) ([id number])Indication: A-fib On: 14-Nov-2018 Request PT (Prothrobim Time) ([id number])Indication: A-fib On: 15-Oct-2018 Request PT (Prothrobim Time) ([id number])Indication: A-fib On: 15-Sep-2018 Request PT (Prothrobim Time) ([id number])Indication: A-fib On: 16-Aug-2018 Request PT (Prothrobim Time) ([id number])Indication: A-fib On: 17-Jul-2018 Request PT (Prothrobim Time) ([id number])Indication: A-fib On: 17-Jun-2018 Request PT (Prothrobim Time) ([id number])Indication: A-fib On: 18-May-2018 Request PT (Prothrobim Time) ([id number])Indication: A-fib On: 18-Apr-2018 Request PT (Prothrobim Time) ([id number])Indication: A-fib On: 19-Mar-2018 Request PT (Prothrobim Time) ([id number])Indication: A-fib On: 17-Feb-2018 Request PT (Prothrobim Time) ([id number])Indication: Chronic anticoagulation On: 33-Jma-905333:06 Request Comments: send results to dr Luciano off ice toocall results to [facility] [phone] Metabolic Panel, Basic ([id number])Indication: Leg edema, left On: 24-Ggk-794187:22 Request BNTP ([id number])Indication: Leg edema, left On: 75-Ebd-686005:08 Request CBC, Platelets & Auto Diff ([id number])Indication: Leg edema, left On: 19-Bwx-958447:08 Request D-Dimer ([id number])Indication: Leg edema, left On: 75-Iev-822025:08 Request Planned Procedures HOLTER MONITORING WITH INTERPRETATION ([id number])By: On: 23-Jan-2018 Intent Swapna Stevens DO Comments: 24hour Venous Doppler - LeftBy: Shena Roberts CNP On: 11-Jan-2018 Intent Shena BYRD Rocephin Injection, 2 Gram ([id number])By: Armando BYRD, On: 11-Jan-2018 Intent Shena Medeiros CNP Planned Medications INJECTION, CEFTRIAXONE SODIUM, PER 250 MG Ordered: 11-Jan-2018 Pending Shena Roberts CNP, CNP, Mary E Instructions Name Dates Details Non-smoker : How to access health information online - Detail Indication: Non-smoker Non-smoker : How to access health information online - Detail Indication: Non-smoker Non-smoker : Patient Instructions Indication: Non-smoker BMI 35.0-35.9,adult : How to access health information online Indication: BMI 35.0-35.9,adult BMI 35.0-35.9,adult : How to access health information online - Detail Indication: BMI 35.0-35.9,adult BMI 35.0-35.9,adult : Patient Instructions Indication: BMI 35.0-35.9,adult Non-smoker : How to access health information online Indication: Non-smoker Non-smoker : How to access health information online - Detail Indication: Non-smoker Non-smoker : Patient Instructions Indication: Non-smoker Non-smoker : How to access health information online Indication: Non-smoker Non-smoker : How to access health information online - Detail Indication: Non-smoker Non-smoker : Patient Instructions Indication: Non-smoker A-fib : How to access health information online Indication: A-fib A-fib : How to access health information online - Detail Indication: A-fib A-fib : Patient Instructions Indication: A-fib Leg edema, left : How to access health information online Indication: Leg edema, left Leg edema, left : How to access health information online - Detail Indication: Leg edema, left Leg edema, left : Patient Instructions Indication: Leg edema, left Encounters Annotation/Addendum On: 21-Aug-2018 13:29 Encounter Diagnosis: Chronic venous insufficiency End: 21-Aug-2018 13:31 [facility] Office Visit On: 27-Feb-2018 15:14 Encounter Reason: Follow up Meds - The patient feels well with minor complaints, has good energy level and is sleeping well. Patient has been compliant with instructions. Current medication use: no side effects and compl End: 27-Feb-2018 15:56 iant with dosing regimen. Patient sleeps 7 hours per night. Nutrition: balanced diet.Encounter Diagnosis: BMI 35.0-35.9,adult, Non-smoker, Anxiety [facility] Annotation/Addendum On: 22-Feb-2018 9:23 [facility] End: 22-Feb-2018 9:24 Office Visit On: 15-Feb-2018 13:35 Encounter Reason: Follow up for chronic medical issues - The patient feels well with minor complaints, has good energy level and is sleeping well. Patient has been compliant with instructions. Current medication use: exp End: 15-Feb-2018 14:08 eriencing side effects and compliant with dosing regimen. Patient sleeps 7 hours per night. Nutrition: balanced diet. The medical issues the patient is following up for include All identified problems below.Encounter Diagnosis: Hypertension, Non-smoker, BMI 35.0-35.9,adult, A-fib, Anxiety, Chronic anticoagulation, Fatigue, Medication side effect, Leg edema, left, Cat scratch [facility] Annotation/Addendum On: 14-Feb-2018 6:59 Encounter Diagnosis: Unspecified Diagnosis End: 14-Feb-2018 7:10 [facility] Office Visit On: 23-Jan-2018 13:32 Encounter Reason: Follow up acute care visit - The patient feeling better since last seen. Patient has been compliant with instructions.Encounter Diagnosis: BMI 36.0-36.9,adult, Non-smoker, Cellulitis, leg, A-fib, Chronic anticoagulation, End: 23-Jan-2018 15:55 Leg edema, left, Fatigue, Anxiety [facility] Phone Encounter On: 21-Jan-2018 17:07 [facility] End: 21-Jan-2018 17:09 Phone Encounter On: 18-Jan-2018 12:53 Encounter Diagnosis: A-fib End: 18-Jan-2018 12:54 [facility] Office Visit On: 18-Jan-2018 11:31 Encounter Reason: Transition into care - The patient is transitioning into care from a hospital ([facility] for cellulitis) and a summary of care was reviewed.Encounter Diagnosis: BMI 36.0-36.9,adult, Non-smoker, Cellulitis, leg, Leg edema, left, A-fib, End: 18-Jan-2018 12:25 Chronic anticoagulation [facility] Phone Encounter On: 17-Jan-2018 10:18 Encounter Diagnosis: A-fib, Cellulitis, leg End: 17-Jan-2018 10:31 [facility] Office Visit On: 11-Jan-2018 10:39 Encounter Reason: Leg Pain - This condition occurred without any known injury. The patient sustained an injury to the left lower leg. Symptoms include leg pain, swelling and redness. Note for Leg pain: Yesterday at son End: 11-Jan-2018 11:34 s house leg was swollen, had elbow sleeve for circulation wore in on left leg, foot was burning like onfire. Seeing big red splotch Also with yolette canseco in calfGotten real weak , sob, and dizzinessW ent to ER with leg pain but had to leave because could not stand for leg to be dependentPt had doctors in past that went away, had seen Dr. Cortez but unable to get hold of herHistory of blood clot in t hat leg in pastWorried that he cares for who has presumed Parkinsons, [ADDITIONAL REASON] Cellulitis - Note for Cellulitis: Left leg 3 plus edema and redness Encounter Diagnosis: Back pain, Hypertension, Hyperlipidemia, Leg edema, left, Erythema, BMI 33.0-33.9,adult, Cellulitis, leg [facility] Payers [employer]/Harjit Adrian; a guarantor
== END ==
PROVIDERS: Referring Provider Internal Medicine; Visit Provider Internal Medicine
DX: Z01.89 Encounter for other specified special examinations (principal); Z79.899 Other long term (current) drug therapy; E78.2 Mixed hyperlipidemia; R73.09 Other abnormal glucose
CPT/HCPCS: 80053; 80061; 83036; 84443; 85027; 86803

== ENCOUNTER 2018-10-26 10:04 | Outpatient (RCR) | payer MEDICARE, SELFPAY ==
[2018-09-06 15:07] VITALS: BMI 29.9
== END 2018-11-21 13:57 | disposition home or self-care (01) ==
LOC: LAB 10:04
PROVIDERS: Family Provider Internal Medicine; PCP Internal Medicine; Referring Provider Internal Medicine Cardiovascular Disease; Visit Provider Internal Medicine Cardiovascular Disease
DX: I48.91 Unspecified atrial fibrillation (principal); Z79.01 Long term (current) use of anticoagulants

== ENCOUNTER → 2018-10-29 14:56 | Outpatient (CLI) | payer MEDICARE, SELFPAY ==
[2018-09-06 15:07] VITALS: BMI 29.9
[2018-10-29 16:48] LABS: International Normalized Ratio 1.9
[2018-10-29 17:03] LABS: AST(SGOT) 31 U/L (15-37); Alanine Aminotransfer ALT/SGPT 35 U/L (16-61); Albumin, Serum 3.4 g/dL (3.2-5.0); Alkaline Phosphatase 76 U/L (45-117); Bilirubin, Direct 0.12 mg/dL (0.00-0.30); Cholesterol 173 mg/dL (200); High Density Lipoprotein 49 mg/dL; Protein, Total 7.4 g/dL (6.4-8.2); Thyroid Stim Hormone (TSH) 2.38 uIU/mL (0.358-3.74); Triglycerides 220 mg/dL; Very Low Density Lipoprotein 44 mg/dL (5-40)
== END ==
PROVIDERS: Family Provider Internal Medicine; PCP Internal Medicine; Referring Provider Internal Medicine Cardiovascular Disease; Visit Provider Internal Medicine Cardiovascular Disease
DX: I48.91 Unspecified atrial fibrillation (principal); Z79.01 Long term (current) use of anticoagulants; E78.5 Hyperlipidemia, unspecified
CPT/HCPCS: 36415; 80061; 80076; 84443; 85610

== ENCOUNTER → 2020-07-27 12:27 | Outpatient (CLI) | payer MEDICARE, SELFPAY ==
[2020-01-20 13:34] VITALS: BMI 35.5
--- NOTE | 2020-07-27 12:42 | RAD_ITS ---
STUDY: X-RAY CHEST REASON FOR EXAM: Male, 75 years old. OCCASIONAL SHORTNESS OF BREATH, AFIB, CUSTODIAL MEDICATION TECHNIQUE: PA and lateral COMPARISON: 01/13/2018 FINDINGS: Minor interstitial thickening in the lower lobes.. No focal infiltration. There is no demonstrated pleural abnormality. Normal size heart. Normal mediastinum and hussein. Normal visualized pulmonary arteries. Normal visualized aortic arch and descending thoracic aorta. Dorsal spine demonstrates degenerative changes.. Normal visualized ribs, clavicles, and shoulders. There is no demonstrated abnormality of the visualized soft tissue structures of the upper abdomen. RAD/Chest PA and Lateral IMPRESSION: No acute cardiopulmonary pathology Electronically Signed: Lb Del Toro MD at 21:05 EST , Service support ,
[2020-07-27 13:51] LABS: Prothrombin Time (Protime)PT. 22.5 SECONDS (11.7-14.9)
== END ==
PROVIDERS: PCP Internal Medicine; Referring Provider Internal Medicine Cardiovascular Disease; Visit Provider Internal Medicine Cardiovascular Disease
DX: I48.0 Paroxysmal atrial fibrillation (principal); Z79.899 Other long term (current) drug therapy; Z79.01 Long term (current) use of anticoagulants
CPT/HCPCS: 36415; 71046; 85610

== ENCOUNTER → 2020-11-04 09:37 | Outpatient (CLI) | payer MEDICARE, SELFPAY ==
[2020-11-04 09:07] VITALS: BMI 36.3
[2020-11-04 10:26] LABS: Absolute Neutrophil Count 3.5 X10^3/uL (2.0-7.7); Basophil# 0.04 X10^3/uL; Basophil% 0.7 % (0-1); Eosinophil# 0.23 X10^3/uL; Hematocrit 43.4 % (40-54); Lymphocyte % 24.6 % (19-41); Mean Corp Hgb Conc 32.3 g/dL (32-36); Mean Corpuscular Hgb 30.6 pg (27.0-32.0); Mean Corpuscular Volume 94.8 fL (80-94); Mean Platelet Vol. 9.5 fl (6.2-12.0); Monocyte# 0.53 X10^3/uL; Monocyte% 9.3 % (0-10); NRBC Flagged by Analyzer 0 % (0-5); Neutrophil # 3.46 X10^3/uL (2.7-7.7); Platelet Count 229 K/mm3 (150-450); RBC Distribution Width CV 13.6 % (11.6-14.6); RBC Distribution Width SD 47.4 fl (35.1-43.9); Red Blood Count 4.58 M/mm3 (4.6-6.2); White Blood Count 5.7 K/mm3 (4.4-11.0)
[2020-11-04 10:38] LABS: International Normalized Ratio 1.6; Prothrombin Time (Protime)PT. 18.4 SECONDS (11.7-14.9)
[2020-11-04 11:16] LABS: ALB/GLOB Ratio 0.9 RATIO (0.9-2.4); AST(SGOT) 20 U/L (15-37); Alanine Aminotransfer ALT/SGPT 21 U/L (16-61); Albumin, Serum 3.4 g/dL (3.2-5.0); Alkaline Phosphatase 71 U/L (45-117); Anion Gap 5 (5-15); BUN 17 mg/dL (7-18); BUN/Creat Ratio 17.2 RATIO (10-20); Calcium,Total 8.5 mg/dL (8.5-10.1); Chloride 110 mmol/L (98-107); Cholesterol 164 mg/dL (200); Creatinine, Serum 0.99 mg/dL (0.70-1.30); EST Glomerular Filtration Rate 79 mL/min (>60); Est Glom Filt Rate - Afr Amer 96 mL/min (>60); Globulin 3.6 g/dL (2.2-4.2); Glucose 101 mg/dL (74-106); High Density Lipoprotein 53 mg/dL; Magnesium 2.1 mg/dL (1.6-2.6); Potassium 4.3 mmol/L (3.5-5.1); Sodium Level 139 mmol/L (136-145); T4 Free Direct 1.06 ng/dL (0.76-1.46); Thyroid Stim Hormone (TSH) 2.49 uIU/mL (0.358-3.74); Triglycerides 118 mg/dL; Very Low Density Lipoprotein 24 mg/dL (5-40)
== END ==
PROVIDERS: PCP Family Medicine; Referring Provider Nurse Practitioner Family; Visit Provider Nurse Practitioner Family
DX: I48.0 Paroxysmal atrial fibrillation (principal); Z79.899 Other long term (current) drug therapy; Z79.01 Long term (current) use of anticoagulants; I10 Essential (primary) hypertension; E78.5 Hyperlipidemia, unspecified
CPT/HCPCS: 36415; 80053; 80061; 83735; 84439; 84443; 84481; 85025; 85610

== ENCOUNTER → 2020-11-13 10:30 | Outpatient (CLI) | payer MEDICARE, SELFPAY ==
[2020-11-04 09:07] VITALS: BMI 36.3
[2020-11-13 11:31] LABS: International Normalized Ratio 2.9; Prothrombin Time (Protime)PT. 29.8 SECONDS (11.7-14.9)
== END ==
PROVIDERS: PCP Family Medicine; Referring Provider Internal Medicine Cardiovascular Disease; Visit Provider Internal Medicine Cardiovascular Disease
DX: I48.0 Paroxysmal atrial fibrillation (principal); Z79.899 Other long term (current) drug therapy; Z79.01 Long term (current) use of anticoagulants; E78.5 Hyperlipidemia, unspecified
CPT/HCPCS: 36415; 85610

== ENCOUNTER 2020-11-17 09:44 | Outpatient (RCR) | payer MEDICARE, SELFPAY ==
[2020-11-04 09:07] VITALS: BMI 36.3
== END 2020-11-17 23:59 ==
LOC: IMMUN 09:44
PROVIDERS: PCP Family Medicine; Referring Provider Family Medicine; Visit Provider Family Medicine
DX: Z23 Encounter for immunization (principal)
CPT/HCPCS: 0011A; 0012A

== ENCOUNTER 2020-11-29 15:30 | Outpatient (RCR) | payer MEDICARE, SELFPAY ==
[2020-11-04 09:07] VITALS: BMI 36.3
[2020-11-29 16:55] LABS: International Normalized Ratio 2.1; Prothrombin Time (Protime)PT. 23.2 SECONDS (11.7-14.9)
== END 2020-11-29 18:00 | disposition home or self-care (01) ==
LOC: LAB 15:30
PROVIDERS: PCP Family Medicine; Referring Provider Internal Medicine Cardiovascular Disease; Visit Provider Internal Medicine Cardiovascular Disease
DX: I48.0 Paroxysmal atrial fibrillation (principal); E78.5 Hyperlipidemia, unspecified; I10 Essential (primary) hypertension; Z79.899 Other long term (current) drug therapy; Z79.01 Long term (current) use of anticoagulants
CPT/HCPCS: 36415; 85610

== ENCOUNTER 2020-12-28 14:32 | Outpatient (RCR) | payer MEDICARE, SELFPAY ==
[2020-11-04 09:07] VITALS: BMI 36.3
[2020-12-28 16:13] LABS: International Normalized Ratio 2.1
== END 2020-12-28 18:00 | disposition home or self-care (01) ==
LOC: LAB 14:32
PROVIDERS: PCP Family Medicine; Referring Provider Internal Medicine Cardiovascular Disease; Visit Provider Internal Medicine Cardiovascular Disease
DX: I48.0 Paroxysmal atrial fibrillation (principal); I10 Essential (primary) hypertension; E78.5 Hyperlipidemia, unspecified; Z79.01 Long term (current) use of anticoagulants; Z79.899 Other long term (current) drug therapy
CPT/HCPCS: 36415; 85610

== ENCOUNTER 2021-04-17 08:07 | Inpatient (IN) | payer MEDICARE, SELFPAY ==
[2020-11-04 09:07] VITALS: BMI 36.3
[2021-04-17] VITALS (14 sets, daily range): BP systolic 115–154; BP diastolic 48–66; PULSE 57–88; RESP 16–20; TEMP 36.8–36.9; O2SAT 94–98; BMI 43.4; BMI 79.6
--- NOTE | 2021-04-17 08:19 | EKG12_ITS ---
Test Reason : CP Blood Pressure : / mmHG Vent. Rate : 067 BPM Atrial Rate : 067 BPM P-R Int : 154 ms QRS Dur : 090 ms QT Int : 410 ms P-R-T Axes : 060 020 046 degrees QTc Int : 433 ms Normal sinus rhythm Normal ECG Confirmed by ALLSION COOLEY MD ([id number]), film editor EDEN GAMBINO ([id number]) on 04/19/2021 9:41:37 AM Referred By: POPPY Confirmed By:ALLISON COOLEY MD
--- NOTE | 2021-04-17 08:19 | RAD_ITS ---
STUDY: X-RAY CHEST REASON FOR EXAM: Male, 76 years old. chest pain TECHNIQUE: Single AP portable view of the chest. COMPARISON: 07/27/2020 FINDINGS: Poor inspiration with some bibasilar atelectasis. There is no demonstrated pleural abnormality. Normal size heart. Normal mediastinum and hussein. Normal visualized pulmonary arteries. Normal visualized aortic arch and descending thoracic aorta. Normal visualized thoracic spine. Normal visualized ribs, clavicles, and shoulders. There is no demonstrated abnormality of the visualized soft tissue structures of the upper abdomen. RAD/Chest 1 View (Portable) IMPRESSION: Poor inspiration with some bibasilar atelectasis. Electronically Signed: Luis E Salcido MD at 9:05 EDT Tel , Service support ,
--- NOTE | 2021-04-17 08:20 | EDS_ITS ---
HPI History of Present Illness Chief Complaint: Chest Pain Informant: patient Onset/Context/Timing Onset: Yesterday Activity at onset: gradual Timing: Waxes and wanes Quality: Positive for Aching Location: Substernal Current Severity: Mild Maximum Severity: Moderate Worsened By: Breathing Associated Symptoms: Positive for Dyspnea Narrative Narrative: Patient present secondary to chest pain and shortness of breath. Patient states he has noted increased shortness of breath with any exertion over the past 3 weeks. Last evening he developed chest pain. He describes it as an aching sensation in the substernal region. It is worse with a deep breath. Patient is currently on Coumadin. Last INR check was 2 to 3 weeks ago. Patient states he was supposed to see Dr. Luciano tomorrow and was trying to wait, but when he developed pain he decided to come in for evaluation. Patient states he has not had a stress test in quite some time. [facility] Medical History (Updated 04/17/21 @ 09:[address] Farheen Solis MD) Cellulitis of left leg Essential hypertension Hyperlipidemia Hypertension oysterman (current) use of anticoagulants Paroxysmal atrial fibrillation Home Medications simvastatin 20 mg PO QHS 05/03/14 [History Last Taken Unknown] sertraline 50 mg tablet 50 mg PO QDAY 02/21/18 [History Last Taken Unknown] amlodipine 2.5 mg tablet 2.5 mg PO DAILY #30 tab 05/24/18 [Rx Last Taken Unknown] warfarin 5 mg tablet 5 mg PO .COMPLEX #0 tab 10/29/18 [Rx Last Taken Unknown] amiodarone 200 mg tablet 100 mg PO DAILY #15 tab 05/10/20 [Rx Last Taken Unknown] metoprolol succinate 25 mg tablet,extended release 24 hr See Rx Instructions .ROUTE .COMPLEX #90 tab 10/07/20 [Rx Last Taken Unknown] meloxicam 15 mg tablet 15 mg PO DAILY 11/04/20 [History Last Taken Unknown] Allergy/AdvReac Type Severity Reaction Status Date / Time No Known Allergies Allergy Verified 04/17/21 08:07 Family History Father Heart disease Surgical History History of arthroscopy of left knee History of hernia repair History of tonsillectomy Social History Smoking Status: Never smoker alcohol intake: current details: 1 beer daily substance use type: does not use ROS ROS ED Constitutional Constitutional ED: Denies chills or fever(s) Eyes Eyes: Denies change in vision ENT ENT ED: Denies sore throat Cardiovascular Cardiovascular: Reports chest pain Respiratory/Chest Respiratory/Chest: Reports dyspnea; Denies cough Gastrointestinal Gastrointestinal: Denies abdominal pain, diarrhea, nausea or vomiting Genitourinary Genitourinary ED: Denies dysuria Musculoskeletal Musculoskeletal: Denies back pain Integumentary Denies rash Neurologic Neurologic: Denies headache(s) or weakness Psychiatric Psychiatric: Denies anxiety or depression Endocrine Endocrinology: Denies polydipsia or polyuria Allergic/Immunologic Allergic/Immunologic ED: Denies urticaria EXAM Physical Exam Const Vital Signs: 04/17/21 08:09 04/17/21 08:11 04/17/21 08:23 Temperature 98.2 F Temperature Source Oral Pulse Rate 67 Respiratory Rate 18 Respiratory Effort Normal Non-Labored Blood Pressure 154/66 H Blood Pressure Mean 95 Pulse Ox 97 94 Oxygen Delivery Method Room Air Room Air Oxygen Flow Rate (L/min) 04/17/21 09:39 Temperature Temperature Source Pulse Rate 59 L Respiratory Rate 20 H Respiratory Effort Blood Pressure 137/62 H Blood Pressure Mean 87 Pulse Ox 95 Oxygen Delivery Method Nasal Cannula Oxygen Flow Rate (L/min) 2 Positive well nourished and well developed General Appearance ED: well developed HEENT Reports normocephalic and head/scalp atraumatic Eyes PERRL and EOMs intact bilaterally Neck supple Chest Wall inspection of chest normal and palpation of chest normal Resp normal respiratory effort and clear to auscultation bilaterally Cardio regular rate and regular rhythm GI normal to inspection, nondistended, normoactive bowel sounds Palpation: soft Extremity normal to inspection Extremity Narrative: 3+ bilateral lower extremity edema. General Extremety ED: Yes edema General Extremity: edema Neuro oriented x3 Sensorium / Orientation: alert Psych mental status grossly normal Skin no rashes or lesions noted Heart Score History: Moderately Suspicious ECG: Normal Age: >/= 65 years Risk Factors: >/= 3 Risk Factors or History of CAD Troponin: </= Normal Limit Score: 5 MDM MDM MDM Narrative Medical decision making narrative: EKG, labs, chest x-ray obtained. Patient was given aspirin on arrival. Lab Data Attestation: I reviewed the patient's lab results. Labs: Laboratory Results - last 24 hr 04/17/21 04/17/21 04/17/21 08:20 08:20 08:20 WBC 10.5 RBC 3.91 L Hgb 11.4 L Hct 35.9 L MCV 91.8 MCH 29.2 MCHC 31.8 L RDW Std Deviation 43.8 RDW Coeff of Sonny 13.0 Plt Count 269 MPV 9.2 Immature Gran % (Auto) 0.400 Neut % (Auto) 76.0 H Lymph % (Auto) 10.0 L [place] % (Auto) 12.8 H Eos % (Auto) 0.6 Baso % (Auto) 0.2 Absolute Neuts (auto) 8.0 H Absolute Lymphs (auto) 1.05 Nucleated RBC % 0 PT 58.6 H INR 6.8 H* Sodium 140 Potassium 4.2 Chloride 111 H Carbon Dioxide 21.0 Anion Gap 8 BUN 18 Creatinine 0.90 Estim Creat Clear Calc 64.98 Est GFR (MDRD) Af Amer 106 Est GFR (MDRD) Non-Af 88 BUN/Creatinine Ratio 20.0 Glucose 101 Calcium 8.8 Troponin I High Sens 13.0 B-Natriuretic Peptide 04/17/21 08:20 WBC RBC Hgb Hct MCV MCH MCHC RDW Std Deviation RDW Coeff of Sonny Plt Count MPV Immature Gran % (Auto) Neut % (Auto) Lymph % (Auto) [place] % (Auto) Eos % (Auto) Baso % (Auto) Absolute Neuts (auto) Absolute Lymphs (auto) Nucleated RBC % PT INR Sodium Potassium Chloride Carbon Dioxide Anion Gap BUN Creatinine Estim Creat Clear Calc Est GFR (MDRD) Af Amer Est GFR (MDRD) Non-Af BUN/Creatinine Ratio Glucose Calcium Troponin I High Sens B-Natriuretic Peptide 172.3 H Radiography Chest X-Ray - ED: 1 View, Read by ED Physician and Chronic Changes Diagnostic Testing: Radiology Impression Chest X-Ray 04/17/21 08:19 IMPRESSION: Poor inspiration with some bibasilar atelectasis. Electronically Signed: Luis E Salcido MD at 9:05 EDT Tel , Service support , EKG Initial EKG: Attestation: I personally reviewed and interpreted this EKG as follows: Interpretation: Sinus Rhythm (Sinus at [address] change.) Treatment and Re-Evaluation Comments:: Patient was given a small dose of fentanyl for chest wall pain. Patient's BNP is slightly elevated. He does have lower extremity edema and chest x-ray reveals chronic changes with mild fluid. He is given a dose of Lasix as well. On repeat exam patient is improved. Patient has risk factors for cardiac disease and denies having recent stress test. I will speak with hospitalist regarding admission for cycling of enzymes and potential stress test tomorrow. Patient voices understanding and agreement. Discharge Plan Triage Chief Complaint: Chest Pain ED Provider: Farheen Solis Dx/Rx/DC Orders Clinical Impression: Chest pain Prescriptions: No Action sertraline 50 mg tablet 50 mg PO QDAY RF: 0 meloxicam 15 mg tablet 15 mg PO DAILY RF: 0 simvastatin 20 MG tablet 20 mg PO QHS RF: 0 amlodipine 2.5 mg tablet 2.5 mg PO DAILY Qty: 30 RF: 11 warfarin 5 mg tablet 5 mg PO .COMPLEX Qty: 0 RF: 0 amiodarone 200 mg tablet 100 mg PO DAILY Qty: 15 RF: 11 metoprolol succinate 25 mg tablet extended release 24 hr See Rx Instructions .ROUTE .COMPLEX Qty: 90 RF: 3 Primary Care Provider: Betzaida Ho Referrals: Betzaida Ho DO [Primary Care Provider] - Disposition Disposition: Acute Care Hospital [facility]
[2021-04-17] MEDS: Aspirin 81 MG TAB.CHEW 324 MG PO (08:23)
[2021-04-17 08:28] LABS: Absolute Lymphocyte Count 1.05 X10^3/uL (0.83-4.51); Basophil# 0.02 X10^3/uL; Basophil% 0.2 % (0-1); Eosinophil# 0.06 X10^3/uL; Eosinophils% 0.6 % (0-5); Hematocrit 35.9 % (40-54); Hemoglobin 11.4 g/dL (13.0-16.5); Lymphocyte # 1.05 X10^3/ul (0.83-4.51); Mean Corp Hgb Conc 31.8 g/dL (32-36); Mean Corpuscular Hgb 29.2 pg (27.0-32.0); Mean Corpuscular Volume 91.8 fL (80-94); Mean Platelet Vol. 9.2 fl (6.2-12.0); Monocyte# 1.34 X10^3/uL; Monocyte% 12.8 % (0-10); NRBC Flagged by Analyzer 0 % (0-5); Neutrophil # 7.99 X10^3/uL (2.7-7.7); Platelet Count 269 K/mm3 (150-450); RBC Distribution Width SD 43.8 fl (35.1-43.9); Red Blood Count 3.91 M/mm3 (4.6-6.2); White Blood Count 10.5 K/mm3 (4.4-11.0)
[2021-04-17 08:37] LABS: International Normalized Ratio 6.8; Prothrombin Time (Protime)PT. 58.6 SECONDS (11.7-14.9)
[2021-04-17 08:46] LABS: Anion Gap 8 (5-15); BUN 18 mg/dL (7-18); Calcium,Total 8.8 mg/dL (8.5-10.1); Chloride 111 mmol/L (98-107); EST Glomerular Filtration Rate 88 mL/min (>60); Est Glom Filt Rate - Afr Amer 106 mL/min (>60); Estimated Creatinine Clearance 64.98 ml/min; Glucose 101 mg/dL (74-106); Potassium 4.2 mmol/L (3.5-5.1); Sodium Level 140 mmol/L (136-145)
[2021-04-17 08:47] LABS: BNP,B-Type NATRIURETIC PEPTIDE 172.3 pg/mL (0-100)
[2021-04-17] MEDS: Furosemide 40 MG/4 ML Vial IV ×2 (09:39→14:56)
[2021-04-17] MEDS: fentaNYL 100 MCG/2 ML Ampul 25 MCG IV (09:40)
--- NOTE | 2021-04-17 10:11 | PCM.HP.STD ---
HPI - General General Date of Admission: 04/17/21 HPI Narrative PRIMO ADRIAN, is a 76 M who came to ER for worsening shortness of breath and chest pain patient progressively having shortness of breath on exertion that progressed to shortness of breath at rest and last 1 month. Initially patient is getting short of breath on walking 50 feet but now even going to bathroom on at rest. Patient had chest pain yesterday evening when he went to his son's very frequent whenever he takes breathing. It is localized over precordium without radiation, 4-5/10 intensity, feels heavy pressure-like. Patient does not have prior history of coronary artery disease or stent or cardiac cath. Patient also has bilateral lower extremity swelling and looks puffy but he states lost weight. Denies palpitation or syncope. Patient was supposed to see Dr. Luciano tomorrow on Sunday as an outpatient but he came to ER because of chest pain or shortness of breath He has paroxysmal A. fib and in sinus since last cardioversion in 12/2017 when he was last admitted for A. fib with RVR and cellulitis. 2D echo at that time showed EF 60% with moderate 2+ TR. Patient also had Holter monitor at that time which showed average heart rate 41/min with occasional PACs and PVCs. Had PFT which was reported normal. EKG in ER shows normal sinus rhythm at 67 bpm. BNP 172. First high-sensitivity troponin negative. Chest x-ray shows mild pulmonary congestion. His father history of coronary artery disease [facility] Medical History (Updated 04/17/21 @ 12:[address] 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 Paroxysmal atrial fibrillation Home Medications simvastatin 20 mg PO QHS 05/03/14 [History Last Taken Unknown] sertraline 50 mg tablet 50 mg PO QDAY 02/21/18 [History Last Taken Unknown] amlodipine 2.5 mg tablet 2.5 mg PO DAILY #30 tab 05/24/18 [Rx Last Taken Unknown] warfarin 5 mg tablet 5 mg PO .COMPLEX #0 tab 10/29/18 [Rx Last Taken Unknown] amiodarone 200 mg tablet 100 mg PO DAILY #15 tab 05/10/20 [Rx Last Taken Unknown] metoprolol succinate 25 mg tablet,extended release 24 hr See Rx Instructions .ROUTE .COMPLEX #90 tab 10/07/20 [Rx Last Taken Unknown] meloxicam 15 mg tablet 15 mg PO DAILY 11/04/20 [History Last Taken Unknown] Allergy/AdvReac Type Severity Reaction Status Date / Time No Known Allergies Allergy Verified 04/17/21 08:07 Family History Father Heart disease Surgical History History of arthroscopy of left knee History of hernia repair History of tonsillectomy Social History Smoking Status: Former smoker alcohol intake: current details: 1 beer daily substance use type: does not use ROS ROS Narrative Constitutional: Reports fatigue and weakness HEENT: Reports systems reviewed and no addt'l complaints, except as documented Respiratory/Chest: Chest pain and shortness of breath at rest and on exertion as mentioned in HPI. Bilateral leg swelling Gastrointestinal: Denies coffee ground emesis, hematemesis or vomiting Genitourinary: Denies burning urination/new type symptoms Musculoskeletal: Reports joint pain and limited range of motion mainly in both knees. Patient had arthroscopic surgery in the past Neurologic: Denies seizure-like activity skin: No ulcer. No rash Endocrinology: Reports systems reviewed and no addt'l complaints, except as documented Hematologic/Lymphatic: Reports systems reviewed and no addt'l complaints, except as documented Rest 12 ROS are negative except as mentioned in HPI Vital Signs Vital Signs Vital Signs: 04/17/21 08:09 04/17/21 08:11 04/17/21 08:23 Temperature 98.2 F Temperature Source Oral Pulse Rate 67 Respiratory Rate 18 Respiratory Effort Normal Non-Labored Blood Pressure 154/66 H Blood Pressure Mean 95 Pulse Ox 97 94 Oxygen Delivery Method Room Air Room Air Oxygen Flow Rate (L/min) 04/17/21 09:39 04/17/21 10:07 Temperature 98.2 F Temperature Source Oral Pulse Rate 59 L 60 Respiratory Rate 20 H 18 Respiratory Effort Blood Pressure 137/62 H 148/62 H Blood Pressure Mean 87 90 Pulse Ox 95 98 Oxygen Delivery Method Nasal Cannula Nasal Cannula Oxygen Flow Rate (L/min) 2 2 Weight Weight: 269 lb 6.478 oz Body Mass Index (BMI) 43.4 Physical Exam Narrative General: Alert, Oriented x3, Cooperative HEENT: Atraumatic, PERRLA, EOMI, Normocephalic Oral: No Gingival or Mucosal Lesions/ Ulcerations Neck: Supple, No JVD, Negative Carotid Bruits Lungs: Air entry diminished in bilateral lung bases. No crepitation/rhonchi but dyspnea at rest Cardiovascular: Regular rate, Regular Rhythm, Normal S1, Normal S2, pansystolic murmur over LLSB grade 3/6 Abdomen: Bowel Sounds Present, Soft, Non Tender, mild distended possible ascites/fat : No renal angle tenderness. No suprapubic tenderness. Extremities: Bilateral 3+ lower leg edema, Capillary Refill Less than 3 Seconds Skin: No rashes, No breakdown Musculoskeletal: No Tenderness to Palpation of Joints or Extremities Neurological: Cranial nerves II-XII grossly intact, Deep Tendon Reflexes 2+/4 and Symmetrical, Neuro grossly intact Psych/Mental Status: Normal Affect, Appropriate. Results Lab / Micro Data Result Diagrams: 04/17/21 08:20 04/17/21 08:20 Labs: Laboratory Results - last 24 hr 04/17/21 08:20: WBC 10.5, RBC 3.91 L, Hgb 11.4 L, Hct 35.9 L, MCV 91.8, MCH 29.2, MCHC 31.8 L, RDW Std Deviation 43.8, RDW Coeff of Sonny 13.0, Plt Count 269, MPV 9.2, Immature Gran % (Auto) 0.400, Neut % (Auto) 76.0 H, Lymph % (Auto) 10.0 L, [place] % (Auto) 12.8 H, Eos % (Auto) 0.6, Baso % (Auto) 0.2, Absolute Neuts (auto) 8.0 H, Absolute Lymphs (auto) 1.05, Nucleated RBC % 0 04/17/21 08:20: PT 58.6 H, INR 6.8 H* 04/17/21 08:20: Sodium 140, Potassium 4.2, Chloride 111 H, Carbon Dioxide 21.0, Anion Gap 8, BUN 18, Creatinine 0.90, Estim Creat Clear Calc 64.98, Est GFR (MDRD) Af Amer 106, Est GFR (MDRD) Non-Af 88, BUN/Creatinine Ratio 20.0, Glucose 101, Calcium 8.8, Troponin I High Sens 13.0 04/17/21 08:20: B-Natriuretic Peptide 172.3 H Radiology Impression Chest X-Ray 04/17/21 08:19 IMPRESSION: Poor inspiration with some bibasilar atelectasis. Electronically Signed: Luis E Salcido MD at 9:05 EDT Tel , Service support , Assessment & Plan Assessment/Plan (1) Chest pain: QUALIFIERS: Chest pain type: chest pain on breathing Qualified Code(s): R07.1 - Chest pain on breathing (2) Heart failure: QUALIFIERS: Heart failure type: unspecified Heart failure chronicity: acute Qualified Code(s): I50.9 - Heart failure, unspecified (3) Paroxysmal atrial fibrillation: (4) Essential hypertension: (5) Hyperlipidemia: QUALIFIERS: Hyperlipidemia type: unspecified Qualified Code(s): E78.5 - Hyperlipidemia, unspecified PLAN: This is 76-year-old gentleman admitted for worsening shortness of breath and chest pain. 1. Atypical chest pain possible pericarditis/unstable angina: Patient is being admitted in PCU. Patient denies recent viral flu but occasionally gets cough probably due to new onset of CHF. Serial HS-troponins. Cardiology consult. Discussed with Dr. Reed. If 2 troponins are negative, Lexiscan nuclear stress test tomorrow a.m. 2D echo tomorrow a.m. Patient had aspirin in ER and will continue it. On high intensity statin. 2. New onset heart failure: Patient previous echo in December 2017 shows EF 60% with 2+ TR. Repeat 2D echo ordered. Heart failure core measures including intake and output, fluid restriction less than 1500 mL, daily weight monitoring, kidney and electrolytes monitoring. Started on Lasix 40 mg IV twice daily. BNP elevated. Titrate dose of Lasix as per cardiac hemodynamics and kidney function electrolytes. 3. Paroxysmal A. fib on warfarin with colopathy: Patient INR is elevated 6.8. Hold warfarin and monitor INR daily. Vitamin K 2.5 mg oral 1 dose given. Patient on amiodarone continued. Hold metoprolol succinate until patient is euvolemic. 4. Hypertension: Blood pressure in normal range. 5. Dyslipidemia: Fasting for tomorrow a.m. Living will/advanced directive/end of life care: Patient does not have living will or advanced directive. After discussion of benefits/risks procedures involved with full code, DNR CC arrest and DNR CC, the patient and his opted for full code Patient does want artificial life support including intubation, tube feed, ventilator and/chest compression, central venous catheter, vasopressor and DC shock if needed Total time spent in [id number] encounter in discussion of advanced directive 16 minutes. Charges/Coding Visit Charges Inpatient E&M: 80062 Init Hosp L3 Procedures Hospitalists Procedures: 54654 Advncd Care Plan 30 Min
[2021-04-17 10:24] LABS: Magnesium 1.9 mg/dL (1.6-2.6)
--- NOTE | 2021-04-17 13:28 | EKG12_ITS ---
Test Reason : MORNING EKG Blood Pressure : / mmHG Vent. Rate : 088 BPM Atrial Rate : 098 BPM P-R Int : 000 ms QRS Dur : 092 ms QT Int : 368 ms P-R-T Axes : 000 012 024 degrees QTc Int : 445 ms Atrial fibrillation Abnormal ECG When compared with ECG of 17-APR-2021 13:57, MANUAL COMPARISON REQUIRED, DATA IS UNCONFIRMED Confirmed by YASIR COLVIN, ALLISON ([id number]), mobile product manager EDEN GAMBINO ([id number]) on 04/19/2021 9:48:10 AM Referred By: DIEGO Confirmed By:ALLISON COOLEY MD
[2021-04-17 14:53] LABS: Troponin-I HS 10.4 pg/mL (3.0-78.5)
[2021-04-17] MEDS: Phytonadione (Vit K1) 5 MG TABLET 2.5 MG PO (14:55)
--- NOTE | 2021-04-17 15:08 | CT_ITS ---
STUDY: CTA CHEST REASON FOR EXAM: Male, 76 years old. ro embolism/disection RADIATION DOSAGE (If Supplied By Facility): CTDIvol = ( 16.22 ) mGy, DLP = ( 570.72 ) mGycm TECHNIQUE: The examination was performed with the intravenous administration of IV 100mL Isovue-370. Post-processing of the angiographic images was performed, with multiplanar reformation and 3D reconstruction. Individualized dose optimization techniques were used for this CT. COMPARISON: None. FINDINGS: Normal enhancement of the main pulmonary artery and right and left pulmonary arteries. Normal enhancement of the bilateral peripheral pulmonary arteries. There is no demonstrated pulmonary embolism. Normal thoracic aorta and visualized great vessels. There is no demonstrated aortic dissection. Normal heart and pericardium. Normal mediastinum. Normal hilar regions. Normal visualized trachea and bronchi. Bilateral moderate pleural effusions with compression atelectasis, left more than right. Normal pleura. Normal chest wall structures. Mild degenerative vertebral changes. Mild colonic diverticulosis. CT/CTA Chest W/WO Contrast IMPRESSION: No demonstrated pulmonary embolism or arterial dissection. Bilateral moderate pleural effusions with compression atelectasis, left more than right. Electronically Signed: Alex Greenberg DO at 17:20 EDT Tel [phone], Service support ,
--- NOTE | 2021-04-17 15:44 | CON.PCM.CA_ITS ---
Assessment & Plan Assessment/Plan (1) Chest pain: QUALIFIERS: Chest pain type: chest pain on breathing Qualified Code(s): R07.1 - Chest pain on breathing PLAN: 76-year-old patient, admitted with the progressive symptoms of shortness of breath This has been ongoing for the last 4-6 weeks, now to the extent of having shortness of breath on very minimal activity. He was actually scheduled to see his primary interior assemblies developer prover Dr. Luciano as an outpatient but since he developed chest pain he came to the ER here at [facility] and admitted for chest pain evaluation. Patient had history of paroxysmal atrial fibrillation, since December 2017 and in this admission noted he had abnormal INR likely combination of warfarin with amiodarone. Electrocardiogram showed normal sinus rhythm. Patient has multiple risk factor for CAD with hypertension hyperlipidemia. Plan and recommendations; 1. We will discontinue amiodarone and warfarin is on hold 2. He was given vitamin K due to the elevated INR more than [address] chest to evaluate for pulmonary fibrosis 4. Lexiscan sestamibi marker perfusion study and echocardiogram 5. His primary interior assemblies developer prover Dr. Luciano will resume care and follow-up clinically. 6. I discussed in detail the current medication and cardiac care plan during this admission with the patient and nursing staff. 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: (6) Essential hypertension: (7) Hyperlipidemia: QUALIFIERS: Hyperlipidemia type: unspecified Qualified Code(s): E78.5 - Hyperlipidemia, unspecified HPI Consult Data Date of Consult: 04/17/21 HPI Narrative Reason for Consultation: Progressive shortness of breath with chest pain HPI Narrative: PRIMO ADRIAN, is a 76 M who presents [facility] Medical History Cellulitis of left leg Essential hypertension Hyperlipidemia 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 Paroxysmal atrial fibrillation Home Medications simvastatin 20 mg PO QHS 05/03/14 [History Last Taken Unknown] sertraline 50 mg tablet 50 mg PO QDAY 02/21/18 [History Last Taken Unknown] amlodipine 2.5 mg tablet 2.5 mg PO DAILY #30 tab 05/24/18 [Rx Last Taken Unknown] warfarin 5 mg tablet 5 mg PO .COMPLEX #0 tab 10/29/18 [Rx Last Taken Unknown] amiodarone 200 mg tablet 100 mg PO DAILY #15 tab 05/10/20 [Rx Last Taken Unknown] metoprolol succinate 25 mg tablet,extended release 24 hr See Rx Instructions .ROUTE .COMPLEX #90 tab 10/07/20 [Rx Last Taken Unknown] meloxicam 15 mg tablet 15 mg PO DAILY 11/04/20 [History Last Taken Unknown] Allergy/AdvReac Type Severity Reaction Status Date / Time No Known Allergies Allergy Verified 04/17/21 08:07 Family History Father Heart disease Surgical History History of arthroscopy of left knee History of hernia repair History of tonsillectomy Social History Smoking Status: Former smoker alcohol intake: current details: 1 beer daily substance use type: does not use Physical Exam Narrative Seen and evaluated today at bedside along with the nursing staff No active chest pain at time of evaluation Cardiovascular examination; Cardiac rhythm is normal sinus rhythm, S1-S2 normal, no murmur, no systolic or diastolic murmur No pericardial rub Chest examination; Mild bilateral basilar rales Examination abdomen; soft Examination lower extremity had left lower extremity cellulitis with mild edema. Examination of central nervous system no focal neurological deficit. Objective Data Vital Signs: Vital Signs Temp Pulse Resp BP Pulse Ox 98.2 F 61 16 133/56 H 95 04/17/21 11:10 04/17/21 14:11 04/17/21 11:10 04/17/21 11:10 04/17/21 14:10 Oxygen Flow Rate (L/min) 2 Oxygen Delivery Method Nasal Cannula Weight: 587 lb 1.456 oz Body Mass Index (BMI) 79.6 Lab / Micro Data Result Diagrams: 04/17/21 08:20 04/17/21 08:20 Labs: Laboratory Results - last 24 hr 04/17/21 08:20: WBC 10.5, RBC 3.91 L, Hgb 11.4 L, Hct 35.9 L, MCV 91.8, MCH 29.2, MCHC 31.8 L, RDW Std Deviation 43.8, RDW Coeff of Sonny 13.0, Plt Count 269, MPV 9.2, Immature Gran % (Auto) 0.400, Neut % (Auto) 76.0 H, Lymph % (Auto) 10.0 L, [place] % (Auto) 12.8 H, Eos % (Auto) 0.6, Baso % (Auto) 0.2, Absolute Neuts (auto) 8.0 H, Absolute Lymphs (auto) 1.05, Nucleated RBC % 0 04/17/21 08:20: PT 58.6 H, INR 6.8 H* 04/17/21 08:20: Sodium 140, Potassium 4.2, Chloride 111 H, Carbon Dioxide 21.0, Anion Gap 8, BUN 18, Creatinine 0.90, Estim Creat Clear Calc 64.98, Est GFR ( MDRD) Af Amer 106, Est GFR (MDRD) Non-Af 88, BUN/Creatinine Ratio 20.0, Glucose 101, Calcium 8.8, Troponin I High Sens 13.0 04/17/21 08:20: B-Natriuretic Peptide 172.3 H 04/17/21 08:20: Magnesium 1.9 04/17/21 14:31: Troponin I High Sens 10.4 Cardiology Labs/Tests 04/17/21 08:20: WBC 10.5, RBC 3.91 L, Hgb 11.4 L, Hct 35.9 L, MCV 91.8, MCH 29.2, MCHC 31.8 L, Plt Count 269, MPV 9.2, Immature Gran % (Auto) 0.400, Neut % (Auto) 76.0 H, Lymph % (Auto) 10.0 L, [place] % (Auto) 12.8 H, Eos % (Auto) 0.6, Baso % (Auto) 0.2, Absolute Neuts (auto) 8.0 H, Nucleated RBC % 0 04/17/21 08:20: PT 58.6 H, INR 6.8 H* 04/17/21 08:20: Sodium 140, Potassium 4.2, Chloride 111 H, Carbon Dioxide 21.0, Anion Gap 8, BUN 18, Creatinine 0.90, Est GFR (MDRD) Af Amer 106, Est GFR (MDRD) Non-Af 88, BUN/Creatinine Ratio 20.0, Glucose 101, Calcium 8.8 04/17/21 08:20: B-Natriuretic Peptide 172.3 H 04/17/21 08:20: Magnesium 1.9 Rhythm: EKG: ECHO: Stress Test: Cardiac Cath: PCI: CT Surgery: Holter monitor: EPS: PPM: CXR: Chest CT Scan: Radiography Diagnostic Testing: Radiology Impression Chest X-Ray 04/17/21 08:19 IMPRESSION: Poor inspiration with some bibasilar atelectasis. Electronically Signed: Luis E Salcido MD at 9:05 EDT Tel , Service support ,
[2021-04-17 20:41] LABS: Troponin-I HS 9.9 pg/mL (3.0-78.5)
[2021-04-17] MEDS: oxyCODONE 5 MG Tablet PO (21:55)
[2021-04-17] MEDS: Atorvastatin Calcium 10 MG Tablet PO (21:55)
[2021-04-18] VITALS (10 sets, daily range): BP systolic 112–144; BP diastolic 62–80; PULSE 85–105; RESP 16–20; TEMP 36.4–36.9; O2SAT 94–100
--- NOTE | 2021-04-18 05:55 | ECHOCS_ITS ---
Reason For Study: FABIÁN RAMÍREZ Procedure This was a 2D Doppler, Color Flow transthoracic echocardiogram. Technically difficult study, patient would not lay on left side due to left shoulder pain. Contrast injection performed. The study was technically difficult. Contrast injection was performed. Exam performed in department. Left Ventricle Based upon the 2D echocardiographic and contrast enhanced images obtained there appears to be grossly normal left ventricular size, wall motion, and systolic function. The estimated ejection fraction is 65 %. Unable to assess diastolic dysfunction. Right Ventricle Based upon the 2D echocardiographic images obtained appears to be grossly normal right ventricular size and systolic function. Atria The left atrium is mildly enlarged. Normal right atrium. No doppler evidence for ASD. Mitral Valve The mitral papillary muscle appears thickened and/or calcified. Normal mitral valve. Trivial mitral valve insufficiency. Tricuspid Valve Normal tricuspid valve. Trivial tricuspid valve insufficiency. Right ventricular systolic pressure estimated to be 40 mmHg. Aortic Valve Trisinus/trileaflet aortic valve. Moderate focal aortic valve calcification. Pulmonic Valve The pulmonic valve is not well visualized. Trivial pulmonic valve insufficiency. Great Vessels The aortic root is not well visualized. Pericardium/Pleural No pericardial effusion. Medication Diluted definity 2ml given slow IV push to enhance endocardial definition. MMode/2D Measurements & Calculations LVIDd: 4.5 cm IVSd: 1.3 cm LVOT diam: 2.1 cm LVIDs: 2.7 cm LVPWd: 1.3 cm FS: 40.1 % LVOT area: 3.4 cm2 LAV(MOD-bp): 66.2 ml LA A4 area: 21.9 cm2 RA A4 area: 19.0 cm2 LAV(MOD-bp) Indexed: 27.8 ml/m2 LAV(MOD-sp2): 75.5 ml LAV(MOD-sp4): 60.1 ml Doppler Measurements & Calculations MV E max marcin: 123.3 cm/sec Ao V2 max: 262.5 cm/sec LV V1 max: 152.8 cm/sec Ao max P.6 mmHg LV V1 max P.4 mmHg Ao V2 mean: 160.4 cm/sec LV V1 mean P.9 mmHg Ao mean P.3 mmHg LV V1 mean: 102.8 cm/sec Ao V2 VTI: 38.7 cm LV V1 VTI: 25.7 cm PROMISE(I,D): 2.3 cm2 PROMISE(V,D): 2.0 cm2 SV(LVOT): 87.8 ml PA V2 max: 157.7 cm/sec TR max marcin: 282.1 cm/sec TR max P.8 mmHg ECHO/Echo Complete W/ Contrast Interpretation Summary The study was technically difficult. Contrast injection was performed. Based upon the 2D echocardiographic and contrast enhanced images obtained there appears to be grossly normal left ventricular size, wall motion, and systolic function. The estimated ejection fraction is 65 %. The left atrium is mildly enlarged. Trivial mitral valve insufficiency. Trivial tricuspid valve insufficiency. Moderate focal aortic valve calcification. Trivial pulmonic valve insufficiency. Right ventricular systolic pressure estimated to be 40 mmHg. Unable to assess diastolic dysfunction. Ordering Physician: Leandro Ambriz Referring Physician: Betzaida Ho Performed By: Mike Castillo RCS
--- NOTE | 2021-04-18 05:55 | EKG12_ITS ---
Test Reason : ADMIT EKG Blood Pressure : / mmHG Vent. Rate : 059 BPM Atrial Rate : 059 BPM P-R Int : 156 ms QRS Dur : 090 ms QT Int : 488 ms P-R-T Axes : 047 013 030 degrees QTc Int : 483 ms Sinus bradycardia Prolonged QT Abnormal ECG When compared with ECG of 17-APR-2021 08:09, MANUAL COMPARISON REQUIRED, DATA IS UNCONFIRMED Confirmed by YASIR COLVIN, ALLISON ([id number]), film or videotape editor EDEN GAMBINO ([id number]) on 04/19/2021 9:48:50 AM Referred By: DIEGO Confirmed By:ALLISON COOLEY MD
[2021-04-18] MEDS: Aspirin E.C. 81 MG Tablet PO (06:17)
[2021-04-18 06:25] LABS: Absolute Lymphocyte Count 1.12 X10^3/uL (0.83-4.51); Absolute Neutrophil Count 6.5 X10^3/uL (2.0-7.7); Basophil# 0.02 X10^3/uL; Basophil% 0.2 % (0-1); Eosinophil# 0.15 X10^3/uL; Eosinophils% 1.7 % (0-5); Hematocrit 34.7 % (40-54); Hemoglobin 10.9 g/dL (13.0-16.5); Lymphocyte # 1.12 X10^3/ul (0.83-4.51); Lymphocyte % 12.3 % (19-41); Mean Corp Hgb Conc 31.4 g/dL (32-36); Mean Corpuscular Hgb 29.2 pg (27.0-32.0); Mean Platelet Vol. 9.9 fl (6.2-12.0); Monocyte# 1.21 X10^3/uL; Monocyte% 13.3 % (0-10); NRBC Flagged by Analyzer 0 % (0-5); Neutrophil # 6.54 X10^3/uL (2.7-7.7); Neutrophil % 71.9 % (47-70); Platelet Count 237 K/mm3 (150-450); RBC Distribution Width SD 44.5 fl (35.1-43.9); Red Blood Count 3.73 M/mm3 (4.6-6.2); White Blood Count 9.1 K/mm3 (4.4-11.0)
[2021-04-18 06:33] LABS: International Normalized Ratio 3.9; Prothrombin Time (Protime)PT. 37.5 SECONDS (11.7-14.9)
[2021-04-18 08:18] LABS: Anion Gap 6 (5-15); BUN 17 mg/dL (7-18); BUN/Creat Ratio 21.6 RATIO (10-20); Calcium,Total 8.6 mg/dL (8.5-10.1); Chloride 109 mmol/L (98-107); Cholesterol 87 mg/dL (200); Creatinine, Serum 0.79 mg/dL (0.70-1.30); EST Glomerular Filtration Rate 103 mL/min (>60); Est Glom Filt Rate - Afr Amer 124 mL/min (>60); Estimated Creatinine Clearance 71.13 ml/min; Glucose 90 mg/dL (74-106); High Density Lipoprotein 51 mg/dL; Potassium 3.5 mmol/L (3.5-5.1); Sodium Level 140 mmol/L (136-145); Thyroid Stim Hormone (TSH) < 0.01 uIU/mL (0.358-3.74); Triglycerides 54 mg/dL; Very Low Density Lipoprotein 11 mg/dL (5-40)
--- NOTE | 2021-04-18 08:22 | PN.CARD_ITS ---
Subjective Subjective This is a 76-year-old white male who presented with concerns of chest discomfort with inspiration (pointing at his level of discomfort which was across his upper abdomen) as well as feeling somewhat more short of breath and dyspneic. At the moment he states he is resting comfortably. Objective Data Vital Signs: Vital Signs Temp Pulse Resp BP Pulse Ox 98.4 F 95 16 136/72 H 96 04/18/21 06:21 04/18/21 07:00 04/18/21 06:21 04/18/21 06:21 04/18/21 07:41 Oxygen Flow Rate (L/min) 2 Oxygen Delivery Method Nasal Cannula Weight: 258 lb 13.163 oz Body Mass Index (BMI) 79.6 Intake & Output: Intake and Output for Last 24 Hours 04/16/21 04/17/21 04/18/21 23:59 23:59 23:59 Intake Total 400 / 640 240 / 240 Output Total 500 / 500 Balance -100 / 140 240 / 240 Lab / Micro Data Result Diagrams: 04/18/21 06:11 04/18/21 06:11 Labs: Laboratory Results - last 24 hr 04/17/21 08:20: WBC 10.5, RBC 3.91 L, Hgb 11.4 L, Hct 35.9 L, MCV 91.8, MCH 29.2, MCHC 31.8 L, RDW Std Deviation 43.8, RDW Coeff of Sonny 13.0, Plt Count 269, MPV 9.2, Immature Gran % (Auto) 0.400, Neut % (Auto) 76.0 H, Lymph % (Auto) 10.0 L, [place] % (Auto) 12.8 H, Eos % (Auto) 0.6, Baso % (Auto) 0.2, Absolute Neuts (auto) 8.0 H, Absolute Lymphs (auto) 1.05, Nucleated RBC % 0 04/17/21 08:20: PT 58.6 H, INR 6.8 H* 04/17/21 08:20: Sodium 140, Potassium 4.2, Chloride 111 H, Carbon Dioxide 21.0, Anion Gap 8, BUN 18, Creatinine 0.90, Estim Creat Clear Calc 64.98, Est GFR (MDRD) Af Amer 106, Est GFR (MDRD) Non-Af 88, BUN/Creatinine Ratio 20.0, Glucose 101, Calcium 8.8, Troponin I High Sens 13.0 04/17/21 08:20: B-Natriuretic Peptide 172.3 H 04/17/21 08:20: Magnesium 1.9 04/17/21 14:31: Troponin I High Sens 10.4 04/17/21 16:39: Troponin I High Sens 10.0 04/17/21 20:14: Troponin I High Sens 9.9 04/18/21 06:11: WBC 9.1, RBC 3.73 L, Hgb 10.9 L, Hct 34.7 L, MCV 93.0, MCH 29.2, MCHC 31.4 L, RDW Std Deviation 44.5 H, RDW Coeff of Sonny 13.0, Plt Count 237, MPV 9.9, Immature Gran % (Auto) 0.600, Neut % (Auto) 71.9 H, Lymph % (Auto) 12.3 L, [place] % (Auto) 13.3 H, Eos % (Auto) 1.7, Baso % (Auto) 0.2, Absolute Neuts (auto) 6.5, Absolute Lymphs (auto) 1.12, Nucleated RBC % 0 04/18/21 06:11: Sodium 140, Potassium 3.5, Chloride 109 H, Carbon Dioxide 25.0, Anion Gap 6, BUN 17, Creatinine 0.79, Estim Creat Clear Calc 71.13, Est GFR (MDRD) Af Amer 124, Est GFR (MDRD) Non-Af 103, BUN/Creatinine Ratio 21.6 H, Glucose 90, Calcium 8.6, Triglycerides 54, Cholesterol 87, LDL Cholesterol 25, VLDL Cholesterol 11, HDL Cholesterol 51, TSH < 0.01 L 04/18/21 06:11: PT 37.5 H, INR 3.9 Cardiology Labs/Tests 04/17/21 08:20: WBC 10.5, RBC 3.91 L, Hgb 11.4 L, Hct 35.9 L, MCV 91.8, MCH 29.2, MCHC 31.8 L, Plt Count 269, MPV 9.2, Immature Gran % (Auto) 0.400, Neut % (Auto) 76.0 H, Lymph % (Auto) 10.0 L, [place] % (Auto) 12.8 H, Eos % (Auto) 0.6, Baso % (Auto) 0.2, Absolute Neuts (auto) 8.0 H, Nucleated RBC % 0 04/17/21 08:20: PT 58.6 H, INR 6.8 H* 04/17/21 08:20: Sodium 140, Potassium 4.2, Chloride 111 H, Carbon Dioxide 21.0, Anion Gap 8, BUN 18, Creatinine 0.90, Est GFR (MDRD) Af Amer 106, Est GFR (MDRD) Non-Af 88, BUN/Creatinine Ratio 20.0, Glucose 101, Calcium 8.8 04/17/21 08:20: B-Natriuretic Peptide 172.3 H 04/17/21 08:20: Magnesium 1.9 04/18/21 06:11: WBC 9.1, RBC 3.73 L, Hgb 10.9 L, Hct 34.7 L, MCV 93.0, MCH 29.2, MCHC 31.4 L, Plt Count 237, MPV 9.9, Immature Gran % (Auto) 0.600, Neut % (Auto) 71.9 H, Lymph % (Auto) 12.3 L, [place] % (Auto) 13.3 H, Eos % (Auto) 1.7, Baso % (Auto) 0.2, Absolute Neuts (auto) 6.5, Nucleated RBC % 0 04/18/21 06:11: Sodium 140, Potassium 3.5, Chloride 109 H, Carbon Dioxide 25.0, Anion Gap 6, BUN 17, Creatinine 0.79, Est GFR (MDRD) Af Amer 124, Est GFR (MDRD) Non-Af 103, BUN/Creatinine Ratio 21.6 H, Glucose 90, Calcium 8.6, Triglycerides 54, Cholesterol 87, LDL Cholesterol 25, VLDL Cholesterol 11, HDL Cholesterol 51 04/18/21 06:11: PT 37.5 H, INR 3.9 Rhythm: Sinus rhythm/paroxysmal atrial fibrillation EKG: Sinus rhythm with subsequent notation of repeat ECG demonstrating atrial fibrillation ECHO: 01-13-2018 Interpretation Summary Normal LV size. Left ventricular systolic function is normal. The estimated ejection fraction is 60 %. Unable to assess diastolic dysfunction. Mild to moderate (1-2+) tricuspid valve insufficiency. Pulmonary artery systolic pressure is 28 mmHg. Radiography Diagnostic Testing: Radiology Impression Chest X-Ray 04/17/21 08:19 IMPRESSION: Poor inspiration with some bibasilar atelectasis. Electronically Signed: Luis E Salcido MD at 9:05 EDT Tel , Service support , Chest CTA 04/17/21 15:08 IMPRESSION: No demonstrated pulmonary embolism or arterial dissection. Bilateral moderate pleural effusions with compression atelectasis, left more than right. Electronically Signed: Alexshahrzad Greenberg DO at 17:20 EDT Tel [phone], Service support , Physical Exam Narrative The patient is awake and alert and in no acute distress. Const alert, oriented x3 and no apparent distress Orientation / Consciousness: awake HEENT normocephalic, head/scalp atraumatic and hearing grossly normal bilaterally Eyes PERRL, EOMs intact bilaterally and conjunctivae normal Neck full ROM, supple and no JVD Chest inspection of chest normal Resp normal respiratory effort Auscultation: diminished lung sounds bilateral (Bases) lower Cardio Rhythm: abnormal rhythm irregularly irregular Heart Sounds: S1 normal and S2 normal GI normal to inspection, nondistended, normoactive bowel sounds Extremity normal to inspection and no pedal edema Skin no rashes or lesions noted Psych mental status grossly normal Assessment & Plan Assessment/Plan (1) Chest pain: QUALIFIERS: Chest pain type: chest pain on breathing Qualified Code(s): R07.1 - Chest pain on breathing PLAN: The patient presented with concerns of chest pain and shortness of breath/dyspnea. At the moment his cardiac enzymes are negative. His ECG has demonstrated sinus rhythm and atrial fibrillation. He is pending further evaluation with a transthoracic echocardiogram and a exercise tolerance test/imaging study. (2) Paroxysmal atrial fibrillation: PLAN: The patient has a history of PAF. He has been noted during his hospitalization to be in both sinus rhythm and atrial fibrillation. He has continued medical therapy to assist in controlling his underlying atrial dysrhythmia. His medications may need to be adjusted based upon his clinical course and objective findings. (3) Hyperlipidemia: QUALIFIERS: Hyperlipidemia type: unspecified Qualified Code(s): E78.5 - Hyperlipidemia, unspecified PLAN: He should continue risk factor evaluation care as deemed appropriate. (4) Essential hypertension: PLAN: His blood pressure will be monitored. His medications can be adjusted accordingly. (5) penitentiary current use of amiodarone: PLAN: The patient has undergone radiologic studies with chest x-ray and chest CT scan. There were no comments on any obvious findings compatible with an amiodarone induced pulmonary disease pattern. Depending upon his clinical course consideration might be given as to whether or not his amiodarone needs to be adjusted and/or discontinued. 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 His INR dated. This may be secondary to a combination of dietary changes as well as interactions with his medications. His anticoagulation is being adjusted. Addt'l Comments The patient will continue evaluation care as noted. Depending upon the patient's clinical course consideration can be given as to whether he requires additional cardiac or noncardiac evaluation adjustment of his medications. This note was generated using a voice recognition system and there may be incorrect words, spelling or punctuation that were not noted when reviewing the office note prior to saving.
[2021-04-18] MEDS: Furosemide 40 MG/4 ML Vial IV ×2 (10:59→18:47)
[2021-04-18] MEDS: Sertraline 50 MG Tablet PO (10:59)
[2021-04-18] MEDS: amLODIPine 2.5 MG Tablet PO (10:59)
--- NOTE | 2021-04-18 11:34 | CASEMGMT ---
RN CM CABLE OPERATOR CM to room to meet with patient for initial transition planning/care coordination assessment. VINICIO LEONG introduced self and role at [facility]. Pt voices understanding and consents to assessment at this time. Pt resting in bed in no distress at this time. @ bedside. Pt is A/O at this time and answers all questions appropriately. Care providers, pharmacy, and demographics verified/updated at this time. PCP: Betzaida Ho Specialists: Dr Luciano-spinning frame tender Preferred Pharmacy: [facility] Retail Insurance: [employer] [facility] Prescription Benefit: Yes Living Will/HPOA: States does not have LW or HCPOA . Interested in more information but states does not want to talk with SW at this time to complete paperwork. Provided information on advanced directives and given Social Service rac card with number to call if chooses in the future to utilize [facility] social work for advanced directive completion. LNOK: , Sharona. 2 sons Living Arrangements: Lives w/his in one-story apartment. Independent w/ADL's. sees a neurologist and has been falling lately. She is staying w/family while pt is in the hospital. /pt go out to eat for most meals. Other home tasks such as cleaning has been becoming more difficult to complete. Pt manages his own appts/meds. Transportation: Pt states drives self and states no transportation concerns at this time. DME: Denies using any DME and denies needs. HHC/SNF: No history of either. Pt denies need for HHC. Pt wishes to return home and states has no concerns with going home at time of discharge. CM to follow for any discharge planning/needs. Pt voices no concerns/needs at this time. Advised pt to ask for CM if any questions/concerns/needs arise. Voices understanding. PLAN: Home w/discharge plans in place. Yin CONDE RN, CM
--- NOTE | 2021-04-18 12:51 | STRESSREP ---
Stress Test Report Date: 04-18-2021 Procedure: Pharmacologic stress nuclear imaging study Indications: Chest pain; PAF Consent: Per the patient Procedure: The patient underwent pharmacologic (Regadenoson 0.4mg ) evaluation with a peak heart rate of 112 beats per minute (77%predicted maximal heart rate) and a peak blood pressure of 142/60 mmHg. The baseline ECG demonstrated atrial fibrillation; nonspecific ST/T wave abnormality. The peak pharmacologic ECG demonstrated no obvious ECG changes. There were no cardiac dysrhythmias pretest, during pharmacologic infusion, or recovery. There was no complaint of chest discomfort during pharmacologic infusion or recovery. The examination was discontinued secondary to completion of protocol. Impression: 1. Pharmacologic (Regadenoson) evaluation 2. Peak pharmacologic ECG with continued nonspecific ST/T wave abnormality. 3. There were no cardiac dysrhythmias pretest, during pharmacologic infusion, or recovery. 4. Nuclear images pending Myocardial perfusion imaging study: Technique: The patient was injected with 15.0 millicuries of technetium 99m Cardiolite and subsequently rest SPECT Cardiolite nuclear imaging was obtained in the horizontal long, vertical long, and short axis views. The patient underwent pharmacologic (Regadenoson) evaluation with a peak heart rate of 112 beats per minute (77% percent predicted maximal heart rate) and a peak blood pressure of 142/60 mmHg. The patient was injected with 44.3 millicuries of technetium 99m Cardiolite and subsequently stress SPECT Cardiolite nuclear imaging was obtained in the horizontal long, vertical long, and short axis views. A gated Cardiolite study at peak stress was obtained. Interpretation: Rest and stress SPECT Cardiolite nuclear imaging status post realignment, normalization, and attenuation correction demonstrate status post stress the appearance of diminished myocardial perfusion/tracer uptake in portions of the distal anterior, anteroapical, inferoapical segments. There is end systolic thickening and brightening. The gated Cardiolite study demonstrates myocardial thickening and inward wall motion. The reported LVEF is 71%. Impression: 1. Rest and stress SPECT current nuclear imaging demonstrate myocardial perfusion changes concerning for an area of stress-induced myocardial ischemia in portions of the distal anterior, anteroapical, and inferoapical segments. 2. The gated Cardiolite study reports an LVEF of 71%. This note was generated with Testlio software. It may contain incorrect words, spelling, and punctuation that were not noted in checking the note before signing.
--- NOTE | 2021-04-18 18:50 | PCM.PN.HOSP ---
Subjective Subjective Patient was seen and examined today, I had a brief conversation with cardiology about his care. Patient had a positive stress test today for reversible ischemia, it is planned that he will have a cardiac catheterization but due to his elevated INR, cardiology does not feel this is going to be possible until Sunday. Patient has no complaints of any chest pain presently or any shortness of breath. Objective Data Objective Data Vital Signs: Vital Signs Temp Pulse Resp BP Pulse Ox 98.4 F 85 18 112/72 94 04/18/21 17:30 04/18/21 17:30 04/18/21 17:30 04/18/21 17:30 04/18/21 17:30 Oxygen Flow Rate (L/min) 2 Oxygen Delivery Method Room Air Weight: 117.4 kg Body Mass Index (BMI) 79.6 Intake & Output: Intake and Output for Last 24 Hours 04/16/21 04/17/21 04/18/21 23:59 23:59 23:59 Intake Total 400 / 640 1040 / 1040 Output Total 500 / 500 Balance -100 / 140 1040 / 1040 Lab / Micro Data Result Diagrams: 04/18/21 06:11 04/18/21 06:11 Labs: Laboratory Results - last 24 hr 04/17/21 20:14: Troponin I High Sens 9.9 04/18/21 06:11: WBC 9.1, RBC 3.73 L, Hgb 10.9 L, Hct 34.7 L, MCV 93.0, MCH 29.2, MCHC 31.4 L, RDW Std Deviation 44.5 H, RDW Coeff of Sonny 13.0, Plt Count 237, MPV 9.9, Immature Gran % (Auto) 0.600, Neut % (Auto) 71.9 H, Lymph % (Auto) 12.3 L, [place] % (Auto) 13.3 H, Eos % (Auto) 1.7, Baso % (Auto) 0.2, Absolute Neuts (auto) 6.5, Absolute Lymphs (auto) 1.12, Nucleated RBC % 0 04/18/21 06:11: Sodium 140, Potassium 3.5, Chloride 109 H, Carbon Dioxide 25.0, Anion Gap 6, BUN 17, Creatinine 0.79, Estim Creat Clear Calc 71.13, Est GFR (MDRD) Af Amer 124, Est GFR (MDRD) Non-Af 103, BUN/Creatinine Ratio 21.6 H, Glucose 90, Calcium 8.6, Triglycerides 54, Cholesterol 87, LDL Cholesterol 25, VLDL Cholesterol 11, HDL Cholesterol 51, TSH < 0.01 L 04/18/21 06:11: PT 37.5 H, INR 3.9 Radiography Diagnostic Testing: Radiology Impression Echocardiogram 04/18/21 05:55 Interpretation Summary The study was technically difficult. Contrast injection was performed. Based upon the 2D echocardiographic and contrast enhanced images obtained there appears to be grossly normal left ventricular size, wall motion, and systolic function. The estimated ejection fraction is 65 %. The left atrium is mildly enlarged. Trivial mitral valve insufficiency. Trivial tricuspid valve insufficiency. Moderate focal aortic valve calcification. Trivial pulmonic valve insufficiency. Right ventricular systolic pressure estimated to be 40 mmHg. Unable to assess diastolic dysfunction. Ordering Physician: Leandro Ambriz Referring Physician: Betzaida Ho Performed By: Mike Castillo RCS Physical Exam Const alert, oriented x3, no apparent distress and healthy appearing General Appearance: cooperative, well kempt and well developed Orientation / Consciousness: awake, oriented to person, oriented to place and oriented to time HEENT normocephalic and moist oral mucous membranes Eyes PERRL, EOMs intact bilaterally and conjunctivae normal Neck nuchal rigidity, supple, no JVD, thyroid normal and no carotid bruits General: trachea midline Resp normal respiratory effort and clear to auscultation bilaterally Auscultation: Negative for rales, rhonchi or wheezes Cardio S1 normal heart sound, S2 normal heart sound, no murmurs, no rub and no gallops Cardio Narrative: Heart rate and rhythm is irregular GI normal to inspection, nondistended, normoactive bowel sounds, soft to palpation, non-tender and non-distended Extremity normal to inspection Skin no rashes or lesions noted General Skin Exam: no breakdown Neuro oriented x3, CN's II-XII intact bilaterally, no focal motor deficits and no sensory deficits noted Sensorium / Orientation: awake and alert Speech: speech normal Psych thought process normal and affect normal Assessment & Plan Assessment/Plan (1) Chest pain: QUALIFIERS: Chest pain type: chest pain on breathing Qualified Code(s): R07.1 - Chest pain on breathing PLAN: 1. Chest pain in a patient with an abnormal nuclear stress test today concerning for occlusive coronary disease-patient's Coumadin will be held, INR will be checked tomorrow, patient will undergo cardiac catheterization per cardiology #2 paroxysmal atrial fibrillation #3 essential hypertension #4 elevated INR Charges/Coding Visit Charges Inpatient E&M: 13643 Subs Hosp L2
[2021-04-18] MEDS: Atorvastatin Calcium 10 MG Tablet PO (21:15)
[2021-04-18] MEDS: Senna/Docusate Sodium 1 Tablet 2 TABLET PO (21:15)
[2021-04-19] VITALS (11 sets, daily range): BP systolic 115–139; BP diastolic 56–74; PULSE 64–99; RESP 18; TEMP 36.1–37.2; O2SAT 93–100
[2021-04-19 06:31] LABS: International Normalized Ratio 2.4; Prothrombin Time (Protime)PT. 25.2 SECONDS (11.7-14.9)
[2021-04-19] MEDS: Sertraline 50 MG Tablet PO (08:43)
[2021-04-19] MEDS: Metoprolol Tartrate 25 MG Tablet PO ×2 (08:43→21:01)
[2021-04-19] MEDS: Aspirin E.C. 81 MG Tablet PO (08:43)
[2021-04-19] MEDS: Furosemide 40 MG/4 ML Vial IV ×2 (08:43→17:27)
[2021-04-19] MEDS: amLODIPine 2.5 MG Tablet PO (08:43)
[2021-04-19] MEDS: Senna/Docusate Sodium 1 Tablet 2 TABLET PO (08:43)
[2021-04-19 12:27] LABS: International Normalized Ratio 2.1; Prothrombin Time (Protime)PT. 22.7 SECONDS (11.7-14.9)
--- NOTE | 2021-04-19 14:52 | PN.CARD_ITS ---
Subjective Subjective The patient states he does feel somewhat better with his breathing since being in the hospital and undergoing diuretic therapy. Objective Data Vital Signs: Vital Signs Temp Pulse Resp BP Pulse Ox 97.8 F 92 18 137/74 H 93 04/19/21 08:41 04/19/21 08:43 04/19/21 08:41 04/19/21 08:43 04/19/21 08:41 Oxygen Flow Rate (L/min) 2 Oxygen Delivery Method Room Air Weight: 258 lb 9.636 oz Body Mass Index (BMI) 79.6 Intake & Output: Intake and Output for Last 24 Hours 04/17/21 04/18/21 04/19/21 23:59 23:59 23:59 Intake Total 400 / 640 1040 / 1440 400 / 400 Output Total 500 / 500 Balance -100 / 140 1040 / 1440 400 / 400 Lab / Micro Data Result Diagrams: 04/18/21 06:11 04/18/21 06:11 Labs: Laboratory Results - last 24 hr 04/19/21 05:49: PT 25.2 H, INR 2.4 04/19/21 12:10: PT 22.7 H, INR 2.1 Cardiology Labs/Tests 04/19/21 05:49: PT 25.2 H, INR 2.4 04/19/21 12:10: PT 22.7 H, INR 2.1 Rhythm: Atrial fibrillation Echocardiogram: Interpretation Summary The study was technically difficult. Contrast injection was performed. Based upon the 2D echocardiographic and contrast enhanced images obtained there appears to be grossly normal left ventricular size, wall motion, and systolic function. The estimated ejection fraction is 65 %. The left atrium is mildly enlarged. Trivial mitral valve insufficiency. Trivial tricuspid valve insufficiency. Moderate focal aortic valve calcification. Trivial pulmonic valve insufficiency. Right ventricular systolic pressure estimated to be 40 mmHg. Unable to assess diastolic dysfunction. Stress Test Report Date: 04-18-2021 Procedure: Pharmacologic stress nuclear imaging study Indications: Chest pain; PAF Consent: Per the patient Procedure: The patient underwent pharmacologic (Regadenoson 0.4mg ) evaluation with a peak heart rate of 112 beats per minute (77%predicted maximal heart rate) and a peak blood pressure of 142/60 mmHg. The baseline ECG demonstrated atrial fibrillation; nonspecific ST/T wave abnormality. The peak pharmacologic ECG demonstrated no obvious ECG changes. There were no cardiac dysrhythmias pretest, during pharmacologic infusion, or recovery. There was no complaint of chest discomfort during pharmacologic infusion or recovery. The examination was discontinued secondary to completion of protocol. Impression: 1. Pharmacologic (Regadenoson) evaluation 2. Peak pharmacologic ECG with continued nonspecific ST/T wave abnormality. 3. There were no cardiac dysrhythmias pretest, during pharmacologic infusion, or recovery. 4. Nuclear images pending Myocardial perfusion imaging study: Technique: The patient was injected with 15.0 millicuries of technetium 99m Cardiolite and subsequently rest SPECT Cardiolite nuclear imaging was obtained in the horizontal long, vertical long, and short axis views. The patient underwent pharmacologic (Regadenoson) evaluation with a peak heart rate of 112 beats per minute (77% percent predicted maximal heart rate) and a peak blood pressure of 142/60 mmHg. The patient was injected with 44.3 millicuries of technetium 99m Cardiolite and subsequently stress SPECT Cardiolite nuclear imaging was obtained in the horizontal long, vertical long, and short axis views. A gated Cardiolite study at peak stress was obtained. Interpretation: Rest and stress SPECT Cardiolite nuclear imaging status post realignment, normalization, and attenuation correction demonstrate status post stress the appearance of diminished myocardial perfusion/tracer uptake in portions of the distal anterior, anteroapical, inferoapical segments. There is end systolic thickening and brightening. The gated Cardiolite study demonstrates myocardial thickening and inward wall motion. The reported LVEF is 71%. Impression: 1. Rest and stress SPECT current nuclear imaging demonstrate myocardial perfusion changes concerning for an area of stress-induced myocardial ischemia in portions of the distal anterior, anteroapical, and inferoapical segments. 2. The gated Cardiolite study reports an LVEF of 71%. Physical Exam Narrative The patient is awake and alert and in no acute distress. Const alert, oriented x3 and no apparent distress Orientation / Consciousness: awake HEENT normocephalic, head/scalp atraumatic and hearing grossly normal bilaterally Eyes PERRL, EOMs intact bilaterally and conjunctivae normal Neck full ROM, supple and no JVD Chest inspection of chest normal Resp normal respiratory effort Auscultation: diminished lung sounds bilateral (Bases) lower Cardio Rhythm: abnormal rhythm irregularly irregular Heart Sounds: S1 normal and S2 normal GI normal to inspection, nondistended, normoactive bowel sounds Extremity normal to inspection and no pedal edema Skin no rashes or lesions noted Psych mental status grossly normal Assessment & Plan Assessment/Plan (1) Chest pain: QUALIFIERS: Chest pain type: chest pain on breathing Qualified Code(s): R07.1 - Chest pain on breathing PLAN: The patient presented with concerns of chest pain and shortness of breath/dyspnea. At the moment his cardiac enzymes are negative. His ECG has demonstrated sinus rhythm and atrial fibrillation. He has undergone further evaluation with echocardiogram as noted above. He has also undergone further evaluation with a pharmacologic stress nuclear imaging study. The results are as noted. The present time he is continue to be monitored. He will continue medical therapy as deemed appropriate. He is pending further evaluation with cardiac catheterization once his INR declines. (2) Paroxysmal atrial fibrillation: PLAN: The patient has a history of PAF. He has been noted during his hospitalization to be in both sinus rhythm and atrial fibrillation. He has continued medical therapy to assist in controlling his underlying atrial dysrhythmia. His medications may need to be adjusted based upon his clinical course and objective findings. (3) Hyperlipidemia: QUALIFIERS: Hyperlipidemia type: unspecified Qualified Code(s): E78.5 - Hyperlipidemia, unspecified PLAN: He should continue risk factor evaluation care as deemed appropri ate. (4) Essential hypertension: PLAN: His blood pressure will be monitored. His medications can be adjusted accordingly. 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 There were no comments on any obvious findings compatible with an amiodarone induced pulmonary disease pattern. Depending upon his clinical course consideration might be given as to whether or not his amiodarone needs to be adjusted and/or discontinued. (6) jail (current) use of anticoagulants: PLAN: He is on anticoagulant therapy. His INR dated. This may be secondary to a combination of dietary changes as well as interactions with his medications. His anticoagulation is being adjusted. Addt'l Comments The patient's case has been discussed and reviewed with the patient and Dr. Evans. This note was generated using a voice recognition system and there may be incorrect words, spelling or punctuation that were not noted when reviewing the office note prior to saving.
--- NOTE | 2021-04-19 18:19 | PCM.PN.HOSP ---
Subjective Subjective Patient was seen and examined today, his INR is now 2.1, patient denies any chest pain or shortness of breath. Objective Data Objective Data Vital Signs: Vital Signs Temp Pulse Resp BP Pulse Ox 97.0 F L 90 18 115/56 L 93 04/19/21 14:40 04/19/21 15:00 04/19/21 14:40 04/19/21 14:40 04/19/21 14:40 Oxygen Flow Rate (L/min) 2 Oxygen Delivery Method Room Air Weight: 117.3 kg Body Mass Index (BMI) 79.6 Intake & Output: Intake and Output for Last 24 Hours 04/17/21 04/18/21 04/19/21 23:59 23:59 23:59 Intake Total 400 / 640 1040 / 1440 640 / 640 Output Total 500 / 500 4 / 4 Balance -100 / 140 1040 / 1440 636 / 636 Lab / Micro Data Result Diagrams: 04/18/21 06:11 04/18/21 06:11 Labs: Laboratory Results - last 24 hr 04/19/21 05:49: PT 25.2 H, INR 2.4 04/19/21 12:10: PT 22.7 H, INR 2.1 Physical Exam Const alert, oriented x3, no apparent distress and healthy appearing General Appearance: cooperative, well kempt and well developed Orientation / Consciousness: awake, oriented to person, oriented to place and oriented to time HEENT normocephalic and moist oral mucous membranes Eyes PERRL, EOMs intact bilaterally and conjunctivae normal Neck nuchal rigidity, supple, no JVD, thyroid normal and no carotid bruits General: trachea midline Resp normal respiratory effort and clear to auscultation bilaterally Auscultation: Negative for rales, rhonchi or wheezes Cardio regular rate, regular rhythm, no murmurs, no rub and no gallops GI normal to inspection, nondistended, normoactive bowel sounds, soft to palpation, non-tender and non-distended Extremity no clubbing, cyanosis or edema Skin no rashes or lesions noted General Skin Exam: no breakdown Neuro oriented x3, CN's II-XII intact bilaterally, no focal motor deficits and no sensory deficits noted Sensorium / Orientation: awake and alert Speech: speech normal Psych thought process normal and affect normal Assessment & Plan Assessment/Plan (1) Chest pain: QUALIFIERS: Chest pain type: chest pain on breathing Qualified Code(s): R07.1 - Chest pain on breathing PLAN: 1. Chest pain in a patient with an abnormal nuclear stress test concerning for occlusive coronary disease-patient's Coumadin will be held, INR will be checked tomorrow, patient will undergo cardiac catheterization per cardiology hopefully tomorrow #2 paroxysmal atrial fibrillation #3 essential hypertension #4 elevated INR Charges/Coding Visit Charges Inpatient E&M: 08013 Subs Hosp L2
[2021-04-19] MEDS: Atorvastatin Calcium 10 MG Tablet PO (21:02)
[2021-04-20] VITALS (16 sets, daily range): BP systolic 98–142; BP diastolic 57–77; PULSE 65–104; RESP 16–18; TEMP 35.7–36.9; O2SAT 92–98
[2021-04-20 05:01] LABS: Prothrombin Time (Protime)PT. 21.8 SECONDS (11.7-14.9)
--- NOTE | 2021-04-20 06:26 | EKG12_ITS ---
Test Reason : Blood Pressure : / mmHG Vent. Rate : 091 BPM Atrial Rate : 070 BPM P-R Int : 000 ms QRS Dur : 092 ms QT Int : 382 ms P-R-T Axes : 000 002 043 degrees QTc Int : 469 ms Atrial fibrillation T wave abnormality, consider lateral ischemia Abnormal ECG When compared with ECG of 18-APR-2021 05:42, T wave inversion now evident in Lateral leads Confirmed by SYED COLVIN, WILLIS ([id number]), video tape editor EDEN GAMBINO ([id number]) on 04/25/2021 10:39:38 AM Referred By: QUE Confirmed By:ASHLEIGH LYNCH MD
[2021-04-20] MEDS: Metoprolol Tartrate 25 MG Tablet PO (06:29)
[2021-04-20] MEDS: Aspirin E.C. 81 MG Tablet PO (06:30)
[2021-04-20] MEDS: amLODIPine 2.5 MG Tablet PO (06:30)
--- NOTE | 2021-04-20 07:06 | NURSING ---
Report called to botany laboratory assistant at this time.
[2021-04-20] MEDS: 0.9% Normal Saline 1,000 ML 50 ML IV (08:20)
[2021-04-20] MEDS: Senna/Docusate Sodium 1 Tablet 2 TABLET PO (10:09)
[2021-04-20] MEDS: Sertraline 50 MG Tablet PO (10:09)
[2021-04-20] MEDS: Furosemide 40 MG/4 ML Vial IV (10:09)
[2021-04-20] MEDS: Potassium Chloride Oral Tablet 20 MEQ 40 MEQ PO (10:12)
--- NOTE | 2021-04-20 15:21 | PCM.DC ---
Discharge Instructions Diet Discharge Diet: No restrictions Activity Discharge Activity: Return to Normal Activity Weight Bearing Status: Full weight bearing Follow Up Care Test Results: Test results from this visit will be discussed in further detail at your follow-up appointment, if applicable. Discharge Plan Admission Admit Date/Time: 04/17/21 10:09 Primary Reason for Your Visit: chest pain and shortness of breath Attending Provider: Husam Evans Primary Care Provider: Betzaida Ho Consulting Providers: Ernie Reed Instructions Patient Instructions: ED Chest Pain, Noncardiac Additional Instructions / Restrictions: Take Tylenol for pain, you may also take narcotics for severe pain, you cannot take ibuprofen, Aleve, or meloxicam due to the fact you are on warfarin, you will need your INR checked next Sunday, Dr. Luciano's office will contact you to set up an appointment for follow-up from this hospitalization, if you have not heard from the office by next week, contact Dr. Luciano's office Discharge Orders/Prescriptions Prescriptions: New furosemide 40 mg Tablet 40 mg PO BIDLX Qty: 60 RF: 0 acetaminophen [Tylenol] 325 mg Tablet 650 mg PO Q6H PRN PRN (Reason: Pain Score 1-10/Temp > 100.7 F) Qty: 1 RF: 0 potassium chloride [Klor-Con M20] 20 mEq Tablet,Er Particles/Crystals 40 meq PO DAILYCM Qty: 60 RF: 0 Continued sertraline 50 mg tablet 50 mg PO QDAY RF: 0 simvastatin 20 MG tablet 20 mg PO QHS RF: 0 amlodipine 2.5 mg tablet 2.5 mg PO DAILY Qty: 30 RF: 11 warfarin 5 mg tablet 5 mg PO .COMPLEX Qty: 0 RF: 0 Changed metoprolol succinate 25 mg tablet extended release 24 hr See Rx Instructions .ROUTE .COMPLEX Qty: 90 RF: 3 Discontinued meloxicam 15 mg tablet 15 mg PO DAILY RF: 0 amiodarone 200 mg tablet 100 mg PO DAILY Qty: 15 RF: 11 Referrals / Follow Up: Betzaida Ho DO [Primary Care Provider] - Within 2 Weeks Kj Luciano MD [STAFF PHYSICIAN] - See Referral Note (As directed, his office will contact you to set up an appointment, you will need your INR checked next Sunday, please go to his office to have this performed) Disposition Disposition (needs filled in before D/C Order can be placed): Home, Self Care
--- NOTE | 2021-04-20 16:21 | PHA.DC.MR ---
Pharmacy Service has performed discharge medication reconciliation for this patient. The patient's discharge medication list was reviewed for discrepancies and discrepancies were resolved. Medication information packets printed, patient discharged when I went to equal opportunity counselor. Medications reviewed. Home Medications simvastatin 20 mg PO QHS 05/03/14 sertraline 50 mg tablet 50 mg PO QDAY 02/21/18 amlodipine 2.5 mg tablet 2.5 mg PO DAILY #30 tab 05/24/18 warfarin 5 mg tablet 5 mg PO .COMPLEX #0 tab 10/29/18 acetaminophen [Tylenol] 650 mg PO Q6H PRN PRN #1 tab 04/20/21 furosemide 40 mg PO BIDLX #60 tab 04/20/21 metoprolol succinate See Rx Instructions .ROUTE .COMPLEX #90 tab 04/20/21 potassium chloride [Klor-Con M20] 40 meq PO DAILYCM #60 tab 04/20/21
--- NOTE | 2021-04-23 08:08 | DS.PCM_ITS ---
Providers Date of Admission: 04/17/21 Date of Discharge: 04/20/21 Primary Care Physician: Dr. Betzaida Ho, DO Consultations 04/17/21 12:00 Consult: Cardiology Routine Consulting Provider: Ernie Reed Reason for Consult: CHEST PAIN, Inspiration, pericarditis/unstable angina EMERGENT Consult: No MD Notified: Yes Date Notified: 04/17/21 Time Notified: 12:01 Method of Notification: Verbal Reason For Visit: ATYPICAL CHEST PAIN Diagnosis Discharge Diagnosis (1) Chest pain: Status: Acute Code(s): R07.9 - Chest pain, unspecified Qualifiers: Chest pain type: chest pain on breathing Qualified Code(s): R07.1 - Chest pain on breathing Plan: 1. Musculoskeletal chest pain #2 paroxysmal atrial fibrillation #3 essential hypertension #4 elevated INR Medications at Discharge Home Medications simvastatin 20 mg PO QHS 05/03/14 sertraline 50 mg tablet 50 mg PO QDAY 02/21/18 amlodipine 2.5 mg tablet 2.5 mg PO DAILY #30 tab 05/24/18 warfarin 5 mg tablet 5 mg PO .COMPLEX #0 tab 10/29/18 acetaminophen [Tylenol] 650 mg PO Q6H PRN PRN #1 tab 04/20/21 furosemide 40 mg PO BIDLX #60 tab 04/20/21 metoprolol succinate See Rx Instructions .ROUTE .COMPLEX #90 tab 04/20/21 potassium chloride [Klor-Con M20] 40 meq PO DAILYCM #60 tab 04/20/21 Hospital Course Operations None Procedures 2-D Echocardiogram, Cardiac catheterization and Stress test Summary of Care Provided Minutes Spent on Discharge: 32 Hospital Course: This 76-year-old white male was seen in the emergency room at [facility] with complaints of chest pain and dyspnea, work-up in the emergency room revealed normal cardiac enzymes, EKG showed a sinus rhythm at [address] changes. Patient's BMP was slightly elevated. Patient was admitted to PCU, he was seen in consultation by cardiology, patient's cardiac enzymes remained normal, patient underwent a nuclear stress test which was felt to be positive for reversible ischemia. Patient underwent an echocardiogram which showed a normal EF, patient underwent a cardiac catheterization which showed normal coronary arteries. On 04/20/2021, patient was seen and examined: On examination he appeared in good health and spirits. Vital signs as documented. Skin warm and dry and without overt rashes. Neck without JVD, neck was supple, trachea midline, thyroid was normal. Lungs clear bilaterally, normal air movement was noted. Heart exam notable for regular rhythm, normal sounds and absence of murmurs, rubs or gallops. Abdomen unremarkable and without evidence of organomegaly, masses, or abdominal aortic enlargement. Bowel sounds are present, abdomen is not disten ded. Extremities nonedematous, no cyanosis was noted, no clubbing was noted. Neuro: Cranial nerves II through XII are grossly intact, no focal motor deficits were noted, sensation to light touch and pinprick intact, motor exam 5/5 throughout. Psych: Patient is alert and oriented x3, he does not appear anxious or depressed, he does not appear agitated. On 04/20/2021, patient was felt to be stable for discharge home. Weight / BMI Weight Weight: 112.5 kg Body Mass Index (BMI) 79.6 ABG / Lab / Microbiology Data Result Diagrams: 04/18/21 06:11 04/18/21 06:11 D/C Instructions Discharge Diet: No restrictions Weight Bearing Status: Full weight bearing Meaningful Use Info Meaningful Use Diagnoses (Choose all that apply): None applicable Discharge Plan Admission Admit Date/Time: 04/17/21 10:09 Primary Reason for Your Visit: chest pain and shortness of breath Attending Provider: Husam Evans Primary Care Provider: Betzaida Ho Consulting Providers: Ernie Reed Instructions Patient Instructions: ED Chest Pain, Noncardiac Additional Instructions / Restrictions: Take Tylenol for pain, you may also take narcotics for severe pain, you cannot take ibuprofen, Aleve, or meloxicam due to the fact you are on warfarin, you will need your INR checked next Sunday, Dr. Luciano's office will contact you to set up an appointment for follow-up from this hospitalization, if you have not heard from the office by next week, contact Dr. Luciano's office Discharge Orders/Prescriptions Prescriptions: New furosemide 40 mg Tablet 40 mg PO BIDLX Qty: 60 RF: 0 acetaminophen [Tylenol] 325 mg Tablet 650 mg PO Q6H PRN PRN (Reason: Pain Score 1-10/Temp > 100.7 F) Qty: 1 RF: 0 potassium chloride [Klor-Con M20] 20 mEq Tablet,Er Particles/Crystals 40 meq PO DAILYCM Qty: 60 RF: 0 Continued sertraline 50 mg tablet 50 mg PO QDAY RF: 0 simvastatin 20 MG tablet 20 mg PO QHS RF: 0 amlodipine 2.5 mg tablet 2.5 mg PO DAILY Qty: 30 RF: 11 warfarin 5 mg tablet 5 mg PO .COMPLEX Qty: 0 RF: 0 Changed metoprolol succinate 25 mg tablet extended release 24 hr See Rx Instructions .ROUTE .COMPLEX Qty: 90 RF: 3 Discontinued meloxicam 15 mg tablet 15 mg PO DAILY RF: 0 amiodarone 200 mg tablet 100 mg PO DAILY Qty: 15 RF: 11 Referrals / Follow Up: Betzaida Ho DO [Primary Care Provider] - Within 2 Weeks Kj Luciano MD [STAFF PHYSICIAN] - See Referral Note (As directed, his office will contact you to set up an appointment, you will need your INR checked next Sunday, please go to his office to have this performed) Disposition Disposition (needs filled in before D/C Order can be placed): Home, Self Care Charges/Coding Visit Charges Inpatient E&M: 63803 Disch Hosp
== END 2021-04-20 16:21 | disposition home or self-care (01) | DRG 204 ==
LOC: ED 09:51 → PCU 04-18 07:15
PROVIDERS: Internal Medicine Cardiovascular Disease; Admitting Provider Internal Medicine; Emergency Provider Emergency Medicine; PCP Family Medicine; Visit Provider Internal Medicine
DX: R07.1 Chest pain on breathing (principal); J98.11 Atelectasis; I48.0 Paroxysmal atrial fibrillation; R79.1 Abnormal coagulation profile; R94.39 Abnormal result of other cardiovascular function study; I11.0 Hypertensive heart disease with heart failure; I50.9 Heart failure, unspecified; I25.9 Chronic ischemic heart disease, unspecified; E78.5 Hyperlipidemia, unspecified; Z82.49 Family history of ischemic heart disease and other diseases of the circulatory system; Z79.01 Long term (current) use of anticoagulants; Z66 Do not resuscitate; Z87.891 Personal history of nicotine dependence; Z79.899 Other long term (current) drug therapy
CPT/HCPCS: 36415; 71045; 71275; 78452; 80048; 80061; 83735; 83880; 84443; 84484; 85025; 85610; 93005; 93017; 93306; 93458; 97110; 97162; 97166; 97530; 97535; 99152; 99153; 99251; 99285; A9500; J7030; J7040; Q9957; Q9967; A4216; C1769; C1894; C8929; G0463; J1940; J2785; J3490

== ENCOUNTER 2021-05-19 15:15 | Outpatient (RCR) | payer MEDICARE, SELFPAY ==
[2020-11-04 09:07] VITALS: BMI 36.3
[2021-04-17 11:10] VITALS: BMI 79.6
[2021-04-25 11:48] LABS: Prothrombin Time (Protime)PT. 43.3 SECONDS (11.7-14.9)
[2021-04-25 11:54] LABS: International Normalized Ratio 4.7
[2021-05-02 17:03] LABS: Prothrombin Time (Protime)PT. 40.6 SECONDS (11.7-14.9)
[2021-05-02 17:06] LABS: International Normalized Ratio 4.3
[2021-05-06 15:53] LABS: International Normalized Ratio 3.7; Prothrombin Time (Protime)PT. 35.7 SECONDS (11.7-14.9)
[2021-05-09 16:29] LABS: International Normalized Ratio 2.9; Prothrombin Time (Protime)PT. 29.8 SECONDS (11.7-14.9)
[2021-05-19 16:02] LABS: International Normalized Ratio 3.7; Prothrombin Time (Protime)PT. 36.2 SECONDS (11.7-14.9)
== END 2021-05-19 18:00 | disposition home or self-care (01) ==
LOC: LAB 15:15
PROVIDERS: PCP Family Medicine; Referring Provider Internal Medicine Cardiovascular Disease; Visit Provider Internal Medicine Cardiovascular Disease
DX: I48.0 Paroxysmal atrial fibrillation (principal); I10 Essential (primary) hypertension; E78.5 Hyperlipidemia, unspecified; Z79.01 Long term (current) use of anticoagulants; Z79.899 Other long term (current) drug therapy
CPT/HCPCS: 36415; 85610

== ENCOUNTER 2021-06-07 15:29 | Outpatient (RCR) | payer MEDICARE, SELFPAY ==
[2021-05-24 19:45] VITALS: BMI 79.6
[2021-05-25 17:20] LABS: International Normalized Ratio 3.5
[2021-05-25 17:55] LABS: Anion Gap 7 (5-15); BUN 16 mg/dL (7-18); BUN/Creat Ratio 19.5 RATIO (10-20); Chloride 109 mmol/L (98-107); Creatinine, Serum 0.82 mg/dL (0.70-1.30); EST Glomerular Filtration Rate 97 mL/min (>60); Est Glom Filt Rate - Afr Amer 118 mL/min (>60); Free T3 6.5 pg/mL (2.18-3.98); Glucose 107 mg/dL (74-106); Potassium 4.1 mmol/L (3.5-5.1); Sodium Level 141 mmol/L (136-145); T4 Free Direct 3.15 ng/dL (0.76-1.46); Thyroid Stim Hormone (TSH) < 0.01 uIU/mL (0.358-3.74)
[2021-06-07 16:45] LABS: International Normalized Ratio 2.3; Prothrombin Time (Protime)PT. 24.2 SECONDS (11.7-14.9)
== END 2021-06-07 18:00 | disposition home or self-care (01) ==
LOC: LAB 15:29
PROVIDERS: Physician Assistant Medical; PCP Nurse Practitioner; Referring Provider Internal Medicine Cardiovascular Disease; Visit Provider Internal Medicine Cardiovascular Disease
DX: I48.0 Paroxysmal atrial fibrillation (principal); I10 Essential (primary) hypertension; E78.5 Hyperlipidemia, unspecified; Z79.01 Long term (current) use of anticoagulants; Z79.899 Other long term (current) drug therapy
CPT/HCPCS: 36415; 80048; 84439; 84443; 84481; 85610

== ENCOUNTER → 2021-07-14 14:10 | Outpatient (CLI) | payer MEDICARE, SELFPAY ==
--- NOTE | 2021-07-14 14:22 | US_ITS ---
STUDY: THYROID ULTRASOUND REASON FOR EXAM: Male, 76 years old. THROAT FULLNESS TECHNIQUE: Ultrasound evaluation of the thyroid was performed with real-time and static flores-scale imaging. COMPARISON: None. FINDINGS: RIGHT LOBE: The right lobe of the thyroid gland measures 3.9 x 1.4 x 2.1 cm. There is a homogeneous echotexture. There are no demonstrated solid, cystic or complex lesions. LEFT LOBE: The left lobe of the thyroid gland measures 3.5 x 1.2 x 1.9 cm. There is a homogeneous echotexture. There are no demonstrated solid, cystic or complex lesions. ISTHMUS: The isthmus measures 6 mm. US/Thyroid IMPRESSION: Normal ultrasound examination of the thyroid. Electronically Signed: Kj Palmer MD at 6:40 EDT Tel , Service support ,
== END ==
PROVIDERS: PCP Nurse Practitioner; Visit Provider Nurse Practitioner
DX: R09.89 Other specified symptoms and signs involving the circulatory and respiratory systems (principal)
CPT/HCPCS: 76536